=== PATIENT | male | born 1955 | race Caucasian/White ===

== ENCOUNTER 2019-03-29 11:35 | Inpatient (IN) | payer OTHER, MEDICARE ==
[2019-03-29 12:13] LABS: ABSOLUTE MONOCYTES (AUTO) 0.6 10^3/uL (0.1-1.4); ABSOLUTE NEUT (AUTO) 9.1 10^3/uL (1.7-8.2); BASOPHILS % (AUTO) 0.3 % (0-2); EOSINOPHILS % (AUTO) 0.2 % (0-6); HEMATOCRIT 43.4 % (37.9-51.0); HEMOGLOBIN 15.6 g/dL (13.5-17.0); LYMPHOCYTES % (AUTO) 9.4 % (13-45); MEAN CORPUSCULAR HEMOGLOBIN 36.7 pg (27.0-33.4); MEAN CORPUSCULAR HGB CONC 35.8 g/dL (32.0-36.0); MEAN CORPUSCULAR VOLUME 103 fl (80-97); MONOCYTES % (AUTO) 5.3 % (3-13); PLATELET COUNT 241 10^3/uL (150-450); RED BLOOD COUNT 4.24 10^6/uL (4.35-5.55); SEGMENTED NEUTROPHILS % (AUTO) 84.8 % (42-78); TOTAL CELLS COUNTED % (AUTO) 100 %; WHITE BLOOD COUNT 10.7 10^3/uL (4.0-10.5)
[2019-03-29 12:32] LABS: ALBUMIN 4.6 g/dL (3.5-5.0); ALKALINE PHOSPHATASE 102 U/L (38-126); ANION GAP 8 (5-19); ASPARTATE AMINO TRANSFERASE 56 U/L (17-59); BILIRUBIN,DIRECT 0.3 mg/dL (0.0-0.4); BILIRUBIN,TOTAL 0.9 mg/dL (0.2-1.3); BLOOD UREA NITROGEN 24 mg/dL (7-20); CARBON DIOXIDE 35 mmol/L (22-30); CHLORIDE 100 mmol/L (98-107); GLUCOSE 104 mg/dL (75-110); LITHIUM 0.5 mEq/L (0.6-1.2); POTASSIUM 3.4 mmol/L (3.6-5.0); TOTAL PROTEIN 7.8 g/dL (6.3-8.2)
[2019-03-29 12:33] LABS: ACETAMINOPHEN < 10 ug/mL (10-30); ALCOHOL < 10 mg/dL (NONE DETECTED); SALICYLATE < 1.0 mg/dL (2.0-20.0)
[2019-03-29 12:45] LABS: CALCIUM 18.6 mg/dL (8.4-10.2)
--- NOTE | 2019-03-29 12:51 | RADIOLOGY REPORT (SQ) ---
EXAM DESCRIPTION: CT CERVICAL SPINE WITHOUT COMPLETED DATE/TIME: 03/29/2019 12:42 pm REASON FOR STUDY: altered mental status COMPARISON: None. TECHNIQUE: Axial images acquired through the cervical spine without intravenous contrast. Images re viewed with lung, soft tissue and bone windows. Reconstructed coronal and sagittal MPR images review ed. Images stored on PACS. All CT scanners at this facility use dose modulation, iterative reconstruction, and/or weight based d osing when appropriate to reduce radiation dose to as low as reasonably achievable (ALARA). [facility]: Dose Right [facility]: CareDose [facility]: Dose Right [facility]: Teradose 4D [facility]: Smart Hub[employer] RADIATION DOSE: CT Rad equipment meets quality standard of care and radiation dose reduction techniq ues were employed. CTDIvol: 18.0 mGy. DLP: 374 mGy-cm. mGy. LIMITATIONS: None. FINDINGS: ALIGNMENT: Degenerative straightening of the normal cervical lordosis. MINERALIZATION: Normal. VERTEBRAL BODIES: No fractures or dislocation. DISCS: Moderate multilevel disc space height loss and osteophytosis. FACETS, LATERAL MASSES, POSTERIOR ELEMENTS: No fractures. No dislocation. No acute findings. HARDWARE: None in the spine. VISUALIZED RIBS: No fractures. LUNG APICES AND SOFT TISSUES: No significant or acute findings. OTHER: No other significant finding. IMPRESSION: No fracture or static subluxation of the cervical spine. Moderate multilevel disc space height loss and osteophytosis. TECHNICAL DOCUMENTATION: JOB ID: [id number] Quality ID # [id number]: Final reports with documentation of one or more dose reduction techniques (e.g., Au tomated exposure control, adjustment of the mA and/or kV according to patient size, use of iterative reconstruction technique) 2010 [employer]- All Rights Reserved Reading location - IP/workstation name: [email or web address]
--- NOTE | 2019-03-29 12:53 | RADIOLOGY REPORT (SQ) ---
EXAM DESCRIPTION: CT HEAD WITHOUT COMPLETED DATE/TIME: 03/29/2019 12:43 pm REASON FOR STUDY: altered mental status COMPARISON: None. TECHNIQUE: Axial images acquired through the brain without intravenous contrast. Images reviewed wi th bone, brain and subdural windows. Additional sagittal and coronal reconstructions were generated. Images stored on PACS. All CT scanners at this facility use dose modulation, iterative reconstruction, and/or weight based d osing when appropriate to reduce radiation dose to as low as reasonably achievable (ALARA). [facility]: Dose Right [facility]: CareDose [facility]: Dose Right [facility]: Teradose 4D [facility]: Smart [employer] RADIATION DOSE: CT Rad equipment meets quality standard of care and radiation dose reduction techniq ues were employed. CTDIvol: 53.2 mGy. DLP: 2247 mGy-cm. mGy. LIMITATIONS: None. FINDINGS: VENTRICLES: Normal size and contour. CEREBRUM: No masses. No hemorrhage. No midline shift. No evidence for acute infarction. Normal gra y/white matter differentiation. No areas of low density in the white matter. CEREBELLUM: No masses. No hemorrhage. No alteration of density. No evidence for acute infarction. EXTRAAXIAL SPACES: No fluid collections. No masses. ORBITS AND GLOBE: No intra- or extraconal masses. Normal contour of globe without masses. CALVARIUM: No fracture. PARANASAL SINUSES: No fluid or mucosal thickening. SOFT TISSUES: No mass or hematoma. OTHER: No other significant finding. IMPRESSION: No acute intracranial pathology. EVIDENCE OF ACUTE STROKE: NO. COMMENT: Quality ID # [id number]: Final reports with documentation of one or more dose reduction techniques (e.g., Automated exposure control, adjustment of the mA and/or kV according to patient size, use of iterative reconstruction technique) TECHNICAL DOCUMENTATION: JOB ID: [id number] [employer]- All Rights Reserved Reading location - IP/workstation name: [email or web address]
--- NOTE | 2019-03-29 14:29 | ER Document Report ---
Entered by LUISA MATTHEWS SCRIBE 03/29/19 1201 Acting as scribe for:SARAI SAXENA IV, MD ED General - General Chief Complaint: Altered Mental Status Stated Complaint: ALTERED MENTAL STATUS Time Seen by Provider: 03/29/19 11:49 Mode of Arrival: Medic Notes: This 63 year old male patient presents to the emergency department today via EMS for altered mental status. The neighbor of the patient found his windows and doors open and he went in to check on the patient and the patient was altered. Poison control states that the patient is on Seroquel and has three different dosages: 100mg, 200mg, 400mg and is on [place] 300mg and none of the medications are extended release. Poison control recommends EKG upon arrival, continuous cardiac monitoring, serial lithium levels Q3-4H, CMP, aspirin/tylenol levels. History is incredibly limited as the patient is unable to provide any meaningful history and no family is here with the patient. Past Medical History - General Information source: Emergency Med Personnel Cannot obtain history due to: Altered mental status - Social History Smoking Status: Unknown if Ever Smoked Family History: Reviewed & Not Pertinent Review of Systems - Review of Systems -: Yes ROS unobtainable due to patient's medical condition Physical Exam - Vital signs Vitals: Pulse Resp BP Pulse Ox 73 18 148/88 H 94 03/29/19 11:36 03/29/19 11:36 03/29/19 11:36 03/29/19 11:36 - General General appearance: Other - confused. does not answer any questions. does say "how are you?" when entering room and that is about the extent of his conversation In distress: None - HEENT Head: Normocephalic, Atraumatic Eyes: Normal Conjunctiva: Normal - Respiratory Respiratory status: No respiratory distress Chest status: Nontender Breath sounds: Normal - Cardiovascular Rhythm: Regular Heart sounds: Normal auscultation Murmur: No - Abdominal Inspection: Normal Distension: No distension Bowel sounds: Normal - Extremities General upper extremity: Normal inspection. No: Edema General lower extremity: Normal inspection. No: Edema - Neurological Cognition: Confused - Psychological Associated symptoms: Confused - Skin Skin Temperature: Warm Skin Moisture: Dry Skin Color: Normal Course - Vital Signs Vital signs: Temp Pulse Resp BP Pulse Ox 98.4 F 93 16 142/87 H 93 03/29/19 13:01 12/25/19 11:36 03/29/19 16:01 03/29/19 16:01 03/29/19 14:01 - Laboratory Result Diagrams: 03/29/19 12:05 03/29/19 12:05 Laboratory results interpreted by me: 03/29/19 03/29/19 03/29/19 12:05 12:05 13:50 WBC 10.7 H RBC 4.24 L MCV 103 H MCH 36.7 H Lymph % (Auto) 9.4 L Absolute Neuts (auto) 9.1 H Seg Neutrophils % 84.8 H Potassium 3.4 L Carbon Dioxide 35 H BUN 24 H Creatinine 2.19 H Est GFR ( Amer) 37 L Est GFR (MDRD) Non-Af 30 L Calcium 18.6 H* Ionized Calcium Bernard 2.14 H Urine Ketones Salicylates < 1.0 L Acetaminophen < 10 L [place] 0.5 L 03/29/19 16:18 WBC RBC MCV MCH Lymph % (Auto) Absolute Neuts (auto) Seg Neutrophils % Potassium Carbon Dioxide BUN Creatinine Est GFR ( Amer) Est GFR (MDRD) Non-Af Calcium Ionized Calcium Bernard Urine Ketones TRACE H Salicylates Acetaminophen [place] - Consults TACO DE JESUS Time consulted: 17:05 Reason for consultation: 03/29/19 17:05 ams, elevated calcium Discharge - Discharge Clinical Impression: Hypercalcemia, Acute kidney injury, Altered mental status Condition: Good Disposition: ADMITTED INPATIENT Admitting Provider: Bethany (Hospitalist) Unit Admitted: IMCU I personally performed the services described in the documentation, reviewed and edited the documentation which was dictated to the scribe in my presence, and it accurately records my words and actions.
[2019-03-29] MEDS ORDERED: NORMAL SALINE 1000 ML 1,000 ML IV ONE (15:29)
[2019-03-29 16:34] LABS: APPEARANCE,URINE CLEAR; BILIRUBIN,URINE NEGATIVE (NEGATIVE); COLOR,URINE YELLOW; GLUCOSE, URINE NEGATIVE (NEGATIVE); KETONES,URINE TRACE mg/dL (NEGATIVE); PROTEIN,URINE NEGATIVE (NEGATIVE); URINE SPECIFIC GRAVITY 1.011; UROBILINOGEN,URINE NEGATIVE mg/dL (<2.0)
[2019-03-29 16:52] LABS: URINE AMPHETAMINES SCREEN NEGATIVE; URINE BARBITURATES SCREEN NEGATIVE; URINE BENZODIAZEPINES SCREEN NEGATIVE; URINE COCAINE SCREEN NEGATIVE; URINE MARIJUANA (THC) SCREEN NEGATIVE; URINE METHADONE SCREEN NEGATIVE; URINE PHENCYCLIDINE SCREEN NEGATIVE
[2019-03-29] MEDS ORDERED: POTASSI CL 20 MEQ/50 ML RIDER 20 MEQ/50 ML RTUPB IV ONE ×2 (17:30→19:15)
--- NOTE | 2019-03-29 17:37 | PDOC H&P ---
<CHEKO GUZMAN R - Last Filed: 03/29/19 17:23> History of Present Illness Admission Date/PCP: 03/29/2019 Unknown primary care Patient complains of: Unable to assess patient altered mental status no family at bedside History of Present Illness: RUSTY STEVENS is a 63 year old male who presents emergency department via EMS for altered mental status. The patient's neighbor found patient with his windows and doors opening went into check on the patient patient was altered. Patient does take Seroquel and lithium for bipolar rhythm however levels are normal at this time. Patient was found to have a calcium level of 18 and an acute kidney injury. No other further information could be obtained at this time. No treatment prior to arrival no known aggravating factors. Past Medical History Past Medical History: Unable to assess secondary to his mental status Psychiatric Medical History: Reports: Bipolar Disorder Past Surgical History Past Surgical History: Unable to assess secondary to mental status Social History Smoking Status: Unknown if Ever Smoked Electronic Cigarette use?: No Past Social History Note: Unable to assess secondary to mental status - Advance Directive Resuscitation Status: Full Code Family History Family History: Other - Unable to assess secondary to mental status Parental Family History Reviewed: No - Unable to assess secondary mental status Children Family History Reviewed: No Sibling(s) Family History Reviewed.: No Review of Systems ROS unobtainable: Due to mental status Physical Exam Vital Signs: Temp Pulse Resp BP Pulse Ox 98.4 F 93 16 142/87 H 93 03/29/19 13:01 03/29/19 11:36 03/29/19 16:01 03/29/19 16:01 03/29/19 14:01 Intake & Output 03/28/19 03/29/19 03/30/19 06:59 06:59 06:59 Weight 71.8 kg General appearance: PRESENT: no acute distress, well-developed, well-nourished Head exam: PRESENT: atraumatic, normocephalic Eye exam: PRESENT: conjunctiva pink, EOMI, PERRLA. ABSENT: scleral icterus Ear exam: PRESENT: normal external ear exam Mouth exam: PRESENT: moist, tongue midline Neck exam: ABSENT: carotid bruit, JVD, lymphadenopathy, thyromegaly Respiratory exam: PRESENT: clear to auscultation yassine. ABSENT: rales, rhonchi, wheezes Cardiovascular exam: PRESENT: RRR. ABSENT: diastolic murmur, rubs, systolic mur mur Pulses: PRESENT: normal dorsalis pedis pul Vascular exam: PRESENT: normal capillary refill GI/Abdominal exam: PRESENT: normal bowel sounds, soft. ABSENT: distended, guarding, mass, organolmegaly, rebound, tenderness Rectal exam: PRESENT: deferred Extremities exam: PRESENT: full ROM. ABSENT: calf tenderness, clubbing, pedal edema Neurological exam: PRESENT: altered, other - Unable to assess secondary to mental status Psychiatric exam: PRESENT: other - Unable to assess secondary to mental status Skin exam: PRESENT: dry, intact, warm. ABSENT: cyanosis, rash Results Laboratory Results: 03/29/19 12:05 03/29/19 12:05 03/29/19 03/29/19 03/29/19 12:05 12:05 13:50 WBC 10.7 H RBC 4.24 L Hgb 15.6 Hct 43.4 MCV 103 H MCH 36.7 H MCHC 35.8 RDW 12.0 Plt Count 241 Seg Neutrophils % 84.8 H Sodium 142.8 Potassium 3.4 L Chloride 100 Carbon Dioxide 35 H Anion Gap 8 BUN 24 H Creatinine 2.19 H Est GFR ( Amer) 37 L Glucose 104 Calcium 18.6 H* Ionized Calcium Bernard 2.14 H Total Bilirubin 0.9 AST 56 Alkaline Phosphatase 102 Total Protein 7.8 Albumin 4.6 PTH Intact Urine Color Urine Appearance Urine pH Ur Specific [place] Urine Protein Urine Glucose (UA) Urine Ketones Urine Blood 03/29/19 03/29/19 13:50 16:18 WBC RBC Hgb Hct MCV MCH MCHC RDW Plt Count Seg Neutrophils % Sodium Potassium Chloride Carbon Dioxide Anion Gap BUN Creatinine Est GFR ( Amer) Glucose Calcium Ionized Calcium Bernard Total Bilirubin AST Alkaline Phosphatase Total Protein Albumin PTH Intact 23.2 Urine Color YELLOW Urine Appearance CLEAR Urine pH 6.0 Ur Specific [place] 1.011 Urine Protein NEGATIVE Urine Glucose (UA) NEGATIVE Urine Ketones TRACE H Urine Blood NEGATIVE Impressions: Cervical Spine CT 03/29/19 12:01 IMPRESSION: No fracture or static subluxation of the cervical spine. Moderate multilevel disc space height loss and osteophytosis. Head CT 03/29/19 12:01 IMPRESSION: No acute intracranial pathology. EVIDENCE OF ACUTE STROKE: NO. Assessment and Plan - Diagnosis (1) Hypercalcemia Is this a current diagnosis for this admission?: Yes Plan: 03/29/2019-calcium level 18.6 with an intact PTH of 23.2. I will obtain a PTH are, give patient calcitonin 300 mg IM twice daily. Patient does have an acute kidney injury with a creatinine of 2. I will hydrate him overnight recheck creatinine level in the a.m. if normalized I will obtain CT scan of the chest abdomen pelvis with contrast to rule out neoplasm. (2) Acute metabolic encephalopathy Is this a current diagnosis for this admission?: Yes Plan: 03/29/2019-unknown etiology at this time. Urine is clean. Awaiting chest x- ray. Most likely secondary to his hypercalcemia. Will hydrate overnight treat with calcitonin reassess in the a.m. I am obtaining lab work including vitamin B12, folic acid, TSH T4. Will wait further diagnostics. (3) Acute kidney injury Is this a current diagnosis for this admission?: Yes Plan: 03/29/2019-creatinine 2.19. No previous records. Hydrate overnight normal saline at 150 mL/h repeat BMP in the a.m. (4) Hypokalemia Is this a current diagnosis for this admission?: Yes Plan: 03/29/2019-potassium chloride riders 20 mEq x 1 repeat BMP in a.m. (5) Macrocytic anemia Is this a current diagnosis for this admission?: Yes Plan: 03/29/2019-unknown etiology. Will obtain vitamin B12, folic acid and methylmalonic acid. - Time Time Spent with patient: 35 or more minutes - Inpatient Certification Based on my medical assessment, after consideration of the patient's comorbidities, presenting symptoms, or acuity I expect that the services needed warrant INPATIENT care.: Yes I certify that my determination is in accordance with my understanding of Medicare's requirements for reasonable and necessary INPATIENT services [42 CFR 412.3e].: Yes Medical Necessity: Significant Comorbidiites Make Outpatient Treatment Too Risky, Need Close Monitoring Due to Risk of Patient Decompensation, Need For IV Fluids <SARAI SAXENA IV - Last Filed: 03/29/19 19:14> History of Present Illness History of Present Illness: RUSTY STEVENS is a 63 year old male Physical Exam Vital Signs: Temp Pulse Resp BP Pulse Ox 98.4 F 93 16 142/87 H 93 03/29/19 13:01 03/29/19 11:36 03/29/19 16:01 03/29/19 16:01 03/29/19 14:01 Intake & Output 03/28/19 03/29/19 03/30/19 06:59 06:59 06:59 Weight 71.8 kg Results Laboratory Results: 03/29/19 12:05 03/29/19 12:05 03/29/19 03/29/19 03/29/19 12:05 12:05 13:50 WBC 10.7 H RBC 4.24 L Hgb 15.6 Hct 43.4 MCV 103 H MCH 36.7 H MCHC 35.8 RDW 12.0 Plt Count 241 Seg Neutrophils % 84.8 H Sodium 142.8 Potassium 3.4 L Chloride 100 Carbon Dioxide 35 H Anion Gap 8 BUN 24 H Creatinine 2.19 H Est GFR ( Amer) 37 L Glucose 104 Calcium 18.6 H* Ionized Calcium Bernard 2.14 H Total Bilirubin 0.9 AST 56 Alkaline Phosphatase 102 Total Protein 7.8 Albumin 4.6 PTH Intact Urine Color Urine Appearance Urine pH Ur Specific [place] Urine Protein Urine Glucose (UA) Urine Ketones Urine Blood 03/29/19 03/29/19 13:50 16:18 WBC RBC Hgb Hct MCV MCH MCHC RDW Plt Count Seg Neutrophils % Sodium Potassium Chloride Carbon Dioxide Anion Gap BUN Creatinine Est GFR ( Amer) Glucose Calcium Ionized Calcium Bernard Total Bilirubin AST Alkaline Phosphatase Total Protein Albumin PTH Intact 23.2 Urine Color YELLOW Urine Appearance CLEAR Urine pH 6.0 Ur Specific [place] 1.011 Urine Protein NEGATIVE Urine Glucose (UA) NEGATIVE Urine Ketones TRACE H Urine Blood NEGATIVE Impressions: Chest X-Ray 03/29/19 00:00 IMPRESSION: Cardiomegaly without acute abnormality of the lungs in AP portable projection. Cervical Spine CT 03/29/19 12:01 IMPRESSION: No fracture or static subluxation of the cervical spine. Moderate multilevel disc space height loss and osteophytosis. Head CT 03/29/19 12:01
--- NOTE | 2019-03-29 17:51 | RADIOLOGY REPORT (SQ) ---
EXAM DESCRIPTION: CHEST SINGLE VIEW COMPLETED DATE/TIME: 03/29/2019 5:43 pm REASON FOR STUDY: hypercalemia COMPARISON: None. EXAM PARAMETERS: NUMBER OF VIEWS: One view. TECHNIQUE: Single frontal radiographic view of the chest acquired. RADIATION DOSE: NA LIMITATIONS: None. FINDINGS: LUNGS AND PLEURA: No opacities, masses or pneumothorax. No pleural effusion. MEDIASTINUM AND HILAR STRUCTURES: No masses. Contour normal. HEART AND VASCULAR STRUCTURES: Cardiomegaly. BONES: No acute findings. HARDWARE: None in the chest. OTHER: No other significant finding. IMPRESSION: Cardiomegaly without acute abnormality of the lungs in AP portable projection. TECHNICAL DOCUMENTATION: JOB ID: [id number] [employer]- All Rights Reserved Reading location - IP/workstation name: [email or web address]
[2019-03-29] MEDS ORDERED: CALCITONIN,SALMON,SYNTHETIC 400 UNIT/2 ML VIAL IM SCH (18:00)
--- NOTE | 2019-03-29 20:10 | EKG REPORT ---
SEVERITY:- ABNORMAL ECG - SINUS RHYTHM NONSPECIFIC INTRAVENTRICULAR CONDUCTION DELAY BORDERLINE R WAVE PROGRESSION, ANTERIOR LEADS : Confirmed by: Leah Melchor MD 29-Mar-2019 20:09:36
[2019-03-29 20:49] LABS: FREE T4 (FREE THYROXINE) 0.81 ng/dL (0.78-2.19)
[2019-03-29 21:03] LABS: THYROID STIMULATING HORMONE 2.64 uIU/mL (0.47-4.68)
[2019-03-29] MEDS: NORMAL SALINE 1000 ML 1,000 ML IV PRN (21:18)
[2019-03-29] MEDS ORDERED: CALCITONIN,SALMON,SYNTHETIC 400 UNIT/2 ML VIAL ONE (21:18)
[2019-03-29] MEDS: CALCITONIN,SALMON,SYNTHETIC 400 UNIT/2 ML VIAL IM SCH (21:25)
[2019-03-29 21:46] LABS: FOLATE > 20.00 ng/mL (>2.76)
[2019-03-29] MEDS: ONDANSETRON HCL INJ/PF 4 MG/2 ML SDV IV PRN (22:15)
[2019-03-29 22:58] LABS: BLOOD UREA NITROGEN 27 mg/dL (7-20); GLUCOSE 93 mg/dL (75-110)
[2019-03-29 22:59] LABS: ANION GAP 10 (5-19); CARBON DIOXIDE 28 mmol/L (22-30); CHLORIDE 104 mmol/L (98-107); LITHIUM 0.6 mEq/L (0.6-1.2); POTASSIUM 3.5 mmol/L (3.6-5.0)
[2019-03-29 23:15] LABS: CALCIUM 16.1 mg/dL (8.4-10.2)
[2019-03-30] MEDS: HEPARIN SOD (PORCINE) 5,000 UNIT/ML 1 ML VIAL SUBCUT SCH ×4 (00:40→22:51)
[2019-03-30] MEDS ORDERED: INFLUENZA QUAD (6MOS+) 2019-20 VAC 0.5 ML SYR IM ONE (03:05)
[2019-03-30] MEDS: HYDRALAZINE HCL INJ/PF 20 MG/1 ML SDV IV PRN (04:54)
[2019-03-30] MEDS: NORMAL SALINE 1000 ML 1,000 ML IV PRN ×2 (04:55→22:56)
[2019-03-30 06:09] LABS: HEMATOCRIT 39.8 % (37.9-51.0); MEAN CORPUSCULAR HEMOGLOBIN 36.1 pg (27.0-33.4); MEAN CORPUSCULAR HGB CONC 35.2 g/dL (32.0-36.0); MEAN CORPUSCULAR VOLUME 103 fl (80-97); PLATELET COUNT 223 10^3/uL (150-450); RED BLOOD COUNT 3.88 10^6/uL (4.35-5.55); RED CELL DISTRIBUTION WIDTH 11.9 % (11.5-14.0); WHITE BLOOD COUNT 12.4 10^3/uL (4.0-10.5)
[2019-03-30 06:28] LABS: ANION GAP 10 (5-19); BLOOD UREA NITROGEN 30 mg/dL (7-20); CARBON DIOXIDE 30 mmol/L (22-30); CHLORIDE 105 mmol/L (98-107); GLUCOSE 124 mg/dL (75-110); PHOSPHORUS 2.4 mg/dL (2.5-4.5); POTASSIUM 3.2 mmol/L (3.6-5.0)
--- NOTE | 2019-03-30 09:12 | PDOC PROGRESS REPORT ---
Subjective Progress Note for:: 03/30/19 Subjective:: 03/30/2019-patient remains confused no complaints by nursing at this time. Reason For Visit: HYPERCALCEMIA Physical Exam Vital Signs: Temp Pulse Resp BP Pulse Ox 97.5 F 91 16 140/72 H 96 03/30/19 08:17 03/30/19 08:17 03/30/19 08:17 03/30/19 08:17 03/30/19 08:17 Intake & Output 03/29/19 03/30/19 03/31/19 06:59 06:59 06:59 Intake Total 2049 Balance 2049 Weight 62.7 kg General appearance: PRESENT: no acute distress, well-developed, well-nourished Head exam: PRESENT: atraumatic, normocephalic Eye exam: PRESENT: conjunctiva pink, EOMI, PERRLA. ABSENT: scleral icterus Ear exam: PRESENT: normal external ear exam Mouth exam: PRESENT: moist, tongue midline Neck exam: ABSENT: carotid bruit, JVD, lymphadenopathy, thyromegaly Respiratory exam: PRESENT: clear to auscultation yassine. ABSENT: rales, rhonchi, wheezes Cardiovascular exam: PRESENT: RRR. ABSENT: diastolic murmur, rubs, systolic murmur Pulses: PRESENT: normal dorsalis pedis pul Vascular exam: PRESENT: normal capillary refill GI/Abdominal exam: PRESENT: normal bowel sounds, soft. ABSENT: distended, guarding, mass, organolmegaly, rebound, tenderness Rectal exam: PRESENT: deferred Extremities exam: PRESENT: full ROM. ABSENT: calf tenderness, clubbing, pedal edema Neurological exam: PRESENT: awake, other - Awake but remains confused at this time Psychiatric exam: PRESENT: other - Unable to assess as patient remains confused Skin exam: PRESENT: dry, intact, warm. ABSENT: cyanosis, rash Results Laboratory Results: 03/30/19 05:59 03/30/19 05:59 03/29/19 03/29/19 03/29/19 12:05 12:05 12:05 WBC 10.7 H RBC 4.24 L Hgb 15.6 Hct 43.4 MCV 103 H MCH 36.7 H MCHC 35.8 RDW 12.0 Plt Count 241 Seg Neutrophils % 84.8 H Sodium 142.8 Potassium 3.4 L Chloride 100 Carbon Dioxide 35 H Anion Gap 8 BUN 24 H Creatinine 2.19 H Est GFR ( Amer) 37 L Glucose 104 Calcium 18.6 H* Ionized Calcium Bernard Phosphorus Magnesium Total Bilirubin 0.9 AST 56 Alkaline Phosphatase 102 Total Protein 7.8 Albumin 4.6 Vitamin B12 908.0 Folate > 20.00 TSH Free T4 PTH Intact Urine Color Urine Appearance Urine pH Ur Specific [place] Urine Protein Urine Glucose (UA) Urine Ketones Urine Blood 03/29/19 03/29/19 03/29/19 12:05 13:50 13:50 WBC RBC Hgb Hct MCV MCH MCHC RDW Plt Count Seg Neutrophils % Sodium Potassium Chloride Carbon Dioxide Anion Gap BUN Creatinine Est GFR ( Amer) Glucose Calcium Ionized Calcium Bernard 2.14 H Phosphorus Magnesium Total Bilirubin AST Alkaline Phosphatase Total Protein Albumin Vitamin B12 Folate TSH 2.64 Free T4 0.81 PTH Intact 23.2 Urine Color Urine Appearance Urine pH Ur Specific [place] Urine Protein Urine Glucose (UA) Urine Ketones Urine Blood 03/29/19 03/29/19 03/30/19 16:18 22:05 05:59 WBC 12.4 H RBC 3.88 L Hgb 14.0 Hct 39.8 MCV 103 H MCH 36.1 H MCHC 35.2 RDW 11.9 Plt Count 223 Seg Neutrophils % Sodium 142.0 Potassium 3.5 L Chloride 104 Carbon Dioxide 28 Anion Gap 10 BUN 27 H Creatinine 1.91 H Est GFR ( Amer) 43 L Glucose 93 Calcium 16.1 H* Ionized Calcium Bernard Phosphorus Magnesium Total Bilirubin AST Alkaline Phosphatase Total Protein Albumin Vitamin B12 Folate TSH Free T4 PTH Intact Urine Color YELLOW Urine Appearance CLEAR Urine pH 6.0 Ur Specific [place] 1.011 Urine Protein NEGATIVE Urine Glucose (UA) NEGATIVE Urine Ketones TRACE H Urine Blood NEGATIVE 03/30/19 05:59 WBC RBC Hgb Hct MCV MCH MCHC RDW Plt Count Seg Neutrophils % Sodium 144.7 Potassium 3.2 L Chloride 105 Carbon Dioxide 30 Anion Gap 10 BUN 30 H Creatinine 2.15 H Est GFR ( Amer) 38 L Glucose 124 H Calcium 16.0 H* Ionized Calcium Bernard Phosphorus 2.4 L Magnesium 1.4 L Total Bilirubin AST Alkaline Phosphatase Total Protein Albumin Vitamin B12 Folate TSH Free T4 PTH Intact Urine Color Urine Appearance Urine pH Ur Specific [place] Urine Protein Urine Glucose (UA) Urine Ketones Urine Blood Impressions: Chest X-Ray 03/29/19 00:00 IMPRESSION: Cardiomegaly without acute abnormality of the lungs in AP portable projection. Cervical Spine CT 03/29/19 12:01 IMPRESSION: No fracture or static subluxation of the cervical spine. Moderate multilevel disc space height loss and osteophytosis. Head CT 03/29/19 12:01 IMPRESSION: No acute intracranial pathology. EVIDENCE OF ACUTE STROKE: NO. Assessment and Plan - Diagnosis (1) Hypercalcemia Is this a current diagnosis for this admission?: Yes Plan: 03/29/2019-calcium level 18.6 with an intact PTH of 23.2. I will obtain a PTH are, give patient calcitonin 300 mg IM twice daily. Patient does have an acute kidney injury with a creatinine of 2. I will hydrate him overnight recheck creatinine level in the a.m. if normalized I will obtain CT scan of the chest abdomen pelvis with contrast to rule out neoplasm. 02/08/2019-calcium down to 16.0 this morning. Awaiting PTH R. Patient remains on calcitonin 300 mg IM twice daily. I did discuss this case with Dr. Samreen wasserman at this time will get a serum protein electrophoresis, light chains, quantitative immunoglobulins and a skeletal bone survey. Once patient creatinine has improved I will get a CT chest abdomen and pelvis to rule out malignancy. (2) Acute metabolic encephalopathy Is this a current diagnosis for this admission?: Yes Plan: 03/29/2019-unknown etiology at this time. Urine is clean. Awaiting chest x- ray. Most likely secondary to his hypercalcemia. Will hydrate overnight treat with calcitonin reassess in the a.m. I am obtaining lab work including vitamin B12, folic acid, TSH T4. Will wait further diagnostics. 03/30/2019-remains confused. No known cause at this time other than his hypercalcemia. We will continue hydration and follow. I will obtain MRI of the brain without contrast at this time as well. (3) Acute kidney injury Is this a current diagnosis for this admission?: Yes Plan: 03/29/2019-creatinine 2.19. No previous records. Hydrate overnight normal saline at 150 mL/h repeat BMP in the a.m.. 03/30/2019-improved. Creatinine 2.15 at this time. Continue hydration hold any nephrotoxic medications follow. (4) Hypokalemia Is this a current diagnosis for this admission?: Yes Plan: 03/29/2019-potassium chloride riders 20 mEq x 1 repeat BMP in a.m. 03/30/2019-potassium riders 40 mill:'s at this time repeat BMP in a.m. (5) Macrocytic anemia Is this a current diagnosis for this admission?: Yes Plan: 03/29/2019-unknown etiology. Will obtain vitamin B12, folic acid and methylmalonic acid. 03/30/2019-awaiting laboratory diagnostics. (6) Hypomagnesemia Is this a current diagnosis for this admission?: Yes Plan: 03/30/2019-magnesium sulfate 2 g IV repeat mag in a.m. (7) Hypophosphatemia Is this a current diagnosis for this admission?: Yes Plan: 03/30/2019-potassium phosphate 30 mmol IV times 1 repeat phosphorus in the a.m. - Time Time Spent with patient: 15-24 minutes - Inpatient Certification Based on my medical assessment, after consideration of the patient's comorbiditi es, presenting symptoms, or acuity I expect that the services needed warrant INPATIENT care.: Yes I certify that my determination is in accordance with my understanding of [facility]'s requirements for reasonable and necessary INPATIENT services [42 CFR 412.3e].: Yes Medical Necessity: Significant Comorbidiites Make Outpatient Treatment Too Risky, Need Close Monitoring Due to Risk of Patient Decompensation, Need For IV Fluids, Need For Continuous Telemetry Monitoring
[2019-03-30] MEDS ORDERED: DANTROLENE SODIUM INJ 20 MG VIAL IV SCH (10:15)
[2019-03-30] MEDS ORDERED: POTASSIUM PHOS,M-BASIC-D-BASIC 30 MMOL in NORMAL SALINE 500 ML IV ONE (10:30)
[2019-03-30] MEDS: POTASSI CL 20 MEQ/50 ML RIDER 20 MEQ/50 ML RTUPB IV SCH ×2 (10:38→18:31)
[2019-03-30] MEDS ORDERED: DANTROLENE SODIUM IV PRN ×2 (11:17)
[2019-03-30] MEDS: MAGNESIUM SULFATE/D5W 1 GM/100 ML RTUPB IV SCH ×2 (13:28→17:09)
[2019-03-30] MEDS: CALCITONIN,SALMON,SYNTHETIC 400 UNIT/2 ML VIAL IM SCH ×3 (14:44→22:52)
[2019-03-30] MEDS ORDERED: POTASSI CL 20 MEQ/50 ML RIDER 20 MEQ/50 ML RTUPB IV ONE (18:18)
[2019-03-31] MEDS: ONDANSETRON HCL INJ/PF 4 MG/2 ML SDV IV PRN (03:25)
[2019-03-31] MEDS: HEPARIN SOD (PORCINE) 5,000 UNIT/ML 1 ML VIAL SUBCUT SCH ×3 (06:13→21:02)
[2019-03-31 06:38] LABS: HEMATOCRIT 40.1 % (37.9-51.0); HEMOGLOBIN 13.9 g/dL (13.5-17.0); MEAN CORPUSCULAR HEMOGLOBIN 36.2 pg (27.0-33.4); MEAN CORPUSCULAR HGB CONC 34.6 g/dL (32.0-36.0); MEAN CORPUSCULAR VOLUME 105 fl (80-97); PLATELET COUNT 203 10^3/uL (150-450); RED BLOOD COUNT 3.83 10^6/uL (4.35-5.55); RED CELL DISTRIBUTION WIDTH 12.1 % (11.5-14.0); WHITE BLOOD COUNT 15.6 10^3/uL (4.0-10.5)
[2019-03-31 07:09] LABS: ANION GAP 11 (5-19); BLOOD UREA NITROGEN 40 mg/dL (7-20); CARBON DIOXIDE 26 mmol/L (22-30); CHLORIDE 111 mmol/L (98-107); GLUCOSE 117 mg/dL (75-110); POTASSIUM 3.9 mmol/L (3.6-5.0)
[2019-03-31 07:22] LABS: CALCIUM 13.9 mg/dL (8.4-10.2)
--- NOTE | 2019-03-31 08:21 | PDOC CONSULTATION ---
Consultation Consult Date: 03/31/19 Attending physician:: DUC OLIVA Provider Consulted: ANDRES JUDGE Consult reason:: Hypercalcemia concerning for malignancy History of Present Illness Admission Date/PCP: 03/29/19 19:48 Patient complains of: Confusion History of Present Illness: RUSTY STEVENS is a 63 year old male who presented with about 24 hours of worsening confusion. He was found on by his family and was compl etely altered. 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 Apparently he had not checked on him in 24 hours and his brothers were alerted, they checked on him and found him very confused at home with all the windows and doors open. Apparently 24 hours prior to that he seemed lucid and with it. His daughter spoke to him about a week before admission and did not note any changes. He has had longstanding low back pain as well as knee pain. But his daughter notes that he is pretty stoic and does not really complain too much to her. [facility]. She does not express that he had had any extreme weight loss recently. Upon admission his calcium level was 15, and he was in acute renal failure. He has been given aggressive hydration but the calcium level has not really come down, today we are giving bisphosphonate therapy to him. Of note, he does have known bipolar disorder, is on medication for this longstanding, but his daughter notes that it is been well controlled for years and he has not had any issues with that including jen for several years. Past Medical History Psychiatric Medical History: Reports: Bipolar Disorder Denies: Depression Past Surgical History Past Surgical History: Reports: None Social History Information Source: Relative Smoking Status: Current Every Day Smoker Cigarettes Packs Per Day: 1 Electronic Cigarette use?: No Number of Years Smokin Frequency of Alcohol Use: Heavy Drugs: None - Advance Directive Resuscitation Status: Full Code Family History Family History: Reviewed & Not Pertinent Parental Family History Reviewed: Yes Children Family History Reviewed: Yes Sibling(s) Family History Reviewed.: Yes Medication/Allergy Home Medications: [place] Carbonate 300 mg PO QHS 03/30/19 Quetiapine Fumarate [Seroquel] 200 mg PO QAM 03/30/19 Quetiapine Fumarate [Seroquel] 400 mg PO QHS 03/30/19 Ranitidine HCl 150 mg PO DAILY 03/30/19 Allergies/Adverse Reactions: No Known Allergies Allergy (Unverified 03/29/19 22:50) Review of Systems ROS unobtainable: Due to mental status Physical Exam Vital Signs: Temp Pulse Resp BP Pulse Ox 97.3 F 75 18 158/95 H 100 03/31/19 07:15 03/31/19 07:15 03/31/19 07:15 03/31/19 07:15 03/31/19 07:15 Intake & Output 03/30/19 03/31/19 04/01/19 06:59 06:59 06:59 Intake Total 2049 115 Output Total 0 Balance 2049 115 Weight 62.7 kg 66.8 kg General appearance: PRESENT: mild distress Head exam: PRESENT: atraumatic Mouth exam: PRESENT: dry mucosa Respiratory exam: PRESENT: clear to auscultation yassine. ABSENT: rales, rhonchi, wheezes Cardiovascular exam: PRESENT: RRR. ABSENT: diastolic murmur, rubs, systolic murmur GI/Abdominal exam: PRESENT: normal bowel sounds, soft. ABSENT: distended, guarding, mass, organolmegaly, rebound, tenderness Rectal exam: PRESENT: deferred Neurological exam: PRESENT: altered Psychiatric exam: PRESENT: agitated Results Laboratory Results: 03/31/19 05:56 03/31/19 05:56 03/31/19 03/31/19 05:56 05:56 WBC 15.6 H RBC 3.83 L Hgb 13.9 Hct 40.1 MCV 105 H MCH 36.2 H MCHC 34.6 RDW 12.1 Plt Count 203 Sodium 148.3 H Potassium 3.9 Chloride 111 H Carbon Dioxide 26 Anion Gap 11 BUN 40 H Creatinine 2.42 H Est GFR ( Amer) 33 L Glucose 117 H Calcium 13.9 H* Impressions: Chest X-Ray 03/29/19 00:00 IMPRESSION: Cardiomegaly without acute abnormality of the lungs in AP portable projection. Cervical Spine CT 03/29/19 12:01 IMPRESSION: No fracture or static subluxation of the cervical spine. Moderate multilevel disc space height loss and osteophytosis. Head CT 03/29/19 12:01 IMPRESSION: No acute intracranial pathology. EVIDENCE OF ACUTE STROKE: NO. Assessment & Plan - Diagnosis (1) Hypercalcemia Is this a current diagnosis for this admission?: Yes Plan: Unsure of cause, we have myeloma work-up pending, I gave recommendations to the hospitalist team to consider noncontrast CT of the chest and abdomen pelvis. At least if we see a large mass with bone involvement on a noncontrasted image we have a reason for the hypercalcemia. It will take 4 to 5 days for the myeloma work-up to come back. Give Zometa today. Continue with aggressive hydration. (2) Altered mental status Qualifiers: Altered mental status type: delirium Qualified Code(s): R41.0 - Disorientation, unspecified Is this a current diagnosis for this admission?: Yes Plan: I believe this is probably acute delirium caused by hypercalcemia, until we get the calcium levels below 10, we will not be able to tell for sure. - Time Time Spent: Greater than 70 Minutes - Inpatient Certification Based on my medical assessment, after consideration of the patient's comorbidities, presenting symptoms, or acuity I expect that the services needed warrant INPATIENT care.: Yes I certify that my determination is in accordance with my understanding of Medicare's requirements for reasonable and necessary INPATIENT services [42 CFR 412.3e].: Yes Medical Necessity: Need for Neurological Checks, Risk of Complication if Not Cared For in Hospital
--- NOTE | 2019-03-31 09:43 | PDOC TRANSFER SUMMARY ---
General Admission Date/PCP: 03/29/19 19:48 Admission Date: 03/29/19 Accepting Facility: [facility] Resuscitation Status: Full Code - Transfer Diagnosis (1) Hypercalcemia Is this a current diagnosis for this admission?: Yes (2) Acute metabolic encephalopathy Is this a current diagnosis for this admission?: Yes (3) Acute kidney injury Is this a current diagnosis for this admission?: Yes (4) Hypokalemia Is this a current diagnosis for this admission?: Yes (5) Macrocytic anemia Is this a current diagnosis for this admission?: Yes (6) Hypomagnesemia Is this a current diagnosis for this admission?: Yes (7) Hypophosphatemia Is this a current diagnosis for this admission?: Yes - Transfer Medications Transfer Medications: Current Medications Calcitonin (Miacalcin Inj 200 Unit/1 Ml 2 Ml Vial) 300 unit IM Q12 [facility] Stop: 04/29/19 14:29 Last Admin: 03/30/19 22:52 Dose: 2 ml Documented by: Heparin Sodium (Porcine) (Heparin Inj 5,000 Units/Ml 1 Ml Vial) 5,000 unit SUBCUT Q8 [facility] Stop: 04/28/19 21:59 Last Admin: 03/31/19 06:13 Dose: 5,000 unit Documented by: Hydralazine HCl (Apresoline Inj/Pf 20 Mg/1 Ml Sdv) 10 mg IV Q4HP PRN PRN Reason: Give For Sbp > [160] Stop: 04/28/19 17:19 Last Admin: 03/30/19 04:54 Dose: 10 mg Documented by: Sodium Chloride (Nacl 0.9% 1000 Ml Iv Soln) 1,000 mls @ 150 mls/hr IV CONTINUOUS PRN PRN Reason: THIS MED IS NOT "PRN" Stop: 04/28/19 17:11 Last Admin: 03/30/19 22:56 Dose: 150 mls/hr Documented by: Ondansetron HCl (Zofran Inj/Pf 4 Mg/2 Ml Sdv) 4 mg IV Q8HP PRN PRN Reason: FOR NAUSEA/VOMITING Stop: 04/28/19 17:11 Last Admin: 03/31/19 03:25 Dose: 4 mg Documented by: Sodium Chloride (Saline Flush 2.5 Ml Monoject Prefil Syrin) 2.5 ml IV Q8 [facility] Stop: 04/28/19 21:59 Last Admin: 03/31/19 06:13 Dose: 2.5 ml Documented by: Zoledronic Acid (Zometa Rtu 4 Mg/100 Ml Infus..Btl) 4 mg IV ONCE [facility] Stop: 04/01/19 09:44 - Allergies Allergies/Adverse Reactions: No Known Allergies Allergy (Unverified 03/29/19 22:50) - Diet/Activity Discharge Diet: As Tolerated Physical Exam Vital Signs: Temp Pulse Resp BP Pulse Ox 97.3 F 75 18 158/95 H 100 03/31/19 07:15 03/31/19 07:15 03/31/19 07:15 03/31/19 07:15 03/31/19 07:15 Intake & Output 03/30/19 03/31/19 04/01/19 06:59 06:59 06:59 Intake Total 2049 115 Output Total 0 Balance 2049 115 Weight 62.7 kg 66.8 kg General appearance: PRESENT: no acute distress, well-developed, well-nourished Respiratory exam: PRESENT: clear to auscultation yassine. ABSENT: rales, rhonchi, wheezes Cardiovascular exam: PRESENT: RRR. ABSENT: diastolic murmur, rubs, systolic murmur Pulses: PRESENT: +1 pedal pulses bilateral Vascular exam: PRESENT: normal capillary refill GI/Abdominal exam: PRESENT: normal bowel sounds, soft. ABSENT: distended, guard ing, mass, organolmegaly, rebound, tenderness Extremities exam: PRESENT: full ROM. ABSENT: calf tenderness, clubbing, pedal edema Neurological exam: PRESENT: other - Remains confused however awake Psychiatric exam: PRESENT: agitated, other - Able to assess secondary to mental status Skin exam: PRESENT: dry, intact, warm. ABSENT: cyanosis, rash Results Laboratory Results: 03/31/19 05:56 03/31/19 05:56 03/31/19 03/31/19 05:56 05:56 WBC 15.6 H RBC 3.83 L Hgb 13.9 Hct 40.1 MCV 105 H MCH 36.2 H MCHC 34.6 RDW 12.1 Plt Count 203 Sodium 148.3 H Potassium 3.9 Chloride 111 H Carbon Dioxide 26 Anion Gap 11 BUN 40 H Creatinine 2.42 H Est GFR ( Amer) 33 L Glucose 117 H Calcium 13.9 H* Impressions: Chest X-Ray 03/29/19 00:00 IMPRESSION: Cardiomegaly without acute abnormality of the lungs in AP portable projection. Cervical Spine CT 03/29/19 12:01 IMPRESSION: No fracture or static subluxation of the cervical spine. Moderate multilevel disc space height loss and osteophytosis. Head CT 03/29/19 12:01 IMPRESSION: No acute intracranial pathology. EVIDENCE OF ACUTE STROKE: NO. Plan Time Spent: Greater than 30 Minutes
[2019-03-31] MEDS ORDERED: ZOLEDRONIC ACID 4 MG/100 ML RTU IV SCH (09:45)
[2019-03-31] MEDS: CALCITONIN,SALMON,SYNTHETIC 400 UNIT/2 ML VIAL IM SCH ×2 (10:26→21:03)
[2019-03-31] MEDS ORDERED: ZOLEDRONIC ACID 4 MG/100 ML RTU IV ONE (11:30)
[2019-03-31] MEDS: LORAZEPAM INJ 2 MG/1 ML VIAL IV PRN ×2 (12:01→21:07)
[2019-03-31 15:36] LABS: FREE KAPPA LIGHT CHAINS 19.4 mg/L (3.3-19.4); FREE LAMBDA LIGHT CHAINS 18.1 mg/L (5.7-26.3)
[2019-03-31] MEDS: NORMAL SALINE 1000 ML 1,000 ML IV PRN (22:57)
[2019-04-01] MEDS: NORMAL SALINE 1000 ML 1,000 ML IV PRN ×3 (02:00→16:11)
[2019-04-01] MEDS: LORAZEPAM INJ 2 MG/1 ML VIAL IV PRN ×4 (04:33→18:12)
[2019-04-01] MEDS: HEPARIN SOD (PORCINE) 5,000 UNIT/ML 1 ML VIAL SUBCUT SCH ×3 (06:28→21:37)
[2019-04-01 07:24] LABS: HEMATOCRIT 39.2 % (37.9-51.0); HEMOGLOBIN 13.6 g/dL (13.5-17.0); MEAN CORPUSCULAR HEMOGLOBIN 36.3 pg (27.0-33.4); MEAN CORPUSCULAR HGB CONC 34.8 g/dL (32.0-36.0); MEAN CORPUSCULAR VOLUME 104 fl (80-97); PLATELET COUNT 171 10^3/uL (150-450); RED BLOOD COUNT 3.76 10^6/uL (4.35-5.55); WHITE BLOOD COUNT 14.4 10^3/uL (4.0-10.5)
[2019-04-01 07:47] LABS: ANION GAP 10 (5-19); BLOOD UREA NITROGEN 48 mg/dL (7-20); CARBON DIOXIDE 23 mmol/L (22-30); CHLORIDE 121 mmol/L (98-107); GLUCOSE 99 mg/dL (75-110)
[2019-04-01 07:58] LABS: CALCIUM 12.8 mg/dL (8.4-10.2)
[2019-04-01 07:59] LABS: POTASSIUM 2.9 mmol/L (3.6-5.0)
--- NOTE | 2019-04-01 08:54 | Progress Note ---
Provider Note Provider Note: 04/01/2019-patient accepted to [facility] yesterday attending Dr. Mcneal. Awaiting bed at this time. Patient with hypokalemia this morning 2.9. Will give 60 mEq IV KCl riders. Patient daughter also revealed this morning the patient is a daily drinker. We will given Ativan 2 mg IV every 2 hours as ne eded anxiety and rally bags daily.
[2019-04-01] MEDS: HYDRALAZINE HCL INJ/PF 20 MG/1 ML SDV IV PRN (09:26)
[2019-04-01] MEDS: CALCITONIN,SALMON,SYNTHETIC 400 UNIT/2 ML VIAL IM SCH ×2 (09:26→21:37)
[2019-04-01] MEDS: POTASSI CL 20 MEQ/50 ML RIDER 20 MEQ/50 ML RTUPB IV SCH ×3 (09:27→13:25)
[2019-04-01] MEDS ORDERED: LORAZEPAM INJ 2 MG/1 ML VIAL IV ONE (09:30)
[2019-04-01] MEDS ORDERED: SUCCINYLCHOLINE CHLORIDE INJ 200 MG/10 ML VIAL ONE ×2 (09:35→15:24)
[2019-04-01] MEDS: METOPROLOL TARTRATE PF/INJ 5 MG/5 ML SDV IV PRN ×2 (10:42→19:11)
--- NOTE | 2019-04-01 14:11 | PDOC PROGRESS REPORT ---
Subjective Progress Note for:: 04/01/19 Subjective:: Patient still very confused, mental status is not improved, Zometa was given yesterday. Patient has been accepted by [facility] and I just heard that a bed was available probably today. He will be transferred today. Reason For Visit: HYPERCALCEMIA Physical Exam Vital Signs: Temp Pulse Resp BP Pulse Ox 99.5 F 112 H 17 153/85 H 95 04/01/19 12:27 04/01/19 12:27 04/01/19 12:27 04/01/19 12:27 04/01/19 12:27 Intake & Output 03/31/19 04/01/19 04/02/19 06:59 06:59 06:59 Intake Total 1150 1999 1033 Output Total 0 Balance 1150 1999 103 Weight 66.8 kg 67.2 kg General appearance: PRESENT: no acute distress, well-developed, well-nourished Head exam: PRESENT: atraumatic, normocephalic Eye exam: PRESENT: conjunctiva pink, EOMI, PERRLA. ABSENT: scleral icterus Ear exam: PRESENT: normal external ear exam Mouth exam: PRESENT: moist, tongue midline Neck exam: ABSENT: carotid bruit, JVD, lymphadenopathy, thyromegaly Respiratory exam: PRESENT: clear to auscultation yassine. ABSENT: rales, rhonchi, wheezes Cardiovascular exam: PRESENT: RRR. ABSENT: diastolic murmur, rubs, systolic murmur Pulses: PRESENT: normal dorsalis pedis pul Vascular exam: PRESENT: normal capillary refill GI/Abdominal exam: PRESENT: normal bowel sounds, soft. ABSENT: distended, guarding, mass, organolmegaly, rebound, tenderness Rectal exam: PRESENT: deferred Extremities exam: PRESENT: full ROM. ABSENT: calf tenderness, clubbing, pedal edema Neurological exam: PRESENT: alert, awake, oriented to person, oriented to place, oriented to time, oriented to situation, CN II-XII grossly intact. ABSENT: motor sensory deficit Psychiatric exam: PRESENT: appropriate affect, normal mood. ABSENT: homicidal ideation, suicidal ideation Skin exam: PRESENT: dry, intact, warm. ABSENT: cyanosis, rash Results Laboratory Results: 04/01/19 06:54 04/01/19 06:54 04/01/19 04/01/19 06:54 06:54 WBC 14.4 H RBC 3.76 L Hgb 13.6 Hct 39.2 MCV 104 H MCH 36.3 H MCHC 34.8 RDW 12.0 Plt Count 171 Sodium 153.8 H Potassium 2.9 L* Chloride 121 H Carbon Dioxide 23 Anion Gap 10 BUN 48 H Creatinine 2.57 H Est GFR ( Amer) 31 L Glucose 99 Calcium 12.8 H* 03/31/19 05:56 Creatine Kinase 310 H Impressions: Chest X-Ray 03/29/19 00:00 IMPRESSION: Cardiomegaly without acute abnormality of the lungs in AP portable projection. Cervical Spine CT 03/29/19 12:01 IMPRESSION: No fracture or static subluxation of the cervical spine. Moderate multilevel disc space height loss and osteophytosis. Head CT 03/29/19 12:01 IMPRESSION: No acute intracranial pathology. EVIDENCE OF ACUTE STROKE: NO. Assessment & Plan - Diagnosis (1) Hypercalcemia Is this a current diagnosis for this admission?: Yes Plan: Still unknown cause, awaiting myeloma work-up, I gave my card to the daughter in case oncology gets involved at [facility] and they need to talk to me. (2) Altered mental status Qualifiers: Altered mental status type: delirium Qualified Code(s): R41.0 - Dis orientation, unspecified Is this a current diagnosis for this admission?: Yes Plan: Still believe it is delirium related to the hypercalcemia, once the calcium levels are under 10 I believe it should improve but he would benefit from brain imaging as well as other staging studies. - Time Time Spent with patient: 35 or more minutes
[2019-04-01 14:20] LABS: KAPPA LAMBDA RATIO 1.07 (0.26-1.65)
[2019-04-01] MEDS ORDERED: MIDAZOLAM 2 MG/2 ML INJ ONE ×3 (14:39→14:43)
[2019-04-01] MEDS ORDERED: PROPOFOL 1,000 MG/100 ML INFUS..BTL IV ONE (14:57)
[2019-04-01 15:02] LABS: ABSOLUTE BASOPHILS # (AUTO) 0.1 10^3/uL (0.0-0.2); EOSINOPHILS % (AUTO) 0.1 % (0-6); RED CELL DISTRIBUTION WIDTH 12.1 % (11.5-14.0); TOTAL CELLS COUNTED % (AUTO) 100 %
[2019-04-01 15:10] LABS: ABSOLUTE LYMPHOCYTES (AUTO) 0.9 10^3/uL (0.5-4.7); ABSOLUTE MONOCYTES (AUTO) 0.8 10^3/uL (0.1-1.4); ABSOLUTE NEUT (AUTO) 13.2 10^3/uL (1.7-8.2); BASOPHILS % (AUTO) 0.3 % (0-2); HEMATOCRIT 40.1 % (37.9-51.0); HEMOGLOBIN 13.8 g/dL (13.5-17.0); LYMPHOCYTES % (AUTO) 5.7 % (13-45); MEAN CORPUSCULAR HEMOGLOBIN 36.1 pg (27.0-33.4); MEAN CORPUSCULAR HGB CONC 34.5 g/dL (32.0-36.0); MEAN CORPUSCULAR VOLUME 105 fl (80-97); MONOCYTES % (AUTO) 5.5 % (3-13); PLATELET COUNT 187 10^3/uL (150-450); RED BLOOD COUNT 3.83 10^6/uL (4.35-5.55); SEGMENTED NEUTROPHILS % (AUTO) 88.4 % (42-78); WHITE BLOOD COUNT 14.9 10^3/uL (4.0-10.5)
[2019-04-01 15:11] LABS: INTERNATIONAL RATION (INR) 1.11; PROTHROMBIN TIME 14.3 SEC (11.4-15.4)
[2019-04-01 15:12] LABS: PARTIAL THROMBOPLASTIN TIME 28.1 SEC (23.5-35.8)
[2019-04-01 15:24] LABS: ALBUMIN 3.1 g/dL (3.5-5.0); ALKALINE PHOSPHATASE 77 U/L (38-126); ANION GAP 7 (5-19); ASPARTATE AMINO TRANSFERASE 32 U/L (17-59); BILIRUBIN,DIRECT 0.4 mg/dL (0.0-0.4); BILIRUBIN,TOTAL 0.8 mg/dL (0.2-1.3); BLOOD UREA NITROGEN 50 mg/dL (7-20); CALCIUM 11.9 mg/dL (8.4-10.2); CARBON DIOXIDE 23 mmol/L (22-30); CHLORIDE 127 mmol/L (98-107); GLUCOSE 100 mg/dL (75-110); POTASSIUM 3.3 mmol/L (3.6-5.0)
--- NOTE | 2019-04-01 15:25 | Progress Note ---
Provider Note Provider Note: Critical Care Attending Note. Responded to code blue. YOKER Woo Flores was at the head of the bed intubating the pt. Intubation was unsucessful and pt aspirated during the attempt. I took over airway management and transferred the pt to the ICU and intubated the pt.
--- NOTE | 2019-04-01 15:36 | Progress Note ---
Provider Note Provider Note: Procedure: endotracheal intubation Indication: respiratory arrest Technique: Pt was pre-oxygenated via BVM. Pt was medicated with Etomidate 20 mg and succinylcholine 100 mg. Pt was intubated with a size 7.5 ET tube using a Glidescope. Tube placement was confirmed with good color change on the ETCO2 detector. Pt tolerated the procedure well. CXR pending.
--- NOTE | 2019-04-01 15:38 | Operative Report ---
Bedside Procedure - History of Present Illness Indication for Procedure: respiratory arrest, need for IV access Provider: MINNIE TAPIA - Central Line Left Internal jugular Time completed: 15:15 Consent obtained: Yes Central line pre-insertion: Sterile PPE donned, Chloraprep applied, Sterile drapes applied Central line lumen type: Triple Ultrasound guided: Yes Line secured with sutures: Yes Central line post-insertion: Blood return from lumens, Biopatch applied, Sutured, Sterile dressing applied, Position confirmed w/ CXR Number of attempts: 1 Complications: No
[2019-04-01] MEDS ORDERED: ETOMIDATE INJ/PF 20 MG/10 ML SDV IV ONE (16:06)
--- NOTE | 2019-04-01 16:40 | RADIOLOGY REPORT (SQ) ---
EXAM DESCRIPTION: CHEST SINGLE VIEW COMPLETED DATE/TIME: 04/01/2019 4:24 pm REASON FOR STUDY: code COMPARISON: Chest radiographs 03/29/2019 EXAM PARAMETERS: NUMBER OF VIEWS: One view. TECHNIQUE: Single frontal radiographic view of the chest acquired. RADIATION DOSE: NA LIMITATIONS: None. FINDINGS: LUNGS AND PLEURA: No opacities, masses or pneumothorax. Mildly increased conspicuity of t he right minor fissure. MEDIASTINUM AND HILAR STRUCTURES: No masses. Contour normal. HEART AND VASCULAR STRUCTURES: Heart normal in size. Normal vasculature. BONES: No acute findings. HARDWARE: Left internal jugular central venous catheter with the tip projecting over the lower superi or vena cava. Enteric tube demonstrating a subdiaphragmatic course terminating over the left upper a bdomen, over the expected region of the stomach. Enteric tube tip terminating 4.5 cm above the melanie a. OTHER: No other significant finding. IMPRESSION: Lines and tubes as above. Mildly increased conspicuity of the right minor fissure, which may represent a small amount of intraf issural pleural fluid. Otherwise, no acute pulmonary findings. TECHNICAL DOCUMENTATION: JOB ID: [id number]- All Rights Reserved Reading location - IP/workstation name: [email or web address]
[2019-04-01] MEDS ORDERED: VANCOMYCIN HCL 0 MG in DEXTROSE 5%-WATER 250 ML IV NR (16:45)
[2019-04-01 17:03] LABS: ARTERIAL BLOOD BASE EXCESS -1.5 mmol/L; ARTERIAL BLOOD FIO2 100%; ARTERIAL BLOOD H2CO3 1.05 mmol/L (1.05-1.35); ARTERIAL BLOOD HCO3 22.3 mmol/L (20-24); ARTERIAL BLOOD O2 SATURATION 99.8 % (94-98); ARTERIAL BLOOD PCO2 34.9 mmHg (35-45); ARTERIAL BLOOD PH 7.42 (7.35-7.45); ARTERIAL BLOOD PO2 407.6 mmHg (80-100); ARTERIAL BLOOD TOTAL CO2 23.4 mmol/L (23-27)
--- NOTE | 2019-04-01 17:06 | Progress Note ---
Provider Note Provider Note: 03/24/2019-called to patient bedside by nurse as patient would become tachycardic tachypneic and having periods of apnea. Upon entering room Sherita day and myself and patient to be having periods of apnea along with nystagmus possible Bilski and pupillary changes. After 30 seconds in room patient started experiencing long periods of apnea and was very hot to the touch. At that time a code was called to rapidly intubate patient for airway patent and safety. Throughout this time patient was bagged his blood pressure, respiratory rate and O2 sats remained good. Patient was given 5 mg of IV Versed and 10 mg of IV rocuronium for intubation. I attempted a #7 ET tube using 3 oh curved blade. Patient was still moving somewhat and unfortunately ET tube placed in the esophagus. Patient was graciously treated by Dr. Lydia Cooper who took the patient to the ICU and was able to intubate patient with the use of a glide scope. Patient with plan of care was transferred to Dr. Cooper at that time. I spent a total of 45 minutes critical care time constantly monitoring patient's blood pressure, respiratory rate, heart rate, O2 sats. As well as administer medications and trying to stabilize patient.
--- NOTE | 2019-04-01 17:13 | CRITICAL CARE ADMISSION REPORT ---
HPI Date:: 04/01/19 - Critical Care Attending Note Time:: 16:59 Reason for ICU Reason:: acute respiratory failure HPI: Pt is a 63 yo man with h/o bipolar disorder who was admitted to the Hospitalist service on 03/29 for altered mental status due to hypercalemia. Pt was also in MARYAN. Oncology was consulted and pt was being treated for his hypercalcemi with IVF, calcitonin and zometa. Also of note, pt was also hypernatremic with a sodium of 157 today which was an increase from 142 on admission. A code blue was called today for unresponsiveness. ZOYA Flores attempted to intubate the pt and the pt aspirated. The pt was transferred to the ICU and I intubated the pt. Pt r emains unresponsive. Past Medical History Psychiatric Medical History: Reports: Bipolar Disorder Denies: Depression Past Surgical History Past Surgical History: Reports: None Social/Family History - Social History Smoking Status: Current Every Day Smoker Cigarettes Packs Per Day: 1 Number of Years Smokin Frequency of Alcohol Use: Heavy Drugs: None - Medication/Allergies Home Medications: Cholecalciferol (Vitamin D3) [Vitamin D3 1000 Unit Tablet] 2,000 unit PO DAILY 03/31/19 Diclofenac Sodium 4 gm TP ASDIR PRN 03/31/19 [place] Carbonate 300 mg PO QHS 03/31/19 Quetiapine Fumarate [Seroquel] 400 mg PO QHS 03/31/19 Allergies/Adverse Reactions: No Known Allergies Allergy (Verified 04/01/19 04:13) Review of Systems ROS unobtainable: Due to endotracheal tube Physical Exam Vital Signs: Temp Pulse Resp BP Pulse Ox 99.5 F 112 H 18 137/87 H 100 04/01/19 12:27 04/01/19 12:27 04/01/19 16:11 04/01/19 16:11 04/01/19 16:11 Intake & Output 03/31/19 04/01/19 04/02/19 06:59 06:59 06:59 Intake Total 1150 1999 2093 Output Total 0 900 Balance 1150 1999 119 Weight 66.8 kg 67.2 kg Weight/Height Weight 67.2 kg Height 5 ft 6 in General appearance: PRESENT: no acute distress, well-developed, well-nourished, other - intubated, unresponsive Head exam: PRESENT: atraumatic, normocephalic Respiratory exam: PRESENT: clear to auscultation yassine, unlabored Cardiovascular exam: PRESENT: RRR GI/Abdominal exam: PRESENT: soft, other - NTND, no rebound, no guarding Gentrourinary exam: PRESENT: indwelling catheter Extremities exam: PRESENT: other - no edema Musculoskeletal exam: PRESENT: normal inspection Neurological exam: PRESENT: other - comatose, PERRL, bilateral babinski signs Laboratory/Radiographs Laboratory Results: 04/01/19 14:45 04/01/19 14:45 04/01/19 04/01/19 04/01/19 06:54 06:54 14:45 WBC 14.4 H 14.9 H RBC 3.76 L 3.83 L Hgb 13.6 13.8 Hct 39.2 40.1 MCV 104 H 105 H MCH 36.3 H 36.1 H MCHC 34.8 34.5 RDW 12.0 12.1 Plt Count 171 187 Seg Neutrophils % 88.4 H Sodium 153.8 H Potassium 2.9 L* Chloride 121 H Carbon Dioxide 23 Anion Gap 10 BUN 48 H Creatinine 2.57 H Est GFR ( Amer) 31 L Glucose 99 Calcium 12.8 H* Magnesium Total Bilirubin AST Alkaline Phosphatase Total Protein Albumin 04/01/19 14:45 WBC RBC Hgb Hct MCV MCH MCHC RDW Plt Count Seg Neutrophils % Sodium 157.4 H Potassium 3.3 L Chloride 127 H Carbon Dioxide 23 Anion Gap 7 BUN 50 H Creatinine 2.47 H Est GFR ( Amer) 32 L Glucose 100 Calcium 11.9 H Magnesium 1.6 Total Bilirubin 0.8 AST 32 Alkaline Phosphatase 77 Total Protein 6.0 L Albumin 3.1 L 03/31/19 04/01/19 05:56 14:45 Creatine Kinase 310 H Troponin I 0.028 Impressions: Cervical Spine CT 03/29/19 12:01 IMPRESSION: No fracture or static subluxation of the cervical spine. Moderate multilevel disc space height loss and osteophytosis. Head CT 03/29/19 12:01 IMPRESSION: No acute intracranial pathology. EVIDENCE OF ACUTE STROKE: NO. Chest X-Ray 04/01/19 00:00 IMPRESSION: Lines and tubes as above. Mildly increased conspicuity of the right minor fissure, which may represent a small amount of intrafissural pleural fluid. Otherwise, no acute pulmonary findings. All labs, radiographs, diagnostic studies and EKGs were personally reviewed: Yes Critical Time Critical Time (minutes): 60 -: The care of a critically ill patient is dynamic. This note represents a static moment in the admission process. Orders and treatments may be given simultan eously and urgently, and time is not bank representative of the treatment process. This patient requires Critical Care secondary to life threatening organ or limb dysfunction. Without Critical Care services, the patient is at risk for increased mortality and morbidity. Provider Note Provider Note: Assessment: Critically ill 63 yo man with acute respiratory failure, aspiration PNA, hypercalcemia, hypernatremia, coma, MARYAN. Plan: 1. Respiratory: acute respiratory failure. I intubated the pt. Will check post- intubation ABG 2. Pulmonary: aspiration PNA. Pt aspirated during initial intubation attempt during the code. Will stat vanc and cefepime Will check cultures 3. CV: heart rate and BP acceptable 4. Renal/Electrolytes: MARYAN. Cr is 2.47. hypercalcemia, resolving. Ca is sitll elevated at 11.9. Continue IVF and calcitonin. Bisphosphonates are contraind icated due to pt's severe MARYAN. Hypernatremia. Pt's sodium is 157 today and was 142 on admission. Will start 1/2 NS IVF and will start free water. Will repeat BMP to ensure the sodium level is not being corrected too rapidly. 5.Oncology. Hypercalcemia. Will order CT of head, chest, abdomen, and pelvis to look for malignancy. Dr. Perez following 6. Neuro: coma. Metabolic derangements are the most likely cause. Will obtain head CT to eval for stroke 7. ID: aspiration PNA. Will start vanc and cefepime. Will check cultures 8. Nutrition:NPO 9. Prophylaxis: scds, sq heparin Critical care time= 60 min, excluding procedures
--- NOTE | 2019-04-01 17:33 | RADIOLOGY REPORT (SQ) ---
EXAM DESCRIPTION: CT HEAD WITHOUT COMPLETED DATE/TIME: 04/01/2019 5:21 pm REASON FOR STUDY: change of mental status COMPARISON: 03/29/2019 TECHNIQUE: Axial images acquired through the brain without intravenous contrast. Images reviewed wi th bone, brain and subdural windows. Additional sagittal and coronal reconstructions were generated. Images stored on PACS. All CT scanners at this facility use dose modulation, iterative reconstruction, and/or weight based d osing when appropriate to reduce radiation dose to as low as reasonably achievable (ALARA). [facility]: Dose Right [facility]: CareDose [facility]: Dose Right [facility]: Teradose 4D [facility]: [employer] RADIATION DOSE: CT Rad equipment meets quality standard of care and radiation dose reduction techniq ues were employed. CTDIvol: 53.2 mGy. DLP: 1017 mGy-cm. mGy. LIMITATIONS: None. FINDINGS: VENTRICLES: Normal size and contour. CEREBRUM: No masses. No hemorrhage. No midline shift. No evidence for acute infarction. Normal gra y/white matter differentiation. No areas of low density in the white matter. CEREBELLUM: No masses. No hemorrhage. No alteration of density. No evidence for acute infarction. EXTRAAXIAL SPACES: No fluid collections. No masses. ORBITS AND GLOBE: No intra- or extraconal masses. Normal contour of globe without masses. CALVARIUM: No fracture. PARANASAL SINUSES: Minimal right maxillary sinus mucosal thickening. SOFT TISSUES: No mass or hematoma. OTHER: Right nasogastric tube. IMPRESSION: NO ACUTE INTRACRANIAL IMAGING FINDINGS. EVIDENCE OF ACUTE STROKE: NO. COMMENT: Quality ID # [id number]: Final reports with documentation of one or more dose reduction techniques (e.g., Automated exposure control, adjustment of the mA and/or kV according to patient size, use of iterative reconstruction technique) TECHNICAL DOCUMENTATION: JOB ID: [id number] [employer]- All Rights Reserved Reading location - IP/workstation name: [email or web address]
[2019-04-01] MEDS: CEFEPIME 1 GM/D5W RTU 1 GM/50 ML RTUPB IV SCH (18:13)
--- NOTE | 2019-04-01 18:46 | Progress Note ---
Provider Note Provider Note: Critical Care Attending Note. Spoke with patient's daughter. I updated her on pt's conditon and plan of care. She voiced understanding and all her questions were answered. She states her sister will be arriving from [place]. His daughter has stated that pt information should only be shared with her and her sister.
[2019-04-01] MEDS: NORMAL SALINE 1000 ML 1,000 ML with POTASSIUM CHLORIDE 20 MEQ, MAGNESIUM SULFATE 8 MEQ,... IV SCH ×5 (19:16)
[2019-04-01] MEDS: 1/2 NORMAL SALINE 1,000 ML IV PRN (19:30)
[2019-04-01] MEDS ORDERED: VANCOMYCIN HCL INJ 1000 MG VIAL IV PRN (20:53)
[2019-04-01] MEDS ORDERED: CALCITONIN,SALMON,SYNTHETIC 400 UNIT/2 ML VIAL ONE (21:24)
[2019-04-01] MEDS ORDERED: VANCOMYCIN HCL 1,250 MG in DEXTROSE 5%-WATER 250 ML IV ONE (22:00)
[2019-04-01 22:25] LABS: ANION GAP 6 (5-19); BLOOD UREA NITROGEN 49 mg/dL (7-20); CALCIUM 11.5 mg/dL (8.4-10.2); CARBON DIOXIDE 22 mmol/L (22-30); CHLORIDE 128 mmol/L (98-107); GLUCOSE 102 mg/dL (75-110)
[2019-04-02 05:21] LABS: ARTERIAL BLOOD BASE EXCESS -2.6 mmol/L; ARTERIAL BLOOD H2CO3 0.88 mmol/L (1.05-1.35); ARTERIAL BLOOD PCO2 29.1 mmHg (35-45); ARTERIAL BLOOD PH 7.45 (7.35-7.45); ARTERIAL BLOOD PO2 149.2 mmHg (80-100); ARTERIAL BLOOD TOTAL CO2 20.8 mmol/L (23-27)
[2019-04-02 05:22] LABS: ARTERIAL BLOOD FIO2 40%
[2019-04-02 05:24] LABS: ABSOLUTE BASOPHILS # (AUTO) 0.1 10^3/uL (0.0-0.2); ABSOLUTE EOSINOPHILS # (AUTO) 0.2 10^3/uL (0.0-0.6); ABSOLUTE LYMPHOCYTES (AUTO) 1.1 10^3/uL (0.5-4.7); ABSOLUTE MONOCYTES (AUTO) 0.7 10^3/uL (0.1-1.4); ABSOLUTE NEUT (AUTO) 11.4 10^3/uL (1.7-8.2); BASOPHILS % (AUTO) 0.6 % (0-2); EOSINOPHILS % (AUTO) 1.4 % (0-6); HEMATOCRIT 36.5 % (37.9-51.0); HEMOGLOBIN 12.5 g/dL (13.5-17.0); LYMPHOCYTES % (AUTO) 8.4 % (13-45); MEAN CORPUSCULAR HEMOGLOBIN 36.1 pg (27.0-33.4); MEAN CORPUSCULAR HGB CONC 34.4 g/dL (32.0-36.0); MEAN CORPUSCULAR VOLUME 105 fl (80-97); MONOCYTES % (AUTO) 4.9 % (3-13); PLATELET COUNT 151 10^3/uL (150-450); RED BLOOD COUNT 3.47 10^6/uL (4.35-5.55); RED CELL DISTRIBUTION WIDTH 12.2 % (11.5-14.0); SEGMENTED NEUTROPHILS % (AUTO) 84.7 % (42-78); TOTAL CELLS COUNTED % (AUTO) 100 %; WHITE BLOOD COUNT 13.4 10^3/uL (4.0-10.5)
[2019-04-02] MEDS: HEPARIN SOD (PORCINE) 5,000 UNIT/ML 1 ML VIAL SUBCUT SCH ×3 (05:27→22:11)
[2019-04-02] MEDS: 1/2 NORMAL SALINE 1,000 ML IV PRN (05:28)
[2019-04-02] MEDS: CEFEPIME 1 GM/D5W RTU 1 GM/50 ML RTUPB IV SCH ×2 (05:28→17:19)
[2019-04-02 05:47] LABS: ALBUMIN 2.7 g/dL (3.5-5.0); ALKALINE PHOSPHATASE 65 U/L (38-126); ANION GAP 5 (5-19); ASPARTATE AMINO TRANSFERASE 26 U/L (17-59); BILIRUBIN,DIRECT 0.3 mg/dL (0.0-0.4); BILIRUBIN,TOTAL 0.6 mg/dL (0.2-1.3); BLOOD UREA NITROGEN 47 mg/dL (7-20); CALCIUM 10.8 mg/dL (8.4-10.2); CARBON DIOXIDE 22 mmol/L (22-30); CHLORIDE 127 mmol/L (98-107); GLUCOSE 102 mg/dL (75-110); TOTAL PROTEIN 5.2 g/dL (6.3-8.2)
[2019-04-02] MEDS: PROPOFOL 1,000 MG/100 ML INFUS..BTL IV PRN (05:48)
[2019-04-02] MEDS: POTASSI CL 20 MEQ/50 ML RIDER 20 MEQ/50 ML RTUPB IV SCH ×2 (06:55→08:37)
--- NOTE | 2019-04-02 07:49 | RADIOLOGY REPORT (SQ) ---
EXAM DESCRIPTION: CT ABD/PELVIS NO ORAL OR IV; CT CHEST WITHOUT COMPLETED DATE/TIME: 04/01/2019 5:22 pm REASON FOR STUDY: hypercalcemia, eval for malignancy; hypercalcemia, evaluate for malignancy COMPARISON: None. TECHNIQUE: CT scan of the chest performed without intravenous contrast using helical scanning techni que. Images reviewed with lung, soft tissue and bone windows. Reconstructed coronal and sagittal MPR images reviewed. All images stored on PACS. All CT scanners at this facility use dose modulation, iterative reconstruction, and/or weight based d osing when appropriate to reduce radiation dose to as low as reasonably achievable (ALARA). [facility]: Dose Right [facility]: CareDose [facility]: Dose Right [facility]: Teradose 4D [facility]: Smart [employer] RADIATION DOSE: CT Rad equipment meets quality standard of care and radiation dose reduction techniq ues were employed. CTDIvol: 14.4 mGy. DLP: 1001 mGy-cm. mGy. LIMITATIONS: Mild streak artifact through the lower chest and upper abdomen related to arm positioni ng. FINDINGS: AXILLAE: No adenopathy. CHEST WALL: No masses. No subcutaneous air. LUNGS: Dependent bilateral subsegmental atelectasis and consolidation. Most conspicuous in the lower lobes. No suggestion of pulmonary nodules or masses or significant pleural fluid. PLEURA: No effusions. No calcifications. THYROID: No masses or significant asymmetry. HILAR AND MEDIASTINAL STRUCTURES: No identified masses or abnormal nodes. AORTA AND GREAT VESSELS: Ascending aorta looks generally mildly aneurysmal, measuring just over 4 cm. HEART: Heart size normal. Mild -moderate pericardial fluid, most notable anteriorly. HARDWARE AND LIFELINES: Endotracheal tube in appropriate position. Nasogastric tube in appropriate p osition. Left central line with tip to the superior vena cava. BONES: No significant finding. OTHER: No other significant finding. IMPRESSION: 1. Dependent lung changes as above. 2. Appropriate support lines and tubes. 3. Mild -moderate pericardial effusion. 4. No suspicious masses or nodules detected. COMPARISON: None. TECHNIQUE: CT scan of the abdomen and pelvis performed without intravenous contrast and withoutoral contrast using helical scanning technique with dynamic intravenous contrast injection. Images review ed with lung, soft tissue and bone windows. Reconstructed coronal and sagittal MPR images reviewed. All images stored on PACS. All CT scanners at this facility use dose modulation, iterative reconstruction, and/or weight based d osing when appropriate to reduce radiation dose to as low as reasonably achievable (ALARA). [facility]: Dose Right [facility]: [employer] [facility]: Dose Right [facility]: Teradose 4D [facility]: [employer] RADIATION DOSE: CT Rad equipment meets quality standard of care and radiation dose reduction techniq ues were employed. CTDIvol: 14.4 mGy. DLP: 1001 mGy-cm.mGy. LIMITATIONS: None. FINDINGS: LIVER: Allowing for mild artifact described above, normal. SPLEEN: Normal size. No focal lesions. PANCREAS: No masses. No significant calcifications. No adjacent inflammation or peripancreatic flui d collections. Pancreatic duct not dilated. GALLBLADDER: Surgically absent. ADRENAL GLANDS: No significant masses or asymmetry. RIGHT KIDNEY AND URETER: No solid masses. Assessment limited by lack of IV contrast. No significant c alcification. No hydronephrosis or hydroureter. LEFT KIDNEY AND URETER: No solid masses. Assessment limited by lack of IV contrast. No significant ca lcification. No hydronephrosis or hydroureter. AORTA AND VESSELS: No aneurysm. RETROPERITONEUM: No retroperitoneal adenopathy, hemorrhage or masses. APPENDIX: Normal. LARGE AND SMALL BOWEL: Variable stool including a large amount of stool in the rectum. Variable smal l bowel wall thickening with slightly fluid distended loops in the left lower quadrant, uncertain sig nificance. No fixed mechanical obstruction or mass detected. No ascites or abnormal gas. ABDOMINAL WALL: No hernia or masses. PERITONEAL CAVITY: No free air. No free fluid. No peritoneal implants or masses. PELVIS: Bladder decompressed by Chatterjee catheter. No pelvic mass or fluid. BONES: No significant or acute findings. OTHER: No other significant finding. IMPRESSION: 1. No acute or suspicious abdominopelvic abnormality on non contrasted exam. Findings as above. TECHNICAL DOCUMENTATION: JOB ID: [id number] Quality ID # [id number]: Final reports with documentation of one or more dose reduction techniques (e.g., Au tomated exposure control, adjustment of the mA and/or kV according to patient size, use of iterative reconstruction technique) 2010 [employer]- All Rights Reserved Reading location - IP/workstation name: [email or web address]
[2019-04-02] MEDS: CALCITONIN,SALMON,SYNTHETIC 400 UNIT/2 ML VIAL IM SCH ×2 (10:23→22:11)
--- NOTE | 2019-04-02 12:24 | PDOC CRITICAL CARE PROG REPORT ---
General Date:: 04/02/19 - Critical Care Progress Note Resuscitation Status: Full Code Events in the past 12 to 24 Hours:: Remains intubated and unresponsive. Started on propofol this am for incresing agitation Reason for ICU Addmission:: acute respiratory failure Physical Exam Vital Signs: Temp Pulse Resp BP Pulse Ox 99.7 F 95 15 133/79 H 98 04/02/19 08:00 04/02/19 08:00 04/02/19 12:00 04/02/19 11:33 04/02/19 12:00 Intake & Output 04/01/19 04/02/19 04/03/19 06:59 06:59 06:59 Intake Total 1999 3642 55 Output Total 2335 295 Balance 1999 1307 -240 Weight 67.2 kg 68.6 kg Weight/Height Weight 68.6 kg Height 5 ft 6 in General appearance: PRESENT: no acute distress, well-developed, well-nourished, other - intubated and sedated Head exam: PRESENT: atraumatic, normocephalic Respiratory exam: PRESENT: rhonchi, unlabored Cardiovascular exam: PRESENT: RRR GI/Abdominal exam: PRESENT: soft Gentrourinary exam: PRESENT: indwelling catheter Extremities exam: PRESENT: other - no pretibial edema Laboratory/Radiographs Laboratory Results: 04/02/19 04:55 04/02/19 04:55 04/01/19 04/01/19 04/01/19 14:45 14:45 16:44 WBC 14.9 H RBC 3.83 L Hgb 13.8 Hct 40.1 MCV 105 H MCH 36.1 H MCHC 34.5 RDW 12.1 Plt Count 187 Seg Neutrophils % 88.4 H Carbonic Acid 1.05 HCO3/H2CO3 Ratio 21:1 ABG pH 7.42 ABG pCO2 34.9 L ABG pO2 407.6 H ABG HCO3 22.3 ABG O2 Saturation 99.8 H ABG Base Excess -1.5 FiO2 100% Sodium 157.4 H Potassium 3.3 L Chloride 127 H Carbon Dioxide 23 Anion Gap 7 BUN 50 H Creatinine 2.47 H Est GFR ( Amer) 32 L Glucose 100 Calcium 11.9 H Magnesium 1.6 Total Bilirubin 0.8 AST 32 Alkaline Phosphatase 77 Ammonia Total Protein 6.0 L Albumin 3.1 L 04/01/19 04/02/1904/02/19 21:55 04:55 04:55 WBC 13.4 H RBC 3.47 L Hgb 12.5 L Hct 36.5 L MCV 105 H MCH 36.1 H MCHC 34.4 RDW 12.2 Plt Count 151 Seg Neutrophils % 84.7 H Carbonic Acid HCO3/H2CO3 Ratio ABG pH ABG pCO2 ABG pO2 ABG HCO3 ABG O2 Saturation ABG Base Excess FiO2 Sodium 155.8 H Potassium 3.0 L* Chloride 128 H Carbon Dioxide 22 Anion Gap 6 BUN 49 H Creatinine 2.53 H Est GFR ( Amer) 31 L Glucose 102 Calcium 11.5 H Magnesium Total Bilirubin AST Alkaline Phosphatase Ammonia < 8.7 L Total Protein Albumin 04/02/19 04/02/19 04:55 04:55 WBC RBC Hgb Hct MCV MCH MCHC RDW Plt Count Seg Neutrophils % Carbonic Acid 0.88 L HCO3/H2CO3 Ratio 22:1 ABG pH 7.45 ABG pCO2 29.1 L ABG pO2 149.2 H ABG HCO3 20.0 ABG O2 Saturation 99.0 H ABG Base Excess -2.6 FiO2 40% Sodium 153.9 H Potassium 3.0 L* Chloride 127 H Carbon Dioxide 22 Anion Gap 5 BUN 47 H Creatinine 2.32 H Est GFR ( Amer) 34 L Glucose 102 Calcium 10.8 H Magnesium 1.8 Total Bilirubin 0.6 AST 26 Alkaline Phosphatase 65 Ammonia Total Protein 5.2 L Albumin 2.7 L 03/31/19 04/01/19 05:56 14:45 Creatine Kinase 310 H Troponin I 0.028 Impressions: Cervical Spine CT 03/29/19 12:01 IMPRESSION: No fracture or static subluxation of the cervical spine. Moderate multilevel disc space height loss and osteophytosis. Abdomen/Pelvis CT 04/01/19 00:00 IMPRESSION: 1. Dependent lung changes as above. 2. Appropriate support lines and tubes. 3. Mild -moderate pericardial effusion. 4. No suspicious masses or nodules detected. IMPRESSION: 1. No acute or suspicious abdominopelvic abnormality on non contrasted exam. Findings as above. Chest CT 04/01/19 00:00 IMPRESSION: 1. Dependent lung changes as above. 2. Appropriate support lines and tubes. 3. Mild -moderate pericardial effusion. 4. No suspicious masses or nodules detected. IMPRESSION: 1. No acute or suspicious abdominopelvic abnormality on non contrasted exam. Findings as above. Chest X-Ray 04/01/19 00:00 IMPRESSION: Lines and tubes as above. Mildly increased conspicuity of the right minor fissure, which may represent a small amount of intrafissural pleural fluid. Otherwise, no acute pulmonary findings. Head CT 04/01/19 00:00 IMPRESSION: NO ACUTE INTRACRANIAL IMAGING FINDINGS. EVIDENCE OF ACUTE STROKE: NO. All labs, radiographs, diagnostic studies and EKGs were personally reviewed: Yes Assessment and Plan Plan Summary: Assessment: Critically ill 63 yo man with acute respiratory failure, aspiration PNA, hypercalcemia, hypernatremia, coma, MARYAN. Plan: 1. Respiratory: acute respiratory failure. Vent day 2. Vent settings adjusted 2. Pulmonary: aspiration PNA. Pt aspirated during initial intubation attempt during the code. Day 2 vanc and cefepime. 3. CV: small to moderate pericardial effusion seen on CT of the chest. BP acceptable. Will order echo 4. Renal/Electrolytes: MARYAN. Cr is 2.32. hypercalcemia, resolving. Ca is sitll elevated at 10.8 Continue IVF and calcitonin. Bisphosphonates are contraindicated due to pt's severe MARYAN. Hypernatremia, resolving. Pt's sodium has decreased to 153. Continue 1/2 NS IVF and free water flushes 5.Oncology. Hypercalcemia. CT of head, chest, abdomen, pelvis on 04/[address] Perez following 6. Neuro: coma. Metabolic derangements are the most likely cause. Head CT negative for stroke. Unable to get MRI while pt on the vent. 7. ID: aspiration PNA. Day 2 vanc and cefepime. 8. Nutrition:dietary consult for tube feeds. 9. Prophylaxis: scds, sq heparin 10. Spoke extensively with daughters at the bedside. Also spoke with a family member who is an anesthesiologist at [place]. Family requests transfer to [place], [facility], or [place]. They prefer a tertiary care center in the [facility] area of [place]/ that is where most of the family lives. Critical care time= 60 min, excluding procedures Critical Time Critical Time (minutes): 60 Level of Care: ICU -: 1. The care of a critical patient is a dynamic process. This note is a retail sales representative synopsis but static in nature. The timeframe for treatments given in order is not necessarily the actual time these treatments may have been done. 2. This patient requires critical care secondary to ongoing requirements for therapy not offered or safe outside the critical care environment. Transfer to a lower level of care will result in altered life or limb morbidity and mortality. 3. Multidisciplinary rounds completed. 4. ABCDE bundle addressed.
[2019-04-02] MEDS: LORAZEPAM INJ 2 MG/1 ML VIAL IV PRN ×3 (13:33→22:21)
[2019-04-02] MEDS: NORMAL SALINE 1000 ML 1,000 ML with POTASSIUM CHLORIDE 20 MEQ, MAGNESIUM SULFATE 8 MEQ,... IV SCH ×5 (17:25)
[2019-04-02] MEDS: VANCOMYCIN HCL 500 MG in DEXTROSE 5%-WATER 100 ML IV SCH (22:12)
[2019-04-03] MEDS: LORAZEPAM INJ 2 MG/1 ML VIAL IV PRN ×2 (01:59→05:16)
[2019-04-03] MEDS: HEPARIN SOD (PORCINE) 5,000 UNIT/ML 1 ML VIAL SUBCUT SCH (05:30)
[2019-04-03] MEDS: CEFEPIME 1 GM/D5W RTU 1 GM/50 ML RTUPB IV SCH ×2 (05:30→18:56)
[2019-04-03 05:32] LABS: ABSOLUTE EOSINOPHILS # (AUTO) 0.6 10^3/uL (0.0-0.6); ABSOLUTE LYMPHOCYTES (AUTO) 1.3 10^3/uL (0.5-4.7); ABSOLUTE MONOCYTES (AUTO) 0.7 10^3/uL (0.1-1.4); ABSOLUTE NEUT (AUTO) 9.9 10^3/uL (1.7-8.2); ARTERIAL BLOOD BASE EXCESS -3.5 mmol/L; ARTERIAL BLOOD H2CO3 0.88 mmol/L (1.05-1.35); ARTERIAL BLOOD HCO3 19.6 mmol/L (20-24); ARTERIAL BLOOD O2 SATURATION 98.2 % (94-98); ARTERIAL BLOOD PCO2 29.2 mmHg (35-45); ARTERIAL BLOOD PH 7.44 (7.35-7.45); ARTERIAL BLOOD PO2 108.1 mmHg (80-100); ARTERIAL BLOOD TOTAL CO2 20.5 mmol/L (23-27); BASOPHILS % (AUTO) 0.4 % (0-2); EOSINOPHILS % (AUTO) 4.9 % (0-6); HEMATOCRIT 31.9 % (37.9-51.0); HEMOGLOBIN 11.2 g/dL (13.5-17.0); MEAN CORPUSCULAR HEMOGLOBIN 36.6 pg (27.0-33.4); MEAN CORPUSCULAR VOLUME 105 fl (80-97); MONOCYTES % (AUTO) 5.3 % (3-13); PLATELET COUNT 138 10^3/uL (150-450); RED BLOOD COUNT 3.05 10^6/uL (4.35-5.55); RED CELL DISTRIBUTION WIDTH 12.1 % (11.5-14.0); SEGMENTED NEUTROPHILS % (AUTO) 79.4 % (42-78); TOTAL CELLS COUNTED % (AUTO) 100 %; WHITE BLOOD COUNT 12.5 10^3/uL (4.0-10.5)
[2019-04-03 05:33] LABS: ARTERIAL BLOOD FIO2 28%
[2019-04-03 05:59] LABS: ALBUMIN 2.4 g/dL (3.5-5.0); ALKALINE PHOSPHATASE 61 U/L (38-126); ANION GAP 8 (5-19); ASPARTATE AMINO TRANSFERASE 21 U/L (17-59); BILIRUBIN,DIRECT 0.2 mg/dL (0.0-0.4); BILIRUBIN,TOTAL 0.4 mg/dL (0.2-1.3); BLOOD UREA NITROGEN 41 mg/dL (7-20); CALCIUM 9.3 mg/dL (8.4-10.2); CARBON DIOXIDE 20 mmol/L (22-30); CHLORIDE 124 mmol/L (98-107); GLUCOSE 94 mg/dL (75-110); TOTAL PROTEIN 4.9 g/dL (6.3-8.2)
[2019-04-03] MEDS: 1/2 NORMAL SALINE 1,000 ML IV PRN (06:31)
[2019-04-03] MEDS: METOPROLOL TARTRATE 25 MG TABLET PO SCH ×2 (09:08→21:14)
[2019-04-03] MEDS: POTASSI CL 20 MEQ/50 ML RIDER 20 MEQ/50 ML RTUPB IV SCH ×2 (09:12→11:00)
--- NOTE | 2019-04-03 09:13 | PDOC PROGRESS REPORT ---
Subjective Progress Note for:: 04/03/19 Subjective:: On Wednesday mental status acutely worsened and patient ultimately required emergent intubation. Intubated and sedated currently, had a long discussion with director trust, all myeloma work-up was negative thus far, CT of the chest abdomen pelvis is negative for bone metastasis or large mass lesion. Reason For Visit: HYPERCALCEMIA Physical Exam Vital Signs: Temp Pulse Resp BP Pulse Ox 99.3 F 107 H 22 H 112/74 100 04/03/19 08:00 04/03/19 08:00 04/03/19 08:00 04/03/19 08:00 04/03/19 08:00 Intake & Output 04/02/19 04/03/19 04/04/19 06:59 06:59 06:59 Intake Total 4715 1898 Output Total 2335 2595 200 Balance 2380 -697 -200 Weight 68.6 kg 71.2 kg General appearance: PRESENT: no acute distress, well-developed, well-nourished Head exam: PRESENT: atraumatic, normocephalic Eye exam: PRESENT: conjunctiva pink, EOMI, PERRLA. ABSENT: scleral icterus Ear exam: PRESENT: normal external ear exam Mouth exam: PRESENT: moist, tongue midline Neck exam: ABSENT: carotid bruit, JVD, lymphadenopathy, thyromegaly Respiratory exam: PRESENT: clear to auscultation yassine. ABSENT: rales, rhonchi, wheezes Cardiovascular exam: PRESENT: RRR. ABSENT: diastolic murmur, rubs, systolic murmur Pulses: PRESENT: normal dorsalis pedis pul Vascular exam: PRESENT: normal capillary refill GI/Abdominal exam: PRESENT: normal bowel sounds, soft. ABSENT: distended, guarding, mass, organolmegaly, rebound, tenderness Rectal exam: PRESENT: deferred Extremities exam: PRESENT: full ROM. ABSENT: calf tenderness, clubbing, pedal edema Neurological exam: PRESENT: alert, awake, oriented to person, oriented to place, oriented to time, oriented to situation, CN II-XII grossly intact. ABSENT: motor sensory deficit Psychiatric exam: PRESENT: appropriate affect, normal mood. ABSENT: homicidal ideation, suicidal ideation Skin exam: PRESENT: dry, intact, warm. ABSENT: cyanosis, rash Results Laboratory Results: 04/03/19 05:05 04/03/19 05:05 04/03/19 04/03/19 04/03/19 05:05 05:05 05:05 WBC 12.5 H RBC 3.05 L Hgb 11.2 L Hct 31.9 L MCV 105 H MCH 36.6 H MCHC 35.0 RDW 12.1 Plt Count 138 L Seg Neutrophils % 79.4 H Carbonic Acid 0.88 L HCO3/H2CO3 Ratio 22:1 ABG pH 7.44 ABG pCO2 29.2 L ABG pO2 108.1 H ABG HCO3 19.6 L ABG O2 Saturation 98.2 H ABG Base Excess -3.5 FiO2 28% Sodium 152.0 H Potassium 3.0 L* Chloride 124 H Carbon Dioxide 20 L Anion Gap 8 BUN 41 H Creatinine 2.31 H Est GFR ( Amer) 35 L Glucose 94 Calcium 9.3 Magnesium 1.9 Total Bilirubin 0.4 AST 21 Alkaline Phosphatase 61 Total Protein 4.9 L Albumin 2.4 L 03/31/19 04/01/19 05:56 14:45 Creatine Kinase 310 H Troponin I 0.028 Impressions: Cervical Spine CT 03/29/19 12:01 IMPRESSION: No fracture or static subluxation of the cervical spine. Moderate multilevel disc space height loss and osteophytosis. Abdomen/Pelvis CT 04/01/19 00:00 IMPRESSION: 1. Dependent lung changes as above. 2. Appropriate support lines and tubes. 3. Mild -moderate pericardial effusion. 4. No suspicious masses or nodules detected. IMPRESSION: 1. No acute or suspicious abdominopelvic abnormality on non contrasted exam. Findings as above. Chest CT 04/01/19 00:00 IMPRESSION: 1. Dependent lung changes as above. 2. Appropriate support lines and tubes. 3. Mild -moderate pericardial effusion. 4. No suspicious masses or nodules detected. IMPRESSION: 1. No acute or suspicious abdominopelvic abnormality on non contrasted exam. Findings as above. Head CT 04/01/19 00:00 IMPRESSION: NO ACUTE INTRACRANIAL IMAGING FINDINGS. EVIDENCE OF ACUTE STROKE: NO. Assessment & Plan - Diagnosis (1) Hypercalcemia Is this a current diagnosis for this admission?: Yes Plan: Improved, unsure of cause as of thus far. Myeloma work-up so far negative, still awaiting final SPEP results, parathyroid and thyroid levels are normal. (2) Altered mental status Qualifiers: Altered mental status type: delirium Qualified Code(s): R41.0 - Disorientation, unspecified Is this a current diagnosis for this admission?: Yes Plan: Delirium from a metabolic process but thus far does not seem to be related to c ancer. - Time Time Spent with patient: 35 or more minutes
[2019-04-03] MEDS: PROPOFOL 1,000 MG/100 ML INFUS..BTL IV PRN (09:17)
--- NOTE | 2019-04-03 09:41 | RADIOLOGY REPORT (SQ) ---
EXAM DESCRIPTION: CHEST SINGLE VIEW COMPLETED DATE/TIME: 04/03/2019 9:14 am REASON FOR STUDY: respiratory failure COMPARISON: 04/01/2019. EXAM PARAMETERS: NUMBER OF VIEWS: One view. TECHNIQUE: Single frontal radiographic view of the chest acquired. RADIATION DOSE: NA LIMITATIONS: None. FINDINGS: LUNGS AND PLEURA: No opacities, masses or pneumothorax. No pleural effusion. MEDIASTINUM AND HILAR STRUCTURES: No masses. Contour normal. HEART AND VASCULAR STRUCTURES: Heart normal in size. Normal vasculature. BONES: No acute findings. HARDWARE: Stable endotracheal tube, nasogastric tube, and central line. OTHER: No other significant finding. IMPRESSION: NO ACUTE RADIOGRAPHIC FINDING IN THE CHEST. TECHNICAL DOCUMENTATION: JOB ID: [id number] [employer]- All Rights Reserved Reading location - IP/workstation name: [email or web address]
[2019-04-03] MEDS ORDERED: PANTOPRAZOLE SODIUM 80 MG in NORMAL SALINE 100 ML IV ONE (10:00)
[2019-04-03] MEDS ORDERED: VANCOMYCIN HCL 500 MG in DEXTROSE 5%-WATER 100 ML IV SCH (10:00)
[2019-04-03] MEDS: NORMAL SALINE 100 ML with PANTOPRAZOLE SODIUM 80 MG IV PRN ×4 (11:00→18:56)
--- NOTE | 2019-04-03 12:10 | PDOC CRITICAL CARE PROG REPORT ---
General Date:: 04/03/19 - Critical Care Attending Note Resuscitation Status: Full Code Events in the past 12 to 24 Hours:: Pt remains intubated and unresponsive. Had bloody BM. Reason for ICU Addmission:: acute respiratory failure Physical Exam Vital Signs: Temp Pulse Resp BP Pulse Ox 99.3 F 86 14 129/77 H 100 04/03/19 08:00 04/03/19 10:00 04/03/19 12:00 04/03/19 11:34 04/03/19 12:00 Intake & Output 04/02/19 04/03/19 04/04/19 06:59 06:59 06:59 Intake Total 4715 1898 50 Output Total 5340 1874 425 Balance 3188 -087 -998 Weight 68.6 kg 71.2 kg Weight/Height Weight 71.2 kg Height 5 ft 6 in General appearance: PRESENT: no acute distress, well-developed, well-nourished, other - intubated, unresponsive, agitated at times. Head exam: PRESENT: atraumatic, normocephalic Respiratory exam: PRESENT: rhonchi, unlabored Cardiovascular exam: PRESENT: RRR GI/Abdominal exam: PRESENT: soft, other - nontender, non-distended Gentrourinary exam: PRESENT: indwelling catheter Extremities exam: PRESENT: other - no edema Laboratory/Radiographs Laboratory Results: 04/03/19 05:05 04/03/19 05:05 04/03/19 04/03/19 04/03/19 05:05 05:05 05:05 WBC 12.5 H RBC 3.05 L Hgb 11.2 L Hct 31.9 L MCV 105 H MCH 36.6 H MCHC 35.0 RDW 12.1 Plt Count 138 L Seg Neutrophils % 79.4 H Carbonic Acid 0.88 L HCO3/H2CO3 Ratio 22:1 ABG pH 7.44 ABG pCO2 29.2 L ABG pO2 108.1 H ABG HCO3 19.6 L ABG O2 Saturation 98.2 H ABG Base Excess -3.5 FiO2 28% Sodium 152.0 H Potassium 3.0 L* Chloride 124 H Carbon Dioxide 20 L Anion Gap 8 BUN 41 H Creatinine 2.31 H Est GFR ( Amer) 35 L Glucose 94 Calcium 9.3 Magnesium 1.9 Total Bilirubin 0.4 AST 21 Alkaline Phosphatase 61 Total Protein 4.9 L Albumin 2.4 L 04/01/19 15:20 Sputum Gram Stain - Final 03/31/19 04/01/19 05:56 14:45 Creatine Kinase 310 H Troponin I 0.028 Impressions: Cervical Spine CT 03/29/19 12:01 IMPRESSION: No fracture or static subluxation of the cervical spine. Moderate multilevel disc space height loss and osteophytosis. Abdomen/Pelvis CT 04/01/19 00:00 IMPRESSION: 1. Dependent lung changes as above. 2. Appropriate support lines and tubes. 3. Mild -moderate pericardial effusion. 4. No suspicious masses or nodules detected. IMPRESSION: 1. No acute or suspicious abdominopelvic abnormality on non contrasted exam. Findings as above. Chest CT 04/01/19 00:00 IMPRESSION: 1. Dependent lung changes as above. 2. Appropriate support lines and tubes. 3. Mild -moderate pericardial effusion. 4. No suspicious masses or nodules detected. IMPRESSION: 1. No acute or suspicious abdominopelvic abnormality on non contrasted exam. Findings as above. Head CT 04/01/19 00:00 IMPRESSION: NO ACUTE INTRACRANIAL IMAGING FINDINGS. EVIDENCE OF ACUTE STROKE: NO. Chest X-Ray 04/03/19 08:23 IMPRESSION: NO ACUTE RADIOGRAPHIC FINDING IN THE CHEST. Assessment and Plan Plan Summary: Assessment: Critically ill 63 yo man with acute respiratory failure, aspiration PNA, hypercalcemia, hypernatremia, coma, MARYAN. Plan: 1. Respiratory: acute respiratory failure. Vent day 3. Continue full vent support. 2. Pulmonary: aspiration PNA. Pt aspirated during initial intubation attempt during the code. Day 3 vanc and cefepime. 3. CV: small to moderate pericardial effusion seen on CT of the chest. Echo pending. HTN, will start lopressor. 4. Renal/Electrolytes: MARYAN. Cr is 2.31. hypercalcemia, resolving. Ca is 9.3. Will d/c calcitonin. Hypernatremia, resolving. Pt's sodium has decreased to 152. Continue 1/2 NS IVF and free water flushes. Will consult nephrology 5.Oncology. Hypercalcemia. CT of head, chest, abdomen, pelvis on 04/[address] Perez following. Will get bone scan 6. Neuro: coma. Metabolic derangements are the most likely cause. Head CT negative for stroke. Unable to get MRI while pt on the vent. WIll order EEG and LP. 7. ID: aspiration PNA. Day 3 vanc and cefepime. 8. Surgery/GI: GI Bleed. Several bloody BMs. Will start protonix drip. Will consult surgery for possible endoscopy. 8. Nutrition: tube feeds on hold 9. Prophylaxis: scds. SQ heparin d/c'd due to GI bleed. Critical care time= 45 min, excluding procedures Critical Time Critical Time (minutes): 45 Level of Care: ICU -: 1. The care of a critical patient is a dynamic process. This note is a inbound customer service representative synopsis but static in nature. The timeframe for treatments given in order is not necessarily the actual time these treatments may have been done. 2. This patient requires critical care secondary to ongoing requirements for therapy not offered or safe outside the critical care environment. Transfer to a lower level of care will result in altered life or limb morbidity and mortality. 3. Multidisciplinary rounds completed. 4. ABCDE bundle addressed.
[2019-04-03 13:36] LABS: A/G RATIO. 1.4 (0.7-1.7); ALBUMIN 3 3.7 g/dL (2.9-4.4); ALPHA-1-GLOBULIN 0.3 g/dL (0.0-0.4); GAMMA GLOBULINS 0.6 g/dL (0.4-1.8); IMMUNOGLOBULIN A 216 mg/dL (61-437); IMMUNOGLOBULIN G 846 mg/dL (700-1600); IMMUNOGLOBULIN M 166 mg/dL (20-172); MONOCLONAL-SPIKE Not Observed g/dL (Not Observ); PROTEIN TOTAL SERUM 6.4 g/dL (6.0-8.5)
[2019-04-03 15:06] LABS: ABSOLUTE BASOPHILS # (AUTO) 0.1 10^3/uL (0.0-0.2); ABSOLUTE EOSINOPHILS # (AUTO) 0.5 10^3/uL (0.0-0.6); ABSOLUTE LYMPHOCYTES (AUTO) 1.1 10^3/uL (0.5-4.7); ABSOLUTE MONOCYTES (AUTO) 0.6 10^3/uL (0.1-1.4); ABSOLUTE NEUT (AUTO) 9.3 10^3/uL (1.7-8.2); BASOPHILS % (AUTO) 0.7 % (0-2); EOSINOPHILS % (AUTO) 4.1 % (0-6); HEMOGLOBIN 10.4 g/dL (13.5-17.0); INTERNATIONAL RATION (INR) 1.07; LYMPHOCYTES % (AUTO) 9.7 % (13-45); MEAN CORPUSCULAR HEMOGLOBIN 36.2 pg (27.0-33.4); MEAN CORPUSCULAR HGB CONC 34.7 g/dL (32.0-36.0); MEAN CORPUSCULAR VOLUME 105 fl (80-97); MONOCYTES % (AUTO) 4.8 % (3-13); PLATELET COUNT 138 10^3/uL (150-450); PROTHROMBIN TIME 13.9 SEC (11.4-15.4); RED BLOOD COUNT 2.87 10^6/uL (4.35-5.55); RED CELL DISTRIBUTION WIDTH 12.2 % (11.5-14.0); SEGMENTED NEUTROPHILS % (AUTO) 80.7 % (42-78); TOTAL CELLS COUNTED % (AUTO) 100 %; WHITE BLOOD COUNT 11.5 10^3/uL (4.0-10.5)
--- NOTE | 2019-04-03 15:44 | XCELERA REPORT ---
[address] [address] Transthoracic Echocardiogram Report Name: RUSTY STEVENS Age: 63 yrs Gender: Male : 1955 Patient Status: Inpatient Patient Location: ICU^611^A Study Date: 04/03/2019 11:15 AM Height: 66 in Weight: 151 lb BSA: 1.8 m2 Procedure: A two-dimensional transthoracic echocardiogram with color flow and Doppler was performed. The study was technically difficult with many images being suboptimal in quality. Reason For Study: pericardial effusion History: pericardial effusion. Ordering Physician: MINNIE TAPIA Performed By: Marija Savage Interpretation Summary The left ventricle is normal in size. There is normal left ventricular wall thickness. LV EF is 60% Left ventricular systolic function is normal. Doppler measurements suggest normal left ventricular diastolic function The left ventricular wall motion is normal. There is no thrombus. Cannot assess ASD ,VSD, or PFO. The right ventricle is normal in size and function. The right atrium is normal. The left atrial size is normal. There is no evidence of mitral valve prolapse. There is no vegetation seen on the mitral valve. There is no mitral valve stenosis. There is no mitral regurgitation noted. There is no aortic valvular vegetation. There is no aortic valve stenosis There is no LVOT obstruction. No aortic regurgitation is present. There is no tricuspid stenosis. There is a trace amount of tricuspid regurgitation There is mild pulmonary hypertension by echo RVSP is 34 to 39 mm of Hg,with RA mean of 10 to 15. There is no pulmonic valvular stenosis. There is a trace amount of pulmonic regurgitation The aortic root is normal size. The inferior vena cava appeared normal and decreased < 50% with respiration (RAP 10-15 mmHg) Small pericardial effusion. There are no echocardiographic or Doppler indications for cardiac tamponade MMode/2D Measurements & Calculations RVDd: 3.6 cm LVIDd: 3.8 cm FS: 29.5 % Ao root diam: 3.5 cm IVSd: 1.1 cm LVIDs: 2.7 cm EDV(Teich): 61.9 ml Ao root area: 9.5 cm2 LVPWd: 1.1 cm ESV(Teich): 26.5 ml LA dimension: 3.0 cm EF(Teich): 57.2 % Doppler Measurements & Calculations MV E max peace: MV P1/2t max peace: Ao V2 max: LV V1 max P.1 cm/sec 74.0 cm/sec 148.2 cm/sec 6.9 mmHg MV A max peace: MV P1/2t: 67.9 msec Ao max PG: LV V1 max: 57.8 cm/sec MVA(P1/2t): 3.2 cm2 8.8 mmHg 131.1 cm/sec MV E/A: 1.2 MV dec slope: 319.2 cm/sec2 MV dec time: 0.23 sec PA V2 max: PI end-d peace: TR max peace: MV P1/2t-pr_phl: 111.1 cm/sec 113.2 cm/sec 244.3 cm/sec 67.9 msec PA max PG: TR max P.9 mmHg 23.9 mmHg Left Ventricle The left ventricle is normal in size. There is normal left ventricular wall thickness. LV EF is 60%. Left ventricular systolic function is normal. Doppler measurements suggest normal left ventricular diastolic function. The left ventricular wall motion is normal. There is no thrombus. Cannot assess ASD ,VSD, or PFO. Right Ventricle The right ventricle is normal in size and function. Atria The right atrium is normal. The left atrial size is normal. Mitral Valve There is no evidence of mitral valve prolapse. There is no vegetation seen on the mitral valve. There is no mitral valve stenosis. There is no mitral regurgitation noted. Aortic Valve There is no aortic valvular vegetation. There is no aortic valve stenosis. There is no LVOT obstruction. No aortic regurgitation is present. Tricuspid Valve There is no tricuspid stenosis. There is a trace amount of tricuspid regurgitation. There is mild pulmonary hypertension by echo. RVSP is 34 to 39 mm of Hg,with RA mean of 10 to 15. Pulmonic Valve There is no pulmonic valvular stenosis. There is a trace amount of pulmonic regurgitation. Great Vessels The aortic root is normal size. The inferior vena cava appeared normal and decreased < 50% with respiration (RAP 10-15 mmHg). Effusions Small pericardial effusion. There are no echocardiographic or Doppler indications for cardiac tamponade. : MINNIE TAPIA, Leah
[2019-04-03 15:55] LABS: GLUCOSE,CSF 57 mg/dL (40-70); PROTEIN,CSF 102 mg/dL (12-60)
[2019-04-03 16:00] LABS: COLOR ALL TUBES COLORLESS; COLOR TUBE 1 COLORLESS; COLOR TUBE 2 COLORLESS; COLOR TUBE 3 COLORLESS; COLOR TUBE 4 COLORLESS; CSF TUBE NUMBER 3
[2019-04-03 16:01] LABS: APPEARANCE ALL TUBES CLEAR; APPEARANCE TUBE 1 CLEAR; APPEARANCE TUBE 2 CLEAR; APPEARANCE TUBE 3 CLEAR; APPEARANCE TUBE 4 CLEAR; CSF TOTAL VOLUME 8.8 CC; RED BLOOD CELL,CSF 0 /uL (0-10); VOLUME TUBE 2 2.2 CC; VOLUME TUBE 4 2.6 CC
[2019-04-03 16:02] LABS: WHITE BLOOD CELL,CSF 4 /uL (0-5)
--- NOTE | 2019-04-03 16:12 | PDOC CONSULTATION ---
Consultation Consult Date: 04/03/19 Provider Consulted: Adolfo MORGAN Consult reason:: MARYAN, hypernatremia,Hypercalcemia History of Present Illness Admission Date/PCP: 03/29/19 19:48 History of Present Illness: RUSTY STEVENS is a 63 year old male currently in the ICU intubated and sedated with a past medical history significant for bipolar disorder on atypical antipsychotic/lithium was admitted with altered mental status and MARYAN with a creatinine of 2.1 and severe hypercalcemia of 18.3. An empirical diagnosis of metabolic encephalopathy/delirium secondary to severe hypercalcemia and MARYAN was entertained and patient was begun on IV fluids and calcitonin. His renal numbers have remained relatively stable between 2.1 and 2.5 and today is 2.3 and his calcium as of today is come down to 9.3 on current medical management. Myeloma work-up so far is negative even though other labs are pending and his alkaline phosphatase was normal. PTH was normal/low at 23 while PTH related hormone is pending. Patient went into respiratory failure this last Wednesday and is intubated and sedated. From review of notes it looks like he possibly aspirated given his mental status and is possibly the cause of his respiratory failure. His daughter from [facility] is at his bedside who was able to give me some of the history but she is not aware of any more details especially since she is far away. However she mentions that her father is a steady drinker and usually drinks multiple beers though she is not able to quantify that. She denies any history of hard liquor. No mention of liver cirrhosis. She said that her father doctors with [facility] and they are trying to obtain records. Unsure if he has any pre-existing kidney disease. Besides that looking at his previous medications at home he was also on diclofenac and vitamin D3. I note that part of his hypercalcemia work-up vitamin D2 levels were done but no vitamin D3 levels were obtained.Patient currently has been having several bloody stools and has been begun on PPI. Blood pressures remained stable. Past Medical History Psychiatric Medical History: Reports: Bipolar Disorder Denies: Depression Past Surgical History Past Surgical History: Reports: None Social History Smoking Status: Current Every Day Smoker Cigarettes Packs Per Day: 1 Electronic Cigarette use?: No Number of Years Smokin Frequency of Alcohol Use: Heavy Drugs: None - Advance Directive Resuscitation Status: Full Code Family History Parental Family History Reviewed: No Children Family History Reviewed: No Sibling(s) Family History Reviewed.: No Medication/Allergy Home Medications: Cholecalciferol (Vitamin D3) [Vitamin D3 1000 Unit Tablet] 2,000 unit PO DAILY 03/31/19 Diclofenac Sodium 4 gm TP ASDIR PRN 03/31/19 [place] Carbonate 300 mg PO QHS 03/31/19 Quetiapine Fumarate [Seroquel] 400 mg PO QHS 03/31/19 Allergies/Adverse Reactions: No Known Allergies Allergy (Verified 04/01/19 04:13) Review of Systems ROS unobtainable: Due to mental status - Patient currently intubated and sedated. Discussions done with his daughter from [place] by the bedside. Chart review was done. Physical Exam Vital Signs: Temp Pulse Resp BP Pulse Ox 99.9 F 104 H 12 125/67 100 04/03/19 14:00 04/03/19 14:00 04/03/19 14:00 04/03/19 14:00 04/03/19 15:19 Intake & Output 04/02/19 04/03/19 04/04/19 06:59 06:59 06:59 Intake Total 4715 1898 250 Output Total 2335 2595 1025 Balance 4561 -423 -141 Weight 68.6 kg 71.2 kg Exam: Patient is currently intubated and seated. Eye exam: PRESENT: EOMI, PERRLA. ABSENT: scleral icterus Ear exam: PRESENT: normal external ear exam Neck exam: ABSENT: lymphadenopathy, meningismus, tenderness, thyromegaly, tracheal deviation Respiratory exam: PRESENT: clear to auscultation yassine. ABSENT: crackles Cardiovascular exam: PRESENT: +S1, +S2 GI/Abdominal exam: PRESENT: normal bowel sounds, soft. ABSENT: organomegaly, tenderness Extremities exam: ABSENT: pedal edema Neurological exam: PRESENT: altered Skin exam: ABSENT: cyanosis, erythema, normal color Results Laboratory Results: 04/03/19 13:40 04/03/19 05:05 03/30/19 04/03/19 04/03/19 10:23 05:05 05:05 WBC 12.5 H RBC 3.05 L Hgb 11.2 L Hct 31.9 L MCV 105 H MCH 36.6 H MCHC 35.0 RDW 12.1 Plt Count 138 L Seg Neutrophils % 79.4 H Carbonic Acid 0.88 L HCO3/H2CO3 Ratio 22:1 ABG pH 7.44 ABG pCO2 29.2 L ABG pO2 108.1 H ABG HCO3 19.6 L ABG O2 Saturation 98.2 H ABG Base Excess -3.5 FiO2 28% Sodium Potassium Chloride Carbon Dioxide Anion Gap BUN Creatinine Est GFR ( Amer) Glucose Calcium Magnesium Total Bilirubin AST Alkaline Phosphatase Total Protein 6.4 Albumin CSF Glucose CSF Total Protein 04/03/19 04/03/19 04/03/19 05:05 13:40 15:05 WBC 11.5 H RBC 2.87 L Hgb 10.4 L Hct 30.0 L MCV 105 H MCH 36.2 H MCHC 34.7 RDW 12.2 Plt Count 138 L Seg Neutrophils % 80.7 H Carbonic Acid HCO3/H2CO3 Ratio ABG pH ABG pCO2 ABG pO2 ABG HCO3 ABG O2 Saturation ABG Base Excess FiO2 Sodium 152.0 H Potassium 3.0 L* Chloride 124 H Carbon Dioxide 20 L Anion Gap 8 BUN 41 H Creatinine 2.31 H Est GFR ( Amer) 35 L Glucose 94 Calcium 9.3 Magnesium 1.9 Total Bilirubin 0.4 AST 21 Alkaline Phosphatase 61 Total Protein 4.9 L Albumin 2.4 L CSF Glucose 57 CSF Total Protein 102 H 04/01/19 15:20 Sputum Gram Stain - Final 03/31/19 04/01/19 05:56 14:45 Creatine Kinase 310 H Troponin I 0.028 Impressions: Cervical Spine CT 03/29/19 12:01 IMPRESSION: No fracture or static subluxation of the cervical spine. Moderate multilevel disc space height loss and osteophytosis. Abdomen/Pelvis CT 04/01/19 00:00 IMPRESSION: 1. Dependent lung changes as above. 2. Appropriate support lines and tubes. 3. Mild -moderate pericardial effusion. 4. No suspicious masses or nodules detected. IMPRESSION: 1. No acute or suspicious abdominopelvic abnormality on non contrasted exam. Findings as above. Chest CT 04/01/19 00:00 IMPRESSION: 1. Dependent lung changes as above. 2. Appropriate support lines and tubes. 3. Mild -moderate pericardial effusion. 4. No suspicious masses or nodules detected. IMPRESSION: 1. No acute or suspicious abdominopelvic abnormality on non contrasted exam. Findings as above. Head CT 04/01/19 00:00 IMPRESSION: NO ACUTE INTRACRANIAL IMAGING FINDINGS. EVIDENCE OF ACUTE STROKE: NO. Chest X-Ray 04/03/19 08:23 IMPRESSION: NO ACUTE RADIOGRAPHIC FINDING IN THE CHEST. Assessment & Plan - Diagnosis (1) Acute kidney injury Is this a current diagnosis for this admission?: Yes Plan: Unsure if he has got CKD in the past. Try to get previous labs. Current causes could be from dehydration/hypercalcemia. Hypercalcemia seems to have resolved. No features to indicate obstructive uropathy. Continue present management but change fluids to D5. (2) Acute metabolic encephalopathy Is this a current diagnosis for this admission?: Yes Plan: Unsure of the exact etiology of his altered mental state/coma. Hypercalcemia could be a factor. History of apparent alcoholism according to daughter. Poss ibility of alcohol withdrawal may be and possible seizures related to that.Other etiologies are being worked up. (3) Hypercalcemia Is this a current diagnosis for this admission?: Yes Plan: Calcium was very high on presentation at 18+. PTH was low at 23. Work-up ongoing. Vitamin D2 was normal but vitamin D3 was not done as patient was on vitamin D3 at home. Currently calcium has normalized with combination of fluids as well as calcitonin. (4) Hypokalemia Is this a current diagnosis for this admission?: Yes Plan: Being replaced. Monitor. (5) Hypernatremia Plan: Sodium at 152. Will change fluids to D5. Monitor. No evidence failure to indicate DI at the moment.
--- NOTE | 2019-04-03 16:18 | RADIOLOGY REPORT (SQ) ---
EXAM DESCRIPTION: LUMBAR PUNCTURE; FLUORO/NEEDLE PLACEMENT/SPINE COMPLETED DATE/TIME: 04/03/2019 3:21 pm REASON FOR STUDY: sepsis, altered mental status; LUMBAR PUNCTURE COMPARISON: None. FLUOROSCOPY TIME: 0.3 minute. 1 images saved to PACS. TECHNIQUE: Fluoroscopic guided lumbar puncture with opening and closing pressures. LIMITATIONS: None. PROCEDURE: After written consent and assessment were obtained, the patient was brought into the fluo roscopy room and placed prone on the table. The patient's lower back was prepped in a sterile fashion and an entry site was selected under live fluoroscopic guidance. The entry site was anesthetized wit h 1% lidocaine. A 20 gauge needle was advanced through the skin and into the thecal sac at the level of L 4 -L 5 . An opening pressure of 14 cm H2O was obtained. Approximately 8.5 ml of CSF was obtained . The needle was removed and a sterile bandage was placed of the site. Specimens were sent to the lab for testing. A fluoroscopic spot image was saved to PACS confirming level access. FINDINGS: Clear CSF. IMPRESSION: LUMBAR PUNCTURE UNDER FLUOROSCOPY. NO IMMEDIATE COMPLICATION. COMMENT: Patient medication list reviewed: Yes- Quality ID# [id number]:Eligible professional attests to doc umenting in the medical record they obtained, updated, or reviewed the patient's current medications. Quality ID 145: Final reports for procedures using fluoroscopy that document radiation exposure indic es, or exposure time and number of fluorographic images (if radiation exposure indices are not availa ble) TECHNICAL DOCUMENTATION: Job ID: [id number] [employer]- All Rights Reserved Reading location - IP/workstation name: [email or web address]
--- NOTE | 2019-04-03 16:21 | RADIOLOGY REPORT (SQ) ---
EXAM DESCRIPTION: NM WHOLE BODY BONE SCAN COMPLETED DATE/TIME: 04/03/2019 3:07 pm REASON FOR STUDY: hypercalcemia COMPARISON: No available imaging studies for comparison. RADIONUCLIDE AND DOSE: 20.3 millicuries Tc99m MDP. The route of agent administration: Intravenous. ADDITIONAL DRUGS AND DOSES: None. TECHNIQUE: Routine delayed images at 3 hour post radionuclide injection acquired of the bony skeleto n including anterior and posterior whole-body projections and additional focused images as needed. LIMITATIONS: None. FINDINGS: BONES: Focal areas of activity in the knees. KIDNEYS: Symmetric excretion without obstruction. OTHER: Linear increased activity in the medial left forearm. IMPRESSION: 1. ACTIVITY IN THE KNEES MOST CONSISTENT WITH DEGENERATIVE JOINT DISEASE. NO SUSPICIOUS UPTAKE IN TH E SKELETON. 2. LINEAR INCREASED ACTIVITY IN THE MEDIAL LEFT FOREARM. THIS IS NOT RELATED TO THE INJECTION SITE ( CENTRAL LINE) AND NO REPORTED SKIN CONTAMINATION. THIS MAY BE DUE TO SOFT TISSUE UPTAKE. RECOMMEND X-RAY OF THE LEFT FOREARM FOR FURTHER EVALUATION. COMMENT: Quality measure 147: No available prior imaging studies for comparison TECHNICAL DOCUMENTATION: JOB ID: [id number] [employer]- All Rights Reserved Reading location - IP/workstation name: [email or web address]
[2019-04-03] MEDS ORDERED: FENTANYL CITRATE INJ/PF 100 MCG/2 ML AMPUL ONE (17:28)
[2019-04-03] MEDS ORDERED: DIPHENHYDRAMINE HCL 50 MG/ML VIAL ONE (17:28)
[2019-04-03] MEDS ORDERED: MIDAZOLAM 2 MG/2 ML INJ ONE (17:28)
[2019-04-03] MEDS ORDERED: ONDANSETRON HCL INJ/PF 4 MG/2 ML SDV ONE (17:28)
[2019-04-03] MEDS ORDERED: GLUCAGON,HUMAN RECOMB 1 MG INJ ONE (17:29)
[2019-04-03] MEDS ORDERED: FLUMAZENIL INJ 0.5 MG/5 ML VIAL ONE (17:29)
[2019-04-03] MEDS ORDERED: EPINEPHRINE INJ 1 MG/10 ML DISP.SYRIN ONE (17:29)
[2019-04-03] MEDS ORDERED: NALOXONE HCL INJ/PF 0.4 MG/1 ML SDV ONE (17:29)
--- NOTE | 2019-04-03 18:26 | Operative Report ---
Operative Report DATE OF SURGERY: 04/03/19 PREOPERATIVE DIAGNOSIS: Acute gastrointestinal hemorrhage POSTOPERATIVE DIAGNOSIS: Same with. 1. Erosive distal esophagitis. 2. Diffuse gastritis. 3. No acute gastrointestinal bleeding from upper source OPERATION: 1. Esophagogastroduodenoscopy. 2. Gastric antral biopsy SURGEON: KOBI LU ANESTHESIA: Moderate Sedation TISSUE REMOVED OR ALTERED: Mucosal biopsy COMPLICATIONS: [place] ESTIMATED BLOOD LOSS: None INTRAOPERATIVE FINDINGS: See below PROCEDURE: The patient was evaluated in the intensive care unit room 11. He was on propofol sedation, and intubated. He is placed in semirecumbent position, nasogastric tube removed. Surgical plan surgical timeout were conducted. The flexible upper endoscope is advanced to the oropharynx down the esophagus through the stomach into the duodenum. The first and second portion duodenum were normal. The stomach was significant for diffuse gastritis mild to moderate with streaking. No corbin ulceration bleeding or clots seen. Random biopsy of the gastric antrum performed for MICHAEL testing and histology. The scope was retroflexed in the stomach, and there is no evidence of pathology in the gastric cardia. There was no significant hiatal hernia. The scope was brought back through the GE junction. The distal Colby was significant for mild superficial erosion just at the GE junction. Photos taken but unfortunately did not develop. No evidence of stricture, bleeding, clot or esophageal varix. The scope was removed from the patient's oropharynx. He tolerated the procedure well. Discussion and recommendations 1. Source of gastrointestinal bleeding likely lower, probably colonic and probably diverticular based on clinical stool pattern of accelerating melena. Discussed the above with Dr. Cooper, dialysis rn 2. Would give patient a nasogastric tube holiday to allow esophageal erosion to heal. He does not have as of gastric outlet obstruction. 3. We will keep patient on surgicalist list for now.
[2019-04-03] MEDS: NORMAL SALINE 1000 ML 1,000 ML with POTASSIUM CHLORIDE 20 MEQ, MAGNESIUM SULFATE 8 MEQ,... IV SCH ×5 (18:56)
[2019-04-03 21:20] LABS: ABSOLUTE BASOPHILS # (AUTO) 0.1 10^3/uL (0.0-0.2); ABSOLUTE EOSINOPHILS # (AUTO) 0.6 10^3/uL (0.0-0.6); ABSOLUTE LYMPHOCYTES (AUTO) 1.2 10^3/uL (0.5-4.7); ABSOLUTE MONOCYTES (AUTO) 0.7 10^3/uL (0.1-1.4); BASOPHILS % (AUTO) 0.5 % (0-2); EOSINOPHILS % (AUTO) 4.9 % (0-6); HEMATOCRIT 29.7 % (37.9-51.0); HEMOGLOBIN 10.4 g/dL (13.5-17.0); LYMPHOCYTES % (AUTO) 10.6 % (13-45); MEAN CORPUSCULAR HEMOGLOBIN 36.7 pg (27.0-33.4); MEAN CORPUSCULAR HGB CONC 34.8 g/dL (32.0-36.0); MEAN CORPUSCULAR VOLUME 105 fl (80-97); MONOCYTES % (AUTO) 5.9 % (3-13); PLATELET COUNT 140 10^3/uL (150-450); RED BLOOD COUNT 2.82 10^6/uL (4.35-5.55); RED CELL DISTRIBUTION WIDTH 12.1 % (11.5-14.0); SEGMENTED NEUTROPHILS % (AUTO) 78.1 % (42-78); TOTAL CELLS COUNTED % (AUTO) 100 %; WHITE BLOOD COUNT 11.6 10^3/uL (4.0-10.5)
[2019-04-03] MEDS: VANCOMYCIN HCL 500 MG in DEXTROSE 5%-WATER 100 ML IV SCH (21:31)
[2019-04-03 21:42] LABS: ANION GAP 8 (5-19); BLOOD UREA NITROGEN 42 mg/dL (7-20); CALCIUM 8.8 mg/dL (8.4-10.2); CARBON DIOXIDE 20 mmol/L (22-30); CHLORIDE 123 mmol/L (98-107); GLUCOSE 105 mg/dL (75-110)
[2019-04-03] MEDS ORDERED: METOPROLOL TARTRATE PF/INJ 5 MG/5 ML SDV IV SCH (22:00)
[2019-04-04] MEDS: LORAZEPAM INJ 2 MG/1 ML VIAL IV PRN ×3 (00:11→10:27)
[2019-04-04] MEDS: PROPOFOL 1,000 MG/100 ML INFUS..BTL IV PRN (01:03)
[2019-04-04] MEDS: DEXTROSE 5%-WATER 1000 ML 1,000 ML IV PRN (04:00)
[2019-04-04 04:41] LABS: ABSOLUTE BASOPHILS # (AUTO) 0.1 10^3/uL (0.0-0.2); ABSOLUTE EOSINOPHILS # (AUTO) 0.5 10^3/uL (0.0-0.6); ABSOLUTE LYMPHOCYTES (AUTO) 1.1 10^3/uL (0.5-4.7); ABSOLUTE MONOCYTES (AUTO) 0.6 10^3/uL (0.1-1.4); ABSOLUTE NEUT (AUTO) 7.6 10^3/uL (1.7-8.2); BASOPHILS % (AUTO) 0.5 % (0-2); EOSINOPHILS % (AUTO) 4.9 % (0-6); HEMATOCRIT 27.1 % (37.9-51.0); HEMOGLOBIN 9.5 g/dL (13.5-17.0); LYMPHOCYTES % (AUTO) 10.8 % (13-45); MEAN CORPUSCULAR HEMOGLOBIN 36.7 pg (27.0-33.4); MEAN CORPUSCULAR HGB CONC 35.2 g/dL (32.0-36.0); MEAN CORPUSCULAR VOLUME 104 fl (80-97); MONOCYTES % (AUTO) 5.7 % (3-13); PLATELET COUNT 130 10^3/uL (150-450); RED CELL DISTRIBUTION WIDTH 12.4 % (11.5-14.0); SEGMENTED NEUTROPHILS % (AUTO) 78.1 % (42-78); TOTAL CELLS COUNTED % (AUTO) 100 %; WHITE BLOOD COUNT 9.7 10^3/uL (4.0-10.5)
[2019-04-04 05:05] LABS: ALBUMIN 2.2 g/dL (3.5-5.0); ALKALINE PHOSPHATASE 58 U/L (38-126); ANION GAP 6 (5-19); ASPARTATE AMINO TRANSFERASE 19 U/L (17-59); BILIRUBIN,DIRECT 0.2 mg/dL (0.0-0.4); BILIRUBIN,TOTAL 0.3 mg/dL (0.2-1.3); BLOOD UREA NITROGEN 37 mg/dL (7-20); CALCIUM 8.3 mg/dL (8.4-10.2); CARBON DIOXIDE 19 mmol/L (22-30); CHLORIDE 124 mmol/L (98-107); GLUCOSE 191 mg/dL (75-110); TOTAL PROTEIN 4.5 g/dL (6.3-8.2)
[2019-04-04 05:10] LABS: POTASSIUM 2.9 mmol/L (3.6-5.0)
[2019-04-04] MEDS: NORMAL SALINE 100 ML with PANTOPRAZOLE SODIUM 80 MG IV PRN ×4 (05:17→14:34)
[2019-04-04] MEDS: CEFEPIME 1 GM/D5W RTU 1 GM/50 ML RTUPB IV SCH ×2 (05:17→17:36)
[2019-04-04] MEDS: POTASSI CL 20 MEQ/50 ML RIDER 20 MEQ/50 ML RTUPB IV SCH ×3 (06:26→10:27)
--- NOTE | 2019-04-04 08:16 | PDOC PROGRESS REPORT ---
Subjective Progress Note for:: 04/04/19 Subjective:: remains intubated. Reason For Visit: HYPERCALCEMIA Physical Exam Vital Signs: Temp Pulse Resp BP Pulse Ox 98.2 F 82 17 141/78 H 100 04/04/19 04:00 04/03/19 20:00 04/04/19 06:18 04/04/19 06:18 04/04/19 06:18 Intake & Output 04/03/19 04/04/19 04/05/19 06:59 06:59 06:59 Intake Total 2971 2985 33 Output Total 2595 2405 Balance 376 580 33 Weight 71.2 kg 69.3 kg General appearance: PRESENT: mild distress Head exam: PRESENT: normocephalic Eye exam: PRESENT: EOMI Ear exam: PRESENT: normal external ear exam Mouth exam: PRESENT: moist Teeth exam: PRESENT: poor dentation Respiratory exam: PRESENT: symmetrical, other - Intubated Cardiovascular exam: PRESENT: RRR Pulses: PRESENT: normal radial pulses, normal femoral pulses Vascular exam: PRESENT: normal capillary refill GI/Abdominal exam: PRESENT: soft Rectal exam: PRESENT: deferred Gentrourinary exam: PRESENT: indwelling catheter Extremities exam: PRESENT: full ROM, +1 edema Neurological exam: PRESENT: other - Intubated difficult to assess Skin exam: PRESENT: dry Results Laboratory Results: 04/04/19 04:25 04/04/19 04:25 03/30/19 04/03/19 04/03/19 10:23 13:40 15:05 WBC 11.5 H RBC 2.87 L Hgb 10.4 L Hct 30.0 L MCV 105 H MCH 36.2 H MCHC 34.7 RDW 12.2 Plt Count 138 L Seg Neutrophils % 80.7 H Sodium Potassium Chloride Carbon Dioxide Anion Gap BUN Creatinine Est GFR ( Amer) Glucose Calcium Magnesium Total Bilirubin AST Alkaline Phosphatase Total Protein 6.4 Albumin Fluid Tube Number 3 CSF Volume 8.8 CSF Appearance CLEAR CSF Color COLORLESS CSF WBC 4 CSF RBC 0 CSF Color (1) COLORLESS CSF Appearance (1) CLEAR CSF Color (2) COLORLESS CSF Appearance (2) CLEAR CSF Color (3) COLORLESS CSF Appearance (3) CLEAR CSF Color (4) COLORLESS CSF Appearance (4) CLEAR CSF Glucose CSF Total Protein Blood Type Antibody Screen 04/03/19 04/03/19 04/03/19 15:05 19:39 21:00 WBC RBC Hgb Hct MCV MCH MCHC RDW Plt Count Seg Neutrophils % Sodium 150.8 H Potassium 3.0 L* Chloride 123 H Carbon Dioxide 20 L Anion Gap 8 BUN 42 H Creatinine 2.08 H Est GFR ( Amer) 39 L Glucose 105 Calcium 8.8 Magnesium Total Bilirubin AST Alkaline Phosphatase Total Protein Albumin Fluid Tube Number CSF Volume CSF Appearance CSF Color CSF WBC CSF RBC CSF Color (1) CSF Appearance (1) CSF Color (2) CSF Appearance (2) CSF Color (3) CSF Appearance (3) CSF Color (4) CSF Appearance (4) CSF Glucose 57 CSF Total Protein 102 H Blood Type A POSITIVE Antibody Screen NEGATIVE 04/03/19 04/04/19 04/04/19 21:00 04:25 04:25 WBC 11.6 H 9.7 RBC 2.82 L 2.60 L Hgb 10.4 L 9.5 L Hct 29.7 L 27.1 L MCV 105 H 104 H MCH 36.7 H 36.7 H MCHC 34.8 35.2 RDW 12.1 12.4 Plt Count 140 L 130 L Seg Neutrophils % 78.1 H 78.1 H Sodium 148.9 H Potassium 2.9 L* Chloride 124 H Carbon Dioxide 19 L Anion Gap 6 BUN 37 H Creatinine 1.97 H Est GFR ( Amer) 41 L Glucose 191 H Calcium 8.3 L Magnesium 1.9 Total Bilirubin 0.3 AST 19 Alkaline Phosphatase 58 Total Protein 4.5 L Albumin 2.2 L Fluid Tube Number CSF Volume CSF Appearance CSF Color CSF WBC CSF RBC CSF Color (1) CSF Appearance (1) CSF Color (2) CSF Appearance (2) CSF Color (3) CSF Appearance (3) CSF Color (4) CSF Appearance (4) CSF Glucose CSF Total Protein Blood Type Antibody Screen 04/01/19 15:20 Sputum Gram Stain - Final 03/31/19 04/01/19 04/04/19 05:56 14:45 06:27 Creatine Kinase 310 H 42 L Troponin I 0.028 Impressions: Cervical Spine CT 03/29/19 12:01 IMPRESSION: No fracture or static subluxation of the cervical spine. Moderate multilevel disc space height loss and osteophytosis. Abdomen/Pelvis CT 04/01/19 00:00 IMPRESSION: 1. Dependent lung changes as above. 2. Appropriate support lines and tubes. 3. Mild -moderate pericardial effusion. 4. No suspicious masses or nodules detected. IMPRESSION: 1. No acute or suspicious abdominopelvic abnormality on non contrasted exam. Findings as above. Chest CT 04/01/19 00:00 IMPRESSION: 1. Dependent lung changes as above. 2. Appropriate support lines and tubes. 3. Mild -moderate pericardial effusion. 4. No suspicious masses or nodules detected. IMPRESSION: 1. No acute or suspicious abdominopelvic abnormality on non contrasted exam. Findings as above. Head CT 04/01/19 00:00 IMPRESSION: NO ACUTE INTRACRANIAL IMAGING FINDINGS. EVIDENCE OF ACUTE STROKE: NO. Body Scan Nuclear Medicine 04/03/19 00:00 IMPRESSION: 1. ACTIVITY IN THE KNEES MOST CONSISTENT WITH DEGENERATIVE JOINT DISEASE. NO SUSPICIOUS UPTAKE IN THE SKELETON. 2. LINEAR INCREASED ACTIVITY IN THE MEDIAL LEFT FOREARM. THIS IS NOT RELATED TO THE INJECTION SITE (CENTRAL LINE) AND NO REPORTED SKIN CONTAMINATION. THIS MAY BE DUE TO SOFT TISSUE UPTAKE. RECOMMEND X-RAY OF THE LEFT FOREARM FOR FURTHER EVALUATION. Guidance Fluoroscopy 04/03/19 00:00 IMPRESSION: LUMBAR PUNCTURE UNDER FLUOROSCOPY. NO IMMEDIATE COMPLICATION. Lumbar Puncture 04/03/19 00:00 IMPRESSION: LUMBAR PUNCTURE UNDER FLUOROSCOPY. NO IMMEDIATE COMPLICATION. Chest X-Ray 04/03/19 08:23 IMPRESSION: NO ACUTE RADIOGRAPHIC FINDING IN THE CHEST. Status: Imported from PACS Assessment & Plan - Time Time Spent with patient: 25-34 minutes - Plan Summary Plan Summary: Impression is altered mental status hypercalcemia anemia lower GI bleed metabolic derangements. Upper endoscopy yesterday did not identify a active source of bleeding however there were linear ulcerations in the distal esophagus consistent with NG trauma. Patient continues to have a drifting hematocrit slowly trending down over the course the last 3 days from 12.5-9.5 this morning. After discussion with the sign maker patient will likely need an colonoscopy however it is difficult this time to prep him for colonoscopy because of the inability to pass an NG tube from above due to the ulcerations of the distal esophagus. Patient is not currently actively bleeding and his hematocrit is only slowly trending down. Work-up continues for the metabolic derangements. Surgery will continue to follow as patient's clinical status improves will make arrangements for colonoscopy.
--- NOTE | 2019-04-04 08:20 | PDOC PROGRESS REPORT ---
Subjective Progress Note for:: 04/04/19 Subjective:: No acute events overnight, still patient is quite confused, thrashing around in bed Reason For Visit: HYPERCALCEMIA Physical Exam Vital Signs: Temp Pulse Resp BP Pulse Ox 98.2 F 82 17 141/78 H 100 04/04/19 04:00 04/03/19 20:00 04/04/19 06:18 04/04/19 06:18 04/04/19 06:18 Intake & Output 04/03/19 04/04/19 04/05/19 06:59 06:59 06:59 Intake Total 2971 2985 33 Output Total 2595 2405 Balance 376 580 33 Weight 71.2 kg 69.3 kg General appearance: PRESENT: no acute distress Mouth exam: PRESENT: dry mucosa Rectal exam: PRESENT: deferred Neurological exam: PRESENT: altered Results Laboratory Results: 04/04/19 04:25 04/04/19 04:25 03/30/19 04/03/19 04/03/19 10:23 13:40 15:05 WBC 11.5 H RBC 2.87 L Hgb 10.4 L Hct 30.0 L MCV 105 H MCH 36.2 H MCHC 34.7 RDW 12.2 Plt Count 138 L Seg Neutrophils % 80.7 H Sodium Potassium Chloride Carbon Dioxide Anion Gap BUN Creatinine Est GFR ( Amer) Glucose Calcium Magnesium Total Bilirubin AST Alkaline Phosphatase Total Protein 6.4 Albumin Fluid Tube Number 3 CSF Volume 8.8 CSF Appearance CLEAR CSF Color COLORLESS CSF WBC 4 CSF RBC 0 CSF Color (1) COLORLESS CSF Appearance (1) CLEAR CSF Color (2) COLORLESS CSF Appearance (2) CLEAR CSF Color (3) COLORLESS CSF Appearance (3) CLEAR CSF Color (4) COLORLESS CSF Appearance (4) CLEAR CSF Glucose CSF Total Protein Blood Type Antibody Screen 04/03/19 04/03/19 04/03/19 15:05 19:39 21:00 WBC RBC Hgb Hct MCV MCH MCHC RDW Plt Count Seg Neutrophils % Sodium 150.8 H Potassium 3.0 L* Chloride 123 H Carbon Dioxide 20 L Anion Gap 8 BUN 42 H Creatinine 2.08 H Est GFR ( Amer) 39 L Glucose 105 Calcium 8.8 Magnesium Total Bilirubin AST Alkaline Phosphatase Total Protein Albumin Fluid Tube Number CSF Volume CSF Appearance CSF Color CSF WBC CSF RBC CSF Color (1) CSF Appearance (1) CSF Color (2) CSF Appearance (2) CSF Color (3) CSF Appearance (3) CSF Color (4) CSF Appearance (4) CSF Glucose 57 CSF Total Protein 102 H Blood Type A POSITIVE Antibody Screen NEGATIVE 04/03/19 04/04/19 04/04/19 21:00 04:25 04:25 WBC 11.6 H 9.7 RBC 2.82 L 2.60 L Hgb 10.4 L 9.5 L Hct 29.7 L 27.1 L MCV 105 H 104 H MCH 36.7 H 36.7 H MCHC 34.8 35.2 RDW 12.1 12.4 Plt Count 140 L 130 L Seg Neutrophils % 78.1 H 78.1 H Sodium 148.9 H Potassium 2.9 L* Chloride 124 H Carbon Dioxide 19 L Anion Gap 6 BUN 37 H Creatinine 1.97 H Est GFR ( Amer) 41 L Glucose 191 H Calcium 8.3 L Magnesium 1.9 Total Bilirubin 0.3 AST 19 Alkaline Phosphatase 58 Total Protein 4.5 L Albumin 2.2 L Fluid Tube Number CSF Volume CSF Appearance CSF Color CSF WBC CSF RBC CSF Color (1) CSF Appearance (1) CSF Color (2) CSF Appearance (2) CSF Color (3) CSF Appearance (3) CSF Color (4) CSF Appearance (4) CSF Glucose CSF Total Protein Blood Type Antibody Screen 04/01/19 15:20 Sputum Gram Stain - Final 03/31/19 04/01/19 04/04/19 05:56 14:45 06:27 Creatine Kinase 310 H 42 L Troponin I 0.028 Impressions: Cervical Spine CT 03/29/19 12:01 IMPRESSION: No fracture or static subluxation of the cervical spine. Moderate multilevel disc space height loss and osteophytosis. Abdomen/Pelvis CT 04/01/19 00:00 IMPRESSION: 1. Dependent lung changes as above. 2. Appropriate support lines and tubes. 3. Mild -moderate pericardial effusion. 4. No suspicious masses or nodules detected. IMPRESSION: 1. No acute or suspicious abdominopelvic abnormality on non contrasted exam. Findings as above. Chest CT 04/01/19 00:00 IMPRESSION: 1. Dependent lung changes as above. 2. Appropriate support lines and tubes. 3. Mild -moderate pericardial effusion. 4. No suspicious masses or nodules detected. IMPRESSION: 1. No acute or suspicious abdominopelvic abnormality on non contrasted exam. Findings as above. Head CT 04/01/19 00:00 IMPRESSION: NO ACUTE INTRACRANIAL IMAGING FINDINGS. EVIDENCE OF ACUTE STROKE: NO. Body Scan Nuclear Medicine 04/03/19 00:00 IMPRESSION: 1. ACTIVITY IN THE KNEES MOST CONSISTENT WITH DEGENERATIVE JOINT DISEASE. NO SUSPICIOUS UPTAKE IN THE SKELETON. 2. LINEAR INCREASED ACTIVITY IN THE MEDIAL LEFT FOREARM. THIS IS NOT RELATED TO THE INJECTION SITE (CENTRAL LINE) AND NO REPORTED SKIN CONTAMINATION. THIS MAY BE DUE TO SOFT TISSUE UPTAKE. RECOMMEND X-RAY OF THE LEFT FOREARM FOR FURTHER EVALUATION. Guidance Fluoroscopy 04/03/19 00:00 IMPRESSION: LUMBAR PUNCTURE UNDER FLUOROSCOPY. NO IMMEDIATE COMPLICATION. Lumbar Puncture 04/03/19 00:00 IMPRESSION: LUMBAR PUNCTURE UNDER FLUOROSCOPY. NO IMMEDIATE COMPLICATION. Chest X-Ray 04/03/19 08:23 IMPRESSION: NO ACUTE RADIOGRAPHIC FINDING IN THE CHEST. Assessment & Plan - Diagnosis (1) Hypercalcemia Is this a current diagnosis for this admission?: Yes Plan: All malignancy work-up is now complete, all myeloma labs are completely normal, bone scan is normal, CT of the chest abdomen pelvis does not show any evidence of bone lesions or mass anywhere. (2) Altered mental status Qualifiers: Altered mental status type: delirium Qualified Code(s): R41.0 - Disorientation, unspecified Is this a current diagnosis for this admission?: Yes Plan: Still unknown cause, initially felt to be related to the hypercalcemia but now calcium levels have been normal for 48 hours. There is a toxic metabolic disorder ongoing but I do not know what the source of that is. LP has been done, EEG is pending. - Time Time Spent with patient: 35 or more minutes Disposition: We will sign off, please call with any questions - Inpatient Certification Based on my medical assessment, after consideration of the patient's comorbidities, presenting symptoms, or acuity I expect that the services needed warrant INPATIENT care.: Yes I certify that my determination is in accordance with my understanding of Medicare's requirements for reasonable and necessary INPATIENT services [42 CFR 412.3e].: Yes Medical Necessity: Risk of Complication if Not Cared For in Hospital
--- NOTE | 2019-04-04 08:25 | RADIOLOGY REPORT (SQ) ---
EXAM DESCRIPTION: FOREARM LEFT COMPLETED DATE/TIME: 04/04/2019 7:02 am REASON FOR STUDY: abnormality seen on bone scan COMPARISON: 04/03/2019 NUMBER OF VIEWS: Two views. TECHNIQUE: Two radiographic images acquired of the left forearm, including elbow and wrist in at [address] one projection. LIMITATIONS: None. FINDINGS: MINERALIZATION: Normal. BONES: No definite acute bony abnormality. Ill-defined fluffy and corticated ossific densities at th e distal ulna favored to be related to remote trauma or degenerative in nature. Mild additional dege nerative changes at the carpometacarpal joints. SOFT TISSUES: Soft tissue swelling about the proximal forearm. No radiopaque foreign body. OTHER: No other significant finding. IMPRESSION: 1. No definite acute bony abnormality. Corticated ossific densities at the distal ulna favored review related to remote trauma or degenerative. 2. Soft tissue swelling about the proximal forearm, likely corresponding to bone scan findings. TECHNICAL DOCUMENTATION: JOB ID: [id number] [employer]- All Rights Reserved Reading location - IP/workstation name: [email or web address]
--- NOTE | 2019-04-04 12:53 | PDOC CRITICAL CARE PROG REPORT ---
General Date:: 04/04/19 - Critical Care Attending Note Resuscitation Status: Full Code Events in the past 12 to 24 Hours:: Pt remains intubated and remains unresponsive. Reason for ICU Addmission:: acute respiratory failure Physical Exam Vital Signs: Temp Pulse Resp BP Pulse Ox 99.5 F 114 H 18 130/64 H 97 04/04/19 08:00 04/04/19 10:00 04/04/19 11:18 04/04/19 11:18 04/04/19 11:18 Intake & Output 04/03/19 04/04/19 04/05/19 06:59 06:59 06:59 Intake Total 2971 2985 83 Output Total 2595 2405 900 Balance 376 580 -817 Weight 71.2 kg 69.3 kg Weight/Height Weight 69.3 kg Height 5 ft 6 in General appearance: PRESENT: no acute distress, well-developed, well-nourished, other - intubated, unresponsive Head exam: PRESENT: atraumatic, normocephalic Respiratory exam: PRESENT: clear to auscultation yassine, unlabored Cardiovascular exam: PRESENT: RRR GI/Abdominal exam: PRESENT: soft Gentrourinary exam: PRESENT: indwelling catheter Musculoskeletal exam: PRESENT: normal inspection Neurological exam: PRESENT: other - unresponsive, moves all extremities Laboratory/Radiographs Laboratory Results: 04/04/19 04:25 04/04/19 04:25 03/30/19 04/03/19 04/03/19 10:23 13:40 15:05 WBC 11.5 H RBC 2.87 L Hgb 10.4 L Hct 30.0 L MCV 105 H MCH 36.2 H MCHC 34.7 RDW 12.2 Plt Count 138 L Seg Neutrophils % 80.7 H Sodium Potassium Chloride Carbon Dioxide Anion Gap BUN Creatinine Est GFR ( Amer) Glucose Calcium Magnesium Total Bilirubin AST Alkaline Phosphatase Total Protein 6.4 Albumin Fluid Tube Number 3 CSF Volume 8.8 CSF Appearance CLEAR CSF Color COLORLESS CSF WBC 4 CSF RBC 0 CSF Color (1) COLORLESS CSF Appearance (1) CLEAR CSF Color (2) COLORLESS CSF Appearance (2) CLEAR CSF Color (3) COLORLESS CSF Appearance (3) CLEAR CSF Color (4) COLORLESS CSF Appearance (4) CLEAR CSF Glucose CSF Total Protein Blood Type Antibody Screen 12/30/19 12/30/19 12/30/19 15:05 19:39 21:00 WBC RBC Hgb Hct MCV MCH MCHC RDW Plt Count Seg Neutrophils % Sodium 150.8 H Potassium 3.0 L* Chloride 123 H Carbon Dioxide 20 L Anion Gap 8 BUN 42 H Creatinine 2.08 H Est GFR ( Amer) 39 L Glucose 105 Calcium 8.8 Magnesium Total Bilirubin AST Alkaline Phosphatase Total Protein Albumin Fluid Tube Number CSF Volume CSF Appearance CSF Color CSF WBC CSF RBC CSF Color (1) CSF Appearance (1) CSF Color (2) CSF Appearance (2) CSF Color (3) CSF Appearance (3) CSF Color (4) CSF Appearance (4) CSF Glucose 57 CSF Total Protein 102 H Blood Type A POSITIVE Antibody Screen NEGATIVE 04/03/19 04/04/19 04/04/19 21:00 04:25 04:25 WBC 11.6 H 9.7 RBC 2.82 L 2.60 L Hgb 10.4 L 9.5 L Hct 29.7 L 27.1 L MCV 105 H 104 H MCH 36.7 H 36.7 H MCHC 34.8 35.2 RDW 12.1 12.4 Plt Count 140 L 130 L Seg Neutrophils % 78.1 H 78.1 H Sodium 148.9 H Potassium 2.9 L* Chloride 124 H Carbon Dioxide 19 L Anion Gap 6 BUN 37 H Creatinine 1.97 H Est GFR ( Amer) 41 L Glucose 191 H Calcium 8.3 L Magnesium 1.9 Total Bilirubin 0.3 AST 19 Alkaline Phosphatase 58 Total Protein 4.5 L Albumin 2.2 L Fluid Tube Number CSF Volume CSF Appearance CSF Color CSF WBC CSF RBC CSF Color (1) CSF Appearance (1) CSF Color (2) CSF Appearance (2) CSF Color (3) CSF Appearance (3) CSF Color (4) CSF Appearance (4) CSF Glucose CSF Total Protein Blood Type Antibody Screen 04/01/19 15:20 Sputum Gram Stain - Final 03/31/19 04/01/19 04/04/19 05:56 14:45 06:27 Creatine Kinase 310 H 42 L Troponin I 0.028 Impressions: Cervical Spine CT 03/29/19 12:01 IMPRESSION: No fracture or static subluxation of the cervical spine. Moderate multilevel disc space height loss and osteophytosis. Abdomen/Pelvis CT 04/01/19 00:00 IMPRESSION: 1. Dependent lung changes as above. 2. Appropriate support lines and tubes. 3. Mild -moderate pericardial effusion. 4. No suspicious masses or nodules detected. IMPRESSION: 1. No acute or suspicious abdominopelvic abnormality on non contrasted exam. Findings as above. Chest CT 04/01/19 00:00 IMPRESSION: 1. Dependent lung changes as above. 2. Appropriate support lines and tubes. 3. Mild -moderate pericardial effusion. 4. No suspicious masses or nodules detected. IMPRESSION: 1. No acute or suspicious abdominopelvic abnormality on non contrasted exam. Findings as above. Head CT 04/01/19 00:00 IMPRESSION: NO ACUTE INTRACRANIAL IMAGING FINDINGS. EVIDENCE OF ACUTE STROKE: NO. Body Scan Nuclear Medicine 04/03/19 00:00 IMPRESSION: 1. ACTIVITY IN THE KNEES MOST CONSISTENT WITH DEGENERATIVE JOINT DISEASE. NO SUSPICIOUS UPTAKE IN THE SKELETON. 2. LINEAR INCREASED ACTIVITY IN THE MEDIAL LEFT FOREARM. THIS IS NOT RELATED TO THE INJECTION SITE (CENTRAL LINE) AND NO REPORTED SKIN CONTAMINATION. THIS MAY BE DUE TO SOFT TISSUE UPTAKE. RECOMMEND X-RAY OF THE LEFT FOREARM FOR FURTHER EVALUATION. Guidance Fluoroscopy 04/03/19 00:00 IMPRESSION: LUMBAR PUNCTURE UNDER FLUOROSCOPY. NO IMMEDIATE COMPLICATION. Lumbar Puncture 04/03/19 00:00 IMPRESSION: LUMBAR PUNCTURE UNDER FLUOROSCOPY. NO IMMEDIATE COMPLICATION. Chest X-Ray 04/03/19 08:23 IMPRESSION: NO ACUTE RADIOGRAPHIC FINDING IN THE CHEST. Forearm X-Ray 04/04/19 00:00 IMPRESSION: 1. No definite acute bony abnormality. Corticated ossific densities at the distal ulna favored review related to remote trauma or degenerative. 2. Soft tissue swelling about the proximal forearm, likely corresponding to bone scan findings. Assessment and Plan - Diagnosis (1) Acute metabolic encephalopathy Is this a current diagnosis for this admission?: Yes (2) Acute kidney injury Is this a current diagnosis for this admission?: Yes (3) Acute respiratory failure Qualifiers: Respiratory failure complication: unspecified whether with hypoxia or hypercapnia Qualified Code(s): J96.00 - Acute respiratory failure, unspecified whether with hypoxia or hypercapnia Is this a current diagnosis for this admission?: Yes (4) Hypercalcemia Is this a current diagnosis for this admission?: Yes (5) Hypernatremia Is this a current diagnosis for this admission?: Yes (6) GI bleed Qualifiers: Gastritis type: acute gastritis Is this a current diagnosis for this admission?: Yes Plan Summary: Assessment: Critically ill 63 yo man with acute respiratory failure, aspiration PNA, hypercalcemia, hypernatremia, coma, MARYAN, GI bleed. Plan: 1. Respiratory: acute respiratory failure. Vent day 4. Continue full vent support. 2. Pulmonary: aspiration PNA. Pt aspirated during initial intubation attempt during the code. Day 4 vanc and cefepime. 3. CV: Echo done, report reviewed. Small pericardial effusion. BP and heart rate acceptable 4. Renal/Electrolytes: MARYAN. Cr is 1.97. hypercalcemia, resolved. Calcium is 8.3.. Hypernatremia, resolving. Sodium is now 148. Neprhology following. 5.Oncology. Hypercalcemia, resolved. Negative w/u for malignancy. Dr. Perez has signed off. 6. Neuro: coma. Metabolic enephalopathy. Head CT negative for stroke. Unable to get MRI while pt on the vent. LP negative for meningitis. EEG pending 7. GI/Surgery: GI Bleed. EGD on 04/03 showed gastritis and erosive lesion due to irritation of the NG tube. NGT remains out. Pt remains on protonix drip. Dr. Escobar to do colonoscopy in the next several day. 8. ID: aspiration PNA. Day4 vanc and cefepime. 8. Nutrition: tube feeds on hold NGT to remain out due to esophageal erosion caused by the NGT. 9. Prophylaxis: scds. SQ heparin d/c'd due to GI bleed. Critical care time= 45 min, excluding procedures Critical Time Critical Time (minutes): 45 Level of Care: ICU -: 1. The care of a critical patient is a dynamic process. This note is a apprenticeship training representative synopsis but static in nature. The timeframe for treatments gi carolina in order is not necessarily the actual time these treatments may have been done. 2. This patient requires critical care secondary to ongoing requirements for therapy not offered or safe outside the critical care environment. Transfer to a lower level of care will result in altered life or limb morbidity and mortality. 3. Multidisciplinary rounds completed. 4. ABCDE bundle addressed.
[2019-04-04 14:56] LABS: ALBUMIN 2.4 g/dL (3.5-5.0); ALKALINE PHOSPHATASE 61 U/L (38-126); ANION GAP 5 (5-19); ASPARTATE AMINO TRANSFERASE 21 U/L (17-59); BILIRUBIN,DIRECT 0.3 mg/dL (0.0-0.4); BILIRUBIN,TOTAL 0.4 mg/dL (0.2-1.3); BLOOD UREA NITROGEN 34 mg/dL (7-20); CALCIUM 8.5 mg/dL (8.4-10.2); CARBON DIOXIDE 20 mmol/L (22-30); CHLORIDE 127 mmol/L (98-107); GLUCOSE 107 mg/dL (75-110); PHOSPHORUS 1.8 mg/dL (2.5-4.5); POTASSIUM 3.1 mmol/L (3.6-5.0); TOTAL PROTEIN 4.9 g/dL (6.3-8.2)
--- NOTE | 2019-04-04 15:58 | PDOC PROGRESS REPORT ---
Subjective Progress Note for:: 04/04/19 Reason For Visit: Patient seen today in the ICU. He remains intubated and sedated. Trying to wean him but patient still remains in a comatose state. His LP done yesterday was negative for meningitis. Labs and medications were reviewed. Discussions were done with the treating nurse Mitchell. Physical Exam Vital Signs: Temp Pulse Resp BP Pulse Ox 100.5 F H 90 20 102/64 99 04/04/19 14:00 04/04/19 14:00 04/04/19 14:03 04/04/19 14:03 04/04/19 14:03 Intake & Output 04/03/19 04/04/19 04/05/19 06:59 06:59 06:59 Intake Total 2971 2985 176 Output Total 2595 2405 1400 Balance 376 580 -1224 Weight 71.2 kg 69.3 kg Exam: Remains intubated and sedated. Respiratory exam: PRESENT: clear to auscultation yassine, decreased breath sounds. ABSENT: crackles Cardiovascular exam: PRESENT: +S1, +S2 GI/Abdominal exam: PRESENT: normal bowel sounds, soft. ABSENT: organomegaly, tenderness Extremities exam: ABSENT: pedal edema Skin exam: ABSENT: cyanosis, dry, erythema, mottled Results Laboratory Results: 04/04/19 04:25 04/04/19 14:25 04/03/19 04/03/19 04/03/19 15:05 15:05 19:39 WBC RBC Hgb Hct MCV MCH MCHC RDW Plt Count Seg Neutrophils % Sodium Potassium Chloride Carbon Dioxide Anion Gap BUN Creatinine Est GFR ( Amer) Glucose Calcium Phosphorus Magnesium Total Bilirubin AST Alkaline Phosphatase Total Protein Albumin Fluid Tube Number 3 CSF Volume 8.8 CSF Appearance CLEAR CSF Color COLORLESS CSF WBC 4 CSF RBC 0 CSF Color (1) COLORLESS CSF Appearance (1) CLEAR CSF Color (2) COLORLESS CSF Appearance (2) CLEAR CSF Color (3) COLORLESS CSF Appearance (3) CLEAR CSF Color (4) COLORLESS CSF Appearance (4) CLEAR CSF Glucose 57 CSF Total Protein 102 H Blood Type A POSITIVE Antibody Screen NEGATIVE 04/03/19 04/03/19 04/04/19 21:00 21:00 04:25 WBC 11.6 H 9.7 RBC 2.82 L 2.60 L Hgb 10.4 L 9.5 L Hct 29.7 L 27.1 L MCV 105 H 104 H MCH 36.7 H 36.7 H MCHC 34.8 35.2 RDW 12.1 12.4 Plt Count 140 L 130 L Seg Neutrophils % 78.1 H 78.1 H Sodium 150.8 H Potassium 3.0 L* Chloride 123 H Carbon Dioxide 20 L Anion Gap 8 BUN 42 H Creatinine 2.08 H Est GFR ( Amer) 39 L Glucose 105 Calcium 8.8 Phosphorus Magnesium Total Bilirubin AST Alkaline Phosphatase Total Protein Albumin Fluid Tube Number CSF Volume CSF Appearance CSF Color CSF WBC CSF RBC CSF Color (1) CSF Appearance (1) CSF Color (2) CSF Appearance (2) CSF Color (3) CSF Appearance (3) CSF Color (4) CSF Appearance (4) CSF Glucose CSF Total Protein Blood Type Antibody Screen 04/04/19 04/04/19 04:25 14:25 WBC RBC Hgb Hct MCV MCH MCHC RDW Plt Count Seg Neutrophils % Sodium 148.9 H 151.9 H Potassium 2.9 L* 3.1 L Chloride 124 H 127 H Carbon Dioxide 19 L 20 L Anion Gap 6 5 BUN 37 H 34 H Creatinine 1.97 H 2.02 H Est GFR ( Amer) 41 L 40 L Glucose 191 H 107 Calcium 8.3 L 8.5 Phosphorus 1.8 L Magnesium 1.9 1.9 Total Bilirubin 0.3 0.4 AST 19 21 Alkaline Phosphatase 58 61 Total Protein 4.5 L 4.9 L Albumin 2.2 L 2.4 L Fluid Tube Number CSF Volume CSF Appearance CSF Color CSF WBC CSF RBC CSF Color (1) CSF Appearance (1) CSF Color (2) CSF Appearance (2) CSF Color (3) CSF Appearance (3) CSF Color (4) CSF Appearance (4) CSF Glucose CSF Total Protein Blood Type Antibody Screen 04/01/19 15:20 Sputum Gram Stain - Final 04/01/19 15:20 Sputum Sputum Culture - Final Staphylococcus Aureus Normal Andreea 03/31/19 04/01/19 04/04/19 05:56 14:45 06:27 Creatine Kinase 310 H 42 L Troponin I 0.028 Impressions: Cervical Spine CT 03/29/19 12:01 IMPRESSION: No fracture or static subluxation of the cervical spine. Moderate multilevel disc space height loss and osteophytosis. Abdomen/Pelvis CT 04/01/19 00:00 IMPRESSION: 1. Dependent lung changes as above. 2. Appropriate support lines and tubes. 3. Mild -moderate pericardial effusion. 4. No suspicious masses or nodules detected. IMPRESSION: 1. No acute or suspicious abdominopelvic abnormality on non contrasted exam. Findings as above. Chest CT 04/01/19 00:00 IMPRESSION: 1. Dependent lung changes as above. 2. Appropriate support lines and tubes. 3. Mild -moderate pericardial effusion. 4. No suspicious masses or nodules detected. IMPRESSION: 1. No acute or suspicious abdominopelvic abnormality on non contrasted exam. Findings as above. Head CT 04/01/19 00:00 IMPRESSION: NO ACUTE INTRACRANIAL IMAGING FINDINGS. EVIDENCE OF ACUTE STROKE: NO. Body Scan Nuclear Medicine 04/03/19 00:00 IMPRESSION: 1. ACTIVITY IN THE KNEES MOST CONSISTENT WITH DEGENERATIVE JOINT DISEASE. NO SUSPICIOUS UPTAKE IN THE SKELETON. 2. LINEAR INCREASED ACTIVITY IN THE MEDIAL LEFT FOREARM. THIS IS NOT RELATED TO THE INJECTION SITE (CENTRAL LINE) AND NO REPORTED SKIN CONTAMINATION. THIS MAY BE DUE TO SOFT TISSUE UPTAKE. RECOMMEND X-RAY OF THE LEFT FOREARM FOR FURTHER EVALUATION. Guidance Fluoroscopy 04/03/19 00:00 IMPRESSION: LUMBAR PUNCTURE UNDER FLUOROSCOPY. NO IMMEDIATE COMPLICATION. Lumbar Puncture 04/03/19 00:00 IMPRESSION: LUMBAR PUNCTURE UNDER FLUOROSCOPY. NO IMMEDIATE COMPLICATION. Chest X-Ray 04/03/19 08:23 IMPRESSION: NO ACUTE RADIOGRAPHIC FINDING IN THE CHEST. Forearm X-Ray 04/04/19 00:00 IMPRESSION: 1. No definite acute bony abnormality. Corticated ossific densities at the distal ulna favored review related to remote trauma or degenerative. 2. Soft tissue swelling about the proximal forearm, likely corresponding to bone scan findings. Assessment & Plan - Diagnosis (1) Acute kidney injury Is this a current diagnosis for this admission?: Yes Plan: Nonoliguric. His renal numbers remained stable. [facility] to see if he has pre-existing kidney disease. (2) Acute metabolic encephalopathy Is this a current diagnosis for this admission?: Yes Plan: As per guest experience manager. (3) Hypercalcemia Is this a current diagnosis for this admission?: Yes Plan: Currently resolved. (4) Hypokalemia Is this a current diagnosis for this admission?: Yes Plan: Being replaced. Monitor. (5) Hypernatremia Is this a current diagnosis for this admission?: Yes Plan: Slowly improving on current guidelines. Continue on with D5. Monitor.
[2019-04-04] MEDS: NORMAL SALINE 1000 ML 1,000 ML with POTASSIUM CHLORIDE 20 MEQ, MAGNESIUM SULFATE 8 MEQ,... IV SCH ×5 (17:35)
[2019-04-04] MEDS: VANCOMYCIN HCL 750 MG in DEXTROSE 5%-WATER 250 ML IV SCH (17:35)
[2019-04-04] MEDS: HYDRALAZINE HCL INJ/PF 20 MG/1 ML SDV IV PRN (17:36)
--- NOTE | 2019-04-04 18:56 | NEURO WORKBENCH EEG REPORT ---
EEG Report Patient: Freddy Tolliver ID: [id number] Referring Doctor: Lydia Gallagher Date: 04/04/2019 Reason for study: Evaluate Encephalopathy Medications: Cefepime, Lopressor, KCl/Mg, Thiamine, MVI, Vancomycin, Ativan History: This is a 63 year old male with a history of bipolar disorder admitted with altered mental status, hypercalcemia, and MARYAN. Patient likely aspirated and went into respiratory failure and is now intubated in the ICU. Body temperature was 37.9 C at the time of this study. This EEG was requested for evaluation of encephalopathy. EEG Interpretation There were no apparent spontaneous eye openings or closings, but the interventional tech manually opened and closed the patients eyes multiple times. The EEG is reactive after stimuli. The EEG was globally low amplitude. The backgound EEG shows diffuse polymorphic low amplitude 4-6 Hz theta activity with intermixed polymorphic 1-3 Hz delta activity. There was low amplitude diffuse beta activity as well. With eye closure there is no occipital dominant rhythm present. There were occasional brief periods of global amplitude suppression. There were no obvious asymmetries in amplitude or frequencies. Photic stimulation was done and photic driving was not noted. There were very frequent Generalized Periodic Discharges (GPDs), at times with an anterior to posterior lag and triphasic morphology. The GPDs were typically 1Hz or less, and did not reach an ictal pattern of 3Hz or greater. There were seizures noted, and there were no focal/localized sharp waves or spikes. The EKG showed a regular rhythm with rates typically in the 80-95 range, with frequent artifact obscuring the one channel EKG trace. EEG Impression This is a markedly abnormal EEG due to diffuse background slowing and the presence of very frequent Generalized Periodic Discharges (GPDs), and periods of global amplitude suppression. This EEG is consistent with diffuse cerebral dysfunction which is non-specific for etiology. GPDs are of uncertain clinical significance, but in general are associated with an increased risk of seizures, although no seizures occurred during this recording. GPDs can be seen in a variety of clinical settings, including but not limited to postanoxic coma, after convulsive status epilepticus, with metabolic derangements, in Creutzfeldt-Alexandro disease, during Marcos encephalopathy, from medication toxicity, and in end-stage Alzheimers disease. Clinical correlation is needed. It should be noted as well that the patient received 2 mg of Ativan just prior to this EEG. Treatment with anti-epileptic medications may be considered with repeat EEG to evaluate for improvement or resolution of GPDs. INTERPRETING NEUROLOGIST: Reji Reyes MD Board certified by the [employer] in Neurology, Clinical Neurophysiology, and Sleep Medicine [facility] SYSTEMAbigail
[2019-04-05] MEDS: NORMAL SALINE 100 ML with PANTOPRAZOLE SODIUM 80 MG IV PRN ×4 (00:40→11:00)
[2019-04-05] MEDS: DEXTROSE 5%-WATER 1000 ML 1,000 ML IV PRN (00:40)
[2019-04-05] MEDS: PROPOFOL 1,000 MG/100 ML INFUS..BTL IV PRN (01:43)
[2019-04-05 04:41] LABS: ARTERIAL BLOOD BASE EXCESS -5.5 mmol/L; ARTERIAL BLOOD H2CO3 0.71 mmol/L (1.05-1.35); ARTERIAL BLOOD HCO3 16.8 mmol/L (20-24); ARTERIAL BLOOD O2 SATURATION 97.4 % (94-98); ARTERIAL BLOOD PCO2 23.7 mmHg (35-45); ARTERIAL BLOOD PH 7.47 (7.35-7.45); ARTERIAL BLOOD PO2 88.8 mmHg (80-100); ARTERIAL BLOOD TOTAL CO2 17.5 mmol/L (23-27)
[2019-04-05 04:42] LABS: ARTERIAL BLOOD FIO2 21%
[2019-04-05 05:10] LABS: ABSOLUTE BASOPHILS # (AUTO) 0.1 10^3/uL (0.0-0.2); ABSOLUTE EOSINOPHILS # (AUTO) 0.4 10^3/uL (0.0-0.6); ABSOLUTE LYMPHOCYTES (AUTO) 1.1 10^3/uL (0.5-4.7); ABSOLUTE MONOCYTES (AUTO) 0.6 10^3/uL (0.1-1.4); ABSOLUTE NEUT (AUTO) 7.5 10^3/uL (1.7-8.2); BASOPHILS % (AUTO) 0.6 % (0-2); EOSINOPHILS % (AUTO) 3.9 % (0-6); HEMOGLOBIN 9.8 g/dL (13.5-17.0); LYMPHOCYTES % (AUTO) 11.7 % (13-45); MEAN CORPUSCULAR HEMOGLOBIN 36.2 pg (27.0-33.4); MEAN CORPUSCULAR VOLUME 104 fl (80-97); MONOCYTES % (AUTO) 6.2 % (3-13); PLATELET COUNT 151 10^3/uL (150-450); RED BLOOD COUNT 2.71 10^6/uL (4.35-5.55); RED CELL DISTRIBUTION WIDTH 11.9 % (11.5-14.0); SEGMENTED NEUTROPHILS % (AUTO) 77.6 % (42-78); TOTAL CELLS COUNTED % (AUTO) 100 %; WHITE BLOOD COUNT 9.7 10^3/uL (4.0-10.5)
[2019-04-05] MEDS: CEFEPIME 1 GM/D5W RTU 1 GM/50 ML RTUPB IV SCH ×2 (05:22→18:13)
[2019-04-05 08:36] LABS: ABSOLUTE BASOPHILS # (AUTO) 0.1 10^3/uL (0.0-0.2); ABSOLUTE EOSINOPHILS # (AUTO) 0.4 10^3/uL (0.0-0.6); ABSOLUTE LYMPHOCYTES (AUTO) 1.2 10^3/uL (0.5-4.7); ABSOLUTE MONOCYTES (AUTO) 0.7 10^3/uL (0.1-1.4); ABSOLUTE NEUT (AUTO) 8.9 10^3/uL (1.7-8.2); BASOPHILS % (AUTO) 0.6 % (0-2); EOSINOPHILS % (AUTO) 3.2 % (0-6); HEMATOCRIT 29.1 % (37.9-51.0); HEMOGLOBIN 10.4 g/dL (13.5-17.0); LYMPHOCYTES % (AUTO) 10.9 % (13-45); MEAN CORPUSCULAR HEMOGLOBIN 36.7 pg (27.0-33.4); MEAN CORPUSCULAR HGB CONC 35.8 g/dL (32.0-36.0); MEAN CORPUSCULAR VOLUME 103 fl (80-97); PLATELET COUNT 156 10^3/uL (150-450); RED BLOOD COUNT 2.84 10^6/uL (4.35-5.55); RED CELL DISTRIBUTION WIDTH 12.1 % (11.5-14.0); SEGMENTED NEUTROPHILS % (AUTO) 79.3 % (42-78); TOTAL CELLS COUNTED % (AUTO) 100 %; WHITE BLOOD COUNT 11.2 10^3/uL (4.0-10.5)
[2019-04-05 09:02] LABS: ALBUMIN 2.6 g/dL (3.5-5.0); ALKALINE PHOSPHATASE 70 U/L (38-126); ANION GAP 7 (5-19); ASPARTATE AMINO TRANSFERASE 23 U/L (17-59); BILIRUBIN,DIRECT 0.2 mg/dL (0.0-0.4); BILIRUBIN,TOTAL 0.3 mg/dL (0.2-1.3); BLOOD UREA NITROGEN 28 mg/dL (7-20); CALCIUM 8.2 mg/dL (8.4-10.2); CARBON DIOXIDE 19 mmol/L (22-30); CHLORIDE 126 mmol/L (98-107); GLUCOSE 107 mg/dL (75-110); PHOSPHORUS 2.4 mg/dL (2.5-4.5); TOTAL PROTEIN 5.2 g/dL (6.3-8.2)
[2019-04-05 09:04] LABS: POTASSIUM 2.9 mmol/L (3.6-5.0)
[2019-04-05] MEDS ORDERED: DEXMEDETOMIDINE IN 0.9 % NACL 400 MCG/100 ML RTUPB IV ONE (09:14)
[2019-04-05] MEDS ORDERED: (PENDING PHARMACY ID) (Diclofenac Sodium [Diclofenac Sodium] 4 GM) TP PRN (09:18)
--- NOTE | 2019-04-05 09:20 | RADIOLOGY REPORT (SQ) ---
EXAM DESCRIPTION: CHEST SINGLE VIEW COMPLETED DATE/TIME: 04/05/2019 6:28 am REASON FOR STUDY: acute respiratory failure COMPARISON: 04/03/2019. EXAM PARAMETERS: NUMBER OF VIEWS: One view. TECHNIQUE: Single frontal radiographic view of the chest acquired. RADIATION DOSE: NA LIMITATIONS: None. FINDINGS: LUNGS AND PLEURA: No opacities, masses or pneumothorax. No pleural effusion. MEDIASTINUM AND HILAR STRUCTURES: No masses. Contour normal. HEART AND VASCULAR STRUCTURES: Heart normal in size. Normal vasculature. BONES: No acute findings. HARDWARE: Interval removal of the nasogastric tube. Endotracheal tube and central venous catheter. OTHER: No other significant finding. IMPRESSION: INTERVAL REMOVAL OF THE NASOGASTRIC TUBE. OTHERWISE STABLE. TECHNICAL DOCUMENTATION: JOB ID: [id number] [employer]- All Rights Reserved Reading location - IP/workstation name: [email or web address]
[2019-04-05] MEDS ORDERED: DEXMEDETOMIDINE IN NS 400 MCG/100 ML RTUPB IV PRN (09:44)
[2019-04-05] MEDS: POTASSI CL 20 MEQ/50 ML RIDER 20 MEQ/50 ML RTUPB IV SCH ×7 (10:59→23:43)
[2019-04-05] MEDS: LEVETIRACETAM 1000 MG/NACL-ISO 1,000 MG/100 ML RTUPB IV SCH ×2 (11:00→21:42)
--- NOTE | 2019-04-05 11:43 | Progress Note ---
Provider Note Provider Note: In with RN to assess pt. Noted that pt has continued agitated movements that are not purposeful and pt does not follow commands. Neurological exam reveals bilateral ocular clonus with bilateral pupillary dilation and constriction swings similar to APD and bilateral pupils would settle on pinpoint after 3-4 seconds of light. Bilateral upper extremities are extended with noted muscle fasciculation but moveable with passive ROM in the elbow and wrist. Continued spontaneous BLE movements with intermittent rigidity of lower extremities. Bilateral foot clonus that is persistent for greater than 10 beats bilaterally. Positive Babinski's reflex bilaterally. Noted hyperreflexia when assessing DTRs. Pt given Ativan as ordered with marginal improvement. Concerns for serotonin syndrome discussed with attending on morning sign out.
--- NOTE | 2019-04-05 12:01 | PDOC CRITICAL CARE PROG REPORT ---
General Date:: 04/05/19 ICU Day:: 5 Ventilator Day:: 5 Hospital Day:: 8 Resuscitation Status: Full Code Events in the past 12 to 24 Hours:: More awake. Hypernatremia similar. Review of systems relevant to events:: Neura, respiratory, renal. Reason for ICU Addmission:: acute respiratory failure, intubated - Medications: Medications reviewed and adjusted accordingly: Yes Vasopressors:: None Sedation:: Precedex, propofol stopped. Physical Exam Vital Signs: Temp Pulse Resp BP Pulse Ox 98.1 F 102 H 21 H 152/99 H 95 04/05/19 08:00 04/05/19 10:00 04/05/19 10:00 04/05/19 10:00 04/05/19 10:00 Intake & Output 04/04/19 04/05/19 04/06/19 06:59 06:59 06:59 Intake Total 2985 1452 100 Output Total 2405 3285 500 Balance 580 -1833 -400 Weight 69.3 kg 69.9 kg Weight/Height Weight 69.9 kg Height 5 ft 6 in General appearance: PRESENT: no acute distress, disheveled Head exam: PRESENT: atraumatic, normocephalic Eye exam: PRESENT: nystagmus, PERRLA Ear exam: PRESENT: normal external ear exam Mouth exam: PRESENT: moist, tongue midline, other - ETT present Respiratory exam: PRESENT: clear to auscultation yassine. ABSENT: rales, rhonchi, wheezes Cardiovascular exam: PRESENT: RRR. ABSENT: diastolic murmur, rubs, systolic murmur GI/Abdominal exam: PRESENT: normal bowel sounds, soft. ABSENT: distended, guarding, mass, organolmegaly, rebound, tenderness Rectal exam: PRESENT: deferred Gentrourinary exam: PRESENT: indwelling catheter Extremities exam: PRESENT: full ROM Musculoskeletal exam: PRESENT: normal inspection Neurological exam: PRESENT: altered Psychiatric exam: PRESENT: agitated Skin exam: PRESENT: dry, intact, warm. ABSENT: cyanosis, rash Tubes/Lines: PRESENT: Endotracheal Tube, Central Line Laboratory/Radiographs Laboratory Results: 04/05/19 08:15 04/05/19 08:15 04/04/19 04/05/19 04/05/19 14:25 03:42 03:42 WBC 9.7 RBC 2.71 L Hgb 9.8 L Hct 28.0 L MCV 104 H MCH 36.2 H MCHC 35.0 RDW 11.9 Plt Count 151 Seg Neutrophils % 77.6 Carbonic Acid 0.71 L HCO3/H2CO3 Ratio 23:1 ABG pH 7.47 H ABG pCO2 23.7 L ABG pO2 88.8 ABG HCO3 16.8 L ABG O2 Saturation 97.4 ABG Base Excess -5.5 FiO2 21% Sodium 151.9 H Potassium 3.1 L Chloride 127 H Carbon Dioxide 20 L Anion Gap 5 BUN 34 H Creatinine 2.02 H Est GFR ( Amer) 40 L Glucose 107 Calcium 8.5 Phosphorus 1.8 L Magnesium 1.9 Total Bilirubin 0.4 AST 21 Alkaline Phosphatase 61 Total Protein 4.9 L Albumin 2.4 L 04/05/19 04/05/19 04/05/19 03:42 08:15 08:15 WBC 11.2 H RBC 2.84 L Hgb 10.4 L Hct 29.1 L MCV 103 H MCH 36.7 H MCHC 35.8 RDW 12.1 Plt Count 156 Seg Neutrophils % 79.3 H Carbonic Acid HCO3/H2CO3 Ratio ABG pH ABG pCO2 ABG pO2 ABG HCO3 ABG O2 Saturation ABG Base Excess FiO2 Sodium 152.2 H Potassium 2.9 L* Chloride 126 H Carbon Dioxide 19 L Anion Gap 7 BUN 28 H Creatinine 1.91 H Est GFR ( Amer) 43 L Glucose 107 Calcium 8.2 L Phosphorus 2.4 L Magnesium 2.1 2.0 Total Bilirubin 0.3 AST 23 Alkaline Phosphatase 70 Total Protein 5.2 L Albumin 2.6 L 04/01/19 15:20 Sputum Gram Stain - Final 04/01/19 15:20 Sputum Sputum Culture - Final Staphylococcus Aureus Normal [place] 03/31/19 04/01/19 04/04/19 05:56 14:45 06:27 Creatine Kinase 310 H 42 L Troponin I 0.028 Impressions: Cervical Spine CT 03/29/19 12:01 IMPRESSION: No fracture or static subluxation of the cervical spine. Moderate multilevel disc space height loss and osteophytosis. Abdomen/Pelvis CT 04/01/19 00:00 IMPRESSION: 1. Dependent lung changes as above. 2. Appropriate support lines and tubes. 3. Mild -moderate pericardial effusion. 4. No suspicious masses or nodules detected. IMPRESSION: 1. No acute or suspicious abdominopelvic abnormality on non contrasted exam. Findings as above. Chest CT 04/01/19 00:00 IMPRESSION: 1. Dependent lung changes as above. 2. Appropriate support lines and tubes. 3. Mild -moderate pericardial effusion. 4. No suspicious masses or nodules detected. IMPRESSION: 1. No acute or suspicious abdominopelvic abnormality on non contrasted exam. Findings as above. Head CT 04/01/19 00:00 IMPRESSION: NO ACUTE INTRACRANIAL IMAGING FINDINGS. EVIDENCE OF ACUTE STROKE: NO. Body Scan Nuclear Medicine 04/03/19 00:00 IMPRESSION: 1. ACTIVITY IN THE KNEES MOST CONSISTENT WITH DEGENERATIVE JOINT DISEASE. NO SUSPICIOUS UPTAKE IN THE SKELETON. 2. LINEAR INCREASED ACTIVITY IN THE MEDIAL LEFT FOREARM. THIS IS NOT RELATED TO THE INJECTION SITE (CENTRAL LINE) AND NO REPORTED SKIN CONTAMINATION. THIS MAY BE DUE TO SOFT TISSUE UPTAKE. RECOMMEND X-RAY OF THE LEFT FOREARM FOR FURTHER EVALUATION. Guidance Fluoroscopy 04/03/19 00:00 IMPRESSION: LUMBAR PUNCTURE UNDER FLUOROSCOPY. NO IMMEDIATE COMPLICATION. Lumbar Puncture 04/03/19 00:00 IMPRESSION: LUMBAR PUNCTURE UNDER FLUOROSCOPY. NO IMMEDIATE COMPLICATION. Forearm X-Ray 04/04/19 00:00 IMPRESSION: 1. No definite acute bony abnormality. Corticated ossific densities at the distal ulna favored review related to remote trauma or degenerative. 2. Soft tissue swelling about the proximal forearm, likely corresponding to bone scan findings. Chest X-Ray 04/05/19 06:00 IMPRESSION: INTERVAL REMOVAL OF THE NASOGASTRIC TUBE. OTHERWISE STABLE. All labs, radiographs, diagnostic studies and EKGs were personally reviewed: Yes In addition, reports of radiographic and diagnostic studies were read: Yes Assessment and Plan - Diagnosis (1) Acute kidney injury Is this a current diagnosis for this admission?: Yes Plan: Somewhat improved. Baseline not known. (2) Acute metabolic encephalopathy Is this a current diagnosis for this admission?: Yes Plan: Seems to be better. Pt is opening eyes. Hypercalcemia and hypernatremia playing a role. (3) Acute respiratory failure Qualifiers: Respiratory failure complication: unspecified whether with hypoxia or hypercapnia Qualified Code(s): J96.00 - Acute respiratory failure, unspecified whether with hypoxia or hypercapnia Is this a current diagnosis for this admission?: Yes Plan: Iwould like to extubate as he is doing well on PSV. Ld do if able to protect airway. (4) GI bleed Qualifiers: Gastritis type: acute gastritis Is this a current diagnosis for this admission?: Yes Plan: Hgb stable. No NG. Protonix now BID. (5) Hypercalcemia Is this a current diagnosis for this admission?: Yes Plan: Resolved. Level at 8.2. Plan Summary: Hope to extubate today. Critical Time Critical Time (minutes): 40 Level of Care: ICU Anticipated discharge: SNF Within: Other - Too soon to tell. -: 1. The care of a critical patient is a dynamic process. This note is a service center representative synopsis but static in nature. The timeframe for treatments given in order is not necessarily the actual time these treatments may have been done. 2. This patient requires critical care secondary to ongoing requirements for therapy not offered or safe outside the critical care environment. Transfer to a lower level of care will result in altered life or limb morbidity and mortality. 3. Multidisciplinary rounds completed. 4. ABCDE bundle addressed.
--- NOTE | 2019-04-05 13:36 | PDOC PROGRESS REPORT ---
Subjective Progress Note for:: 04/05/19 Subjective:: Still intubated no apparent gross rectal bleed today Reason For Visit: HYPERCALCEMIA Physical Exam Vital Signs: Temp Pulse Resp BP Pulse Ox 99.9 F 88 22 H 121/78 96 04/05/19 12:00 04/05/19 12:00 04/05/19 12:36 04/05/19 12:36 04/05/19 12:36 Intake & Output 04/04/19 04/05/19 04/06/19 06:59 06:59 06:59 Intake Total 2985 1452 100 Output Total 2405 3285 900 Balance 457 -4062 -626 Weight 69.3 kg 69.9 kg Exam: Abdomen is soft nontender though patient still appears to be sedated for the intubation Results Laboratory Results: 04/05/19 08:15 04/05/19 08:15 04/04/19 04/05/19 04/05/19 14:25 03:42 03:42 WBC 9.7 RBC 2.71 L Hgb 9.8 L Hct 28.0 L MCV 104 H MCH 36.2 H MCHC 35.0 RDW 11.9 Plt Count 151 Seg Neutrophils % 77.6 Carbonic Acid 0.71 L HCO3/H2CO3 Ratio 23:1 ABG pH 7.47 H ABG pCO2 23.7 L ABG pO2 88.8 ABG HCO3 16.8 L ABG O2 Saturation 97.4 ABG Base Excess -5.5 FiO2 21% Sodium 151.9 H Potassium 3.1 L Chloride 127 H Carbon Dioxide 20 L Anion Gap 5 BUN 34 H Creatinine 2.02 H Est GFR ( Amer) 40 L Glucose 107 Calcium 8.5 Phosphorus 1.8 L Magnesium 1.9 Total Bilirubin 0.4 AST 21 Alkaline Phosphatase 61 Total Protein 4.9 L Albumin 2.4 L 04/05/19 04/05/19 04/05/19 03:42 08:15 08:15 WBC 11.2 H RBC 2.84 L Hgb 10.4 L Hct 29.1 L MCV 103 H MCH 36.7 H MCHC 35.8 RDW 12.1 Plt Count 156 Seg Neutrophils % 79.3 H Carbonic Acid HCO3/H2CO3 Ratio ABG pH ABG pCO2 ABG pO2 ABG HCO3 ABG O2 Saturation ABG Base Excess FiO2 Sodium 152.2 H Potassium 2.9 L* Chloride 126 H Carbon Dioxide 19 L Anion Gap 7 BUN 28 H Creatinine 1.91 H Est GFR ( Amer) 43 L Glucose 107 Calcium 8.2 L Phosphorus 2.4 L Magnesium 2.1 2.0 Total Bilirubin 0.3 AST 23 Alkaline Phosphatase 70 Total Protein 5.2 L Albumin 2.6 L 04/01/19 15:20 Sputum Gram Stain - Final 04/01/19 15:20 Sputum Sputum Culture - Final Staphylococcus Aureus Normal [place] 03/31/19 04/01/19 04/04/19 05:56 14:45 06:27 Creatine Kinase 310 H 42 L Troponin I 0.028 Impressions: Cervical Spine CT 03/29/19 12:01 IMPRESSION: No fracture or static subluxation of the cervical spine. Moderate multilevel disc space height loss and osteophytosis. Abdomen/Pelvis CT 04/01/19 00:00 IMPRESSION: 1. Dependent lung changes as above. 2. Appropriate support lines and tubes. 3. Mild -moderate pericardial effusion. 4. No suspicious masses or nodules detected. IMPRESSION: 1. No acute or suspicious abdominopelvic abnormality on non contrasted exam. Findings as above. Chest CT 04/01/19 00:00 IMPRESSION: 1. Dependent lung changes as above. 2. Appropriate support lines and tubes. 3. Mild -moderate pericardial effusion. 4. No suspicious masses or nodules detected. IMPRESSION: 1. No acute or suspicious abdominopelvic abnormality on non contrasted exam. Findings as above. Head CT 04/01/19 00:00 IMPRESSION: NO ACUTE INTRACRANIAL IMAGING FINDINGS. EVIDENCE OF ACUTE STROKE: NO. Body Scan Nuclear Medicine 04/03/19 00:00 IMPRESSION: 1. ACTIVITY IN THE KNEES MOST CONSISTENT WITH DEGENERATIVE JOINT DISEASE. NO SUSPICIOUS UPTAKE IN THE SKELETON. 2. LINEAR INCREASED ACTIVITY IN THE MEDIAL LEFT FOREARM. THIS IS NOT RELATED TO THE INJECTION SITE (CENTRAL LINE) AND NO REPORTED SKIN CONTAMINATION. THIS MAY BE DUE TO SOFT TISSUE UPTAKE. RECOMMEND X-RAY OF THE LEFT FOREARM FOR FURTHER EVALUATION. Guidance Fluoroscopy 04/03/19 00:00 IMPRESSION: LUMBAR PUNCTURE UNDER FLUOROSCOPY. NO IMMEDIATE COMPLICATION. Lumbar Puncture 04/03/19 00:00 IMPRESSION: LUMBAR PUNCTURE UNDER FLUOROSCOPY. NO IMMEDIATE COMPLICATION. Forearm X-Ray 04/04/19 00:00 IMPRESSION: 1. No definite acute bony abnormality. Corticated ossific densities at the distal ulna favored review related to remote trauma or degenerative. 2. Soft tissue swelling about the proximal forearm, likely corresponding to bone scan findings. Chest X-Ray 04/05/19 06:00 IMPRESSION: INTERVAL REMOVAL OF THE NASOGASTRIC TUBE. OTHERWISE STABLE. Assessment & Plan - Diagnosis (1) GI bleed Qualifiers: Gastritis type: acute gastritis Is this a current diagnosis for this admission?: Yes (2) Acute respiratory failure Qualifiers: Respiratory failure complication: unspecified whether with hypoxia or hypercapnia Qualified Code(s): J96.00 - Acute respiratory failure, unspecified whether with hypoxia or hypercapnia Is this a current diagnosis for this admission?: Yes (3) Altered mental status Qualifiers: Altered mental status type: delirium Qualified Code(s): R41.0 - Disorientation, unspecified Is this a current diagnosis for this admission?: Yes - Time Time Spent with patient: 15-24 minutes - Inpatient Certification Medical Necessity: Need Close Monitoring Due to Risk of Patient Decompensation, Need For IV Fluids, Need for Neurological Checks, Need for Surgery - Plan Summary Plan Summary: His 2 daughters are at bedside just informed me that their father drinks at leas t 12 beers a day and smokes 2 packs a day. Patient had a EGD on [address] Pino which showed no evidence of upper GI bleed. Patient will need colonoscopy but requires bowel prep prior. His hemoglobin has been stable around 10 for the past 3 days Will need colonoscopy but requires bowel prep. Discussed with fish bait picker and also mentioned the possibility of placement of Dobbhoff feeding tube which can also be used later on to give him bowel prep
--- NOTE | 2019-04-05 16:19 | PDOC PROGRESS REPORT ---
Subjective Progress Note for:: 04/05/19 Reason For Visit: Patient remains intubated and sedated in the ICU. However she is showing slow signs of awakening. He has opened his eyes and responded to certain commands from the nursing staff as well as his daughters who were at his bedside. Otherwise patient remained stable. No further evidences of any GI bleeds and with a stable hemoglobin. He is making good urine output. His labs and medications were reviewed. His creatinine functions are stable with slight improvement over the last few days. His sodium still remains high between high 140s to the low 150s. Physical Exam Vital Signs: Temp Pulse Resp BP Pulse Ox 99.9 F 77 22 H 127/76 H 98 04/05/19 16:00 04/05/19 16:00 04/05/19 16:00 04/05/19 16:00 04/05/19 16:00 Intake & Output 04/04/19 04/05/19 04/06/19 06:59 06:59 06:59 Intake Total 2985 1452 150 Output Total 2405 3285 1230 Balance 580 -1833 -1080 Weight 69.3 kg 69.9 kg General appearance: PRESENT: no acute distress Exam: Remains intubated and sedated. However he is responding slowly to oral commands with opening of eyes. Respiratory exam: PRESENT: clear to auscultation yassine. ABSENT: crackles Cardiovascular exam: PRESENT: +S1, +S2 GI/Abdominal exam: PRESENT: normal bowel sounds, soft. ABSENT: organomegaly, t enderness Extremities exam: ABSENT: pedal edema Skin exam: ABSENT: cyanosis, erythema, mottled, rash Results Laboratory Results: 04/05/19 08:15 04/05/19 08:15 04/05/19 04/05/19 04/05/19 03:42 03:42 03:42 WBC 9.7 RBC 2.71 L Hgb 9.8 L Hct 28.0 L MCV 104 H MCH 36.2 H MCHC 35.0 RDW 11.9 Plt Count 151 Seg Neutrophils % 77.6 Carbonic Acid 0.71 L HCO3/H2CO3 Ratio 23:1 ABG pH 7.47 H ABG pCO2 23.7 L ABG pO2 88.8 ABG HCO3 16.8 L ABG O2 Saturation 97.4 ABG Base Excess -5.5 FiO2 21% Sodium Potassium Chloride Carbon Dioxide Anion Gap BUN Creatinine Est GFR ( Amer) Glucose Calcium Phosphorus Magnesium 2.1 Total Bilirubin AST Alkaline Phosphatase Total Protein Albumin 04/05/19 04/05/19 08:15 08:15 WBC 11.2 H RBC 2.84 L Hgb 10.4 L Hct 29.1 L MCV 103 H MCH 36.7 H MCHC 35.8 RDW 12.1 Plt Count 156 Seg Neutrophils % 79.3 H Carbonic Acid HCO3/H2CO3 Ratio ABG pH ABG pCO2 ABG pO2 ABG HCO3 ABG O2 Saturation ABG Base Excess FiO2 Sodium 152.2 H Potassium 2.9 L* Chloride 126 H Carbon Dioxide 19 L Anion Gap 7 BUN 28 H Creatinine 1.91 H Est GFR ( Amer) 43 L Glucose 107 Calcium 8.2 L Phosphorus 2.4 L Magnesium 2.0 Total Bilirubin 0.3 AST 23 Alkaline Phosphatase 70 Total Protein 5.2 L Albumin 2.6 L 04/01/19 15:20 Sputum Gram Stain - Final 04/01/19 15:20 Sputum Sputum Culture - Final Staphylococcus Aureus Normal [place] 03/31/19 04/01/19 04/04/19 05:56 14:45 06:27 Creatine Kinase 310 H 42 L Troponin I 0.028 Impressions: Cervical Spine CT 03/29/19 12:01 IMPRESSION: No fracture or static subluxation of the cervical spine. Moderate multilevel disc space height loss and osteophytosis. Abdomen/Pelvis CT 04/01/19 00:00 IMPRESSION: 1. Dependent lung changes as above. 2. Appropriate support lines and tubes. 3. Mild -moderate pericardial effusion. 4. No suspicious masses or nodules detected. IMPRESSION: 1. No acute or suspicious abdominopelvic abnormality on non contrasted exam. Findings as above. Chest CT 04/01/19 00:00 IMPRESSION: 1. Dependent lung changes as above. 2. Appropriate support lines and tubes. 3. Mild -moderate pericardial effusion. 4. No suspicious masses or nodules detected. IMPRESSION: 1. No acute or suspicious abdominopelvic abnormality on non contrasted exam. Findings as above. Head CT 04/01/19 00:00 IMPRESSION: NO ACUTE INTRACRANIAL IMAGING FINDINGS. EVIDENCE OF ACUTE STROKE: NO. Body Scan Nuclear Medicine 04/03/19 00:00 IMPRESSION: 1. ACTIVITY IN THE KNEES MOST CONSISTENT WITH DEGENERATIVE JOINT DISEASE. NO SUSPICIOUS UPTAKE IN THE SKELETON. 2. LINEAR INCREASED ACTIVITY IN THE MEDIAL LEFT FOREARM. THIS IS NOT RELATED TO THE INJECTION SITE (CENTRAL LINE) AND NO REPORTED SKIN CONTAMINATION. THIS MAY BE DUE TO SOFT TISSUE UPTAKE. RECOMMEND X-RAY OF THE LEFT FOREARM FOR FURTHER EVALUATION. Guidance Fluoroscopy 04/03/19 00:00 IMPRESSION: LUMBAR PUNCTURE UNDER FLUOROSCOPY. NO IMMEDIATE COMPLICATION. Lumbar Puncture 04/03/19 00:00 IMPRESSION: LUMBAR PUNCTURE UNDER FLUOROSCOPY. NO IMMEDIATE COMPLICATION. Forearm X-Ray 04/04/19 00:00 IMPRESSION: 1. No definite acute bony abnormality. Corticated ossific densities at the distal ulna favored review related to remote trauma or degenerative. 2. Soft tissue swelling about the proximal forearm, likely corresponding to bone scan findings. Chest X-Ray 04/05/19 06:00 IMPRESSION: INTERVAL REMOVAL OF THE NASOGASTRIC TUBE. OTHERWISE STABLE. Assessment & Plan - Diagnosis (1) Acute kidney injury Is this a current diagnosis for this admission?: Yes Plan: Nonoliguric. His renal numbers remained stable. [facility] to see if he has pre-existing kidney disease. (2) Hypernatremia Is this a current diagnosis for this admission?: Yes Plan: Still remaining high in the high 140s to low 150s. Continue on with D5 and adjust fluids. Monitor. (3) Hypokalemia Is this a current diagnosis for this admission?: Yes Plan: Still insufficient. I will reinstitute replacement orders. Discussed with the treating nurse Mitchell and the risk management analyst. (4) Acute metabolic encephalopathy Is this a current diagnosis for this admission?: Yes Plan: He seems to be opening his eyes with some response to oral commands from the nursing staff as well as his daughters.According to 1 of the daughters who I have not seen before the patient has been drinking at least a 12 pack of beer on a daily basis for a long time.Need to monitor for alcohol withdrawal. (5) Hypercalcemia Is this a current diagnosis for this admission?: Yes Plan: Currently resolved.
[2019-04-05] MEDS ORDERED: POTASSI CL 20 MEQ/50 ML RIDER 20 MEQ/50 ML RTUPB IV SCH (18:00)
[2019-04-05] MEDS: NORMAL SALINE 1000 ML 1,000 ML with POTASSIUM CHLORIDE 20 MEQ, MAGNESIUM SULFATE 8 MEQ,... IV SCH ×5 (18:13)
[2019-04-05] MEDS: PANTOPRAZOLE SODIUM 40 MG VIAL IV SCH (18:13)
[2019-04-05] MEDS: VANCOMYCIN HCL 750 MG in DEXTROSE 5%-WATER 250 ML IV SCH (18:13)
[2019-04-06] MEDS: DEXTROSE 5%-WATER 1000 ML 1,000 ML IV PRN ×3 (01:50→19:41)
[2019-04-06 04:21] LABS: ABSOLUTE BASOPHILS # (AUTO) 0.1 10^3/uL (0.0-0.2); ABSOLUTE EOSINOPHILS # (AUTO) 0.4 10^3/uL (0.0-0.6); ABSOLUTE MONOCYTES (AUTO) 0.7 10^3/uL (0.1-1.4); ABSOLUTE NEUT (AUTO) 8.9 10^3/uL (1.7-8.2); BASOPHILS % (AUTO) 0.8 % (0-2); EOSINOPHILS % (AUTO) 3.3 % (0-6); HEMATOCRIT 25.6 % (37.9-51.0); LYMPHOCYTES % (AUTO) 9.3 % (13-45); MEAN CORPUSCULAR HEMOGLOBIN 35.8 pg (27.0-33.4); MEAN CORPUSCULAR VOLUME 102 fl (80-97); MONOCYTES % (AUTO) 6.2 % (3-13); PLATELET COUNT 152 10^3/uL (150-450); SEGMENTED NEUTROPHILS % (AUTO) 80.4 % (42-78); TOTAL CELLS COUNTED % (AUTO) 100 %; WHITE BLOOD COUNT 11.1 10^3/uL (4.0-10.5)
[2019-04-06 04:49] LABS: ANION GAP 8 (5-19); BLOOD UREA NITROGEN 21 mg/dL (7-20); CALCIUM 7.6 mg/dL (8.4-10.2); CARBON DIOXIDE 18 mmol/L (22-30); CHLORIDE 124 mmol/L (98-107); GLUCOSE 103 mg/dL (75-110); POTASSIUM 3.4 mmol/L (3.6-5.0)
[2019-04-06] MEDS: CEFEPIME 1 GM/D5W RTU 1 GM/50 ML RTUPB IV SCH ×2 (06:41→17:08)
[2019-04-06] MEDS: LORAZEPAM INJ 2 MG/1 ML VIAL IV PRN (09:08)
[2019-04-06] MEDS: LEVETIRACETAM 1000 MG/NACL-ISO 1,000 MG/100 ML RTUPB IV SCH ×2 (10:08→22:49)
[2019-04-06] MEDS: PANTOPRAZOLE SODIUM 40 MG VIAL IV SCH (10:08)
[2019-04-06] MEDS ORDERED: PHARMACY COMMUNICATION ORDER MC NR (14:30)
--- NOTE | 2019-04-06 15:07 | PDOC CRITICAL CARE PROG REPORT ---
General Date:: 04/06/19 ICU Day:: 7 Hospital Day:: 8 Resuscitation Status: Full Code Medical Power of Guest Services Officer: Daughters to explore Events in the past 12 to 24 Hours:: Extubated, unable to perform MRI Review of systems relevant to events:: Neurological Reason for ICU Addmission:: acute respiratory failure, intubated, now extubated. - Medications: Medications reviewed and adjusted accordingly: Yes Vasopressors:: None Sedation:: None Physical Exam Vital Signs: Temp Pulse Resp BP Pulse Ox 97.2 F 89 23 H 135/73 H 98 04/06/19 12:00 04/06/19 14:00 04/06/19 14:00 04/06/19 14:00 04/06/19 14:00 Intake & Output 04/05/19 04/06/19 04/07/19 06:59 06:59 06:59 Intake Total 2775 583 1000 Output Total 3285 2895 1080 Balance -510 -2312 -80 Weight 69.9 kg 72.1 kg Weight/Height Weight 72.1 kg Height 5 ft 6 in General appearance: PRESENT: no acute distress Head exam: PRESENT: atraumatic, normocephalic Eye exam: PRESENT: conjunctiva pink, EOMI, PERRLA. ABSENT: scleral icterus Ear exam: PRESENT: normal external ear exam Mouth exam: PRESENT: moist, tongue midline Respiratory exam: PRESENT: accessory muscle use Cardiovascular exam: PRESENT: RRR. ABSENT: diastolic murmur, rubs, systolic murmur Vascular exam: PRESENT: normal capillary refill GI/Abdominal exam: PRESENT: normal bowel sounds, soft. ABSENT: distended, guarding, mass, organolmegaly, rebound, tenderness Rectal exam: PRESENT: deferred Gentrourinary exam: PRESENT: indwelling catheter Extremities exam: PRESENT: other - Evidence of some muscle wasting Musculoskeletal exam: PRESENT: normal inspection Neurological exam: PRESENT: awake Psychiatric exam: PRESENT: agitated - At times Skin exam: PRESENT: dry, intact, warm. ABSENT: cyanosis, rash Tubes/Lines: PRESENT: Nasogastic Tube Laboratory/Radiographs Laboratory Results: 04/06/19 04:00 04/06/19 04:00 04/06/19 04/06/19 04:00 04:00 WBC 11.1 H RBC 2.50 L Hgb 9.0 L Hct 25.6 L MCV 102 H MCH 35.8 H MCHC 35.0 RDW 12.0 Plt Count 152 Seg Neutrophils % 80.4 H Sodium 150.1 H Potassium 3.4 L Chloride 124 H Carbon Dioxide 18 L Anion Gap 8 BUN 21 H Creatinine 1.65 H Est GFR ( Amer) 51 L Glucose 103 Calcium 7.6 L Magnesium 2.0 04/03/19 15:05 Cerebral Spinal Fluid - Csf Gram Stain - Final 04/03/19 15:05 Cerebral Spinal Fluid - Csf CSF Culture - Final NO GROWTH 3 DAYS 04/04/19 17:23 Sputum Gram Stain - Final 04/04/19 17:23 Sputum Sputum Culture - Final Staphylococcus Aureus Yeast, Not Macie Albicans Normal Andreea Absent 03/31/19 04/01/19 04/04/19 05:56 14:45 06:27 Creatine Kinase 310 H 42 L Troponin I 0.028 Impressions: Cervical Spine CT 03/29/19 12:01 IMPRESSION: No fracture or static subluxation of the cervical spine. Moderate multilevel disc space height loss and osteophytosis. Abdomen/Pelvis CT 04/01/19 00:00 IMPRESSION: 1. Dependent lung changes as above. 2. Appropriate support lines and tubes. 3. Mild -moderate pericardial effusion. 4. No suspicious masses or nodules detected. IMPRESSION: 1. No acute or suspicious abdominopelvic abnormality on non contrasted exam. Findings as above. Chest CT 04/01/19 00:00 IMPRESSION: 1. Dependent lung changes as above. 2. Appropriate support lines and tubes. 3. Mild -moderate pericardial effusion. 4. No suspicious masses or nodules detected. IMPRESSION: 1. No acute or suspicious abdominopelvic abnormality on non contrasted exam. Findings as above. Head CT 04/01/19 00:00 IMPRESSION: NO ACUTE INTRACRANIAL IMAGING FINDINGS. EVIDENCE OF ACUTE STROKE: NO. Body Scan Nuclear Medicine 04/03/19 00:00 IMPRESSION: 1. ACTIVITY IN THE KNEES MOST CONSISTENT WITH DEGENERATIVE JOINT DISEASE. NO SUSPICIOUS UPTAKE IN THE SKELETON. 2. LINEAR INCREASED ACTIVITY IN THE MEDIAL LEFT FOREARM. THIS IS NOT RELATED TO THE INJECTION SITE (CENTRAL LINE) AND NO REPORTED SKIN CONTAMINATION. THIS MAY BE DUE TO SOFT TISSUE UPTAKE. RECOMMEND X-RAY OF THE LEFT FOREARM FOR FURTHER EVALUATION. Guidance Fluoroscopy 04/03/19 00:00 IMPRESSION: LUMBAR PUNCTURE UNDER FLUOROSCOPY. NO IMMEDIATE COMPLICATION. Lumbar Puncture 04/03/19 00:00 IMPRESSION: LUMBAR PUNCTURE UNDER FLUOROSCOPY. NO IMMEDIATE COMPLICATION. Forearm X-Ray 04/04/19 00:00 IMPRESSION: 1. No definite acute bony abnormality. Corticated ossific de nsities at the distal ulna favored review related to remote trauma or degenerative. 2. Soft tissue swelling about the proximal forearm, likely corresponding to bone scan findings. Chest X-Ray 04/05/19 06:00 IMPRESSION: INTERVAL REMOVAL OF THE NASOGASTRIC TUBE. OTHERWISE STABLE. All labs, radiographs, diagnostic studies and EKGs were personally reviewed: Yes In addition, reports of radiographic and diagnostic studies were read: Yes Assessment and Plan - Diagnosis (1) Acute kidney injury Is this a current diagnosis for this admission?: Yes Plan: Improved. GFR 42. (2) Acute metabolic encephalopathy Is this a current diagnosis for this admission?: Yes Plan: Getting better. Still may have watermaster effects. (3) Acute respiratory failure Qualifiers: Respiratory failure complication: unspecified whether with hypoxia or hypercapnia Qualified Code(s): J96.00 - Acute respiratory failure, unspecified whether with hypoxia or hypercapnia Is this a current diagnosis for this admission?: Yes Plan: Resolved (4) GI bleed Qualifiers: Gastritis type: acute gastritis Is this a current diagnosis for this admission?: Yes Plan: Resolved. Will place a small NG for nutrition. Colonoscopy on hold for now. (5) Hypercalcemia Is this a current diagnosis for this admission?: Yes Plan: Level 7.6. Resolved Plan Summary: Start nutrition. Allow him to re awaken. When he can better protect airway OK to dowgrade. Critical Time Critical Time (minutes): 40 Level of Care: ICU Anticipated discharge: SNF Within: Other - Too soon to tell. -: 1. The care of a critical patient is a dynamic process. This note is a front office representative synopsis but static in nature. The timeframe for treatments given in order is not necessarily the actual time these treatments may have been done. 2. This patient requires critical care secondary to ongoing requirements for therapy not offered or safe outside the critical care environment. Transfer to a lower level of care will result in altered life or limb morbidity and mortality. 3. Multidisciplinary rounds completed. 4. ABCDE bundle addressed.
[2019-04-06] MEDS ORDERED: ONDANSETRON HCL INJ/PF 4 MG/2 ML SDV IV PRN (15:30)
--- NOTE | 2019-04-06 15:49 | RADIOLOGY REPORT (SQ) ---
EXAM DESCRIPTION: KUB/ABDOMEN (SINGLE VIEW) COMPLETED DATE/TIME: 04/06/2019 3:38 pm REASON FOR STUDY: Check Placement of NG Tube COMPARISON: None. NUMBER OF VIEWS: One view. TECHNIQUE: Supine radiographic image of the abdomen acquired. LIMITATIONS: None. FINDINGS: BOWEL GAS PATTERN: Normal bowel gas pattern. No dilated loops. CALCIFICATIONS: No suspicious calcifications. SOFT TISSUES: No gross mass or suggestion of organomegaly. HARDWARE: The NG tube appears to extend to the greater curvature of the stomach near the gastric fund us. BONES: No acute fracture. No worrisome bone lesions. OTHER: No other significant finding. IMPRESSION: NG tube placement as described. TECHNICAL DOCUMENTATION: JOB ID: [id number] [employer]- All Rights Reserved Reading location - IP/workstation name: [email or web address]
--- NOTE | 2019-04-06 16:58 | PDOC PROGRESS REPORT ---
Subjective Progress Note for:: 04/06/19 Reason For Visit: Patient seen today in the ICU. He has been extubated. However he is quite delirious. They are lucid moments when he is able to communicate especially with his daughter who is at the bedside. Patient was sent for an MRI scan today but he was too restless and had to be canceled. Unfortunately patient has to be restricted in the bed because he is rolling all over the place . He has been made to sit up on an incline to prevent aspiration, but he has rolled down. Does not seem to be in any distress at the moment when he is lying quietly. Labs and medications were reviewed with the patient's daughter and the treating nurse. Discussions were done with them as well as with the speech language pathologist travel.His renal number shows improvement to his current creatinine of 1.6 today as compared to a peak of 2.5 few days ago. He is making good amounts of urine. Physical Exam Vital Signs: Temp Pulse Resp BP Pulse Ox 98.2 F 92 21 H 134/93 H 96 04/06/19 16:00 04/06/19 16:00 04/06/19 16:00 04/06/19 16:00 04/06/19 16:00 Intake & Output 04/05/19 04/06/19 04/07/19 06:59 06:59 06:59 Intake Total 2775 583 1000 Output Total 3145 2895 1355 Balance -510 -2312 -355 Weight 69.9 kg 72.1 kg 72.1 kg General appearance: PRESENT: disheveled Exam: He is delirious and has periods when he thrashes all over in his bed and the refore has to be unfortunately restricted. Eye exam: PRESENT: EOMI, PERRLA. ABSENT: scleral icterus Mouth exam: PRESENT: neck supple Neck exam: ABSENT: lymphadenopathy, meningismus, tenderness, thyromegaly, tracheal deviation Respiratory exam: PRESENT: clear to auscultation yassine, decreased breath sounds, rhonchi - Few scattered indicative of likely aspiration.. ABSENT: crackles Cardiovascular exam: PRESENT: +S1, +S2 GI/Abdominal exam: PRESENT: normal bowel sounds, soft. ABSENT: organomegaly, tenderness Extremities exam: ABSENT: pedal edema Neurological exam: PRESENT: altered Skin exam: ABSENT: cyanosis, erythema, mottled, rash Results Laboratory Results: 04/06/19 04:00 04/06/19 04:00 04/06/19 04/06/19 04:00 04:00 WBC 11.1 H RBC 2.50 L Hgb 9.0 L Hct 25.6 L MCV 102 H MCH 35.8 H MCHC 35.0 RDW 12.0 Plt Count 152 Seg Neutrophils % 80.4 H Sodium 150.1 H Potassium 3.4 L Chloride 124 H Carbon Dioxide 18 L Anion Gap 8 BUN 21 H Creatinine 1.65 H Est GFR ( Amer) 51 L Glucose 103 Calcium 7.6 L Magnesium 2.0 04/03/19 15:05 Cerebral Spinal Fluid - Csf Gram Stain - Final 04/03/19 15:05 Cerebral Spinal Fluid - Csf CSF Culture - Final NO GROWTH 3 DAYS 04/04/19 17:23 Sputum Gram Stain - Final 04/04/19 17:23 Sputum Sputum Culture - Final Staphylococcus Aureus Yeast, Not Macie Albicans Normal Andreea Absent 03/31/19 04/01/19 04/04/19 05:56 14:45 06:27 Creatine Kinase 310 H 42 L Troponin I 0.028 Impressions: Cervical Spine CT 03/29/19 12:01 IMPRESSION: No fracture or static subluxation of the cervical spine. Moderate multilevel disc space height loss and osteophytosis. Abdomen/Pelvis CT 04/01/19 00:00 IMPRESSION: 1. Dependent lung changes as above. 2. Appropriate support lines and tubes. 3. Mild -moderate pericardial effusion. 4. No suspicious masses or nodules detected. IMPRESSION: 1. No acute or suspicious abdominopelvic abnormality on non contrasted exam. Findings as above. Chest CT 04/01/19 00:00 IMPRESSION: 1. Dependent lung changes as above. 2. Appropriate support lines and tubes. 3. Mild -moderate pericardial effusion. 4. No suspicious masses or nodules detected. IMPRESSION: 1. No acute or suspicious abdominopelvic abnormality on non contrasted exam. Findings as above. Head CT 04/01/19 00:00 IMPRESSION: NO ACUTE INTRACRANIAL IMAGING FINDINGS. EVIDENCE OF ACUTE STROKE: NO. Body Scan Nuclear Medicine 04/03/19 00:00 IMPRESSION: 1. ACTIVITY IN THE KNEES MOST CONSISTENT WITH DEGENERATIVE JOINT DISEASE. NO SUSPICIOUS UPTAKE IN THE SKELETON. 2. LINEAR INCREASED ACTIVITY IN THE MEDIAL LEFT FOREARM. THIS IS NOT RELATED TO THE INJECTION SITE (CENTRAL LINE) AND NO REPORTED SKIN CONTAMINATION. THIS MAY BE DUE TO SOFT TISSUE UPTAKE. RECOMMEND X-RAY OF THE LEFT FOREARM FOR FURTHER EVALUATION. Guidance Fluoroscopy 04/03/19 00:00 IMPRESSION: LUMBAR PUNCTURE UNDER FLUOROSCOPY. NO IMMEDIATE COMPLICATION. Lumbar Puncture 04/03/19 00:00 IMPRESSION: LUMBAR PUNCTURE UNDER FLUOROSCOPY. NO IMMEDIATE COMPLICATION. Forearm X-Ray 04/04/19 00:00 IMPRESSION: 1. No definite acute bony abnormality. Corticated ossific densities at the distal ulna favored review related to remote trauma or d egenerative. 2. Soft tissue swelling about the proximal forearm, likely corresponding to bone scan findings. Chest X-Ray 04/05/19 06:00 IMPRESSION: INTERVAL REMOVAL OF THE NASOGASTRIC TUBE. OTHERWISE STABLE. KUB X-Ray 04/06/19 14:23 IMPRESSION: NG tube placement as described. Assessment & Plan - Diagnosis (1) Acute kidney injury Is this a current diagnosis for this admission?: Yes Plan: Nonoliguric. His renal numbers are slowly but steadily improving with his current creatinine today at 1.6/compared to 2.5 peaking on the . [facility] to see if he has pre-existing kidney disease. (2) Hypernatremia Is this a current diagnosis for this admission?: Yes Plan: Still remaining high in the high 140s to low 150s. Continue on with D5 and adjust fluids. Monitor. (3) Hypokalemia Is this a current diagnosis for this admission?: Yes Plan: Improving. Need to be monitored closely. (4) Acute metabolic encephalopathy Is this a current diagnosis for this admission?: Yes Plan: /Toxic. Presently extubated. However he is quite delirious. Intermittent lucid intervals. Monitor and treat for alcohol withdrawal.Other differential diagnosis exist. Unfortunately MRI could not be done as patient was too delirious and restless. Over sedating him could make him slip back into respiratory failure and we lose grounds on what had been regained. Therefore one has to be a bit cautious in ordering an MRI scan. He had a CT scan without contrast a week earlier which was negative for any acute ischemic events. (5) Hypercalcemia Is this a current diagnosis for this admission?: Yes Plan: Currently resolved. Corrected calcium is okay even though serum calcium is 7.6. Monitor closely and he might need calcium replacement soon.
[2019-04-06] MEDS ORDERED: POLYETHYLENE GLYCOL 3350 POWDER 17 GM/1 PACKET NG ONE (17:00)
[2019-04-06] MEDS: NORMAL SALINE 1000 ML 1,000 ML with POTASSIUM CHLORIDE 20 MEQ, MAGNESIUM SULFATE 8 MEQ,... IV SCH ×5 (17:08)
[2019-04-06] MEDS: ENOXAPARIN SODIUM INJ 40 MG/0.4 ML DISP.SYRIN SUBCUT SCH (17:09)
--- NOTE | 2019-04-06 20:50 | PDOC PROGRESS REPORT ---
Subjective Progress Note for:: 04/06/19 Subjective:: patient is extubated but nonresponsive. Reason For Visit: HYPERCALCEMIA Physical Exam Vital Signs: Temp Pulse Resp BP Pulse Ox 98.6 F 94 24 H 136/78 H 98 04/06/19 20:00 04/06/19 18:00 04/06/19 18:09 04/06/19 18:09 04/06/19 18:09 Intake & Output 04/05/19 04/06/19 04/07/19 06:59 06:59 06:59 Intake Total 2775 1606 1050 Output Total 3285 2895 1830 Balance -510 -0017 -892 Weight 69.9 kg 72.1 kg 72.1 kg Exam: His abdomen remains soft and nontender. However patient is noncommunicative and nonresponsive. Results Laboratory Results: 04/06/19 04:00 04/06/19 04:00 04/06/19 04/06/19 04:00 04:00 WBC 11.1 H RBC 2.50 L Hgb 9.0 L Hct 25.6 L MCV 102 H MCH 35.8 H MCHC 35.0 RDW 12.0 Plt Count 152 Seg Neutrophils % 80.4 H Sodium 150.1 H Potassium 3.4 L Chloride 124 H Carbon Dioxide 18 L Anion Gap 8 BUN 21 H Creatinine 1.65 H Est GFR ( Amer) 51 L Glucose 103 Calcium 7.6 L Magnesium 2.0 04/01/19 18:25 Blood Blood Culture - Final NO GROWTH IN 5 DAYS 04/01/19 18:20 Blood Blood Culture - Final NO GROWTH IN 5 DAYS 04/03/19 15:05 Cerebral Spinal Fluid - Csf Gram Stain - Final 04/03/19 15:05 Cerebral Spinal Fluid - Csf CSF Culture - Final NO GROWTH 3 DAYS 04/04/19 17:23 Sputum Gram Stain - Final 04/04/19 17:23 Sputum Sputum Culture - Final Staphylococcus Aureus Yeast, Not Macie Albicans Normal Andreea Absent 03/31/19 04/01/19 04/04/19 05:56 14:45 06:27 Creatine Kinase 310 H 42 L Troponin I 0.028 Impressions: Cervical Spine CT 03/29/19 12:01 IMPRESSION: No fracture or static subluxation of the cervical spine. Moderate multilevel disc space height loss and osteophytosis. Abdomen/Pelvis CT 04/01/19 00:00 IMPRESSION: 1. Dependent lung changes as above. 2. Appropriate support lines and tubes. 3. Mild -moderate pericardial effusion. 4. No suspicious masses or nodules detected. IMPRESSION: 1. No acute or suspicious abdominopelvic abnormality on non contrasted exam. Findings as above. Chest CT 04/01/19 00:00 IMPRESSION: 1. Dependent lung changes as above. 2. Appropriate support lines and tubes. 3. Mild -moderate pericardial effusion. 4. No suspicious masses or nodules detected. IMPRESSION: 1. No acute or suspicious abdominopelvic abnormality on non contrasted exam. Findings as above. Head CT 04/01/19 00:00 IMPRESSION: NO ACUTE INTRACRANIAL IMAGING FINDINGS. EVIDENCE OF ACUTE STROKE: NO. Body Scan Nuclear Medicine 04/03/19 00:00 IMPRESSION: 1. ACTIVITY IN THE KNEES MOST CONSISTENT WITH DEGENERATIVE JOINT DISEASE. NO SUSPICIOUS UPTAKE IN THE SKELETON. 2. LINEAR INCREASED ACTIVITY IN THE MEDIAL LEFT FOREARM. THIS IS NOT RELATED TO THE INJECTION SITE (CENTRAL LINE) AND NO REPORTED SKIN CONTAMINATION. THIS MAY BE DUE TO SOFT TISSUE UPTAKE. RECOMMEND X-RAY OF THE LEFT FOREARM FOR FURTHER EVALUATION. Guidance Fluoroscopy 04/03/19 00:00 IMPRESSION: LUMBAR PUNCTURE UNDER FLUOROSCOPY. NO IMMEDIATE COMPLICATION. Lumbar Puncture 04/03/19 00:00 IMPRESSION: LUMBAR PUNCTURE UNDER FLUOROSCOPY. NO IMMEDIATE COMPLICATION. Forearm X-Ray 04/04/19 00:00 IMPRESSION: 1. No definite acute bony abnormality. Corticated ossific densities at the distal ulna favored review related to remote trauma or degenerative. 2. Soft tissue swelling about the proximal forearm, likely corresponding to bone scan findings. Chest X-Ray 04/05/19 06:00 IMPRESSION: INTERVAL REMOVAL OF THE NASOGASTRIC TUBE. OTHERWISE STABLE. KUB X-Ray 04/06/19 14:23 IMPRESSION: NG tube placement as described. Assessment & Plan - Diagnosis (1) GI bleed Qualifiers: Gastritis type: acute gastritis Is this a current diagnosis for this admission?: Yes (2) Acute respiratory failure Qualifiers: Respiratory failure complication: unspecified whether with hypoxia or hypercapnia Qualified Code(s): J96.00 - Acute respiratory failure, unspecified whether with hypoxia or hypercapnia Is this a current diagnosis for this admission?: Yes (3) Altered mental status Qualifiers: Altered mental status type: delirium Qualified Code(s): R41.0 - Disorientation, unspecified Is this a current diagnosis for this admission?: Yes - Time Time Spent with patient: 15-24 minutes - Plan Summary Plan Summary: Patient hemoglobin and hematocrit remained stable. I discussed patient's situation with Dr. Martell the cosmetic maker who claims if the patient's mental status does not improve and the hemoglobin remained stable we can hold off with doing any endoscopy at this time. We will then sign off and call us for other questions
[2019-04-06] MEDS: FAMOTIDINE INJ/PF 20 MG/2 ML SDV IV SCH (22:49)
[2019-04-07 01:51] LABS: ALBUMIN 2.6 g/dL (3.5-5.0); ALKALINE PHOSPHATASE 76 U/L (38-126); ANION GAP 5 (5-19); ASPARTATE AMINO TRANSFERASE 45 U/L (17-59); BILIRUBIN,DIRECT 0.3 mg/dL (0.0-0.4); BILIRUBIN,TOTAL 0.4 mg/dL (0.2-1.3); BLOOD UREA NITROGEN 17 mg/dL (7-20); CALCIUM 7.2 mg/dL (8.4-10.2); CARBON DIOXIDE 18 mmol/L (22-30); CHLORIDE 121 mmol/L (98-107); GLUCOSE 112 mg/dL (75-110); POTASSIUM 3.4 mmol/L (3.6-5.0); TOTAL PROTEIN 5.1 g/dL (6.3-8.2)
[2019-04-07 04:22] LABS: ABSOLUTE BASOPHILS # (AUTO) 0.2 10^3/uL (0.0-0.2); ABSOLUTE EOSINOPHILS # (AUTO) 0.4 10^3/uL (0.0-0.6); ABSOLUTE LYMPHOCYTES (AUTO) 1.1 10^3/uL (0.5-4.7); ABSOLUTE MONOCYTES (AUTO) 0.7 10^3/uL (0.1-1.4); ABSOLUTE NEUT (AUTO) 9.4 10^3/uL (1.7-8.2); BASOPHILS % (AUTO) 1.3 % (0-2); EOSINOPHILS % (AUTO) 3.6 % (0-6); HEMATOCRIT 27.1 % (37.9-51.0); HEMOGLOBIN 9.5 g/dL (13.5-17.0); MEAN CORPUSCULAR HEMOGLOBIN 35.7 pg (27.0-33.4); MEAN CORPUSCULAR HGB CONC 34.9 g/dL (32.0-36.0); MEAN CORPUSCULAR VOLUME 102 fl (80-97); MONOCYTES % (AUTO) 6.1 % (3-13); PLATELET COUNT 185 10^3/uL (150-450); RED BLOOD COUNT 2.65 10^6/uL (4.35-5.55); TOTAL CELLS COUNTED % (AUTO) 100 %; WHITE BLOOD COUNT 11.7 10^3/uL (4.0-10.5)
[2019-04-07 04:41] LABS: ANION GAP 6 (5-19); BLOOD UREA NITROGEN 16 mg/dL (7-20); CALCIUM 7.2 mg/dL (8.4-10.2); CARBON DIOXIDE 18 mmol/L (22-30); CHLORIDE 121 mmol/L (98-107); GLUCOSE 111 mg/dL (75-110); POTASSIUM 3.3 mmol/L (3.6-5.0)
[2019-04-07] MEDS: CEFEPIME 1 GM/D5W RTU 1 GM/50 ML RTUPB IV SCH ×2 (05:20→17:32)
[2019-04-07] MEDS: DEXTROSE 5%-WATER 1000 ML 1,000 ML IV PRN ×3 (05:22→21:37)
[2019-04-07] MEDS: LEVETIRACETAM 1000 MG/NACL-ISO 1,000 MG/100 ML RTUPB IV SCH ×2 (09:53→21:37)
[2019-04-07] MEDS: FAMOTIDINE INJ/PF 20 MG/2 ML SDV IV SCH (09:53)
--- NOTE | 2019-04-07 11:45 | PDOC CRITICAL CARE PROG REPORT ---
General Date:: 04/07/19 ICU Day:: 7 Hospital Day:: 10 Resuscitation Status: Full Code Medical Power of Joint Machine Operator: Daughters to explore Events in the past 12 to 24 Hours:: Mental status improving. May start feeding. Review of systems relevant to events:: Neuro Reason for ICU Addmission:: acute respiratory failure, intubated, now extubated. - Medications: Medications reviewed and adjusted accordingly: Yes Vasopressors:: None Sedation:: None Physical Exam Vital Signs: Temp Pulse Resp BP Pulse Ox 98.1 F 69 13 125/90 H 96 04/07/19 10:00 04/07/19 10:00 04/07/19 10:10 04/07/19 10:10 04/07/19 10:10 Intake & Output 04/06/19 04/07/19 04/08/19 06:59 06:59 06:59 Intake Total 1606 3300 100 Output Total 2895 2755 310 Balance -1289 545 -210 Weight 72.1 kg 73.4 kg Weight/Height Weight 73.4 kg Height 5 ft 6 in General appearance: PRESENT: cooperative, thin Head exam: PRESENT: atraumatic Eye exam: PRESENT: conjunctiva pink, EOMI, PERRLA. ABSENT: scleral icterus Ear exam: PRESENT: normal external ear exam Mouth exam: PRESENT: moist, tongue midline Respiratory exam: PRESENT: clear to auscultation yassine. ABSENT: rales, rhonchi, wheezes Cardiovascular exam: PRESENT: RRR. ABSENT: diastolic murmur, rubs, systolic murmur GI/Abdominal exam: PRESENT: normal bowel sounds, soft. ABSENT: distended, guarding, mass, organolmegaly, rebound, tenderness Rectal exam: PRESENT: deferred Gentrourinary exam: PRESENT: indwelling catheter Extremities exam: PRESENT: full ROM, tenderness Musculoskeletal exam: PRESENT: normal inspection Neurological exam: PRESENT: altered, oriented to person Skin exam: PRESENT: dry, intact, warm. ABSENT: cyanosis, rash Tubes/Lines: PRESENT: Nasogastic Tube Laboratory/Radiographs Laboratory Results: 04/07/19 03:42 04/07/19 03:42 04/07/19 04/07/19 04/07/19 01:21 03:42 03:42 WBC 11.7 H RBC 2.65 L Hgb 9.5 L Hct 27.1 L MCV 102 H MCH 35.7 H MCHC 34.9 RDW 12.0 Plt Count 185 Seg Neutrophils % 80.0 H Sodium 144.3 145.2 H Potassium 3.4 L 3.3 L Chloride 121 H 121 H Carbon Dioxide 18 L 18 L Anion Gap 5 6 BUN 17 16 Creatinine 1.35 H 1.31 H Est GFR ( Amer) > 60 > 60 Glucose 112 H 111 H Calcium 7.2 L 7.2 L Magnesium 2.0 Total Bilirubin 0.4 AST 45 Alkaline Phosphatase 76 Total Protein 5.1 L Albumin 2.6 L 04/01/19 18:25 Blood Blood Culture - Final NO GROWTH IN 5 DAYS 04/01/19 18:20 Blood Blood Culture - Final NO GROWTH IN 5 DAYS 04/03/19 15:05 Cerebral Spinal Fluid - Csf Gram Stain - Final 04/03/19 15:05 Cerebral Spinal Fluid - Csf CSF Culture - Final NO GROWTH 3 DAYS 04/04/19 17:23 Sputum Gram Stain - Final 04/04/19 17:23 Sputum Sputum Culture - Final Staphylococcus Aureus Yeast, Not Macie Albicans Normal Andreea Absent 03/31/19 04/01/19 04/04/19 05:56 14:45 06:27 Creatine Kinase 310 H 42 L Troponin I 0.028 Impressions: Cervical Spine CT 03/29/19 12:01 IMPRESSION: No fracture or static subluxation of the cervical spine. Moderate multilevel disc space height loss and osteophytosis. Abdomen/Pelvis CT 04/01/19 00:00 IMPRESSION: 1. Dependent lung changes as above. 2. Appropriate support lines and tubes. 3. Mild -moderate pericardial effusion. 4. No suspicious masses or nodules detected. IMPRESSION: 1. No acute or suspicious abdominopelvic abnormality on non contrasted exam. Findings as above. Chest CT 04/01/19 00:00 IMPRESSION: 1. Dependent lung changes as above. 2. Appropriate support lines and tubes. 3. Mild -moderate pericardial effusion. 4. No suspicious masses or nodules detected. IMPRESSION: 1. No acute or suspicious abdominopelvic abnormality on non contrasted exam. Findings as above. Head CT 04/01/19 00:00 IMPRESSION: NO ACUTE INTRACRANIAL IMAGING FINDINGS. EVIDENCE OF ACUTE STROKE: NO. Body Scan Nuclear Medicine 04/03/19 00:00 IMPRESSION: 1. ACTIVITY IN THE KNEES MOST CONSISTENT WITH DEGENERATIVE JOINT DISEASE. NO SUSPICIOUS UPTAKE IN THE SKELETON. 2. LINEAR INCREASED ACTIVITY IN THE MEDIAL LEFT FOREARM. THIS IS NOT RELATED TO THE INJECTION SITE (CENTRAL LINE) AND NO REPORTED SKIN CONTAMINATION. THIS MAY BE DUE TO SOFT TISSUE UPTAKE. RECOMMEND X-RAY OF THE LEFT FOREARM FOR FURTHER EVALUATION. Guidance Fluoroscopy 04/03/19 00:00 IMPRESSION: LUMBAR PUNCTURE UNDER FLUOROSCOPY. NO IMMEDIATE COMPLICATION. Lumbar Puncture 04/03/19 00:00 IMPRESSION: LUMBAR PUNCTURE UNDER FLUOROSCOPY. NO IMMEDIATE COMPLICATION. Forearm X-Ray 04/04/19 00:00 IMPRESSION: 1. No definite acute bony abnormality. Corticated ossific densities at the distal ulna favored review related to remote trauma or degenerative. 2. Soft tissue swelling about the proximal forearm, likely corresponding to bone scan findings. Chest X-Ray 04/05/19 06:00 IMPRESSION: INTERVAL REMOVAL OF THE NASOGASTRIC TUBE. OTHERWISE STABLE. KUB X-Ray 04/06/19 14:23 IMPRESSION: NG tube placement as described. All labs, radiographs, diagnostic studies and EKGs were personally reviewed: Yes In addition, reports of radiographic and diagnostic studies were read: Yes Assessment and Plan - Diagnosis (1) Acute kidney injury Is this a current diagnosis for this admission?: Yes Plan: Improving (2) Acute metabolic encephalopathy Is this a current diagnosis for this admission?: Yes Plan: Reorient with familiar faces (daughters) voices, OOB, d/c puente, start feeding. (3) Acute respiratory failure Qualifiers: Respiratory failure complication: unspecified whether with hypoxia or hypercapnia Qualified Code(s): J96.00 - Acute respiratory failure, unspecified whether with hypoxia or hypercapnia Is this a current diagnosis for this admission?: Yes Plan: Resolved (4) GI bleed Qualifiers: Gastritis type: acute gastritis Is this a current diagnosis for this admission?: Yes Plan: Resolved (5) Hypercalcemia Is this a current diagnosis for this admission?: Yes Plan: Resolved Plan Summary: If patient continues to improve, down grade in AM. Critical Time Critical Time (minutes): 35 Level of Care: ICU Anticipated discharge: Home Within: Other - One week. -: 1. The care of a critical patient is a dynamic process. This note is a automobile rental representative synopsis but static in nature. The timeframe for treatments given in order is not necessarily the actual time these treatments may have been done. 2. This patient requires critical care secondary to ongoing requirements for therapy not offered or safe outside the critical care environment. Transfer to a lower level of care will result in altered life or limb morbidity and mortal ity. 3. Multidisciplinary rounds completed. 4. ABCDE bundle addressed.
--- NOTE | 2019-04-07 13:01 | PDOC PROGRESS REPORT ---
Subjective Progress Note for:: 04/07/19 Reason For Visit: Patient seen in the ICU today. He is awake and responding to questions even though there is a delay and he may not respond all the times. Discussed with his treating nurse who is very happy with the progress he is made. He is being evaluated for swallow and hopefully can start oral feeds. He denies any complaints chest pain or shortness of breath. Labs and medications were reviewed that show stable and improving renal numbers. His sodium was corrected down to 145. Physical Exam Vital Signs: Temp Pulse Resp BP Pulse Ox 98.6 F 84 17 132/90 H 97 04/07/19 12:00 04/07/19 12:00 04/07/19 12:00 04/07/19 12:00 04/07/19 12:00 Intake & Output 04/06/19 04/07/19 04/08/19 06:59 06:59 06:59 Intake Total 1606 3300 100 Output Total 2895 2755 610 Balance -1289 545 -510 Weight 72.1 kg 73.4 kg General appearance: PRESENT: no acute distress Respiratory exam: PRESENT: clear to auscultation yassine, decreased breath sounds. ABSENT: crackles Cardiovascular exam: PRESENT: +S1, +S2 GI/Abdominal exam: PRESENT: normal bowel sounds, soft. ABSENT: organomegaly, tenderness Extremities exam: ABSENT: pedal edema Neurological exam: PRESENT: alert, awake Psychiatric exam: PRESENT: appropriate affect Skin exam: ABSENT: cyanosis, erythema, mottled, rash Results Laboratory Results: 04/07/19 03:42 04/07/19 03:42 04/07/19 04/07/19 04/07/19 01:21 03:42 03:42 WBC 11.7 H RBC 2.65 L Hgb 9.5 L Hct 27.1 L MCV 102 H MCH 35.7 H MCHC 34.9 RDW 12.0 Plt Count 185 Seg Neutrophils % 80.0 H Sodium 144.3 145.2 H Potassium 3.4 L 3.3 L Chloride 121 H 121 H Carbon Dioxide 18 L 18 L Anion Gap 5 6 BUN 17 16 Creatinine 1.35 H 1.31 H Est GFR ( Amer) > 60 > 60 Glucose 112 H 111 H Calcium 7.2 L 7.2 L Magnesium 2.0 Total Bilirubin 0.4 AST 45 Alkaline Phosphatase 76 Total Protein 5.1 L Albumin 2.6 L 04/01/19 18:25 Blood Blood Culture - Final NO GROWTH IN 5 DAYS 04/01/19 18:20 Blood Blood Culture - Final NO GROWTH IN 5 DAYS 04/03/19 15:05 Cerebral Spinal Fluid - Csf Gram Stain - Final 04/03/19 15:05 Cerebral Spinal Fluid - Csf CSF Culture - Final NO GROWTH 3 DAYS 04/04/19 17:23 Sputum Gram Stain - Final 04/04/19 17:23 Sputum Sputum Culture - Final Staphylococcus Aureus Yeast, Not Macie Albicans Normal Andreea Absent 03/31/19 04/01/19 04/04/19 05:56 14:45 06:27 Creatine Kinase 310 H 42 L Troponin I 0.028 Impressions: Cervical Spine CT 03/29/19 12:01 IMPRESSION: No fracture or static subluxation of the cervical spine. Moderate multilevel disc space height loss and osteophytosis. Abdomen/Pelvis CT 04/01/19 00:00 IMPRESSION: 1. Dependent lung changes as above. 2. Appropriate support lines and tubes. 3. Mild -moderate pericardial effusion. 4. No suspicious masses or nodules detected. IMPRESSION: 1. No acute or suspicious abdominopelvic abnormality on non contrasted exam. Findings as above. Chest CT 04/01/19 00:00 IMPRESSION: 1. Dependent lung changes as above. 2. Appropriate support lines and tubes. 3. Mild -moderate pericardial effusion. 4. No suspicious masses or nodules detected. IMPRESSION: 1. No acute or suspicious abdominopelvic abnormality on non contrasted exam. Findings as above. Head CT 04/01/19 00:00 IMPRESSION: NO ACUTE INTRACRANIAL IMAGING FINDINGS. EVIDENCE OF ACUTE STROKE: NO. Body Scan Nuclear Medicine 04/03/19 00:00 IMPRESSION: 1. ACTIVITY IN THE KNEES MOST CONSISTENT WITH DEGENERATIVE JOINT DISEASE. NO SUSPICIOUS UPTAKE IN THE SKELETON. 2. LINEAR INCREASED ACTIVITY IN THE MEDIAL LEFT FOREARM. THIS IS NOT RELATED TO THE INJECTION SITE (CENTRAL LINE) AND NO REPORTED SKIN CONTAMINATION. THIS MAY BE DUE TO SOFT TISSUE UPTAKE. RECOMMEND X-RAY OF THE LEFT FOREARM FOR FURTHER EVALUATION. Guidance Fluoroscopy 04/03/19 00:00 IMPRESSION: LUMBAR PUNCTURE UNDER FLUOROSCOPY. NO IMMEDIATE COMPLICATION. Lumbar Puncture 04/03/19 00:00 IMPRESSION: LUMBAR PUNCTURE UNDER FLUOROSCOPY. NO IMMEDIATE COMPLICATION. Forearm X-Ray 04/04/19 00:00 IMPRESSION: 1. No definite acute bony abnormality. Corticated ossific densities at the distal ulna favored review related to remote trauma or degenerative. 2. Soft tissue swelling about the proximal forearm, likely corresponding to bone scan findings. Chest X-Ray 04/05/19 06:00 IMPRESSION: INTERVAL REMOVAL OF THE NASOGASTRIC TUBE. OTHERWISE STABLE. KUB X-Ray 04/06/19 14:23 IMPRESSION: NG tube placement as described. Assessment & Plan - Diagnosis (1) Acute kidney injury Is this a current diagnosis for this admission?: Yes Plan: Nonoliguric. His renal numbers are slowly but steadily improving with his current creatinine today at 1.3/1.6/compared to 2.5 peaking on the . [facility] to see if he has pre-existing kidney disease.Going to sign off this gentleman for now. Please call on a as needed basis. (2) Hypernatremia Is this a current diagnosis for this admission?: Yes Plan: Today sodium is 145. Continue on with D5 and adjust fluids. Monitor. (3) Hypokalemia Is this a current diagnosis for this admission?: Yes Plan: Improving. Need to be monitored closely. (4) Acute metabolic encephalopathy Is this a current diagnosis for this admission?: Yes Plan: Resolving nicely. He is awake and responding to questions. (5) Hypercalcemia Is this a current diagnosis for this admission?: Yes Plan: Currently resolved. Corrected calcium is okay at 8.4 even though serum calcium is 7.2. Monitor closely and he might need calcium replacement soon.Check phosphorus/magnesium levels in the morning.
[2019-04-07 13:36] LABS: ALPHA-1-GLOBULIN 1 5.4 % (1.1-6.6); ALPHA-2-GLOBULIN 6.8 % (3.0-12.6); CSF ALBUMIN 63.4 % (56.8-76.4); PRE ALBUMIN 2.1 % (2.2-7.1); TOTAL PROTEIN CSF PE 66.4 mg/dL (0.0-44.0)
[2019-04-07 16:38] LABS: CSF PE GAMMA GLOBULIN 6.2 % (3.0-13.0); PROT ELEC MSPIKE Not Observed % (Not Observ)
[2019-04-07] MEDS: NORMAL SALINE 1000 ML 1,000 ML with POTASSIUM CHLORIDE 20 MEQ, MAGNESIUM SULFATE 8 MEQ,... IV SCH ×5 (17:31)
[2019-04-07] MEDS: ENOXAPARIN SODIUM INJ 40 MG/0.4 ML DISP.SYRIN SUBCUT SCH (17:32)
[2019-04-07] MEDS: FAMOTIDINE 20 MG TABLET PO SCH (21:38)
[2019-04-07] MEDS ORDERED: QUETIAPINE FUMARATE 100 MG TABLET PO SCH (22:00)
[2019-04-07 23:45] LABS: ALBUMIN 2.6 g/dL (3.5-5.0); ALKALINE PHOSPHATASE 73 U/L (38-126); ANION GAP 7 (5-19); ASPARTATE AMINO TRANSFERASE 40 U/L (17-59); BILIRUBIN,DIRECT 0.4 mg/dL (0.0-0.4); BILIRUBIN,TOTAL 0.5 mg/dL (0.2-1.3); BLOOD UREA NITROGEN 13 mg/dL (7-20); CARBON DIOXIDE 19 mmol/L (22-30); CHLORIDE 116 mmol/L (98-107); GLUCOSE 111 mg/dL (75-110); PHOSPHORUS 1.9 mg/dL (2.5-4.5); POTASSIUM 3.1 mmol/L (3.6-5.0); TOTAL PROTEIN 5.3 g/dL (6.3-8.2)
[2019-04-08 00:11] LABS: CALCIUM 6.8 mg/dL (8.4-10.2)
[2019-04-08] MEDS ORDERED: POTASSI CL 20 MEQ/50 ML RIDER 20 MEQ/50 ML RTUPB IV ONE (00:34)
[2019-04-08] MEDS: POTASSI CL 20 MEQ/50 ML RIDER 20 MEQ/50 ML RTUPB IV SCH ×2 (01:15→02:55)
[2019-04-08] MEDS: CEFEPIME 1 GM/D5W RTU 1 GM/50 ML RTUPB IV SCH (05:06)
[2019-04-08] MEDS: DEXTROSE 5%-WATER 1000 ML 1,000 ML IV PRN (05:12)
[2019-04-08 05:55] LABS: HEMATOCRIT 24.7 % (37.9-51.0); HEMOGLOBIN 8.8 g/dL (13.5-17.0); MEAN CORPUSCULAR HEMOGLOBIN 36.4 pg (27.0-33.4); MEAN CORPUSCULAR HGB CONC 35.9 g/dL (32.0-36.0); MEAN CORPUSCULAR VOLUME 102 fl (80-97); PLATELET COUNT 208 10^3/uL (150-450); RED BLOOD COUNT 2.43 10^6/uL (4.35-5.55); RED CELL DISTRIBUTION WIDTH 11.8 % (11.5-14.0); WHITE BLOOD COUNT 9.9 10^3/uL (4.0-10.5)
[2019-04-08 06:11] LABS: BLOOD UREA NITROGEN 12 mg/dL (7-20); GLUCOSE 104 mg/dL (75-110); PHOSPHORUS 1.9 mg/dL (2.5-4.5); POTASSIUM 3.5 mmol/L (3.6-5.0)
[2019-04-08 06:16] LABS: ANION GAP 6 (5-19); CARBON DIOXIDE 20 mmol/L (22-30); CHLORIDE 117 mmol/L (98-107)
[2019-04-08 06:19] LABS: CALCIUM 6.6 mg/dL (8.4-10.2)
[2019-04-08] MEDS ORDERED: POTASSIUM CHLORIDE 10 MEQ TABLET.ER PO SCH (10:00)
[2019-04-08] MEDS: FAMOTIDINE 20 MG TABLET PO SCH ×2 (10:12→21:10)
[2019-04-08] MEDS: LEVETIRACETAM 500 MG TABLET PO SCH ×2 (10:12→21:10)
[2019-04-08] MEDS: CALCIUM CARBONATE 250 MG/VITAMIN D3 125 UNIT TABLET PO SCH (10:13)
--- NOTE | 2019-04-08 11:04 | PDOC CRITICAL CARE PROG REPORT ---
General Date:: 04/08/19 ICU Day:: 8 Hospital Day:: 11 Resuscitation Status: Full Code Medical Power of Professor Of Religion: Daughters to explore Events in the past 12 to 24 Hours:: More lucid after overnight fluctuation. Pulled NG. Start PO diet. Review of systems relevant to events:: Neurological Reason for ICU Addmission:: acute respiratory failure, intubated, now extubated. - Medications: Medications reviewed and adjusted accordingly: Yes Vasopressors:: None Sedation:: None Physical Exam Vital Signs: Temp Pulse Resp BP Pulse Ox 97.8 F 89 21 H 128/82 H 97 04/08/19 08:00 04/08/19 08:00 04/08/19 08:00 04/08/19 08:00 04/08/19 08:00 Intake & Output 04/07/19 04/08/19 04/09/19 06:59 06:59 06:59 Intake Total 4373 3468 Output Total 2755 1610 Balance 1618 1858 Weight 73.4 kg 75.5 kg Weight/Height Weight 75.5 kg Height 5 ft 6 in General appearance: PRESENT: no acute distress, cooperative Head exam: PRESENT: atraumatic, normocephalic Eye exam: PRESENT: conjunctiva pink, EOMI, PERRLA. ABSENT: scleral icterus Ear exam: PRESENT: normal external ear exam Mouth exam: PRESENT: moist, tongue midline Respiratory exam: PRESENT: clear to auscultation yassine. ABSENT: rales, rhonchi, wheezes Cardiovascular exam: PRESENT: RRR. ABSENT: diastolic murmur, rubs, systolic murmur GI/Abdominal exam: PRESENT: normal bowel sounds, soft. ABSENT: distended, guarding, mass, organolmegaly, rebound, tenderness Rectal exam: PRESENT: deferred Gentrourinary exam: PRESENT: indwelling catheter Extremities exam: PRESENT: other - ROM R knee limited by cruciate ligament repair.. ABSENT: calf tenderness, clubbing, pedal edema Neurological exam: PRESENT: alert, altered, awake, oriented to person, oriented to place Skin exam: PRESENT: dry, intact, warm. ABSENT: cyanosis, rash Laboratory/Radiographs Laboratory Results: 04/08/19 05:35 04/08/19 05:35 04/03/19 04/07/19 04/08/19 15:05 23:15 05:35 WBC RBC Hgb Hct MCV MCH MCHC RDW Plt Count Sodium 141.5 142.7 Potassium 3.1 L 3.5 L Chloride 116 H 117 H Carbon Dioxide 19 L 20 L Anion Gap 7 6 BUN 13 12 Creatinine 1.21 1.24 Est GFR ( Amer) > 60 > 60 Glucose 111 H 104 Calcium 6.8 L* 6.6 L* Phosphorus 1.9 L 1.9 L Magnesium 1.8 Total Bilirubin 0.5 AST 40 Alkaline Phosphatase 73 Total Protein 5.3 L Albumin 2.6 L CSF Total Protein PEP 66.4 H CSF Prealbumin 2.1 L CSF Albumin 63.4 CSF Jboxm-1-Ncbpioir 5.4 CSF Argac-6-Ndukdzee 6.8 CSF Beta Globulin 16.1 CSF Gamma Globulin 6.2 CSF PEP M-Jason Not Observed 04/08/19 05:35 WBC 9.9 RBC 2.43 L Hgb 8.8 L Hct 24.7 L MCV 102 H MCH 36.4 H MCHC 35.9 RDW 11.8 Plt Count 208 Sodium Potassium Chloride Carbon Dioxide Anion Gap BUN Creatinine Est GFR ( Amer) Glucose Calcium Phosphorus Magnesium Total Bilirubin AST Alkaline Phosphatase Total Protein Albumin CSF Total Protein PEP CSF Prealbumin CSF Albumin CSF Nkelg-6-Mwkkatfh CSF Bwder-7-Czagfvkb CSF Beta Globulin CSF Gamma Globulin CSF PEP M-Jason 03/31/19 04/01/19 04/04/19 05:56 14:45 06:27 Creatine Kinase 310 H 42 L Troponin I 0.028 Impressions: Cervical Spine CT 03/29/19 12:01 IMPRESSION: No fracture or static subluxation of the cervical spine. Moderate multilevel disc space height loss and osteophytosis. Abdomen/Pelvis CT 04/01/19 00:00 IMPRESSION: 1. Dependent lung changes as above. 2. Appropriate support lines and tubes. 3. Mild -moderate pericardial effusion. 4. No suspicious masses or nodules detected. IMPRESSION: 1. No acute or suspicious abdominopelvic abnormality on non contrasted exam. Findings as above. Chest CT 04/01/19 00:00 IMPRESSION: 1. Dependent lung changes as above. 2. Appropriate support lines and tubes. 3. Mild -moderate pericardial effusion. 4. No suspicious masses or nodules detected. IMPRESSION: 1. No acute or suspicious abdominopelvic abnormality on non contrasted exam. Findings as above. Head CT 04/01/19 00:00 IMPRESSION: NO ACUTE INTRACRANIAL IMAGING FINDINGS. EVIDENCE OF ACUTE STROKE: NO. Body Scan Nuclear Medicine 04/03/19 00:00 IMPRESSION: 1. ACTIVITY IN THE KNEES MOST CONSISTENT WITH DEGENERATIVE JOINT DISEASE. NO SUSPICIOUS UPTAKE IN THE SKELETON. 2. LINEAR INCREASED ACTIVITY IN THE MEDIAL LEFT FOREARM. THIS IS NOT RELATED TO THE INJECTION SITE (CENTRAL LINE) AND NO REPORTED SKIN CONTAMINATION. THIS MAY BE DUE TO SOFT TISSUE UPTAKE. RECOMMEND X-RAY OF THE LEFT FOREARM FOR FURTHER EVALUATION. Guidance Fluoroscopy 04/03/19 00:00 IMPRESSION: LUMBAR PUNCTURE UNDER FLUOROSCOPY. NO IMMEDIATE COMPLICATION. Lumbar Puncture 04/03/19 00:00 IMPRESSION: LUMBAR PUNCTURE UNDER FLUOROSCOPY. NO IMMEDIATE COMPLICATION. Forearm X-Ray 04/04/19 00:00 IMPRESSION: 1. No definite acute bony abnormality. Corticated ossific densities at the distal ulna favored review related to remote trauma or degenerative. 2. Soft tissue swelling about the proximal forearm, likely corresponding to bone scan findings. Chest X-Ray 04/05/19 06:00 IMPRESSION: INTERVAL REMOVAL OF THE NASOGASTRIC TUBE. OTHERWISE STABLE. KUB X-Ray 04/06/19 14:23 IMPRESSION: NG tube placement as described. All labs, radiographs, diagnostic studies and EKGs were personally reviewed: Yes In addition, reports of radiographic and diagnostic studies were read: Yes Assessment and Plan - Diagnosis (1) Acute kidney injury Is this a current diagnosis for this admission?: Yes Plan: Resolved (2) Acute metabolic encephalopathy Is this a current diagnosis for this admission?: Yes Plan: Due to variety of factors, hypercalcemia, sedation, hypernatrmia. He is improv ing. This is acting as a delirium with a fluctuating aspect. (3) Acute respiratory failure Qualifiers: Respiratory failure complication: unspecified whether with hypoxia or hypercapnia Qualified Code(s): J96.00 - Acute respiratory failure, unspecified whether with hypoxia or hypercapnia Is this a current diagnosis for this admission?: Yes Plan: Resolved (4) GI bleed Qualifiers: Gastritis type: acute gastritis Is this a current diagnosis for this admission?: Yes Plan: No signs of bleeding but H/H is down today. Repeat in AM and watch for signs of bleeding. (5) Hypercalcemia Is this a current diagnosis for this admission?: Yes Plan: No calcium is low. Calcium with Vit D started at low dose. Recheck level in a couple of days. Plan Summary: Transfer to medical floor when a bed is available. Critical Time Critical Time (minutes): 30 Level of Care: MEDICAL Within: Other - Approximately one week. -: 1. The care of a critical patient is a dynamic process. This note is a care support representative synopsis but static in nature. The timeframe for treatments given in order is not necessarily the actual time these treatments may have been done. 2. This patient requires critical care secondary to ongoing requirements for therapy not offered or safe outside the critical care environment. Transfer to a lower level of care will result in altered life or limb morbidity and mortality. 3. Multidisciplinary rounds completed. 4. ABCDE bundle addressed.
[2019-04-08] MEDS ORDERED: BISACODYL 5 MG TABEC PO PRN (15:18)
[2019-04-08] MEDS ORDERED: MAGNESIUM CITRATE 296 ML BOTTLE PO PRN (15:19)
[2019-04-08] MEDS: ENOXAPARIN SODIUM INJ 40 MG/0.4 ML DISP.SYRIN SUBCUT SCH (17:45)
--- NOTE | 2019-04-08 19:10 | Progress Note ---
Provider Note Provider Note: Patient being downgraded to the floor from ICU. Case discussed with aba therapist. Chart and prolonged complicated course reviewed. Patient seen and examined. Daughter in the bedside. He has significantly improved. He appears comfortable and is saturating well on room air. He is alert and oriented x3. He denies acute complaints. Increase potassium supplements today. Phosphorus also depleted. Will add Phosphorus supplementation.
[2019-04-08] MEDS: POTASSIUM CHLORIDE 10 MEQ TABLET.ER PO SCH (21:10)
[2019-04-08] MEDS: QUETIAPINE FUMARATE 100 MG TABLET PO SCH (21:10)
[2019-04-09 06:08] LABS: ABSOLUTE BASOPHILS # (AUTO) 0.1 10^3/uL (0.0-0.2); ABSOLUTE EOSINOPHILS # (AUTO) 0.2 10^3/uL (0.0-0.6); ABSOLUTE MONOCYTES (AUTO) 0.6 10^3/uL (0.1-1.4); ABSOLUTE NEUT (AUTO) 7.1 10^3/uL (1.7-8.2); BASOPHILS % (AUTO) 0.7 % (0-2); EOSINOPHILS % (AUTO) 2.6 % (0-6); HEMOGLOBIN 8.5 g/dL (13.5-17.0); LYMPHOCYTES % (AUTO) 11.1 % (13-45); MEAN CORPUSCULAR HEMOGLOBIN 36.8 pg (27.0-33.4); MEAN CORPUSCULAR HGB CONC 35.6 g/dL (32.0-36.0); MEAN CORPUSCULAR VOLUME 103 fl (80-97); MONOCYTES % (AUTO) 6.7 % (3-13); PLATELET COUNT 219 10^3/uL (150-450); RED BLOOD COUNT 2.32 10^6/uL (4.35-5.55); SEGMENTED NEUTROPHILS % (AUTO) 78.9 % (42-78); TOTAL CELLS COUNTED % (AUTO) 100 %
[2019-04-09 06:18] LABS: ANION GAP 8 (5-19); BLOOD UREA NITROGEN 11 mg/dL (7-20); CARBON DIOXIDE 20 mmol/L (22-30); CHLORIDE 116 mmol/L (98-107); GLUCOSE 90 mg/dL (75-110); POTASSIUM 3.5 mmol/L (3.6-5.0)
[2019-04-09 06:44] LABS: CALCIUM 6.9 mg/dL (8.4-10.2)
[2019-04-09] MEDS: POTASSIUM CHLORIDE 10 MEQ TABLET.ER PO SCH ×2 (09:38→21:26)
[2019-04-09] MEDS: LEVETIRACETAM 500 MG TABLET PO SCH ×2 (09:38→21:26)
[2019-04-09] MEDS: FAMOTIDINE 20 MG TABLET PO SCH ×2 (09:38→21:26)
[2019-04-09] MEDS: CALCIUM CARBONATE 250 MG/VITAMIN D3 125 UNIT TABLET PO SCH (09:41)
[2019-04-09] MEDS: PHOSPHORUS #1 250 MG TABLET PO SCH ×3 (11:56→21:26)
[2019-04-09] MEDS ORDERED: DEXTROSE 50%-WATER 25 GM/50 ML DISP.SYRIN IV PRN ×2 (13:53)
[2019-04-09] MEDS ORDERED: DEXTROSE 40% GEL 15 GM TUBE PO PRN ×2 (13:53)
[2019-04-09] MEDS ORDERED: GLUCAGON,HUMAN RECOMB 1 MG INJ SUBCUT PRN (13:53)
[2019-04-09] MEDS ORDERED: NORMAL SALINE 1000 ML 1,000 ML IV PRN (13:56)
--- NOTE | 2019-04-09 15:37 | PDOC PROGRESS REPORT ---
Subjective Progress Note for:: 04/09/19 Subjective:: Patient now on floor, recovering, taking a regular diet. Confused but not agitated. Daughter at bedside. Patient had large bowel movement earlier today. Remains hemodynamically stable. Hemoglobin drifting down to 8.5 this admission level of 15 11 days ago. Patient and daughter state patient had a colonoscopy with the [facility] in June 2018 with no pathologic findings, however no records available for verification. Reason For Visit: HYPERCALCEMIA Physical Exam Vital Signs: Temp Pulse Resp BP Pulse Ox 98.2 F 81 16 111/76 99 04/09/19 12:52 04/09/19 12:52 04/09/19 12:52 04/09/19 12:52 04/09/19 12:52 Intake & Output 04/08/19 04/09/19 04/10/19 06:59 06:59 06:59 Intake Total 3468 3305 360 Output Total 1610 1680 475 Balance 1858 1625 -115 Weight 75.5 kg 75.3 kg General appearance: PRESENT: no acute distress, other - Communicates oriented x2 GI/Abdominal exam: PRESENT: other - Soft, small scars consistent with previous surgery. No hernias no abdominal tenderness no masses Results Laboratory Results: 04/09/19 05:05 04/09/19 05:05 04/09/19 04/09/19 05:05 05:05 WBC 9.0 RBC 2.32 L Hgb 8.5 L Hct 24.0 L MCV 103 H MCH 36.8 H MCHC 35.6 RDW 12.0 Plt Count 219 Seg Neutrophils % 78.9 H Sodium 143.6 Potassium 3.5 L Chloride 116 H Carbon Dioxide 20 L Anion Gap 8 BUN 11 Creatinine 1.24 Est GFR ( Amer) > 60 Glucose 90 Calcium 6.9 L* 03/31/19 04/01/19 04/04/19 05:56 14:45 06:27 Creatine Kinase 310 H 42 L Troponin I 0.028 Impressions: Cervical Spine CT 03/29/19 12:01 IMPRESSION: No fracture or static subluxation of the cervical spine. Moderate multilevel disc space height loss and osteophytosis. Abdomen/Pelvis CT 04/01/19 00:00 IMPRESSION: 1. Dependent lung changes as above. 2. Appropriate support lines and tubes. 3. Mild -moderate pericardial effusion. 4. No suspicious masses or nodules detected. IMPRESSION: 1. No acute or suspicious abdominopelvic abnormality on non contrasted exam. Findings as above. Chest CT 04/01/19 00:00 IMPRESSION: 1. Dependent lung changes as above. 2. Appropriate support lines and tubes. 3. Mild -moderate pericardial effusion. 4. No suspicious masses or nodules detected. IMPRESSION: 1. No acute or suspicious abdominopelvic abnormality on non contrasted exam. Findings as above. Head CT 04/01/19 00:00 IMPRESSION: NO ACUTE INTRACRANIAL IMAGING FINDINGS. EVIDENCE OF ACUTE STROKE: NO. Body Scan Nuclear Medicine 04/03/19 00:00 IMPRESSION: 1. ACTIVITY IN THE KNEES MOST CONSISTENT WITH DEGENERATIVE JOINT DISEASE. NO SUSPICIOUS UPTAKE IN THE SKELETON. 2. LINEAR INCREASED ACTIVITY IN THE MEDIAL LEFT FOREARM. THIS IS NOT RELATED TO THE INJECTION SITE (CENTRAL LINE) AND NO REPORTED SKIN CONTAMINATION. THIS MAY BE DUE TO SOFT TISSUE UPTAKE. RECOMMEND X-RAY OF THE LEFT FOREARM FOR FURTHER EVALUATION. Guidance Fluoroscopy 04/03/19 00:00 IMPRESSION: LUMBAR PUNCTURE UNDER FLUOROSCOPY. NO IMMEDIATE COMPLICATION. Lumbar Puncture 04/03/19 00:00 IMPRESSION: LUMBAR PUNCTURE UNDER FLUOROSCOPY. NO IMMEDIATE COMPLICATION. Forearm X-Ray 04/04/19 00:00 IMPRESSION: 1. No definite acute bony abnormality. Corticated ossific densities at the distal ulna favored review related to remote trauma or degenerative. 2. Soft tissue swelling about the proximal forearm, likely corresponding to bone scan findings. Chest X-Ray 04/05/19 06:00 IMPRESSION: INTERVAL REMOVAL OF THE NASOGASTRIC TUBE. OTHERWISE STABLE. KUB X-Ray 04/06/19 14:23 IMPRESSION: NG tube placement as described. Assessment & Plan - Diagnosis (1) GI bleed Qualifiers: Gastritis type: acute gastritis Is this a current diagnosis for this admission?: Yes Plan: Impression: Acute blood loss anemia due to gastrointestinal bleed. Patient underwent upper endoscopy by Dr. Pino 6 days ago with no definitive source of bleeding identified. Patient underwent colonoscopy by his report 10 months ago [facility] no pathologic findings. Now with persisting rectal bleeding felt secondary to diverticulosis Recommendations: 1. Discussed clinical situation with staff, patient, patient's daughter at bedside who becoming his healthcare power of ip technology transactions attorney. All are in agreement to proceed with diagnostic possible therapeutic intervention, specifically colonoscopy. 2. Therefore we will set patient up for colonoscopy, possible polypectomy possible control of bleeding tomorrow, April 10, fifth floor anoscopy suite [facility], sedation. We will hold Lovenox, keep patient n.p.o. after midnight, have patient take bowel prep. The risk benefits and alternatives of the planned procedure were explained to the patient including bleeding, infection, intestinal perforation, and cardiovascular collapse. - Time Time Spent with patient: 15-24 minutes Smoking Cessation Education: over 10 minutes Medications reviewed and adjusted accordingly: Yes Anticipated discharge: Home
--- NOTE | 2019-04-09 16:33 | PDOC PROGRESS REPORT ---
Subjective Progress Note for:: 04/09/19 Subjective:: This is a 63-year-old male with a past medical history of bipolar disorder on Seroquel and lithium and chronic alcoholism who was initially brought in due to increasing confusion. Patient was noted grossly with a possible level of 18. He was initially admitted to the floor where he developed worsening confusion and lethargy. He was subsequently intubated. Initially unsuccessful intubation and sustained aspiration. He was transferred to the ICU and was on the ventilator and was treated for aspiration pneumonia for several days. He was also treated for possible alcohol withdrawal. He was also seen by nephrology and oncology. He had a malignancy work-up which was unrevealing. He also developed a GI bleed in the ICU. He was seen by surgery and had an EGD. He was also planning for possible colonoscopy depending on his hemoglobin levels. He was eventually successfully extubated. He is renal failure and hypercalcemia did resolve. His mentation also significantly improved. He was started on diet yesterday. This morning, patient is oriented to person and place. He denies acute complaints. Denies chest pain or shortness of breath. Later this afternoon, PCP reported he was passing grossly bloody stools. Surgical is updated. Hold off on Lovenox. Will order a bleeding scan but patient will likely need colonoscopy. Reason For Visit: HYPERCALCEMIA Physical Exam Vital Signs: Temp Pulse Resp BP Pulse Ox 98.2 F 81 16 111/76 99 04/09/19 12:52 04/09/19 12:52 04/09/19 12:52 04/09/19 12:52 04/09/19 12:52 Intake & Output 04/08/19 04/09/19 04/10/19 06:59 06:59 06:59 Intake Total 3468 3305 360 Output Total 1610 1680 475 Balance 1858 1625 -115 Weight 166 lb 7.184 oz 166 lb 0.129 oz General appearance: PRESENT: no acute distress, well-developed, well-nourished Head exam: PRESENT: atraumatic, normocephalic Eye exam: PRESENT: conjunctiva pink, EOMI, PERRLA. ABSENT: scleral icterus Ear exam: PRESENT: normal external ear exam Mouth exam: PRESENT: moist, tongue midline Neck exam: ABSENT: carotid bruit, JVD, lymphadenopathy, thyromegaly Respiratory exam: PRESENT: clear to auscultation yassine. ABSENT: rales, rhonchi, wheezes Cardiovascular exam: PRESENT: RRR. ABSENT: diastolic murmur, rubs, systolic mu rmur Pulses: PRESENT: normal dorsalis pedis pul GI/Abdominal exam: PRESENT: normal bowel sounds, soft. ABSENT: distended, guarding, mass, organolmegaly, rebound, tenderness Rectal exam: PRESENT: deferred Extremities exam: PRESENT: full ROM. ABSENT: calf tenderness, clubbing, pedal edema Neurological exam: PRESENT: alert, awake, oriented to person, oriented to place, CN II-XII grossly intact. ABSENT: motor sensory deficit Results Laboratory Results: 04/09/19 05:05 04/09/19 05:05 04/09/19 04/09/19 05:05 05:05 WBC 9.0 RBC 2.32 L Hgb 8.5 L Hct 24.0 L MCV 103 H MCH 36.8 H MCHC 35.6 RDW 12.0 Plt Count 219 Seg Neutrophils % 78.9 H Sodium 143.6 Potassium 3.5 L Chloride 116 H Carbon Dioxide 20 L Anion Gap 8 BUN 11 Creatinine 1.24 Est GFR ( Amer) > 60 Glucose 90 Calcium 6.9 L* 03/31/19 04/01/19 04/04/19 05:56 14:45 06:27 Creatine Kinase 310 H 42 L Troponin I 0.028 Impressions: Cervical Spine CT 03/29/19 12:01 IMPRESSION: No fracture or static subluxation of the cervical spine. Moderate multilevel disc space height loss and osteophytosis. Abdomen/Pelvis CT 04/01/19 00:00 IMPRESSION: 1. Dependent lung changes as above. 2. Appropriate support lines and tubes. 3. Mild -moderate pericardial effusion. 4. No suspicious masses or nodules detected. IMPRESSION: 1. No acute or suspicious abdominopelvic abnormality on non contrasted exam. Findings as above. Chest CT 04/01/19 00:00 IMPRESSION: 1. Dependent lung changes as above. 2. Appropriate support lines and tubes. 3. Mild -moderate pericardial effusion. 4. No suspicious masses or nodules detected. IMPRESSION: 1. No acute or suspicious abdominopelvic abnormality on non contrasted exam. Findings as above. Head CT 04/01/19 00:00 IMPRESSION: NO ACUTE INTRACRANIAL IMAGING FINDINGS. EVIDENCE OF ACUTE STROKE: NO. Body Scan Nuclear Medicine 04/03/19 00:00 IMPRESSION: 1. ACTIVITY IN THE KNEES MOST CONSISTENT WITH DEGENERATIVE JOINT DISEASE. NO SUSPICIOUS UPTAKE IN THE SKELETON. 2. LINEAR INCREASED ACTIVITY IN THE MEDIAL LEFT FOREARM. THIS IS NOT RELATED TO THE INJECTION SITE (CENTRAL LINE) AND NO REPORTED SKIN CONTAMINATION. THIS MAY BE DUE TO SOFT TISSUE UPTAKE. RECOMMEND X-RAY OF THE LEFT FOREARM FOR FURTHER EVALUATION. Guidance Fluoroscopy 04/03/19 00:00 IMPRESSION: LUMBAR PUNCTURE UNDER FLUOROSCOPY. NO IMMEDIATE COMPLICATION. Lumbar Puncture 04/03/19 00:00 IMPRESSION: LUMBAR PUNCTURE UNDER FLUOROSCOPY. NO IMMEDIATE COMPLICATION. Forearm X-Ray 04/04/19 00:00 IMPRESSION: 1. No definite acute bony abnormality. Corticated ossific densities at the distal ulna favored review related to remote trauma or degenerative. 2. Soft tissue swelling about the proximal forearm, likely corresponding to bone scan findings. Chest X-Ray 04/05/19 06:00 IMPRESSION: INTERVAL REMOVAL OF THE NASOGASTRIC TUBE. OTHERWISE STABLE. KUB X-Ray 04/06/19 14:23 IMPRESSION: NG tube placement as described. Assessment and Plan - Diagnosis (1) Acute metabolic encephalopathy Is this a current diagnosis for this admission?: Yes Plan: Significantly improved. Deemed to be multifactorial from acute renal failure and severe hypercalcemia. Patient was also treated for possible alcohol withdrawal. (2) Acute respiratory failure with hypoxia Is this a current diagnosis for this admission?: Yes Plan: Resolved. Successfully extubated on 04/05/19. Now on room air. (3) GI bleed Qualifiers: Gastritis type: acute gastritis Is this a current diagnosis for this admission?: Yes Plan: Patient had hematochezia today. We will cycle H&H. Surgicalist updated for possible colonoscopy. Hold off on Lovenox. Will order a bleeding scan. (4) Acute kidney injury Is this a current diagnosis for this admission?: Yes Plan: Resolved. (5) Hypercalcemia Is this a current diagnosis for this admission?: Yes Plan: Resolved. Now calcium levels running low. Continue calcium supplements. (6) Hypokalemia Is this a current diagnosis for this admission?: Yes Plan: Continue oral potassium supplements. (7) Hypophosphatemia Is this a current diagnosis for this admission?: Yes Plan: Phosphorus supplements added. - Time Time Spent with patient: 25-34 minutes
[2019-04-09] MEDS ORDERED: PEG 3350/NA SULF,BICARB,CL/KCL 4000 ML PO PRN (17:00)
[2019-04-09] MEDS: QUETIAPINE FUMARATE 100 MG TABLET PO SCH (21:26)
--- NOTE | 2019-04-09 21:32 | RADIOLOGY REPORT (SQ) ---
EXAM DESCRIPTION: NUCLEAR MEDICINE LOWER GI BLEEDING SCAN CLINICAL HISTORY: History of hematochezia COMPARISON: None available TECHNIQUE: 26.5 millicuries of technetium labeled Ultratag RBC. FINDINGS: There is physiologic tracer uptake in the liver, spleen,visualized cardiac chambers, IVC and the abdominal aorta and the bilateral common iliac vessels. What is presumed to represent venous contamination is noted. No definite accumulation of radiotracer is identified to suggest a foci of enteric hemorrhage. IMPRESSION: No definite localization of hemorrhage within the visualized abdomen and pelvis. Consider CT angiography if more anatomic detail is required.
[2019-04-10 00:15] LABS: ABSOLUTE BASOPHILS # (AUTO) 0.1 10^3/uL (0.0-0.2); ABSOLUTE EOSINOPHILS # (AUTO) 0.1 10^3/uL (0.0-0.6); ABSOLUTE LYMPHOCYTES (AUTO) 0.8 10^3/uL (0.5-4.7); ABSOLUTE MONOCYTES (AUTO) 0.4 10^3/uL (0.1-1.4); EOSINOPHILS % (AUTO) 1.7 % (0-6); HEMATOCRIT 19.9 % (37.9-51.0); LYMPHOCYTES % (AUTO) 10.7 % (13-45); MEAN CORPUSCULAR HEMOGLOBIN 36.3 pg (27.0-33.4); MEAN CORPUSCULAR HGB CONC 35.2 g/dL (32.0-36.0); MEAN CORPUSCULAR VOLUME 103 fl (80-97); MONOCYTES % (AUTO) 5.8 % (3-13); PLATELET COUNT 223 10^3/uL (150-450); RED BLOOD COUNT 1.93 10^6/uL (4.35-5.55); RED CELL DISTRIBUTION WIDTH 11.9 % (11.5-14.0); SEGMENTED NEUTROPHILS % (AUTO) 80.8 % (42-78); TOTAL CELLS COUNTED % (AUTO) 100 %; WHITE BLOOD COUNT 7.4 10^3/uL (4.0-10.5)
[2019-04-10] MEDS ORDERED: LORAZEPAM INJ 2 MG/1 ML VIAL IV ONE (02:15)
[2019-04-10] MEDS: PHOSPHORUS #1 250 MG TABLET PO SCH ×2 (07:57→10:55)
[2019-04-10] MEDS: RINGERS SOLUTION,LACTATED 1,000 ML IV PRN (10:02)
[2019-04-10] MEDS: POTASSIUM CHLORIDE 10 MEQ TABLET.ER PO SCH ×2 (10:09→21:36)
[2019-04-10] MEDS: CALCIUM CARBONATE 250 MG/VITAMIN D3 125 UNIT TABLET PO SCH (10:09)
[2019-04-10] MEDS: LEVETIRACETAM 500 MG TABLET PO SCH ×2 (10:10→21:36)
[2019-04-10] MEDS: FAMOTIDINE 20 MG TABLET PO SCH ×2 (10:10→21:36)
[2019-04-10 11:39] LABS: ABSOLUTE BASOPHILS # (AUTO) 0.1 10^3/uL (0.0-0.2); ABSOLUTE EOSINOPHILS # (AUTO) 0.1 10^3/uL (0.0-0.6); ABSOLUTE LYMPHOCYTES (AUTO) 0.8 10^3/uL (0.5-4.7); ABSOLUTE MONOCYTES (AUTO) 0.7 10^3/uL (0.1-1.4); ABSOLUTE NEUT (AUTO) 7.6 10^3/uL (1.7-8.2); BASOPHILS % (AUTO) 0.8 % (0-2); EOSINOPHILS % (AUTO) 1.6 % (0-6); HEMATOCRIT 28.1 % (37.9-51.0); LYMPHOCYTES % (AUTO) 8.7 % (13-45); MEAN CORPUSCULAR HEMOGLOBIN 33.8 pg (27.0-33.4); MEAN CORPUSCULAR HGB CONC 35.3 g/dL (32.0-36.0); MONOCYTES % (AUTO) 7.1 % (3-13); PLATELET COUNT 232 10^3/uL (150-450); RED BLOOD COUNT 2.94 10^6/uL (4.35-5.55); RED CELL DISTRIBUTION WIDTH 17.8 % (11.5-14.0); SEGMENTED NEUTROPHILS % (AUTO) 81.8 % (42-78); TOTAL CELLS COUNTED % (AUTO) 100 %; WHITE BLOOD COUNT 9.3 10^3/uL (4.0-10.5)
[2019-04-10 11:40] LABS: HEMOGLOBIN 9.9 g/dL (13.5-17.0); MEAN CORPUSCULAR VOLUME 96 fl (80-97)
[2019-04-10 11:56] LABS: ANION GAP 7 (5-19); BLOOD UREA NITROGEN 12 mg/dL (7-20); CARBON DIOXIDE 21 mmol/L (22-30); CHLORIDE 116 mmol/L (98-107); GLUCOSE 87 mg/dL (75-110); PHOSPHORUS 2.7 mg/dL (2.5-4.5); POTASSIUM 3.7 mmol/L (3.6-5.0)
[2019-04-10 12:00] LABS: CALCIUM 6.5 mg/dL (8.4-10.2)
[2019-04-10] MEDS ORDERED: DIPHENHYDRAMINE HCL 50 MG/ML VIAL ONE (15:00)
[2019-04-10] MEDS ORDERED: ONDANSETRON HCL INJ/PF 4 MG/2 ML SDV ONE (15:00)
[2019-04-10] MEDS ORDERED: FENTANYL CITRATE INJ/PF 100 MCG/2 ML AMPUL ONE (15:00)
[2019-04-10] MEDS ORDERED: EPINEPHRINE INJ 1 MG/10 ML DISP.SYRIN ONE (15:01)
[2019-04-10] MEDS ORDERED: NALOXONE HCL INJ/PF 0.4 MG/1 ML SDV ONE (15:01)
[2019-04-10] MEDS ORDERED: FLUMAZENIL INJ 0.5 MG/5 ML VIAL ONE (15:01)
[2019-04-10] MEDS ORDERED: GLUCAGON,HUMAN RECOMB 1 MG INJ ONE (15:01)
[2019-04-10] MEDS: MIDAZOLAM 2 MG/2 ML INJ ONE ×3 (16:46→16:59)
--- NOTE | 2019-04-10 17:38 | Operative Report ---
Operative Report DATE OF SURGERY: 04/10/19 PREOPERATIVE DIAGNOSIS: 1. Acute blood loss anemia. 2. Encephalopathy. 3. Acute GI bleed POSTOPERATIVE DIAGNOSIS: Same with. 1. No active lower GI bleeding or clot identified. 2. Incomplete bowel prep OPERATION: Total colonoscopy to cecum SURGEON: KOBI LU ANESTHESIA: Moderate Sedation TISSUE REMOVED OR ALTERED: None COMPLICATIONS: None ESTIMATED BLOOD LOSS: None INTRAOPERATIVE FINDINGS: See below PROCEDURE: Obtaining informed consent the patient was taken from the preoperative holding area to the main endoscopy suite where monitoring devices were attached to the patient. Surgical plan and surgical timeout were conducted The patient was placed in the left lateral decubitus position with knees to chest. A perianal examination was performed. Patient was actively stooling liquid and solid feces. We cleaned up the feces and performed a rectal exam which revealed no palpable masses. We now performed colonoscopy all the way to the cecum. This was essentially a non-prepped colon. There was no evidence of tumor stricture bleeding or clot. The entire colon was full of liquid and semisolid stool. A fair amount of time was spent evacuating the liquid stool. The ileocecal valve was visualized. Transillumination of the anterior abdominal wall confirm cecal intubation. The scope was withdrawn the length of colon examining the mucosa when able. Unfortunately because of the poor bowel prep, this was a incomplete study. No diverticulosis were seen. The scope withdrawn the patient's anus. He tolerated the procedure well. He was taken back to the floor in stable condition. Impression: Complete colonoscopy on a incomplete bowel prep patient. Because of its limitations, the colonoscopic evaluation is considered incomplete. Nonetheless no evidence of bleeding or clot seen. Recommendations: 1. No indication for surgical intervention at this time. 2. Surgical team will sign off at this time; reconsult if clinically indicated.
[2019-04-10] MEDS: MAGNESIUM SULFATE/D5W 1 GM/100 ML RTUPB IV SCH ×2 (18:10→21:36)
[2019-04-10] MEDS ORDERED: MAGNESIUM SULFATE/D5W 1 GM/100 ML RTUPB IV ONE (21:30)
[2019-04-10] MEDS: QUETIAPINE FUMARATE 100 MG TABLET PO SCH (21:36)
--- NOTE | 2019-04-11 02:45 | RADIOLOGY REPORT (SQ) ---
CLINICAL HISTORY: AMS, [facility] neuro recommendation COMPARISON: None. TECHNIQUE: MR BRAIN WITHOUT IV CONTRAST on 04/10/2019 3:43 PM ASSISTANT MERCHANDISER This exam was performed according to our departmental dose-optimization program, which includes automated exposure control, adjustment of the mA and/or kV according to patient size and/or use of iterative reconstruction technique. FINDINGS: There is no acute hemorrhage, mass effect or midline shift. There are no areas of restricted diffusion. Expected intracranial flow voids are present. There is no hydrocephalus. There is no significant volume loss for age. Orbits and globes are unremarkable. The paranasal sinuses are clear. There is minimal fluid in the mastoid air cells. IMPRESSION: No acute intracranial findings.
--- NOTE | 2019-04-11 02:47 | RADIOLOGY REPORT (SQ) ---
CLINICAL HISTORY: severe hypercalcemia, intra-abd malignancy work-up COMPARISON: None. TECHNIQUE: CT ABDOMEN PELVIS WITH IV CONTRAST on 04/10/2019 7:33 PM CLINICAL BIOSTATISTICS DIRECTOR This exam was performed according to our departmental dose-optimization program, which includes automated exposure control, adjustment of the mA and/or kV according to patient size and/or use of iterative reconstruction technique. FINDINGS: There are moderate bilateral pleural effusions. There is mild bibasilar atelectasis. Abdomen: The liver is normal in appearance. There is no biliary dilatation. Cholecystectomy was performed. The pancreas and spleen are normal in appearance. The adrenal glands and kidneys are unremarkable. Abdominal aorta is normal in course and caliber without aneurysm. There is no free air. There is no retroperitoneal adenopathy. Pelvis: There is no bowel obstruction. There is a Chatterjee catheter within the urinary bladder. There is no free fluid. Appendix is normal. Skeleton: There are no acute osseous findings. No suspicious bony lesions. IMPRESSION: Bilateral pleural effusions. No acute inflammatory process otherwise.
[2019-04-11] MEDS: RINGERS SOLUTION,LACTATED 1,000 ML IV PRN (05:11)
[2019-04-11 05:47] LABS: ABSOLUTE BASOPHILS # (AUTO) 0.1 10^3/uL (0.0-0.2); ABSOLUTE EOSINOPHILS # (AUTO) 0.2 10^3/uL (0.0-0.6); ABSOLUTE LYMPHOCYTES (AUTO) 0.9 10^3/uL (0.5-4.7); ABSOLUTE MONOCYTES (AUTO) 0.7 10^3/uL (0.1-1.4); BASOPHILS % (AUTO) 0.8 % (0-2); EOSINOPHILS % (AUTO) 2.2 % (0-6); HEMATOCRIT 27.1 % (37.9-51.0); HEMOGLOBIN 9.6 g/dL (13.5-17.0); LYMPHOCYTES % (AUTO) 10.2 % (13-45); MEAN CORPUSCULAR HEMOGLOBIN 33.7 pg (27.0-33.4); MEAN CORPUSCULAR HGB CONC 35.3 g/dL (32.0-36.0); MEAN CORPUSCULAR VOLUME 95 fl (80-97); MONOCYTES % (AUTO) 8.2 % (3-13); PLATELET COUNT 243 10^3/uL (150-450); RED BLOOD COUNT 2.84 10^6/uL (4.35-5.55); RED CELL DISTRIBUTION WIDTH 18.2 % (11.5-14.0); SEGMENTED NEUTROPHILS % (AUTO) 78.6 % (42-78); TOTAL CELLS COUNTED % (AUTO) 100 %; WHITE BLOOD COUNT 8.9 10^3/uL (4.0-10.5)
[2019-04-11 06:13] LABS: ALBUMIN 2.6 g/dL (3.5-5.0); ANION GAP 8 (5-19); BLOOD UREA NITROGEN 10 mg/dL (7-20); CARBON DIOXIDE 22 mmol/L (22-30); CHLORIDE 111 mmol/L (98-107); GLUCOSE 90 mg/dL (75-110); PHOSPHORUS 2.4 mg/dL (2.5-4.5); POTASSIUM 3.6 mmol/L (3.6-5.0)
[2019-04-11 06:27] LABS: CALCIUM 6.7 mg/dL (8.4-10.2)
[2019-04-11] MEDS: PHOSPHORUS #1 250 MG TABLET PO SCH (11:08)
[2019-04-11] MEDS: LEVETIRACETAM 500 MG TABLET PO SCH ×2 (11:09→21:44)
[2019-04-11] MEDS: FAMOTIDINE 20 MG TABLET PO SCH ×2 (11:09→21:44)
[2019-04-11] MEDS: POTASSIUM CHLORIDE 10 MEQ TABLET.ER PO SCH ×2 (11:09→21:44)
[2019-04-11] MEDS: CALCIUM CARBONATE 250 MG/VITAMIN D3 125 UNIT TABLET PO SCH (11:09)
--- NOTE | 2019-04-11 15:11 | PDOC PROGRESS REPORT ---
Subjective Progress Note for:: 04/11/19 Reason For Visit: HYPERCALCEMIA 04/11/2019 Patient was admitted for hypercalcemia and altered mental status Physical Exam Vital Signs: Temp Pulse Resp BP Pulse Ox 98.4 F 100 16 135/87 H 98 04/11/19 04:49 04/11/19 04:49 04/11/19 04:49 04/11/19 04:49 04/11/19 04:49 Intake & Output 04/10/19 04/11/19 04/12/19 06:59 06:59 06:59 Intake Total 1550 3010 Output Total 800 2800 Balance 750 210 Weight 74.9 kg General appearance: PRESENT: no acute distress, other - Sitting up in bed talking, confused, but pleasant. Asking to take a shower Daughter and sister are in the room Respiratory exam: PRESENT: clear to auscultation yassine. ABSENT: rales, rhonchi, wheezes Cardiovascular exam: PRESENT: RRR. ABSENT: diastolic murmur, rubs, systolic murmur Neurological exam: PRESENT: alert, awake, oriented to person, oriented to place, other - Patient was asked what month it was he responded 2019. Patient was asked what city he is and he stated [place], then easily corrected to [place]. Patient recognized his sister and called her by name as well as daughter. Psychiatric exam: PRESENT: anxious Results Laboratory Results: 04/11/19 05:15 04/11/19 05:15 04/11/19 04/11/19 04/11/19 05:15 05:15 05:50 WBC 8.9 RBC 2.84 L Hgb 9.6 L Hct 27.1 L MCV 95 MCH 33.7 H MCHC 35.3 RDW 18.2 H Plt Count 243 Seg Neutrophils % 78.6 H Sodium 141.3 Potassium 3.6 Chloride 111 H Carbon Dioxide 22 Anion Gap 8 BUN 10 Creatinine 1.09 Est GFR ( Amer) > 60 Glucose 90 Calcium 6.7 L* Ionized Calcium Bernard 0.94 L Phosphorus 2.4 L Magnesium 1.8 Albumin 2.6 L 03/31/19 04/01/19 04/04/19 05:56 14:45 06:27 Creatine Kinase 310 H 42 L Troponin I 0.028 Impressions: Cervical Spine CT 03/29/19 12:01 IMPRESSION: No fracture or static subluxation of the cervical spine. Moderate multilevel disc space height loss and osteophytosis. Chest CT 04/01/19 00:00 IMPRESSION: 1. Dependent lung changes as above. 2. Appropriate support lines and tubes. 3. Mild -moderate pericardial effusion. 4. No suspicious masses or nodules detected. IMPRESSION: 1. No acute or suspicious abdominopelvic abnormality on non contrasted exam. Findings as above. Head CT 04/01/19 00:00 IMPRESSION: NO ACUTE INTRACRANIAL IMAGING FINDINGS. EVIDENCE OF ACUTE STROKE: NO. Body Scan Nuclear Medicine 04/03/19 00:00 IMPRESSION: 1. ACTIVITY IN THE KNEES MOST CONSISTENT WITH DEGENERATIVE JOINT DISEASE. NO SUSPICIOUS UPTAKE IN THE SKELETON. 2. LINEAR INCREASED ACTIVITY IN THE MEDIAL LEFT FOREARM. THIS IS NOT RELATED TO THE INJECTION SITE (CENTRAL LINE) AND NO REPORTED SKIN CONTAMINATION. THIS MAY BE DUE TO SOFT TISSUE UPTAKE. RECOMMEND X-RAY OF THE LEFT FOREARM FOR FURTHER EVALUATION. Guidance Fluoroscopy 04/03/19 00:00 IMPRESSION: LUMBAR PUNCTURE UNDER FLUOROSCOPY. NO IMMEDIATE COMPLICATION. Lumbar Puncture 04/03/19 00:00 IMPRESSION: LUMBAR PUNCTURE UNDER FLUOROSCOPY. NO IMMEDIATE COMPLICATION. Forearm X-Ray 04/04/19 00:00 IMPRESSION: 1. No definite acute bony abnormality. Corticated ossific densities at the distal ulna favored review related to remote trauma or degenerative. 2. Soft tissue swelling about the proximal forearm, likely corresponding to bone scan findings. Chest X-Ray 04/05/19 06:00 IMPRESSION: INTERVAL REMOVAL OF THE NASOGASTRIC TUBE. OTHERWISE STABLE. KUB X-Ray 04/06/19 14:23 IMPRESSION: NG tube placement as described. GI Bleed Scan Nuclear Medicine 04/09/19 13:55 IMPRESSION: No definite localization of hemorrhage within the visualized abdomen and pelvis. Consider CT angiography if more anatomic detail is required. Head MRI 04/10/19 15:43 IMPRESSION: No acute intracranial findings. Abdomen/Pelvis CT 04/10/19 19:33 IMPRESSION: Bilateral pleural effusions. No acute inflammatory process otherwise. Assessment and Plan - Diagnosis (1) Acute metabolic encephalopathy Is this a current diagnosis for this admission?: Yes (2) Acute respiratory failure Qualifiers: Respiratory failure complication: unspecified whether with hypoxia or hy percapnia Qualified Code(s): J96.00 - Acute respiratory failure, unspecified whether with hypoxia or hypercapnia Is this a current diagnosis for this admission?: Yes (3) GI bleed Qualifiers: Gastritis type: acute gastritis Is this a current diagnosis for this admission?: Yes (4) Hypercalcemia Is this a current diagnosis for this admission?: Yes (5) Hypernatremia Is this a current diagnosis for this admission?: Yes (6) Hypomagnesemia Is this a current diagnosis for this admission?: Yes - Plan Summary Summary: 04/11/2019 Temperature 98.4 pulse about 90 blood pressure 135/87, O2 sat 100% on room air o ccasionally he uses 2 L nasal cannula Medications include Pepcid Keppra Os-Shorty potassium Seroquel lactated Ringer's K- Phos CSF fluid negative x3 days. CSF protein slightly elevated at 102, normal being from 12-60 Sputum is positive for staph aureus and yeast blood cultures negative x5 days Nominal pelvic CT scan showed moderate sized bilateral pleural effusion liver no consolidations no masses no malignancy. Skeleton of that area was also negative for malignancy Colonoscopy yesterday showed no active bleeding although it was incomplete study due to poor bowel prep MRI of the brain yesterday showed no acute pathology Bleeding scan was also negative White count is normal hemoglobin is come up to 9.6 weight is 243,000 calcium today is 6.7 albumin 2.6 Rectal calcium is 7.82 ionized calcium 0.94 I have called the [facility] transfer center and talk to them about the patient's bed status. Approximately 9 patients ahead of him that need to be placed. Call them every morning to get an update to report to the family. Told the family that in my opinion it would be best just to wait on [facility] for neurology since he is already been accepted, since he has been turned down twice at [place]. Did not think it would be in her best interest to go to violent at this time. The present time everything that we are doing seems to be appropriate. Certainly I would like to have an neurology consult. If patient regresses has any setbacks then I will start calling transfer center is once again for someplace sooner than [facility]. I also told the family at this point that I am going to just very slowly correct his calcium. His hypercalcemia etiology is still unknown. However 1 must remember that he was on Seroquel lithium and drinking alcohol prior to his admission. - Time Time Spent with patient: 35 or more minutes
[2019-04-11 16:09] LABS: ABSOLUTE BASOPHILS # (AUTO) 0.1 10^3/uL (0.0-0.2); ABSOLUTE EOSINOPHILS # (AUTO) 0.2 10^3/uL (0.0-0.6); ABSOLUTE MONOCYTES (AUTO) 0.7 10^3/uL (0.1-1.4); ABSOLUTE NEUT (AUTO) 6.3 10^3/uL (1.7-8.2); BASOPHILS % (AUTO) 0.7 % (0-2); EOSINOPHILS % (AUTO) 2.5 % (0-6); HEMATOCRIT 29.8 % (37.9-51.0); HEMOGLOBIN 10.5 g/dL (13.5-17.0); LYMPHOCYTES % (AUTO) 12.4 % (13-45); MEAN CORPUSCULAR HEMOGLOBIN 33.4 pg (27.0-33.4); MEAN CORPUSCULAR HGB CONC 35.2 g/dL (32.0-36.0); MEAN CORPUSCULAR VOLUME 95 fl (80-97); MONOCYTES % (AUTO) 8.2 % (3-13); PLATELET COUNT 262 10^3/uL (150-450); RED BLOOD COUNT 3.14 10^6/uL (4.35-5.55); SEGMENTED NEUTROPHILS % (AUTO) 76.2 % (42-78); TOTAL CELLS COUNTED % (AUTO) 100 %; WHITE BLOOD COUNT 8.3 10^3/uL (4.0-10.5)
[2019-04-11 16:14] LABS: INTERNATIONAL RATION (INR) 1.16; PROTHROMBIN TIME 14.9 SEC (11.4-15.4)
[2019-04-11 16:15] LABS: PARTIAL THROMBOPLASTIN TIME 35.6 SEC (23.5-35.8)
[2019-04-11] MEDS ORDERED: CALCIUM GLUCONATE 2,000 MG in DEXTROSE 5%-WATER 100 ML IV ONE (16:15)
[2019-04-11 16:24] LABS: ALBUMIN 2.8 g/dL (3.5-5.0); ALKALINE PHOSPHATASE 93 U/L (38-126); ANION GAP 9 (5-19); ASPARTATE AMINO TRANSFERASE 32 U/L (17-59); BILIRUBIN,DIRECT 0.3 mg/dL (0.0-0.4); BILIRUBIN,TOTAL 0.4 mg/dL (0.2-1.3); BLOOD UREA NITROGEN 10 mg/dL (7-20); CARBON DIOXIDE 24 mmol/L (22-30); CHLORIDE 107 mmol/L (98-107); GLUCOSE 104 mg/dL (75-110); POTASSIUM 3.9 mmol/L (3.6-5.0); TOTAL PROTEIN 5.6 g/dL (6.3-8.2)
[2019-04-11 16:35] LABS: CALCIUM 6.9 mg/dL (8.4-10.2)
[2019-04-11] MEDS: QUETIAPINE FUMARATE 100 MG TABLET PO SCH (21:44)
[2019-04-12 08:15] LABS: ABSOLUTE BASOPHILS # (AUTO) 0.1 10^3/uL (0.0-0.2); ABSOLUTE EOSINOPHILS # (AUTO) 0.2 10^3/uL (0.0-0.6); ABSOLUTE LYMPHOCYTES (AUTO) 0.9 10^3/uL (0.5-4.7); ABSOLUTE MONOCYTES (AUTO) 0.5 10^3/uL (0.1-1.4); ABSOLUTE NEUT (AUTO) 4.9 10^3/uL (1.7-8.2); BASOPHILS % (AUTO) 1.1 % (0-2); HEMATOCRIT 27.8 % (37.9-51.0); HEMOGLOBIN 9.7 g/dL (13.5-17.0); MEAN CORPUSCULAR HEMOGLOBIN 33.4 pg (27.0-33.4); MEAN CORPUSCULAR HGB CONC 34.8 g/dL (32.0-36.0); MEAN CORPUSCULAR VOLUME 96 fl (80-97); MONOCYTES % (AUTO) 7.7 % (3-13); PLATELET COUNT 251 10^3/uL (150-450); RED CELL DISTRIBUTION WIDTH 17.3 % (11.5-14.0); SEGMENTED NEUTROPHILS % (AUTO) 74.2 % (42-78); TOTAL CELLS COUNTED % (AUTO) 100 %; WHITE BLOOD COUNT 6.6 10^3/uL (4.0-10.5)
[2019-04-12 08:21] LABS: INTERNATIONAL RATION (INR) 1.16; PARTIAL THROMBOPLASTIN TIME 31.7 SEC (23.5-35.8); PROTHROMBIN TIME 14.9 SEC (11.4-15.4)
[2019-04-12 08:51] LABS: ALBUMIN 2.5 g/dL (3.5-5.0); ALKALINE PHOSPHATASE 81 U/L (38-126); ASPARTATE AMINO TRANSFERASE 26 U/L (17-59); BILIRUBIN,DIRECT 0.3 mg/dL (0.0-0.4); BILIRUBIN,TOTAL 0.5 mg/dL (0.2-1.3); BLOOD UREA NITROGEN 8 mg/dL (7-20); CALCIUM 7.4 mg/dL (8.4-10.2); CHLORIDE 112 mmol/L (98-107); GLUCOSE 98 mg/dL (75-110); POTASSIUM 4.1 mmol/L (3.6-5.0); TOTAL PROTEIN 5.2 g/dL (6.3-8.2)
[2019-04-12 08:56] LABS: CARBON DIOXIDE 26 mmol/L (22-30)
[2019-04-12 09:00] LABS: ANION GAP 4 (5-19)
--- NOTE | 2019-04-12 09:26 | RADIOLOGY REPORT (SQ) ---
EXAM DESCRIPTION: CHEST 2 VIEWS COMPLETED DATE/TIME: 04/12/2019 8:39 am REASON FOR STUDY: pneumonia, aspiration COMPARISON: AP view of the chest from 04/05/2019. EXAM PARAMETERS: NUMBER OF VIEWS: two views TECHNIQUE: PA and lateral views of the chest were obtained. RADIATION DOSE: NA LIMITATIONS: none FINDINGS: LUNGS AND PLEURA: The interstitium is prominent. The costophrenic sulci are blunted. The re is no focal consolidation or pneumothorax. MEDIASTINUM AND HILAR STRUCTURES: Stable mediastinal and hilar contours. HEART AND VASCULAR STRUCTURES: Stable cardiac silhouette. BONES: No acute findings. HARDWARE: The endotracheal tube is no longer in place. The tip of the left IJ central venous cathete r projects within the SVC. OTHER: No other finding. IMPRESSION: Prominence of the interstitium and bilateral pleural effusions. Clinical correlation fo r signs and symptoms of volume overload is recommended. TECHNICAL DOCUMENTATION: JOB ID: [id number] [employer]- All Rights Reserved Reading location - IP/workstation name: [email or web address]
[2019-04-12] MEDS: FAMOTIDINE 20 MG TABLET PO SCH ×2 (10:10→22:16)
[2019-04-12] MEDS: PHOSPHORUS #1 250 MG TABLET PO SCH (10:10)
[2019-04-12] MEDS: LEVETIRACETAM 500 MG TABLET PO SCH ×2 (10:10→22:15)
[2019-04-12] MEDS: CALCIUM CARBONATE 250 MG/VITAMIN D3 125 UNIT TABLET PO SCH (10:10)
[2019-04-12] MEDS: POTASSIUM CHLORIDE 10 MEQ TABLET.ER PO SCH ×2 (10:10→22:15)
--- NOTE | 2019-04-12 11:57 | PDOC PROGRESS REPORT ---
Subjective Progress Note for:: 04/12/19 Reason For Visit: HYPERCALCEMIA 04/12/2019 Patient originally admitted for hypercalcemia, EtOH abuse, altered mental status, Physical Exam Vital Signs: Temp Pulse Resp BP Pulse Ox 98.2 F 86 16 132/76 H 97 04/12/19 07:41 04/12/19 07:41 04/12/19 07:41 04/12/19 07:41 04/12/19 07:41 Intake & Output 04/11/19 04/12/19 04/13/19 06:59 06:59 06:59 Intake Total 3010 1000 Output Total 2800 2825 Balance 210 -1825 Weight 71.6 kg General appearance: PRESENT: no acute distress Respiratory exam: PRESENT: clear to auscultation yassine. ABSENT: rales, rhonchi, wheezes Cardiovascular exam: PRESENT: RRR. ABSENT: diastolic murmur, rubs, systolic murmur Neurological exam: PRESENT: alert, awake, oriented to person, oriented to place, other Psychiatric exam: PRESENT: flat affect Results Laboratory Results: 04/12/19 08:00 04/12/19 08:00 04/11/19 04/11/19 04/12/19 15:58 15:58 08:00 WBC 8.3 6.6 RBC 3.14 L 2.90 L Hgb 10.5 L 9.7 L Hct 29.8 L 27.8 L MCV 95 96 MCH 33.4 33.4 MCHC 35.2 34.8 RDW 18.0 H 17.3 H Plt Count 262 251 Seg Neutrophils % 76.2 74.2 Sodium 139.6 Potassium 3.9 Chloride 107 Carbon Dioxide 24 Anion Gap 9 BUN 10 Creatinine 1.07 Est GFR ( Amer) > 60 Glucose 104 Calcium 6.9 L* Total Bilirubin 0.4 AST 32 Alkaline Phosphatase 93 Total Protein 5.6 L Albumin 2.8 L 04/12/19 08:00 WBC RBC Hgb Hct MCV MCH MCHC RDW Plt Count Seg Neutrophils % Sodium 141.8 Potassium 4.1 Chloride 112 H Carbon Dioxide 26 Anion Gap 4 L BUN 8 Creatinine 1.09 Est GFR ( Amer) > 60 Glucose 98 Calcium 7.4 L Total Bilirubin 0.5 AST 26 Alkaline Phosphatase 81 Total Protein 5.2 L Albumin 2.5 L 03/31/19 04/01/19 04/04/19 05:56 14:45 06:27 Creatine Kinase 310 H 42 L Troponin I 0.028 Impressions: Cervical Spine CT 03/29/19 12:01 IMPRESSION: No fracture or static subluxation of the cervical spine. Moderate multilevel disc space height loss and osteophytosis. Chest CT 04/01/19 00:00 IMPRESSION: 1. Dependent lung changes as above. 2. Appropriate support lines and tubes. 3. Mild -moderate pericardial effusion. 4. No suspicious masses or nodules detected. IMPRESSION: 1. No acute or suspicious abdominopelvic abnormality on non contrasted exam. Findings as above. Head CT 04/01/19 00:00 IMPRESSION: NO ACUTE INTRACRANIAL IMAGING FINDINGS. EVIDENCE OF ACUTE STROKE: NO. Body Scan Nuclear Medicine 04/03/19 00:00 IMPRESSION: 1. ACTIVITY IN THE KNEES MOST CONSISTENT WITH DEGENERATIVE JOINT DISEASE. NO SUSPICIOUS UPTAKE IN THE SKELETON. 2. LINEAR INCREASED ACTIVITY IN THE MEDIAL LEFT FOREARM. THIS IS NOT RELATED TO THE INJECTION SITE (CENTRAL LINE) AND NO REPORTED SKIN CONTAMINATION. THIS MAY BE DUE TO SOFT TISSUE UPTAKE. RECOMMEND X-RAY OF THE LEFT FOREARM FOR FURTHER EVALUATION. Guidance Fluoroscopy 04/03/19 00:00 IMPRESSION: LUMBAR PUNCTURE UNDER FLUOROSCOPY. NO IMMEDIATE COMPLICATION. Lumbar Puncture 04/03/19 00:00 IMPRESSION: LUMBAR PUNCTURE UNDER FLUOROSCOPY. NO IMMEDIATE COMPLICATION. Forearm X-Ray 04/04/19 00:00 IMPRESSION: 1. No definite acute bony abnormality. Corticated ossific densities at the distal ulna favored review related to remote trauma or degenerative. 2. Soft tissue swelling about the proximal forearm, likely corresponding to bone scan findings. KUB X-Ray 04/06/19 14:23 IMPRESSION: NG tube placement as described. GI Bleed Scan Nuclear Medicine 04/09/19 13:55 IMPRESSION: No definite localization of hemorrhage within the visualized abdomen and pelvis. Consider CT angiography if more anatomic detail is required. Head MRI 04/10/19 15:43 IMPRESSION: No acute intracranial findings. Abdomen/Pelvis CT 04/10/19 19:33 IMPRESSION: Bilateral pleural effusions. No acute inflammatory process otherwise. Chest X-Ray 04/12/19 00:00 IMPRESSION: Prominence of the interstitium and bilateral pleural effusions. Clinical correlation for signs and symptoms of volume overload is recommended. Assessment and Plan - Diagnosis (1) Acute metabolic encephalopathy Is this a current diagnosis for this admission?: Yes (2) Acute respiratory failure Qualifiers: Respiratory failure complication: unspecified whether with hypoxia or hypercapnia Qualified Code(s): J96.00 - Acute respiratory failure, unspecified whether with hypoxia or hypercapnia Is this a current diagnosis for this admission?: Yes (3) GI bleed Qualifiers: Gastritis type: acute gastritis Is this a current diagnosis for this admission?: Yes (4) Hypercalcemia Is this a current diagnosis for this admission?: Yes (5) Hypernatremia Is this a current diagnosis for this admission?: Yes (6) Hypomagnesemia Is this a current diagnosis for this admission?: Yes (7) Alcohol abuse Is this a current diagnosis for this admission?: Yes - Plan Summary Summary: 04/11/2019 Temperature 98.4 pulse about 90 blood pressure 135/87, O2 sat 100% on room air occasionally he uses 2 L nasal cannula Medications include Pepcid Keppra Os-Shorty potassium Seroquel lactated Ringer's K- Phos CSF fluid negative x3 days. CSF protein slightly elevated at 102, normal being from 12-60 Sputum is positive for staph aureus and yeast blood cultures negative x5 days Nominal pelvic CT scan showed moderate sized bilateral pleural effusion liver no consolidations no masses no malignancy. Skeleton of that area was also negative for malignancy Colonoscopy yesterday showed no active bleeding although it was incomplete study due to poor bowel prep MRI of the brain yesterday showed no acute pathology Bleeding scan was also negative White count is normal hemoglobin is come up to 9.6 weight is 243,000 calcium today is 6.7 albumin 2.6 corrected calcium is 7.82, ionized calcium 0.94 I have called the [facility] transfer center and talk to them about the patient's bed status. Approximately 9 patients ahead of him that need to be placed. Call them every morning to get an update to report to the family. Told the family that in my opinion it would be best just to wait on [facility] for neurology since he is already been accepted, since he has been turned down twice at [facility]. Did not think it would be in her best interest to go to [facility] at this time. The present time everything that we are doing seems to be appropriate. Certainly I would like to have an neurology consult. If patient regresses has any setbacks then I will start calling transfer center is once again for someplace sooner than [facility]. I also told the family at this point that I am going to just very slowly correct his calcium. His hypercalcemia etiology is still unknown. However 1 must remember that he was on Seroquel lithium and drinking alcohol prior to his admission. 04/12/2019 Vital signs are very stable, 97% oxygen saturation on room air ,no fever ,pulse is 86 and regular, pressure 132/76 White count is normal hemoglobin has stabilized around 9.7 Chest x-ray shows no acute findings Coags are normal chemistry panel Calcium level today is 7.4 with a corrected level of 8.6. Other electrolytes are normal Will check ionized calcium phosphorus and magnesium tomorrow Called [facility] transfer center this morning they are very reluctant to speak with me concerning bed availability, ever they did tell me that there were 4 or 5 neuro patients ahead of this patient today He is oriented to the year the place the person. He is very alert. Continue to correct labs, hopefully get patient in the shower today as he is asking for this. [facility] With daily improvements however patient may improve enough to be [facility] prior to being accepted at [facility]. - Time Time Spent with patient: 25-34 minutes
[2019-04-12] MEDS ORDERED: CALCIUM GLUCONATE 2,222 MG in DEXTROSE 5%-WATER 100 ML IV ONE (14:00)
--- NOTE | 2019-04-12 16:38 | ADVANCED CARE ---
- Diagnosis (1) Acute metabolic encephalopathy Diagnosis Current: Yes (2) Acute respiratory failure Diagnosis Current: Yes (3) GI bleed Diagnosis Current: Yes (4) Hypercalcemia Diagnosis Current: Yes (5) Hypernatremia Diagnosis Current: Yes (6) Hypomagnesemia Diagnosis Current: Yes (7) Alcohol abuse Diagnosis Current: Yes Attendance: Daughter and sister as well as patient Resuscitation Status: Full Code Discussion: We discussed patient's transfer status at [facility]. Discussed patient's labs as well as his radiology test results. Discussed the possibility of trying another tertiary center for transfer although is been turned down twice at [place]. In the hallway the patient's daughter and I talked about the patient's alcohol usage and it sounds like he drinks about a 12 pack of beer daily. Talked about the possibility that the patient may improve enough to where by the time he has a bed at [facility] he would be able to be discharged home, or rehab. So talked about the fact that the patient was to worsen that we would obviously change courses and call other tertiary centers immediately for a potentially faster transfer Care Planning Goals: Transfer to higher level of care. Get the patient backing in machine tender to [place] where the daughter lives Time Spent: 30 minutes
[2019-04-12] MEDS: QUETIAPINE FUMARATE 100 MG TABLET PO SCH (22:15)
[2019-04-12] MEDS: RINGERS SOLUTION,LACTATED 1,000 ML IV PRN ×2 (22:16)
[2019-04-13 04:17] LABS: APPEARANCE,URINE CLEAR; BILIRUBIN,URINE NEGATIVE (NEGATIVE); COLOR,URINE STRAW; GLUCOSE, URINE NEGATIVE (NEGATIVE); KETONES,URINE NEGATIVE (NEGATIVE); PROTEIN,URINE NEGATIVE (NEGATIVE); URINE SPECIFIC GRAVITY 1.004; UROBILINOGEN,URINE NEGATIVE mg/dL (<2.0)
[2019-04-13 04:32] LABS: BLOOD UREA NITROGEN 10 mg/dL (7-20); CALCIUM 7.8 mg/dL (8.4-10.2); CARBON DIOXIDE 27 mmol/L (22-30); CHLORIDE 111 mmol/L (98-107); GLUCOSE 91 mg/dL (75-110); PHOSPHORUS 3.8 mg/dL (2.5-4.5); POTASSIUM 4.3 mmol/L (3.6-5.0)
[2019-04-13 04:43] LABS: ANION GAP 3 (5-19)
--- NOTE | 2019-04-13 09:37 | PDOC PROGRESS REPORT ---
Subjective Progress Note for:: 04/13/19 Reason For Visit: HYPERCALCEMIA 04/13/2019 Hypercalcemia, alcohol abuse, altered mental status Physical Exam Vital Signs: Temp Pulse Resp BP Pulse Ox 98.3 F 79 20 132/76 H 96 04/13/19 07:46 04/13/19 07:46 04/13/19 07:46 04/13/19 07:46 04/13/19 07:46 Intake & Output 04/12/19 04/13/19 04/14/19 06:59 06:59 06:59 Intake Total 1000 2644 Output Total 2825 3875 Balance -1820 -1233 Weight 71.6 kg 75.8 kg General appearance: PRESENT: no acute distress Respiratory exam: PRESENT: clear to auscultation yassine. ABSENT: rales, rhonchi, wheezes Cardiovascular exam: PRESENT: RRR. ABSENT: diastolic murmur, rubs, systolic murmur Neurological exam: PRESENT: alert, awake, oriented to person, oriented to place, oriented to time, oriented to situation, CN II-XII grossly intact, other - Patient was able to answer all 4 questions today correctly concerning his orientation Sitting up in bed wide awake. ABSENT: motor sensory deficit Psychiatric exam: PRESENT: appropriate affect, normal mood. ABSENT: homicidal ideation, suicidal ideation Results Laboratory Results: 04/12/19 08:00 04/13/19 03:37 04/13/19 04/13/19 04/13/19 03:37 03:37 03:45 Sodium 140.7 Potassium 4.3 Chloride 111 H Carbon Dioxide 27 Anion Gap 3 L BUN 10 Creatinine 1.05 Est GFR ( Amer) > 60 Glucose 91 Calcium 7.8 L Ionized Calcium Bernard 1.08 L Phosphorus 3.8 Magnesium 1.4 L Urine Color STRAW Urine Appearance CLEAR Urine pH 7.0 Ur Specific [place] 1.004 Urine Protein NEGATIVE Urine Glucose (UA) NEGATIVE Urine Ketones NEGATIVE Urine Blood SMALL H Urine RBC (Auto) 2 03/31/19 04/01/19 04/04/19 05:56 14:45 06:27 Creatine Kinase 310 H 42 L Troponin I 0.028 Impressions: Cervical Spine CT 03/29/19 12:01 IMPRESSION: No fracture or static subluxation of the cervical spine. Moderate multilevel disc space height loss and osteophytosis. Chest CT 04/01/19 00:00 IMPRESSION: 1. Dependent lung changes as above. 2. Appropriate support lines and tubes. 3. Mild -moderate pericardial effusion. 4. No suspicious masses or nodules detected. IMPRESSION: 1. No acute or suspicious abdominopelvic abnormality on non contrasted exam. Findings as above. Head CT 04/01/19 00:00 IMPRESSION: NO ACUTE INTRACRANIAL IMAGING FINDINGS. EVIDENCE OF ACUTE STROKE: NO. Body Scan Nuclear Medicine 04/03/19 00:00 IMPRESSION: 1. ACTIVITY IN THE KNEES MOST CONSISTENT WITH DEGENERATIVE JOINT DISEASE. NO SUSPICIOUS UPTAKE IN THE SKELETON. 2. LINEAR INCREASED ACTIVITY IN THE MEDIAL LEFT FOREARM. THIS IS NOT RELATED TO THE INJECTION SITE (CENTRAL LINE) AND NO REPORTED SKIN CONTAMINATION. THIS MAY BE DUE TO SOFT TISSUE UPTAKE. RECOMMEND X-RAY OF THE LEFT FOREARM FOR FURTHER E VALUATION. Guidance Fluoroscopy 04/03/19 00:00 IMPRESSION: LUMBAR PUNCTURE UNDER FLUOROSCOPY. NO IMMEDIATE COMPLICATION. Lumbar Puncture 04/03/19 00:00 IMPRESSION: LUMBAR PUNCTURE UNDER FLUOROSCOPY. NO IMMEDIATE COMPLICATION. Forearm X-Ray 04/04/19 00:00 IMPRESSION: 1. No definite acute bony abnormality. Corticated ossific densities at the distal ulna favored review related to remote trauma or degenera tive. 2. Soft tissue swelling about the proximal forearm, likely corresponding to bone scan findings. KUB X-Ray 04/06/19 14:23 IMPRESSION: NG tube placement as described. GI Bleed Scan Nuclear Medicine 04/09/19 13:55 IMPRESSION: No definite localization of hemorrhage within the visualized abdomen and pelvis. Consider CT angiography if more anatomic detail is required. Head MRI 04/10/19 15:43 IMPRESSION: No acute intracranial findings. Abdomen/Pelvis CT 04/10/19 19:33 IMPRESSION: Bilateral pleural effusions. No acute inflammatory process otherwise. Chest X-Ray 04/12/19 00:00 IMPRESSION: Prominence of the interstitium and bilateral pleural effusions. Clinical correlation for signs and symptoms of volume overload is recommended. Assessment and Plan - Diagnosis (1) Acute metabolic encephalopathy Is this a current diagnosis for this admission?: Yes (2) Acute respiratory failure Qualifiers: Respiratory failure complication: unspecified whether with hypoxia or hypercapnia Qualified Code(s): J96.00 - Acute respiratory failure, unspecified whether with hypoxia or hypercapnia Is this a current diagnosis for this admission?: Yes (3) GI bleed Qualifiers: Gastritis type: acute gastritis Is this a current diagnosis for this admission?: Yes (4) Hypercalcemia Is this a current diagnosis for this admission?: Yes (5) Hypernatremia Is this a current diagnosis for this admission?: Yes (6) Hypomagnesemia Is this a current diagnosis for this admission?: Yes (7) Alcohol abuse Is this a current diagnosis for this admission?: Yes - Plan Summary Summary: 04/11/2019 Temperature 98.4 pulse about 90 blood pressure 135/87, O2 sat 100% on room air occasionally he uses 2 L nasal cannula Medications include Pepcid Keppra Os-Shorty potassium Seroquel lactated Ringer's K- Phos CSF fluid negative x3 days. CSF protein slightly elevated at 102, normal being from 12-60 Sputum is positive for staph aureus and yeast blood cultures negative x5 days Nominal pelvic CT scan showed moderate sized bilateral pleural effusion liver no consolidations no masses no malignancy. Skeleton of that area was also negative for malignancy Colonoscopy yesterday showed no active bleeding although it was incomplete study due to poor bowel prep MRI of the brain yesterday showed no acute pathology Bleeding scan was also negative White count is normal hemoglobin is come up to 9.6 weight is 243,000 calcium today is 6.7 albumin 2.6 corrected calcium is 7.82, ionized calcium 0.94 I have called the [facility] transfer center and talk to them about the patient's bed status. Approximately 9 patients ahead of him that need to be placed. Call them every morning to get an update to report to the family. Told the family that in my opinion it would be best just to wait on [facility] for neurolog y since he is already been accepted, since he has been turned down twice at [place]. Did not think it would be in her best interest to go to [facility] at this time. The present time everything that we are doing seems to be appropriate. Certainly I would like to have an neurology consult. If patient regresses has any setbacks then I will start calling transfer center is once again for someplace sooner than [facility]. I also told the family at this point that I am going to just very slowly correct his calcium. His hypercalcemia etiology is still unknown. However 1 must remember that he was on Seroquel lithium and drinking alcohol prior to his admission. 04/12/2019 Vital signs are very stable, 97% oxygen saturation on room air ,no fever ,pulse is 86 and regular, pressure 132/76 White count is normal hemoglobin has stabilized around 9.7 Chest x-ray shows no acute findings Coags are normal chemistry panel Calcium level today is 7.4 with a corrected level of 8.6. Other electrolytes are normal Will check ionized calcium phosphorus and magnesium tomorrow Called [facility] transfer center this morning they are very reluctant to speak with me concerning bed availability, ever they did tell me that there were 4 or 5 neuro patients ahead of this patient today He is oriented to the year the place the person. He is very alert. Continue to correct labs, hopefully get patient in the shower today as he is asking for this. Continue to treat patient until bed available at [facility]. With daily improvements however patient may improve enough to be discharge prior to being accepted at [facility]. 04/13/2019 Temperature 98.5, pulse between 70 and 100 and regular with an average pulse of 85, pressure 141/78, O2 sat 99% on room air Ionized calcium level today 1.08, calcium level today is up to 7.8 Corrected calcium level is 9 The serum is down slightly to 1.4 we will replace this today Versus up to 3.8 and albumin is steady at 2.5 X-ray yesterday showed no acute findings Called [facility] transfer center today and there is still over capacity. Also called the transfer center invited and they 2 are over capacity. Continue to wait on bed placement at [facility] for now I discussed case in great detail with supervising physician Dr. Sims. He agrees with current recommendations and treatment plan - Time Time Spent with patient: 35 or more minutes
[2019-04-13] MEDS: FAMOTIDINE 20 MG TABLET PO SCH ×2 (09:41→21:18)
[2019-04-13] MEDS: POTASSIUM CHLORIDE 10 MEQ TABLET.ER PO SCH ×2 (09:41→21:18)
[2019-04-13] MEDS: LEVETIRACETAM 500 MG TABLET PO SCH ×2 (09:41→21:18)
[2019-04-13] MEDS: PHOSPHORUS #1 250 MG TABLET PO SCH (09:41)
[2019-04-13] MEDS: CALCIUM CARBONATE 250 MG/VITAMIN D3 125 UNIT TABLET PO SCH (09:42)
[2019-04-13] MEDS: MAGNESIUM SULFATE/D5W 1 GM/100 ML RTUPB IV SCH ×2 (10:55→12:13)
[2019-04-13] MEDS: RINGERS SOLUTION,LACTATED 1,000 ML IV PRN (12:13)
[2019-04-13] MEDS: ENOXAPARIN SODIUM INJ 40 MG/0.4 ML DISP.SYRIN SUBCUT SCH (19:53)
[2019-04-13] MEDS: QUETIAPINE FUMARATE 100 MG TABLET PO SCH (21:19)
[2019-04-14] MEDS: RINGERS SOLUTION,LACTATED 1,000 ML IV PRN ×2 (03:24→21:07)
[2019-04-14 03:33] LABS: ABSOLUTE BASOPHILS # (AUTO) 0.1 10^3/uL (0.0-0.2); ABSOLUTE EOSINOPHILS # (AUTO) 0.3 10^3/uL (0.0-0.6); ABSOLUTE LYMPHOCYTES (AUTO) 1.5 10^3/uL (0.5-4.7); ABSOLUTE MONOCYTES (AUTO) 0.5 10^3/uL (0.1-1.4); ABSOLUTE NEUT (AUTO) 2.5 10^3/uL (1.7-8.2); EOSINOPHILS % (AUTO) 6.5 % (0-6); HEMATOCRIT 26.8 % (37.9-51.0); HEMOGLOBIN 9.3 g/dL (13.5-17.0); LYMPHOCYTES % (AUTO) 30.3 % (13-45); MEAN CORPUSCULAR HEMOGLOBIN 33.6 pg (27.0-33.4); MEAN CORPUSCULAR HGB CONC 34.9 g/dL (32.0-36.0); MEAN CORPUSCULAR VOLUME 97 fl (80-97); MONOCYTES % (AUTO) 9.4 % (3-13); PLATELET COUNT 258 10^3/uL (150-450); RED BLOOD COUNT 2.77 10^6/uL (4.35-5.55); RED CELL DISTRIBUTION WIDTH 16.8 % (11.5-14.0); SEGMENTED NEUTROPHILS % (AUTO) 51.8 % (42-78); TOTAL CELLS COUNTED % (AUTO) 100 %; WHITE BLOOD COUNT 4.9 10^3/uL (4.0-10.5)
[2019-04-14 04:05] LABS: ANION GAP 6 (5-19); BLOOD UREA NITROGEN 13 mg/dL (7-20); CALCIUM 8.5 mg/dL (8.4-10.2); CARBON DIOXIDE 29 mmol/L (22-30); CHLORIDE 107 mmol/L (98-107); GLUCOSE 89 mg/dL (75-110); POTASSIUM 4.7 mmol/L (3.6-5.0)
[2019-04-14] MEDS: CALCIUM CARBONATE 250 MG/VITAMIN D3 125 UNIT TABLET PO SCH (10:48)
[2019-04-14] MEDS: FAMOTIDINE 20 MG TABLET PO SCH ×2 (10:49→21:05)
[2019-04-14] MEDS: LEVETIRACETAM 500 MG TABLET PO SCH ×2 (10:49→21:05)
[2019-04-14] MEDS: PHOSPHORUS #1 250 MG TABLET PO SCH (10:49)
[2019-04-14] MEDS: POTASSIUM CHLORIDE 10 MEQ TABLET.ER PO SCH ×2 (10:51→21:05)
--- NOTE | 2019-04-14 12:16 | PDOC PROGRESS REPORT ---
Subjective Progress Note for:: 04/14/19 Reason For Visit: HYPERCALCEMIA 04/14/2019 Patient originally admitted for hypercalcemia, altered mental status Physical Exam Vital Signs: Temp Pulse Resp BP Pulse Ox 98.3 F 66 16 141/77 H 95 04/14/19 07:56 04/14/19 07:56 04/14/19 07:56 04/14/19 07:56 04/14/19 07:56 Intake & Output 04/13/19 04/14/19 04/15/19 06:59 06:59 06:59 Intake Total 2644 2318 Output Total 4794 2006 Balance -3719 -7261 Weight 75.8 kg 77.6 kg General appearance: PRESENT: no acute distress Respiratory exam: PRESENT: clear to auscultation yassine. ABSENT: rales, rhonchi, wheezes Cardiovascular exam: PRESENT: RRR. ABSENT: diastolic murmur, rubs, systolic murmur Neurological exam: PRESENT: alert, awake, oriented to person, oriented to place, oriented to time, oriented to situation, CN II-XII grossly intact, other - This morning patient was able to tell me the correct year the correct date the correct location. Daughter was in the room at the time. Patient has been served with power of contract attorney legal documents but at the present time patient is still the decision maker. ABSENT: motor sensory deficit Psychiatric exam: PRESENT: appropriate affect, normal mood. ABSENT: homicidal ideation, suicidal ideation Results Laboratory Results: 04/14/19 03:25 04/14/19 03:25 04/14/19 04/14/19 03:25 03:25 WBC 4.9 RBC 2.77 L Hgb 9.3 L Hct 26.8 L MCV 97 MCH 33.6 H MCHC 34.9 RDW 16.8 H Plt Count 258 Seg Neutrophils % 51.8 Sodium 141.5 Potassium 4.7 Chloride 107 Carbon Dioxide 29 Anion Gap 6 BUN 13 Creatinine 1.37 H Est GFR ( Amer) > 60 Glucose 89 Calcium 8.5 Magnesium 1.8 03/31/19 04/01/19 04/04/19 05:56 14:45 06:27 Creatine Kinase 310 H 42 L Troponin I 0.028 Impressions: Cervical Spine CT 03/29/19 12:01 IMPRESSION: No fracture or static subluxation of the cervical spine. Moderate multilevel disc space height loss and osteophytosis. Chest CT 04/01/19 00:00 IMPRESSION: 1. Dependent lung changes as above. 2. Appropriate support lines and tubes. 3. Mild -moderate pericardial effusion. 4. No suspicious masses or nodules detected. IMPRESSION: 1. No acute or suspicious abdominopelvic abnormality on non contrasted exam. Findings as above. Head CT 04/01/19 00:00 IMPRESSION: NO ACUTE INTRACRANIAL IMAGING FINDINGS. EVIDENCE OF ACUTE STROKE: NO. Body Scan Nuclear Medicine 04/03/19 00:00 IMPRESSION: 1. ACTIVITY IN THE KNEES MOST CONSISTENT WITH DEGENERATIVE JOINT DISEASE. NO SUSPICIOUS UPTAKE IN THE SKELETON. 2. LINEAR INCREASED ACTIVITY IN THE MEDIAL LEFT FOREARM. THIS IS NOT RELATED TO THE INJECTION SITE (CENTRAL LINE) AND NO REPORTED SKIN CONTAMINATION. THIS MAY BE DUE TO SOFT TISSUE UPTAKE. RECOMMEND X-RAY OF THE LEFT FOREARM FOR FURTHER EVALUATION. Guidance Fluoroscopy 04/03/19 00:00 IMPRESSION: LUMBAR PUNCTURE UNDER FLUOROSCOPY. NO IMMEDIATE COMPLICATION. Lumbar Puncture 04/03/19 00:00 IMPRESSION: LUMBAR PUNCTURE UNDER FLUOROSCOPY. NO IMMEDIATE COMPLICATION. Forearm X-Ray 04/04/19 00:00 IMPRESSION: 1. No definite acute bony abnormality. Corticated ossific densities at the distal ulna favored review related to remote trauma or degenerative. 2. Soft tissue swelling about the proximal forearm, likely corresponding to bone scan findings. KUB X-Ray 04/06/19 14:23 IMPRESSION: NG tube placement as described. GI Bleed Scan Nuclear Medicine 04/09/19 13:55 IMPRESSION: No definite localization of hemorrhage within the visualized abdomen and pelvis. Consider CT angiography if more anatomic detail is required. Head MRI 04/10/19 15:43 IMPRESSION: No acute intracranial findings. Abdomen/Pelvis CT 04/10/19 19:33 IMPRESSION: Bilateral pleural effusions. No acute inflammatory process otherwise. Chest X-Ray 04/12/19 00:00 IMPRESSION: Prominence of the interstitium and bilateral pleural effusions. Clinical correlation for signs and symptoms of volume overload is recommended. Assessment and Plan - Diagnosis (1) Acute metabolic encephalopathy Is this a current diagnosis for this admission?: Yes (2) Acute respiratory failure Qualifiers: Respiratory failure complication: unspecified whether with hypoxia or hypercapnia Qualified Code(s): J96.00 - Acute respiratory failure, unspecified whether with hypoxia or hypercapnia Is this a current diagnosis for this admission?: Yes (3) GI bleed Qualifiers: Gastritis type: acute gastritis Is this a current diagnosis for this admission?: Yes (4) Hypercalcemia Is this a current diagnosis for this admission?: Yes (5) Hypernatremia Is this a current diagnosis for this admission?: Yes (6) Hypomagnesemia Is this a current diagnosis for this admission?: Yes (7) Alcohol abuse Is this a current diagnosis for this admission?: Yes - Plan Summary Summary: 04/11/2019 Temperature 98.4 pulse about 90 blood pressure 135/87, O2 sat 100% on room air occasionally he uses 2 L nasal cannula Medications include Pepcid Keppra Os-Shorty potassium Seroquel lactated Ringer's K- Phos CSF fluid negative x3 days. CSF protein slightly elevated at 102, normal being from 12-60 Sputum is positive for staph aureus and yeast blood cultures negative x5 days Nominal pelvic CT scan showed moderate sized bilateral pleural effusion liver no consolidations no masses no malignancy. Skeleton of that area was also negative for malignancy Colonoscopy yesterday showed no active bleeding although it was incomplete study due to poor bowel prep MRI of the brain yesterday showed no acute pathology Bleeding scan was also negative White count is normal hemoglobin is come up to 9.6 weight is 243,000 calcium today is 6.7 albumin 2.6 corrected calcium is 7.82, ionized calcium 0.94 I have called the [facility] transfer center and talk to them about the patient's bed status. Approximately 9 patients ahead of him that need to be placed. Call them every morning to get an update to report to the family. Told the family that in my opinion it would be best just to wait on [facility] for neurology since he is already been accepted, since he has been turned down twice at [place]. Did not think it would be in her best interest to go to [facility] at this time. The present time everything that we are doing seems to be appropriate. Certainly I would like to have an neurology consult. If patient regresses has any setbacks then I will start calling transfer center is once again for someplace sooner than [facility]. I also told the family at this point that I am going to just very slowly correct his calcium. His hypercalcemia etiology is still unknown. However 1 must remember that he was on Seroquel lithium and drinking alcohol prior to his admission. 04/12/2019 Vital signs are very stable, 97% oxygen saturation on room air ,no fever ,pulse is 86 and regular, pressure 132/76 White count is normal hemoglobin has stabilized around 9.7 Chest x-ray shows no acute findings Coags are normal chemistry panel Calcium level today is 7.4 with a corrected level of 8.6. Other electrolytes are normal Will check ionized calcium phosphorus and magnesium tomorrow Called [facility] transfer center this morning they are very reluctant to speak with me concerning bed availability, ever they did tell me that there were 4 or 5 neuro patients ahead of this patient today He is oriented to the year the place the person. He is very alert. Continue to correct labs, hopefully get patient in the shower today as he is a sking for this. Continue to treat patient until bed available at [facility]. With daily improvements however patient may improve enough to be discharge prior to being accepted at [facility]. 04/13/2019 Temperature 98.5, pulse between 70 and 100 and regular with an average pulse of 85, pressure 141/78, O2 sat 99% on room air Ionized calcium level today 1.08, calcium level today is up to 7.8 Corrected calcium level is 9 The serum is down slightly to 1.4 we will replace this today Versus up to 3.8 and albumin is steady at 2.5 X-ray yesterday showed no acute findings Called [facility] transfer center today and there is still over capacity. Also called the transfer center invited and they 2 are over capacity. Continue to wait on bed placement at [facility] for now I discussed case in great detail with supervising physician Dr. Sims. He agrees with current recommendations and treatment plan 04/14/2019 Temperature 98.3, pulse 66, blood pressure 141/77 O2 sat 95% on room air Labs are stable hemoglobin 9.3, white count 4.9 Electrolytes are normal calcium is up to 8.5 ionized calcium is up to 1.08 magn esium is 1.8 Still waiting on [facility] bed placement all the hospitals including the [facility] in [place] R2 capacity and even on divergence It may be that patient could go to rehab placement and consult neurology while in rehab. We have discussed patient in CAPS rounds. Patient appears medically stable for transfer. - Time Time Spent with patient: 25-34 minutes
--- NOTE | 2019-04-14 15:37 | PDOC PROGRESS REPORT ---
Subjective Progress Note for:: 04/10/19 Subjective:: This is a 63-year-old male with a past medical history of bipolar disorder on Seroquel and lithium and chronic alcoholism who was initially brought in due to increasing confusion. Patient was noted grossly with a possible level of 18. He was initially admitted to the floor where he developed worsening confusion and lethargy. He was subsequently intubated. Initially unsuccessful intubation and sustained aspiration. He was transferred to the ICU and was on the ventilator and was treated for aspiration pneumonia for several days. He was also treated for possible alcohol withdrawal. He was also seen by nephrology and oncology. He had a malignancy work-up which was unrevealing. He also developed a GI bleed in the ICU. He was seen by surgery and had an EGD. He was also planning for possible colonoscopy depending on his hemoglobin levels. He was eventually successfully extubated. He is renal failure and hypercalcemia did resolve. His mentation also significantly improved. He was started on diet yesterday. 04/09: This morning, patient is oriented to person and place. He denies acute complaints. Denies chest pain or shortness of breath. Later this afternoon, nursing staff reported he was passing grossly bloody stools. Surgical is updated. Hold off on Lovenox. Will order a bleeding scan but patient will likely need colonoscopy. 04/10: Patient had an episode of bright red bloody stool earlier this morning. His hemoglobin did trend down to 7.0. He received 2 units of packed RBC. He is scheduled for colonoscopy today. He is oriented to person is able to recognize his daughter at the bedside. Patient's family expressed that they have been expecting that he was going to either [place] or [facility] for neurology evaluation. They have expressed that he is not at his baseline mentation although this has improved compared to his earlier hospital course. They expressed that he was supposed to be transferred to [facility] while in the ICU. We rediscussed highly comprehensive with our work-up done by previous providers and specialists including the ICU team for his second renal failure and hypercalcemia. Discussed that hypercalcemia work-up has been unremarkable so far and we are waiting for completion of work-up pending his scheduled colonoscopy. They have expressed that they have been asking for a formal neurology consult from the [facility] which we are unable to provide at this time hence their request to be transferred to a large University or tertiary center. His acute renal failure and his hypercalcemia have resolved for almost 5 days now. His LP did show elevated protein. Will try to pursue head MRI. Will initiate transfer request to either [facility] or [place]. Reason For Visit: HYPERCALCEMIA Physical Exam Vital Signs: Temp Pulse Resp BP Pulse Ox 97.9 F 89 20 146/77 H 98 04/10/19 12:24 04/10/19 12:24 04/10/19 12:24 04/10/19 12:24 04/10/19 12:24 Intake & Output 04/09/19 04/10/19 04/11/19 06:59 06:59 06:59 Intake Total 3305 1550 1300 Output Total 1680 800 Balance 5192 366 8074 Weight 166 lb 0.129 oz 165 lb 2.02 oz General appearance: PRESENT: no acute distress, well-developed, well-nourished Head exam: PRESENT: atraumatic, normocephalic Eye exam: PRESENT: conjunctiva pink, EOMI, PERRLA. ABSENT: scleral icterus Ear exam: PRESENT: normal external ear exam Mouth exam: PRESENT: moist, tongue midline Neck exam: ABSENT: carotid bruit, JVD, lymphadenopathy, thyromegaly Respiratory exam: PRESENT: clear to auscultation yassine. ABSENT: rales, rhonchi, wheezes Cardiovascular exam: PRESENT: RRR. ABSENT: diastolic murmur, rubs, systolic murmur Pulses: PRESENT: normal dorsalis pedis pul GI/Abdominal exam: PRESENT: normal bowel sounds, soft. ABSENT: distended, guarding, mass, organolmegaly, rebound, tenderness Rectal exam: PRESENT: deferred Extremities exam: PRESENT: full ROM. ABSENT: calf tenderness, clubbing, pedal edema Neurological exam: PRESENT: alert, awake, oriented to person, CN II-XII grossly intact. ABSENT: motor sensory deficit Results Laboratory Results: 04/10/19 11:15 04/10/19 11:15 04/09/19 04/10/19 04/10/19 23:55 01:08 11:15 WBC 7.4 9.3 RBC 1.93 L 2.94 L Hgb 7.0 L 9.9 L D Hct 19.9 L 28.1 L MCV 103 H 96 D MCH 36.3 H 33.8 H MCHC 35.2 35.3 RDW 11.9 17.8 H Plt Count 223 232 Seg Neutrophils % 80.8 H 81.8 H Sodium Potassium Chloride Carbon Dioxide Anion Gap BUN Creatinine Est GFR ( Amer) Glucose Calcium Phosphorus Magnesium Blood Type A POSITIVE Antibody Screen NEGATIVE 04/10/19 11:15 WBC RBC Hgb Hct MCV MCH MCHC RDW Plt Count Seg Neutrophils % Sodium 143.9 Potassium 3.7 Chloride 116 H Carbon Dioxide 21 L Anion Gap 7 BUN 12 Creatinine 1.02 Est GFR ( Amer) > 60 Glucose 87 Calcium 6.5 L* Phosphorus 2.7 Magnesium 1.5 L Blood Type Antibody Screen 04/04/19 21:17 Blood Blood Culture - Final NO GROWTH IN 5 DAYS 04/04/19 17:23 Blood Blood Culture - Final NO GROWTH IN 5 DAYS 03/31/19 04/01/19 04/04/19 05:56 14:45 06:27 Creatine Kinase 310 H 42 L Troponin I 0.028 Impressions: Cervical Spine CT 03/29/19 12:01 IMPRESSION: No fracture or static subluxation of the cervical spine. Moderate multilevel disc space height loss and osteophytosis. Abdomen/Pelvis CT 04/01/19 00:00 IMPRESSION: 1. Dependent lung changes as above. 2. Appropriate support lines and tubes. 3. Mild -moderate pericardial effusion. 4. No suspicious masses or nodules detected. IMPRESSION: 1. No acute or suspicious abdominopelvic abnormality on non contrasted exam. Findings as above. Chest CT 04/01/19 00:00 IMPRESSION: 1. Dependent lung changes as above. 2. Appropriate support lines and tubes. 3. Mild -moderate pericardial effusion. 4. No suspicious masses or nodules detected. IMPRESSION: 1. No acute or suspicious abdominopelvic abnormality on non contrasted exam. Findings as above. Head CT 04/01/19 00:00 IMPRESSION: NO ACUTE INTRACRANIAL IMAGING FINDINGS. EVIDENCE OF ACUTE STROKE: NO. Body Scan Nuclear Medicine 04/03/19 00:00 IMPRESSION: 1. ACTIVITY IN THE KNEES MOST CONSISTENT WITH DEGENERATIVE JOINT DISEASE. NO BANEGAS SPICIOUS UPTAKE IN THE SKELETON. 2. LINEAR INCREASED ACTIVITY IN THE MEDIAL LEFT FOREARM. THIS IS NOT RELATED TO THE INJECTION SITE (CENTRAL LINE) AND NO REPORTED SKIN CONTAMINATION. THIS MAY BE DUE TO SOFT TISSUE UPTAKE. RECOMMEND X-RAY OF THE LEFT FOREARM FOR FURTHER EVALUATION. Guidance Fluoroscopy 04/03/19 00:00 IMPRESSION: LUMBAR PUNCTURE UNDER FLUOROSCOPY. NO IMMEDIATE COMPLICATION. Lumbar Puncture 04/03/19 00:00 IMPRESSION: LUMBAR PUNCTURE UNDER FLUOROSCOPY. NO IMMEDIATE COMPLICATION. Forearm X-Ray 04/04/19 00:00 IMPRESSION: 1. No definite acute bony abnormality. Corticated ossific densit ies at the distal ulna favored review related to remote trauma or degenerative. 2. Soft tissue swelling about the proximal forearm, likely corresponding to bone scan findings. Chest X-Ray 04/05/19 06:00 IMPRESSION: INTERVAL REMOVAL OF THE NASOGASTRIC TUBE. OTHERWISE STABLE. KUB X-Ray 04/06/19 14:23 IMPRESSION: NG tube placement as described. GI Bleed Scan Nuclear Medicine 04/09/19 13:55 IMPRESSION: No definite localization of hemorrhage within the visualized abdomen and pelvis. Consider CT angiography if more anatomic detail is required. Assessment and Plan - Diagnosis (1) Acute metabolic encephalopathy Is this a current diagnosis for this admission?: Yes Plan: Significantly improved. Deemed to be multifactorial from acute renal failure and severe hypercalcemia. Patient was also treated for possible alcohol withdrawal. 04/10: Improved. Family reports he is not at his baseline and that he is AO x 3 prior to this admission. (2) Acute respiratory failure with hypoxia Is this a current diagnosis for this admission?: Yes Plan: Resolved. Successfully extubated on 04/05/19. Now on room air. (3) GI bleed Qualifiers: Gastritis type: acute gastritis Is this a current diagnosis for this admission?: Yes Plan: 04/09: Patient had hematochezia today. We will cycle H&H. Surgicalist updated for possible colonoscopy. Hold off on Lovenox. Will order a bleeding scan. 04/10: Bleeding scan was negative but he had another episode of hematochezia this morning. He received 2 units of packed RBCs. He is scheduled for colonoscopy today. (4) Acute kidney injury Is this a current diagnosis for this admission?: Yes Plan: Resolved. (5) Hypercalcemia Is this a current diagnosis for this admission?: Yes Plan: Resolved. Now calcium levels running low. Continue calcium supplements. 04/10: Ionized calcium and corrected calcium are actually normal. Serum hyperglycemia is likely from hypoalbuminemia. (6) Hypokalemia Is this a current diagnosis for this admission?: Yes Plan: Continue oral potassium supplements. (7) Hypophosphatemia Is this a current diagnosis for this admission?: Yes Plan: Significantly improved with phosphorus replacement. Reduce phosphorus supplement to daily. - Time Time Spent with patient: 25-34 minutes
--- NOTE | 2019-04-14 15:37 | PDOC TRANSFER SUMMARY ---
General Admission Date/PCP: 03/29/19 19:48 Admission Date: 03/29/19 Accepting Facility: [facility] Resuscitation Status: Full Code - Transfer Diagnosis (1) Acute metabolic encephalopathy Is this a current diagnosis for this admission?: Yes (2) Acute respiratory failure with hypoxia Is this a current diagnosis for this admission?: Yes (3) GI bleed Is this a current diagnosis for this admission?: Yes (4) Acute kidney injury Is this a current diagnosis for this admission?: Yes (5) Hypercalcemia Is this a current diagnosis for this admission?: Yes (6) Hypokalemia Is this a current diagnosis for this admission?: Yes (7) Hypophosphatemia Is this a current diagnosis for this admission?: Yes - Transfer Medications Home Medications: Cholecalciferol (Vitamin D3) [Vitamin D3 1000 Unit Tablet] 2,000 unit PO DAILY 03/31/19 Diclofenac Sodium 4 gm TP ASDIR PRN 03/31/19 Emily Carbonate 300 mg PO QHS 03/31/19 Quetiapine Fumarate [Seroquel] 400 mg PO QHS 03/31/19 Transfer Medications: Current Medications Bisacodyl (Dulcolax 5 Mg Tablet) 10 mg PO DAILYP PRN PRN Reason: UNRESOLVED CONSTIPATION Stop: 05/08/19 15:17 Calcium Carbonate (Os-Shorty 250 Mg With Vitamin D 125 Units) 1 tab PO DAILY KATINA Stop: 05/08/19 09:59 Last Admin: 04/10/19 10:09 Dose: 1 tab Documented by: Dextrose (Dextrose Inj 50% Syringe (25 Gm/50 Ml)) 12.5 gm IV PRN PRN; Protocol PRN Reason: FOR BG 50-69 IN ALERT PATIENT Stop: 05/09/19 13:52 Dextrose (Dextrose Inj 50% Syringe (25 Gm/50 Ml)) 25 gm IV PRN PRN; Protocol PRN Reason: See Label Comments Stop: 05/09/19 13:52 Enoxaparin Sodium (Lovenox Inj 40 Mg/0.4 Ml Disp.Syrin) 40 mg SUBCUT QPM KATINA Stop: 05/06/19 17:59 Last Admin: 04/08/19 17:45 Dose: 40 mg Documented by: Famotidine (Pepcid 20 Mg Tablet) 20 mg PO Q12 KATINA Stop: 05/07/19 21:59 Last Admin: 04/10/19 10:10 Dose: 20 mg Documented by: Glucagon (Glucagen Inj 1 Mg Vial) 1 mg SUBCUT PRN PRN; Protocol PRN Reason: Evaluate for BG < 70 Stop: 05/09/19 13:52 Glucose (Glutose 40% Gel 15 Gm Tube) 15 gm PO PRN PRN; Protocol PRN Reason: For BG 50-69 in Alert Patient Stop: 05/09/19 13:52 Glucose (Glutose 40% Gel 15 Gm Tube) 30 gm PO PRN PRN; Protocol PRN Reason: FOR BG < 50 IN ALERT PATIENT Stop: 05/09/19 13:52 Lactated Ringer's (Lactated Ringers 1000 Ml Iv Soln) 1,000 mls @ 75 mls/hr IV CONTINUOUS PRN PRN Reason: THIS MED IS NOT "PRN" Stop: 05/10/19 09:48 Last Admin: 04/10/19 10:02 Dose: 75 mls/hr Documented by: Levetiracetam (Keppra 500 Mg Tablet) 500 mg PO Q12 COUNTS INCLUDE 234 BEDS AT THE [facility] Stop: 05/08/19 09:59 Last Admin: 04/10/19 10:10 Dose: 500 mg Documented by: Magnesium Citrate (Citrate Of Magnesia 296 Ml Bottle) 296 ml PO DAILYP PRN PRN Reason: constipation Stop: 05/08/19 15:18 Ondansetron HCl (Zofran Inj/Pf 4 Mg/2 Ml Sdv) 4 mg IV Q8HP PRN PRN Reason: FOR NAUSEA/VOMITING Stop: 04/28/19 17:11 Patient Own Medication (Diclofenac Sodium [Diclofenac Sodium]) 4 gm TP ASDIR PRN PRN Reason: FOR PAIN Pharmacy Profile Note (Medication Communication Order) 1 each MC .NOTICE NR Stop: 05/06/19 14:29 Potassium Chloride (Klor-Con 10 Meq Tablet Er) 20 meq PO Q12 COUNTS INCLUDE 234 BEDS AT THE [facility] Stop: 05/08/19 21:59 Last Admin: 04/10/19 10:09 Dose: 20 meq Documented by: Potassium Phosphate (K-Phos Neutral 250 Mg Tablet) 250 mg PO ACHS COUNTS INCLUDE 234 BEDS AT THE [facility] Stop: 05/09/19 10:59 Last Admin: 04/10/19 10:55 Dose: Not Given Documented by: Quetiapine Fumarate (Seroquel 100 Mg Tablet) 200 mg PO QHS COUNTS INCLUDE 234 BEDS AT THE [facility] Stop: 05/08/19 21:59 Last Admin: 04/09/19 21:26 Dose: 200 mg Documented by: - Allergies Allergies/Adverse Reactions: No Known Allergies Allergy (Verified 04/01/19 04:13) - Diet/Activity Discharge Diet: As Tolerated Hospital Course Hospital Course: Admitting hospitalist's H&P: RUSYT STEVENS is a 63 year old male who presents emergency department via EMS for altered mental status. The patient's neighbor found patient with his windows and doors opening went into check on the patient patient was altered. Patient does take Seroquel and lithium for bipolar disorder however levels are normal at this time. Patient was found to have a calcium level of 18 and an acute kidney injury. Course: This is a 63-year-old male with a past medical history of bipolar disorder on Seroquel and lithium and chronic alcoholism who was initially brought in due to increasing confusion. Patient was noted have profound hypercalcemia with a Calcium of 18. He was initially admitted to the floor where he developed worsening confusion and lethargy. He was subsequently intubated. Initially unsuccessful intubation and sustained aspiration. He was transferred to the ICU and was on the ventilator and was treated for aspiration pneumonia for several days. He was also treated for possible alcohol withdrawal. He was also seen by nephrology and oncology. He had a malignancy work-up which was unrevealing. He also developed a GI bleed in the ICU. He was seen by surgery and had an EGD. He was also planning for possible colonoscopy depending on his hemoglobin levels. He was eventually successfully extubated. He is renal failure and hypercalcemia did resolve. His mentation also significantly improved. He was started on diet yesterday. 04/09: This morning, patient is oriented to person and place. He denies acute complaints. Denies chest pain or shortness of breath. Later this afternoon, nursing staff reported he was passing grossly bloody stools. Surgical is updated. Hold off on Lovenox. Will order a bleeding scan but patient will likely need colonoscopy. 04/10: Patient had an episode of bright red bloody stool earlier this morning. His hemoglobin did trend down to 7.0. He received 2 units of packed RBC. He is scheduled for colonoscopy today. He is oriented to person is able to recognize his daughter at the bedside. Patient's family expressed that they have been expecting that he was going to either [facility] or [facility] for neurology evaluation. They have expressed that he is not at his baseline mentation although this has improved compared to his earlier hospital course. They expressed that he was supposed to be transferred to [facility] while in the ICU. We rediscussed results of his comprehensive with our work-up done by previous providers and specialists including the ICU team for his acute renal failure and hypercalcemia. Discussed that hypercalcemia work-up has been unremarkable so far and we are waiting for completion of work-up pending his scheduled colonoscopy. They have expressed that they have been asking for a formal neurology consult from the beginning which we are unable to provide at this time hence their request to be transferred to a large University or tertiary center. His acute renal failure and his hypercalcemia have resolved for almost 5 days now. His LP did show elevated protein. Will try to pursue head MRI. Discussed case in length with [facility] neurology, Dr. Galvez who has accepted the patient transfer. [facility] is at capacity at the moment so patient will be placed on a wait list. Physical Exam Vital Signs: Temp Pulse Resp BP Pulse Ox 97.9 F 89 20 146/77 H 100 04/10/19 14:59 04/10/19 14:59 04/10/19 14:59 04/10/19 14:59 04/10/19 14:59 Intake & Output 04/09/19 04/10/19 04/11/19 06:59 06:59 06:59 Intake Total 3305 1550 1300 Output Total 1680 800 Balance 7182 529 8460 Weight 166 lb 0.129 oz 165 lb 2.02 oz General appearance: PRESENT: no acute distress, well-developed, well-nourished Head exam: PRESENT: atraumatic, normocephalic Eye exam: PRESENT: conjunctiva pink, EOMI, PERRLA. ABSENT: scleral icterus Ear exam: PRESENT: normal external ear exam Mouth exam: PRESENT: moist, tongue midline Neck exam: ABSENT: carotid bruit, JVD, lymphadenopathy, thyromegaly Respiratory exam: PRESENT: clear to auscultation yassine. ABSENT: rales, rhonchi, wheezes Cardiovascular exam: PRESENT: RRR. ABSENT: diastolic murmur, rubs, systolic murmur Pulses: PRESENT: normal dorsalis pedis pul Vascular exam: PRESENT: normal capillary refill GI/Abdominal exam: PRESENT: normal bowel sounds, soft. ABSENT: distended, guarding, mass, organolmegaly, rebound, tenderness Rectal exam: PRESENT: deferred Extremities exam: PRESENT: full ROM. ABSENT: calf tenderness, clubbing, pedal edema Neurological exam: PRESENT: alert, awake, oriented to person, CN II-XII grossly intact. ABSENT: motor sensory deficit Results Laboratory Results: 04/10/19 11:15 04/10/19 11:15 04/09/19 04/10/19 04/10/19 23:55 01:08 11:15 WBC 7.4 9.3 RBC 1.93 L 2.94 L Hgb 7.0 L 9.9 L D Hct 19.9 L 28.1 L MCV 103 H 96 D MCH 36.3 H 33.8 H MCHC 35.2 35.3 RDW 11.9 17.8 H Plt Count 223 232 Seg Neutrophils % 80.8 H 81.8 H Sodium Potassium Chloride Carbon Dioxide Anion Gap BUN Creatinine Est GFR ( Amer) Glucose Calcium Phosphorus Magnesium Blood Type A POSITIVE Antibody Screen NEGATIVE 04/10/19 11:15 WBC RBC Hgb Hct MCV MCH MCHC RDW Plt Count Seg Neutrophils % Sodium 143.9 Potassium 3.7 Chloride 116 H Carbon Dioxide 21 L Anion Gap 7 BUN 12 Creatinine 1.02 Est GFR ( Amer) > 60 Glucose 87 Calcium 6.5 L* Phosphorus 2.7 Magnesium 1.5 L Blood Type Antibody Screen 04/04/19 21:17 Blood Blood Culture - Final NO GROWTH IN 5 DAYS 04/04/19 17:23 Blood Blood Culture - Final NO GROWTH IN 5 DAYS 03/31/19 04/01/19 04/04/19 05:56 14:45 06:27 Creatine Kinase 310 H 42 L Troponin I 0.028 Impressions: Cervical Spine CT 03/29/19 12:01 IMPRESSION: No fracture or static subluxation of the cervical spine. Moderate multilevel disc space height loss and osteophytosis. Abdomen/Pelvis CT 04/01/19 00:00 IMPRESSION: 1. Dependent lung changes as above. 2. Appropriate support lines and tubes. 3. Mild -moderate pericardial effusion. 4. No suspicious masses or nodules detected. IMPRESSION: 1. No acute or suspicious abdominopelvic abnormality on non contrasted exam. Findings as above. Chest CT 04/01/19 00:00 IMPRESSION: 1. Dependent lung changes as above. 2. Appropriate support lines and tubes. 3. Mild -moderate pericardial effusion. 4. No suspicious masses or nodules detected. IMPRESSION: 1. No acute or suspicious abdominopelvic abnormality on non contrasted exam. Findings as above. Head CT 04/01/19 00:00 IMPRESSION: NO ACUTE INTRACRANIAL IMAGING FINDINGS. EVIDENCE OF ACUTE STROKE: NO. Body Scan Nuclear Medicine 04/03/19 00:00 IMPRESSION: 1. ACTIVITY IN THE KNEES MOST CONSISTENT WITH DEGENERATIVE JOINT DISEASE. NO SUSPICIOUS UPTAKE IN THE SKELETON. 2. LINEAR INCREASED ACTIVITY IN THE MEDIAL LEFT FOREARM. THIS IS NOT RELATED TO THE INJECTION SITE (CENTRAL LINE) AND NO REPORTED SKIN CONTAMINATION. THIS MAY BE DUE TO SOFT TISSUE UPTAKE. RECOMMEND X-RAY OF THE LEFT FOREARM FOR FURTHER EVALUATION. Guidance Fluoroscopy 04/03/19 00:00 IMPRESSION: LUMBAR PUNCTURE UNDER FLUOROSCOPY. NO IMMEDIATE COMPLICATION. Lumbar Puncture 04/03/19 00:00 IMPRESSION: LUMBAR PUNCTURE UNDER FLUOROSCOPY. NO IMMEDIATE COMPLICATION. Forearm X-Ray 04/04/19 00:00 IMPRESSION: 1. No definite acute bony abnormality. Corticated ossific densities at the distal ulna favored review related to remote trauma or degenerative. 2. Soft tissue swelling about the proximal forearm, likely corresponding to bone scan findings. Chest X-Ray 04/05/19 06:00 IMPRESSION: INTERVAL REMOVAL OF THE NASOGASTRIC TUBE. OTHERWISE STABLE. KUB X-Ray 04/06/19 14:23 IMPRESSION: NG tube placement as described. GI Bleed Scan Nuclear Medicine 04/09/19 13:55 IMPRESSION: No definite localization of hemorrhage within the visualized abdomen and pelvis. Consider CT angiography if more anatomic detail is required.
[2019-04-14] MEDS: ENOXAPARIN SODIUM INJ 40 MG/0.4 ML DISP.SYRIN SUBCUT SCH (18:51)
[2019-04-14] MEDS: QUETIAPINE FUMARATE 100 MG TABLET PO SCH (21:05)
[2019-04-15] MEDS: POTASSIUM CHLORIDE 10 MEQ TABLET.ER PO SCH ×2 (11:51→21:50)
[2019-04-15] MEDS: PHOSPHORUS #1 250 MG TABLET PO SCH (11:51)
[2019-04-15] MEDS: LEVETIRACETAM 500 MG TABLET PO SCH ×2 (11:51→21:50)
[2019-04-15] MEDS: CALCIUM CARBONATE 250 MG/VITAMIN D3 125 UNIT TABLET PO SCH (11:51)
[2019-04-15] MEDS: FAMOTIDINE 20 MG TABLET PO SCH ×2 (11:51→21:50)
[2019-04-15] MEDS: RINGERS SOLUTION,LACTATED 1,000 ML IV PRN (11:55)
--- NOTE | 2019-04-15 14:08 | PDOC PROGRESS REPORT ---
Subjective Progress Note for:: 04/15/19 Reason For Visit: HYPERCALCEMIA 04/15/2019 Originally admitted for altered mental status and hypercalcemia Physical Exam Vital Signs: Temp Pulse Resp BP Pulse Ox 98.2 F 91 18 161/71 H 95 04/15/19 08:00 04/15/19 08:00 04/15/19 08:00 04/15/19 08:00 04/15/19 08:00 Intake & Output 04/14/19 04/15/19 04/16/19 06:59 06:59 06:59 Intake Total 2318 2637 1000 Output Total 4775 1825 Balance -2457 812 1000 Weight 77.6 kg 75.4 kg General appearance: PRESENT: no acute distress, other - Patient sitting up on the edge of the bed talking to his daughter Respiratory exam: PRESENT: clear to auscultation yassine. ABSENT: rales, rhonchi, wheezes Cardiovascular exam: PRESENT: RRR. ABSENT: diastolic murmur, rubs, systolic murmur Neurological exam: PRESENT: alert, awake, oriented to person, oriented to place, oriented to time, oriented to situation, CN II-XII grossly intact, other - Co mpletely oriented to person place and time. Not sure if patient is oriented to his "situation". Patient is amnestic for his admission to the hospital through the emergency room and up until sometime last week. ABSENT: motor sensory deficit Psychiatric exam: PRESENT: other - Patient seems depressed at his situation although he has not expressed any suicidal or homicidal ideations Results Laboratory Results: 04/14/19 03:25 04/14/19 03:25 03/31/19 04/01/19 04/04/19 05:56 14:45 06:27 Creatine Kinase 310 H 42 L Troponin I 0.028 Impressions: Cervical Spine CT 03/29/19 12:01 IMPRESSION: No fracture or static subluxation of the cervical spine. Moderate multilevel disc space height loss and osteophytosis. Chest CT 04/01/19 00:00 IMPRESSION: 1. Dependent lung changes as above. 2. Appropriate support lines and tubes. 3. Mild -moderate pericardial effusion. 4. No suspicious masses or nodules detected. IMPRESSION: 1. No acute or suspicious abdominopelvic abnormality on non contrasted exam. Findings as above. Head CT 04/01/19 00:00 IMPRESSION: NO ACUTE INTRACRANIAL IMAGING FINDINGS. EVIDENCE OF ACUTE STROKE: NO. Body Scan Nuclear Medicine 04/03/19 00:00 IMPRESSION: 1. ACTIVITY IN THE KNEES MOST CONSISTENT WITH DEGENERATIVE JOINT DISEASE. NO SUSPICIOUS UPTAKE IN THE SKELETON. 2. LINEAR INCREASED ACTIVITY IN THE MEDIAL LEFT FOREARM. THIS IS NOT RELATED TO THE INJECTION SITE (CENTRAL LINE) AND NO REPORTED SKIN CONTAMINATION. THIS MAY BE DUE TO SOFT TISSUE UPTAKE. RECOMMEND X-RAY OF THE LEFT FOREARM FOR FURTHER EVALUATION. Guidance Fluoroscopy 04/03/19 00:00 IMPRESSION: LUMBAR PUNCTURE UNDER FLUOROSCOPY. NO IMMEDIATE COMPLICATION. Lumbar Puncture 04/03/19 00:00 IMPRESSION: LUMBAR PUNCTURE UNDER FLUOROSCOPY. NO IMMEDIATE COMPLICATION. Forearm X-Ray 04/04/19 00:00 IMPRESSION: 1. No definite acute bony abnormality. Corticated ossific densities at the distal ulna favored review related to remote trauma or degenerative. 2. Soft tissue swelling about the proximal forearm, likely corresponding to bone scan findings. KUB X-Ray 04/06/19 14:23 IMPRESSION: NG tube placement as described. GI Bleed Scan Nuclear Medicine 04/09/19 13:55 IMPRESSION: No definite localization of hemorrhage within the visualized abdomen and pelvis. Consider CT angiography if more anatomic detail is required. Head MRI 04/10/19 15:43 IMPRESSION: No acute intracranial findings. Abdomen/Pelvis CT 04/10/19 19:33 IMPRESSION: Bilateral pleural effusions. No acute inflammatory process otherwise. Chest X-Ray 04/12/19 00:00 IMPRESSION: Prominence of the interstitium and bilateral pleural effusions. Clinical correlation for signs and symptoms of volume overload is recommended. Assessment and Plan - Diagnosis (1) Acute metabolic encephalopathy Is this a current diagnosis for this admission?: Yes (2) Acute respiratory failure Qualifiers: Respiratory failure complication: unspecified whether with hypoxia or hyperc apnia Qualified Code(s): J96.00 - Acute respiratory failure, unspecified whether with hypoxia or hypercapnia Is this a current diagnosis for this admission?: Yes (3) GI bleed Qualifiers: Gastritis type: acute gastritis Is this a current diagnosis for this admission?: Yes (4) Hypercalcemia Is this a current diagnosis for this admission?: Yes (5) Hypernatremia Is this a current diagnosis for this admission?: Yes (6) Hypomagnesemia Is this a current diagnosis for this admission?: Yes (7) Alcohol abuse Is this a current diagnosis for this admission?: Yes - Plan Summary Summary: 04/11/2019 Temperature 98.4 pulse about 90 blood pressure 135/87, O2 sat 100% on room air occasionally he uses 2 L nasal cannula Medications include Pepcid Keppra Os-Shorty potassium Seroquel lactated Ringer's K- Phos CSF fluid negative x3 days. CSF protein slightly elevated at 102, normal being from 12-60 Sputum is positive for staph aureus and yeast blood cultures negative x5 days Nominal pelvic CT scan showed moderate sized bilateral pleural effusion liver no consolidations no masses no malignancy. Skeleton of that area was also negative for malignancy Colonoscopy yesterday showed no active bleeding although it was incomplete study due to poor bowel prep MRI of the brain yesterday showed no acute pathology Bleeding scan was also negative White count is normal hemoglobin is come up to 9.6 weight is 243,000 calcium today is 6.7 albumin 2.6 corrected calcium is 7.82, ionized calcium 0.94 I have called the [facility] transfer center and talk to them about the patient's bed status. Approximately 9 patients ahead of him that need to be placed. Call them every morning to get an update to report to the family. Told the family that in my opinion it would be best just to [facility] since he is already been accepted, since he has been turned down twice at [facility]. Did not think it would be in her best interest to go to [facility] at this time. The present time everything that we are doing seems to be appropriate. Certainly I would like to have an neurology consult. If patient regresses has any setbacks then I will start calling transfer center is once again for someplace sooner than [facility]. I also told the family at this point that I am going to just very slowly correct his calcium. His hypercalcemia etiology is still unknown. However 1 must remember that he was on Seroquel lithium and drinking alcohol prior to his admission. 04/12/2019 Vital signs are very stable, 97% oxygen saturation on room air ,no fever ,pulse is 86 and regular, pressure 132/76 White count is normal hemoglobin has stabilized around 9.7 Chest x-ray shows no acute findings Coags are normal chemistry panel Calcium level today is 7.4 with a corrected level of 8.6. Other electrolytes are normal Will check ionized calcium phosphorus and magnesium tomorrow Called [facility] transfer center this morning they are very reluctant to speak with me concerning bed availability, ever they did tell me that there were 4 or 5 neuro patients ahead of this patient today He is oriented to the year the place the person. He is very alert. Continue to correct labs, hopefully get patient in the shower today as he is asking for this. Continue to treat [facility] With daily improvements however patient may improve enough to be discharge prior to being accepted at [facility]. 04/13/2019 Temperature 98.5, pulse between 70 and 100 and regular with an average pulse of 85, pressure 141/78, O2 sat 99% on room air Ionized calcium level today 1.08, calcium level today is up to 7.8 Corrected calcium level is 9 The serum is down slightly to 1.4 we will replace this today Versus up to 3.8 and albumin is steady at 2.5 X-ray yesterday showed no acute findings Called [facility] transfer center today and there is still over capacity. Also called the transfer center invited and they 2 are over capacity. Continue to wait on bed placement at [facility] for now I discussed case in great detail with supervising physician Dr. Sims. He agrees with current recommendations and treatment plan 04/14/2019 Temperature 98.3, pulse 66, blood pressure 141/77 O2 sat 95% on room air Labs are stable hemoglobin 9.3, white count 4.9 Electrolytes are normal calcium is up to 8.5 ionized calcium is up to 1.08 magnesium is 1.8 Still waiting on [facility] bed placement all the hospitals including the [place] in [place] R2 capacity and even on divergence It may be that patient could go to rehab placement and consult neurology while in rehab. We have discussed patient in CAPS rounds. Patient appears medically stable for transfer. 04/15/2019 Vital signs are stable blood pressure is up slightly this morning 161/71, temp 98 2 pulse of 91 O2 sat 95% on room air Labs are stable hemoglobin 9.3, white count 4.9, BUN of 13 creatinine 1.37. Today once again patient was able to correctly identify the year the month the date the city the facility. Although he did not remember coming to the emergency room although does not know why he was admitted to the hospital. Calcium yesterday 8.[address] Sims come into the room with me today and talk to the patient as well as the daughter. He performed a mental status examination on the patient. Discussed with the patient and the daughter recent labs from the chart as well as summarized his hospitalization stay. Talk to the patient about his PTSD as well as his current primary medical condition. When he left the daughter asked me if I could provide her with some sort of document as to the patient's current medical status. He has a document from the electronic warfare technician dated April 08, 2019. He is going before the court system on Wednesday to try and obtain temporary custody and power of workers compensation attorney. We are still waiting for transfer to [facility] but it may be in the patient's best interest to be transferred to the [facility] for fdc and/or rehab. - Time Time Spent with patient: 35 or more minutes
[2019-04-15] MEDS: ENOXAPARIN SODIUM INJ 40 MG/0.4 ML DISP.SYRIN SUBCUT SCH (18:41)
[2019-04-15] MEDS: QUETIAPINE FUMARATE 100 MG TABLET PO SCH (21:50)
[2019-04-16] MEDS: RINGERS SOLUTION,LACTATED 1,000 ML IV PRN (04:34)
[2019-04-16] MEDS: LEVETIRACETAM 500 MG TABLET PO SCH ×2 (09:09→21:11)
[2019-04-16] MEDS: CALCIUM CARBONATE 250 MG/VITAMIN D3 125 UNIT TABLET PO SCH (09:09)
[2019-04-16] MEDS: POTASSIUM CHLORIDE 10 MEQ TABLET.ER PO SCH ×2 (09:09→21:11)
[2019-04-16] MEDS: PHOSPHORUS #1 250 MG TABLET PO SCH (09:09)
[2019-04-16] MEDS: FAMOTIDINE 20 MG TABLET PO SCH ×2 (09:56→21:11)
[2019-04-16 12:13] LABS: ALBUMIN 2.7 g/dL (3.5-5.0); ALKALINE PHOSPHATASE 75 U/L (38-126); ANION GAP 6 (5-19); ASPARTATE AMINO TRANSFERASE 23 U/L (17-59); BILIRUBIN,DIRECT 0.3 mg/dL (0.0-0.4); BILIRUBIN,TOTAL 0.3 mg/dL (0.2-1.3); BLOOD UREA NITROGEN 17 mg/dL (7-20); CARBON DIOXIDE 31 mmol/L (22-30); CHLORIDE 102 mmol/L (98-107); GLUCOSE 93 mg/dL (75-110); POTASSIUM 4.6 mmol/L (3.6-5.0); TOTAL PROTEIN 5.5 g/dL (6.3-8.2)
--- NOTE | 2019-04-16 12:19 | PDOC PROGRESS REPORT ---
Subjective Progress Note for:: 04/16/19 Reason For Visit: HYPERCALCEMIA 04/16/2019 Patient has been admitted since 03/29/2019. Patient was originally admitted for altered mental status and hypercalcemia. He was transferred to the ICU on 04/01/2019 secondary to respiratory arrest and hypercalcemia. Appears to have been discharged from the ICU and transferred to the floor on April 08. Physical Exam Vital Signs: Temp Pulse Resp BP Pulse Ox 98.4 F 78 14 144/86 H 90 L 04/16/19 08:01 04/16/19 08:01 04/16/19 08:01 04/16/19 08:01 04/16/19 08:01 Intake & Output 04/15/19 04/16/19 04/17/19 06:59 06:59 06:59 Intake Total 2637 3120 Output Total 1825 400 Balance 812 2720 Weight 75.4 kg 70.2 kg General appearance: PRESENT: no acute distress Respiratory exam: PRESENT: clear to auscultation yassine. ABSENT: rales, rhonchi, wheezes Cardiovascular exam: PRESENT: RRR. ABSENT: diastolic murmur, rubs, systolic murmur Neurological exam: PRESENT: alert, awake, oriented to person, oriented to place, oriented to time, oriented to situation, other - Upon close discussion and questioning patient is off concerning his comprehension of his medical condition. Patient also has some dysarthria concerning expressive ability. Psychiatric exam: PRESENT: agitated, anxious, depressed Results Laboratory Results: 04/14/19 03:25 03/31/19 04/01/19 04/04/19 05:56 14:45 06:27 Creatine Kinase 310 H 42 L Troponin I 0.028 Impressions: Cervical Spine CT 03/29/19 12:01 IMPRESSION: No fracture or static subluxation of the cervical spine. Moderate multilevel disc space height loss and osteophytosis. Chest CT 04/01/19 00:00 IMPRESSION: 1. Dependent lung changes as above. 2. Appropriate support lines and tubes. 3. Mild -moderate pericardial effusion. 4. No suspicious masses or nodules detected. IMPRESSION: 1. No acute or suspicious abdominopelvic abnormality on non contrasted exam. Findings as above. Head CT 04/01/19 00:00 IMPRESSION: NO ACUTE INTRACRANIAL IMAGING FINDINGS. EVIDENCE OF ACUTE STROKE: NO. Body Scan Nuclear Medicine 04/03/19 00:00 IMPRESSION: 1. ACTIVITY IN THE KNEES MOST CONSISTENT WITH DEGENERATIVE JOINT DISEASE. NO SUSPICIOUS UPTAKE IN THE SKELETON. 2. LINEAR INCREASED ACTIVITY IN THE MEDIAL LEFT FOREARM. THIS IS NOT RELATED TO THE INJECTION SITE (CENTRAL LINE) AND NO REPORTED SKIN CONTAMINATION. THIS MAY BE DUE TO SOFT TISSUE UPTAKE. RECOMMEND X-RAY OF THE LEFT FOREARM FOR FURTHER EVALUATION. Guidance Fluoroscopy 04/03/19 00:00 IMPRESSION: LUMBAR PUNCTURE UNDER FLUOROSCOPY. NO IMMEDIATE COMPLICATION. Lumbar Puncture 04/03/19 00:00 IMPRESSION: LUMBAR PUNCTURE UNDER FLUOROSCOPY. NO IMMEDIATE COMPLICATION. Forearm X-Ray 04/04/19 00:00 IMPRESSION: 1. No definite acute bony abnormality. Corticated ossific densities at the distal ulna favored review related to remote trauma or degenerative. 2. Soft tissue swelling about the proximal forearm, likely corresponding to bone scan findings. KUB X-Ray 04/06/19 14:23 IMPRESSION: NG tube placement as described. GI Bleed Scan Nuclear Medicine 04/09/19 13:55 IMPRESSION: No definite localization of hemorrhage within the visualized abdomen and pelvis. Consider CT angiography if more anatomic detail is required. Head MRI 04/10/19 15:43 IMPRESSION: No acute intracranial findings. Abdomen/Pelvis CT 04/10/19 19:33 IMPRESSION: Bilateral pleural effusions. No acute inflammatory process otherwise. Chest X-Ray 04/12/19 00:00 IMPRESSION: Prominence of the interstitium and bilateral pleural effusions. Clinical correlation for signs and symptoms of volume overload is recommended. Assessment and Plan - Diagnosis (1) Acute metabolic encephalopathy Is this a current diagnosis for this admission?: Yes (2) Acute respiratory failure Qualifiers: Respiratory failure complication: unspecified whether with hypoxia or hypercapnia Qualified Code(s): J96.00 - Acute respiratory failure, unspecified whether with hypoxia or hypercapnia Is this a current diagnosis for this admission?: Yes (3) GI bleed Qualifiers: Gastritis type: acute gastritis Is this a current diagnosis for this admission?: Yes (4) Hypercalcemia Is this a current diagnosis for this admission?: Yes (5) Hypernatremia Is this a current diagnosis for this admission?: Yes (6) Hypomagnesemia Is this a current diagnosis for this admission?: Yes (7) Alcohol abuse Is this a current diagnosis for this admission?: Yes - Plan Summary Summary: 04/11/2019 Temperature 98.4 pulse about 90 blood pressure 135/87, O2 sat 100% on room air occasionally he uses 2 L nasal cannula Medications include Pepcid Keppra Os-Shorty potassium Seroquel lactated Ringer's K- Phos CSF fluid negative x3 days. CSF protein slightly elevated at 102, normal being from 12-60 Sputum is positive for staph aureus and yeast blood cultures negative x5 days Nominal pelvic CT scan showed moderate sized bilateral pleural effusion liver no consolidations no masses no malignancy. Skeleton of that area was also negative for malignancy Colonoscopy yesterday showed no active bleeding although it was incomplete study due to poor bowel prep MRI of the brain yesterday showed no acute pathology Bleeding scan was also negative White count is normal hemoglobin is come up to 9.6 weight is 243,000 calcium today is 6.7 albumin 2.6 corrected calcium is 7.82, ionized calcium 0.94 I have called the [facility] transfer center and talk to them about the patient's bed status. Approximately 9 patients ahead of him that need to be placed. Call them every morning to get an update to report to the family. Told the family that in my opinion it would be best just to wait on [facility] for neurology since he is already been accepted, since he has been turned down twice at [place]. Did not think it would be in her best interest to go to [facility] at this time. The present time everything that we are doing seems to be appropriate. Certainly I would like to have an neurology consult. If patient regresses has any setbacks then I will start calling transfer center is once again for someplace sooner than [facility]. I also told the family at this point that I am going to just very slowly correct his calcium. His hypercalcemia etiology is still unknown. However 1 must remember that he was on Seroquel lithium and drinking alcohol prior to his admission. 04/12/2019 Vital signs are very stable, 97% oxygen saturation on room air ,no fever ,pulse is 86 and regular, pressure 132/76 White count is normal hemoglobin has stabilized around 9.7 Chest x-ray shows no acute findings Coags are normal chemistry panel Calcium level today is 7.4 with a corrected level of 8.6. Other electrolytes are normal Will check ionized calcium phosphorus and magnesium tomorrow Called [facility] transfer center this morning they are very reluctant to speak with me concerning bed availability, ever they did tell me that there were 4 or 5 neuro patients ahead of this patient today He is oriented to the year the place the person. He is very alert. Continue to correct labs, hopefully get patient in the shower today as he is asking for this. Continue to treat [facility] With daily improvements however patient may improve enough to be discharge prior to being accepted at [facility]. 04/13/2019 Temperature 98.5, pulse between 70 and 100 and regular with an average pulse of 85, pressure 141/78, O2 sat 99% on room air Ionized calcium level today 1.08, calcium level today is up to 7.8 Corrected calcium level is 9 The serum is down slightly to 1.4 we will replace this today Versus up to 3.8 and albumin is steady at 2.5 X-ray yesterday showed no acute findings Called [facility] transfer center today and there is still over capacity. Also called the transfer center invited and they 2 are over capacity. Continue to wait on bed placement at [facility] for now I discussed case in great detail with supervising physician Dr. Sims. He agrees with current recommendations and treatment plan 04/14/2019 Temperature 98.3, pulse 66, blood pressure 141/77 O2 sat 95% on room air Labs are stable hemoglobin 9.3, white count 4.9 Electrolytes are normal calcium is up to 8.5 ionized calcium is up to 1.08 magnesium is 1.8 Still waiting on [facility] bed placement all the hospitals including the [facility] in [place] R2 capacity and even on divergence It may be that patient could go to rehab placement and consult neurology while in rehab. We have discussed patient in CAPS rounds. Patient appears medically stable for transfer. 04/15/2019 Vital signs are stable blood pressure is up slightly this morning 161/71, temp 98 2 pulse of 91 O2 sat 95% on room air Labs are stable hemoglobin 9.3, white count 4.9, BUN of 13 creatinine 1.37. Today once again patient was able to correctly identify the year the month the date the city the facility. Although he did not remember coming to the emergency room although does not know why he was admitted to the hospital. Calcium yesterday 8.[address] Sims come into the room with me today and talk to the patient as well as the daughter. He performed a mental status examination on the patient. Discussed with the patient and the daughter recent labs from the chart as well as summarized his hospitalization stay. Talked to the patient about his PTSD as well as his current primary medical condition. When he left the daughter asked me if I could provide her with some sort of document as to the patient's current medical status. He has a document from the salvage supervisor dated April 08, 2019. She is going before the court system on Wednesday to try and obtain temporary custody and power of criminal attorney. We are still waiting for transfer to [facility] but it may be in the patient's best interest to be transferred to the [facility] for mcc and/or rehab. 04/16/2019 Again today at approximately noon I called [facility] and spoke with bed placement. They informed me that they are still at "capacity", and would call us when a bed was available. This morning I spoke to the patient in the room by himself. Daughter was not in the room. Patient has a very apprehensive feeling concerning the upcoming court issues and relinquishing his power of criminal attorney to his daughter. Patient states that there is a possibility that this would cause him future problems. I asked him if he is ever been in trouble with the court system before been arrested and he tells me that he has, rested but was unable to tell me what for. Seem to think it may have come from his PTSD and his bipolar disorder. Patient states he is never been incarcerated. Once again patient was correctly oriented to per son place time and situation. This is approximately 3 days in a row now that he has answered all the questions correctly. Chemistry panel from today is pending however his vital signs are stable Think that patient should probably have temporary custody placed his daughter but certainly no more than 2 to 4 weeks as I feel like patient neurologically as well as psychologically is improving on a steady basis. I a.m. going to put this in my note to the daughter. I also think it would be in the patient's best interest [facility] [place] that can be done in the next 24 to 48 hours rather than waiting on [facility]. Likely patient is stable to be transferred to either location. - Time Time Spent with patient: 35 or more minutes
[2019-04-16] MEDS: ENOXAPARIN SODIUM INJ 40 MG/0.4 ML DISP.SYRIN SUBCUT SCH (17:39)
[2019-04-16] MEDS: QUETIAPINE FUMARATE 100 MG TABLET PO SCH (21:11)
[2019-04-17] MEDS: POTASSIUM CHLORIDE 10 MEQ TABLET.ER PO SCH ×2 (09:51→22:11)
[2019-04-17] MEDS: PHOSPHORUS #1 250 MG TABLET PO SCH (09:51)
[2019-04-17] MEDS: LEVETIRACETAM 500 MG TABLET PO SCH ×2 (09:51→22:12)
[2019-04-17] MEDS: FAMOTIDINE 20 MG TABLET PO SCH ×2 (09:51→22:12)
[2019-04-17 11:33] LABS: HSV SOURCE CSF
--- NOTE | 2019-04-17 12:10 | PDOC PROGRESS REPORT ---
Subjective Progress Note for:: 04/17/19 Reason For Visit: HYPERCALCEMIA 04/17/2019 Patient was originally admitted for bipolar disease, altered mental status, hypercalcemia Patient was admitted on 03/29/2019 and spent many days in the ICU Physical Exam Vital Signs: Temp Pulse Resp BP Pulse Ox 98.2 F 84 15 132/86 H 97 04/17/19 07:47 04/17/19 07:47 04/17/19 07:47 04/17/19 07:47 04/17/19 07:47 Intake & Output 04/16/19 04/17/19 04/18/19 06:59 06:59 06:59 Intake Total 3120 2310 Output Total 400 Balance 2720 2310 Weight 70.2 kg 67.4 kg General appearance: PRESENT: no acute distress, other - Sitting up in bed with no complaints Respiratory exam: PRESENT: clear to auscultation yassine. ABSENT: rales, rhonchi, wheezes Cardiovascular exam: PRESENT: RRR. ABSENT: diastolic murmur, rubs, systolic murmur Neurological exam: PRESENT: alert, awake, oriented to person, oriented to place, oriented to time, oriented to situation, CN II-XII grossly intact, other - Oriented x4. ABSENT: motor sensory deficit Psychiatric exam: PRESENT: appropriate affect, normal mood. ABSENT: homicidal ideation, suicidal ideation Results Laboratory Results: 04/14/19 03:25 04/16/19 11:28 04/16/19 11:28 Sodium 139.2 Potassium 4.6 Chloride 102 Carbon Dioxide 31 H Anion Gap 6 BUN 17 Creatinine 1.53 H Est GFR ( Amer) 56 L Glucose 93 Calcium 9.0 Total Bilirubin 0.3 AST 23 Alkaline Phosphatase 75 Total Protein 5.5 L Albumin 2.7 L 03/31/19 04/01/19 04/04/19 05:56 14:45 06:27 Creatine Kinase 310 H 42 L Troponin I 0.028 Impressions: Cervical Spine CT 03/29/19 12:01 IMPRESSION: No fracture or static subluxation of the cervical spine. Moderate multilevel disc space height loss and osteophytosis. Chest CT 04/01/19 00:00 IMPRESSION: 1. Dependent lung changes as above. 2. Appropriate support lines and tubes. 3. Mild -moderate pericardial effusion. 4. No suspicious masses or nodules detected. IMPRESSION: 1. No acute or suspicious abdominopelvic abnormality on non contrasted exam. Findings as above. Head CT 04/01/19 00:00 IMPRESSION: NO ACUTE INTRACRANIAL IMAGING FINDINGS. EVIDENCE OF ACUTE STROKE: NO. Body Scan Nuclear Medicine 04/03/19 00:00 IMPRESSION: 1. ACTIVITY IN THE KNEES MOST CONSISTENT WITH DEGENERATIVE JOINT DISEASE. NO SUSPICIOUS UPTAKE IN THE SKELETON. 2. LINEAR INCREASED ACTIVITY IN THE MEDIAL LEFT FOREARM. THIS IS NOT RELATED TO THE INJECTION SITE (CENTRAL LINE) AND NO REPORTED SKIN CONTAMINATION. THIS MAY BE DUE TO SOFT TISSUE UPTAKE. RECOMMEND X-RAY OF THE LEFT FOREARM FOR FURTHER EVALUATION. Guidance Fluoroscopy 04/03/19 00:00 IMPRESSION: LUMBAR PUNCTURE UNDER FLUOROSCOPY. NO IMMEDIATE COMPLICATION. Lumbar Puncture 04/03/19 00:00 IMPRESSION: LUMBAR PUNCTURE UNDER FLUOROSCOPY. NO IMMEDIATE COMPLICATION. Forearm X-Ray 04/04/19 00:00 IMPRESSION: 1. No definite acute bony abnormality. Corticated ossific dens ities at the distal ulna favored review related to remote trauma or degenerative. 2. Soft tissue swelling about the proximal forearm, likely corresponding to bone scan findings. KUB X-Ray 04/06/19 14:23 IMPRESSION: NG tube placement as described. GI Bleed Scan Nuclear Medicine 04/09/19 13:55 IMPRESSION: No definite localization of hemorrhage within the visualized abdomen and pelvis. Consider CT angiography if more anatomic detail is required. Head MRI 04/10/19 15:43 IMPRESSION: No acute intracranial findings. Abdomen/Pelvis CT 04/10/19 19:33 IMPRESSION: Bilateral pleural effusions. No acute inflammatory process otherwise. Chest X-Ray 04/12/19 00:00 IMPRESSION: Prominence of the interstitium and bilateral pleural effusions. Clinical correlation for signs and symptoms of volume overload is recommended. Assessment and Plan - Diagnosis (1) Acute metabolic encephalopathy Is this a current diagnosis for this admission?: Yes (2) Acute respiratory failure Qualifiers: Respiratory failure complication: unspecified whether with hypoxia or hypercapnia Qualified Code(s): J96.00 - Acute respiratory failure, unspecified whether with hypoxia or hypercapnia Is this a current diagnosis for this admission?: Yes (3) GI bleed Qualifiers: Gastritis type: acute gastritis Is this a current diagnosis for this admission?: Yes (4) Hypercalcemia Is this a current diagnosis for this admission?: Yes (5) Hypernatremia Is this a current diagnosis for this admission?: Yes (6) Hypomagnesemia Is this a current diagnosis for this admission?: Yes (7) Alcohol abuse Is this a current diagnosis for this admission?: Yes - Plan Summary Summary: 04/11/2019 Temperature 98.4 pulse about 90 blood pressure 135/87, O2 sat 100% on room air occasionally he uses 2 L nasal cannula Medications include Pepcid Keppra Os-Shorty potassium Seroquel lactated Ringer's K- Phos CSF fluid negative x3 days. CSF protein slightly elevated at 102, normal being from 12-60 Sputum is positive for staph aureus and yeast blood cultures negative x5 days Nominal pelvic CT scan showed moderate sized bilateral pleural effusion liver no consolidations no masses no malignancy. Skeleton of that area was also negative for malignancy Colonoscopy yesterday showed no active bleeding although it was incomplete study due to poor bowel prep MRI of the brain yesterday showed no acute pathology Bleeding scan was also negative White count is normal hemoglobin is come up to 9.6 weight is 243,000 calcium today is 6.7 albumin 2.6 corrected calcium is 7.82, ionized calcium 0.94 I have called the [facility] transfer center and talk to them about the patient's bed status. Approximately 9 patients ahead of him that need to be placed. Call them every morning to get an update to report to the family. Told the family that in my opinion it would be best just to wait on [facility] for neurology since he is already been accepted, since he has been turned down twice at [place]. Did not think it would be in her best interest to go to [facility] at this time. The present time everything that we are doing seems to be appr opriate. Certainly I would like to have an neurology consult. If patient regresses has any setbacks then I will start calling transfer center is once again for someplace sooner than [facility]. I also told the family at this point that I am going to just very slowly correct his calcium. His hypercalcemia etiology is still unknown. However 1 must remember that he was on Seroquel lithium and drinking alcohol prior to his admission. 04/12/2019 Vital signs are very stable, 97% oxygen saturation on room air ,no fever ,pulse is 86 and regular, pressure 132/76 White count is normal hemoglobin has stabilized around 9.7 Chest x-ray shows no acute findings Coags are normal chemistry panel Calcium level today is 7.4 with a corrected level of 8.6. Other electrolytes are normal Will check ionized calcium phosphorus and magnesium tomorrow Called [facility] transfer center this morning they are very reluctant to speak with me concerning bed availability, ever they did tell me that there were 4 or 5 neuro patients ahead of this patient today He is oriented to the year the place the person. He is very alert. Continue to correct labs, hopefully get patient in the shower today as he is asking for this. Continue to treat [facility]. With daily improvements however patient may improve enough to be discharge prior to being accepted at [facility]. 04/13/2019 Temperature 98.5, pulse between 70 and 100 and regular with an average pulse of 85, pressure 141/78, O2 sat 99% on room air Ionized calcium level today 1.08, calcium level today is up to 7.8 Corrected calcium level is 9 The serum is down slightly to 1.4 we will replace this today Versus up to 3.8 and albumin is steady at 2.5 X-ray yesterday showed no acute findings Called [facility] transfer center today and there is still over capacity. Also called the transfer center invited and they 2 are over capacity. Continue to wait on bed placement at [facility] for now I discussed case in great detail with supervising physician Dr. Sims. He agrees with current recommendations and treatment plan 04/14/2019 Temperature 98.3, pulse 66, blood pressure 141/77 O2 sat 95% on room air Labs are stable hemoglobin 9.3, white count 4.9 Electrolytes are normal calcium is up to 8.5 ionized calcium is up to 1.08 magnesium is 1.8 Still waiting on [facility] bed placement all the hospitals including the [place] in [place] R2 capacity and even on divergence It may be that patient could go to rehab placement and consult neurology while in rehab. We have discussed patient in CAPS rounds. Patient appears medically stable for transfer. 04/15/2019 Vital signs are stable blood pressure is up slightly this morning 161/71, temp 98 2 pulse of 91 O2 sat 95% on room air Labs are stable hemoglobin 9.3, white count 4.9, BUN of 13 creatinine 1.37. Today once again patient was able to correctly identify the year the month the date the city the facility. Although he did not remember coming to the emergency room although does not know why he was admitted to the hospital. Calcium yesterday 8.[address] Sims come into the room with me today and talk to the patient as well as the daughter. He performed a mental status examination on the [facility]. Discussed with the patient and the daughter recent labs from the chart as well as summarized his hospitalization stay. Talked to the patient about his PTSD as well as his current primary medical condition. When he left the daughter asked me if I could provide her with some sort of document as to the patient's current medical status. He has a document from the lift truck operator dated April 08, 2019. She is going before the court system on Wednesday to try and obtain temporary custody and power of energy attorney. We are still waiting for transfer to [facility] but it may be in the patient's best interest to be transferred to the [facility] for long term and/or rehab. 04/16/2019 Again today at approximately noon I called [facility] and spoke with bed placement. They informed me that they are still at "capacity", and would call us when a bed was available. This morning I spoke to the patient in the room by himself. Daughter was not in the room. Patient has a very apprehensive feeling concerning the upcoming court issues and relinquishing his power of energy attorney to his daughter. Patient states that there is a possibility that this would cause him future problems. I asked him if he is ever been in trouble with the court system before been arrested and he tells me that he has, rested but was unable to tell me what for. Seem to think it may have come from his PTSD and his bipolar disorder. Patient states he is never been incarcerated. Once again patient was correctly oriented to person place time and situation. This is approximately 3 days in a row now that he has answered all the questions correctly. Chemistry panel from today is pending however his vital signs are stable Think that patient should probably have temporary custody placed his daughter but certainly no more than 2 to 4 weeks as I feel like patient neurologically as well as psychologically is improving on a steady basis. I a.m. going to put this in my note to the daughter. I also think it would be in the patient's best interest to be [facility] the [facility] [place] that can be done in the next 24 to 48 hours rather than waiting on [facility]. Likely patient is stable to be transferred to either location. 04/17/2019 Vital signs temperature 98.2, pulse 84, blood pressure 132/86, O2 sat 97% on room air Patient is awake alert and oriented x4 Patient's only concern is that he is worried about his sure as to where he is going to go from here, whether or not he will be in charge of his own care, and his current relationship with his daughter Medically patient is stable and could be discharged home from the hospital, although I do not think it would be safe for him to be discharged home with no one there to assist him Discharge planning is working on placement I do not feel that patient needs to be transferred to another tertiary center. I have discussed this with another physician who has seen the patient several weeks ago and was amazed at how much progress he is made. Patient was discussed on CAPS rounds this morning . - Time Time Spent with patient: 25-34 minutes
--- NOTE | 2019-04-17 12:48 | Progress Note ---
Provider Note Provider Note: 04/17/2019 Today I spoke on the phone with a workers compensation attorney named Mainyessi Alba, who was guardian representing the patient for court purposes. Daughter has petitioned the court to get power of workers compensation attorney. Uziel phone number is [phone] I stated that I did not think it was safe for the patient to go home alone or be discharged home without someone charge of his care Patient has made great progress with his mental capacity or cognitive function, however I feel like he needs a couple more weeks, to be reevaluated by the court system in 2 to 4 weeks. Also informed them that patient may be discharged from the hospital to any further court action
[2019-04-17] MEDS: ENOXAPARIN SODIUM INJ 40 MG/0.4 ML DISP.SYRIN SUBCUT SCH (18:03)
[2019-04-17] MEDS: QUETIAPINE FUMARATE 100 MG TABLET PO SCH (22:12)
[2019-04-18] MEDS: POTASSIUM CHLORIDE 10 MEQ TABLET.ER PO SCH (09:49)
[2019-04-18] MEDS: PHOSPHORUS #1 250 MG TABLET PO SCH (09:49)
[2019-04-18] MEDS: LEVETIRACETAM 500 MG TABLET PO SCH ×2 (09:49→21:20)
[2019-04-18] MEDS: FAMOTIDINE 20 MG TABLET PO SCH ×2 (09:49→21:20)
[2019-04-18 12:08] LABS: ANION GAP 8 (5-19); BLOOD UREA NITROGEN 21 mg/dL (7-20); CALCIUM 9.9 mg/dL (8.4-10.2); CARBON DIOXIDE 29 mmol/L (22-30); CHLORIDE 102 mmol/L (98-107); GLUCOSE 93 mg/dL (75-110); POTASSIUM 4.8 mmol/L (3.6-5.0)
[2019-04-18] MEDS ORDERED: NORMAL SALINE 1000 ML 1,000 ML IV PRN (12:26)
--- NOTE | 2019-04-18 12:37 | PDOC PROGRESS REPORT ---
Subjective Progress Note for:: 04/18/19 Subjective:: The patient is a 63-year-old male with a past medical history of bipolar disorder and alcohol abuse who was admitted 03/29/2019 due to hypercalcemia which ultimately resulted in seizure activity, respiratory failure, intubation, prolonged ICU stay, and an exhaustive evaluation without identified source of the hypercalcemia. Patient was seen on morning rounds with his daughter present. He was found sitting up to the edge of the bed, comfortably, on room air. He is alert and oriented x4, socially appropriate, and independent of ADLs. He was ambulatory in the hallway this morning without need for assistance. Long discussion had about medical appropriateness for discharge to home with home health services in lieu of of the prior plan discharge to SNF as he is now has now exceeded the rehabilitation expectation for short-term rehab. Patient denies fever, chills, headache, dizziness, muscle twitching/cramps, chest pain, palpitations, dyspnea, abdominal pain, nausea vomiting diarrhea and constipation. All questions and concerns addressed. No concerns per nursing.. Reason For Visit: HYPERCALCEMIA Physical Exam Vital Signs: Temp Pulse Resp BP Pulse Ox 98.1 F 88 16 133/81 H 96 04/18/19 08:00 04/18/19 08:00 04/18/19 08:00 04/18/19 08:00 04/18/19 08:00 Intake & Output 04/17/19 04/18/19 04/19/19 06:59 06:59 06:59 Intake Total 2310 1644 Balance 2310 1644 Weight 67.4 kg 66.5 kg General appearance: PRESENT: no acute distress, cooperative, well-developed, well-nourished Head exam: PRESENT: atraumatic, normocephalic Eye exam: PRESENT: conjunctiva pink, EOMI, PERRLA. ABSENT: scleral icterus Ear exam: PRESENT: normal external ear exam Mouth exam: PRESENT: moist, tongue midline Respiratory exam: PRESENT: clear to auscultation yassine, symmetrical, unlabored. ABSENT: rales, rhonchi, wheezes Cardiovascular exam: PRESENT: RRR, +S1, +S2. ABSENT: diastolic murmur, rubs, systolic murmur Pulses: PRESENT: normal dorsalis pedis pul Vascular exam: PRESENT: normal capillary refill GI/Abdominal exam: PRESENT: normal bowel sounds, soft. ABSENT: distended, guarding, mass, organolmegaly, rebound, tenderness Rectal exam: PRESENT: deferred Extremities exam: PRESENT: full ROM. ABSENT: calf tenderness, clubbing, pedal edema Musculoskeletal exam: PRESENT: ambulatory Neurological exam: PRESENT: alert, awake, oriented to person, oriented to place, oriented to time, oriented to situation, CN II-XII grossly intact. ABSENT: motor sensory deficit Psychiatric exam: PRESENT: appropriate affect, normal mood. ABSENT: homicidal ideation, suicidal ideation Skin exam: PRESENT: dry, intact, warm. ABSENT: cyanosis, rash Results Laboratory Results: 04/14/19 03:25 04/18/19 11:15 04/18/19 11:15 Sodium 139.4 Potassium 4.8 Chloride 102 Carbon Dioxide 29 Anion Gap 8 BUN 21 H Creatinine 1.66 H Est GFR ( Amer) 51 L Glucose 93 Calcium 9.9 03/31/19 04/01/19 04/04/19 05:56 14:45 06:27 Creatine Kinase 310 H 42 L Troponin I 0.028 Impressions: Cervical Spine CT 03/29/19 12:01 IMPRESSION: No fracture or static subluxation of the cervical spine. Moderate multilevel disc space height loss and osteophytosis. Chest CT 04/01/19 00:00 IMPRESSION: 1. Dependent lung changes as above. 2. Appropriate support lines and tubes. 3. Mild -moderate pericardial effusion. 4. No suspicious masses or nodules detected. IMPRESSION: 1. No acute or suspicious abdominopelvic abnormality on non contrasted exam. Findings as above. Head CT 04/01/19 00:00 IMPRESSION: NO ACUTE INTRACRANIAL IMAGING FINDINGS. EVIDENCE OF ACUTE STROKE: NO. Body Scan Nuclear Medicine 04/03/19 00:00 IMPRESSION: 1. ACTIVITY IN THE KNEES MOST CONSISTENT WITH DEGENERATIVE JOINT DISEASE. NO SUSPICIOUS UPTAKE IN THE SKELETON. 2. LINEAR INCREASED ACTIVITY IN THE MEDIAL LEFT FOREARM. THIS IS NOT RELATED TO THE INJECTION SITE (CENTRAL LINE) AND NO REPORTED SKIN CONTAMINATION. THIS MAY BE DUE TO SOFT TISSUE UPTAKE. RECOMMEND X-RAY OF THE LEFT FOREARM FOR FURTHER EVALUATION. Guidance Fluoroscopy 04/03/19 00:00 IMPRESSION: LUMBAR PUNCTURE UNDER FLUOROSCOPY. NO IMMEDIATE COMPLICATION. Lumbar Puncture 04/03/19 00:00 IMPRESSION: LUMBAR PUNCTURE UNDER FLUOROSCOPY. NO IMMEDIATE COMPLICATION. Forearm X-Ray 04/04/19 00:00 IMPRESSION: 1. No definite acute bony abnormality. Corticated ossific densities at the distal ulna favored review related to remote trauma or degenerative. 2. Soft tissue swelling about the proximal forearm, likely corresponding to bone scan findings. KUB X-Ray 04/06/19 14:23 IMPRESSION: NG tube placement as described. GI Bleed Scan Nuclear Medicine 04/09/19 13:55 IMPRESSION: No definite localization of hemorrhage within the visualized abdomen and pelvis. Consider CT angiography if more anatomic detail is required. Head MRI 04/10/19 15:43 IMPRESSION: No acute intracranial findings. Abdomen/Pelvis CT 04/10/19 19:33 IMPRESSION: Bilateral pleural effusions. No acute inflammatory process otherwise. Chest X-Ray 04/12/19 00:00 IMPRESSION: Prominence of the interstitium and bilateral pleural effusions. Clinical correlation for signs and symptoms of volume overload is recommended. Assessment and Plan - Diagnosis (1) Acute kidney injury Is this a current diagnosis for this admission?: Yes Plan: Recurrent. Creatinine 1.66 with BUN 21; up from baseline of 1.05/BUN 10. Fortunately potassium and calcium remained stable. Continue IV fluids; NS 250 mL/hr x2 L. Encourage p.o. fluids. Avoid nephrotoxic medications as able. Follow-up chemistry in the morning. (2) Acute metabolic encephalopathy Is this a current diagnosis for this admission?: Yes Plan: Significantly improved; now A&O x4. Not at baseline mentation (behavior; notably, patient has notably been off of his home bipolar regiment x 3 weeks) per family. Deemed to be multifactorial from acute renal failure and severe hypercalcemia. Patient was also treated for possible alcohol withdrawal. Resume outpatient regiment of lithium and Seroquel. Continue Keppra. Supportive care. Plan to discharge home with home health services. (3) Acute respiratory failure Qualifiers: Respiratory failure complication: unspecified whether with hypoxia or hypercapnia Qualified Code(s): J96.00 - Acute respiratory failure, unspecified whether with hypoxia or hypercapnia Is this a current diagnosis for this admission?: Yes Plan: Resolved. (4) Alcohol abuse Is this a current diagnosis for this admission?: Yes Plan: Start multivitamin, thiamine, and folic acid supplementation. (5) GI bleed Qualifiers: Gastritis type: acute gastritis Is this a current diagnosis for this admission?: Yes Plan: Resolved. (6) Hypercalcemia Is this a current diagnosis for this admission?: Yes Plan: Stabilized; Ca 9.9 today Start Vit D supplementation Encourage p.o. fluids (7) Hypernatremia Is this a current diagnosis for this admission?: Yes Plan: Resolved. (8) Hypomagnesemia Is this a current diagnosis for this admission?: Yes Plan: Resolved. - Time Time Spent with patient: 35 or more minutes Medications reviewed and adjusted accordingly: Yes Anticipated discharge: Home with Homehealth Within: within 24 hours - Pending resolution of MARYAN
[2019-04-18] MEDS: FOLIC ACID 1 MG TABLET PO SCH (13:10)
[2019-04-18] MEDS: CHOLECALCIFEROL (D3) 400 UNIT TABLET PO SCH (13:10)
[2019-04-18] MEDS: THIAMINE HCL 100 MG TABLET PO SCH (13:10)
[2019-04-18] MEDS: MULTIVITAMIN TABLET PO SCH (13:12)
[2019-04-18] MEDS: RINGERS SOLUTION,LACTATED 1,000 ML IV PRN ×2 (15:59→23:01)
[2019-04-18] MEDS: ENOXAPARIN SODIUM INJ 40 MG/0.4 ML DISP.SYRIN SUBCUT SCH (17:00)
[2019-04-18] MEDS ORDERED: LITHIUM CARBONATE 300 MG CAPSULE PO SCH (22:00)
[2019-04-18] MEDS ORDERED: QUETIAPINE FUMARATE 100 MG TABLET PO SCH (22:00)
[2019-04-18] MEDS ORDERED: (PENDING PHARMACY ID) (Lithium Carbonate [Lithium Carbonate] 300 MG) PO SCH (22:00)
[2019-04-18] MEDS ORDERED: (PENDING PHARMACY ID) (Quetiapine Fumarate [Seroquel] 400 MG) PO SCH (22:00)
[2019-04-19 07:08] LABS: ANION GAP 8 (5-19); BLOOD UREA NITROGEN 22 mg/dL (7-20); CALCIUM 9.5 mg/dL (8.4-10.2); CARBON DIOXIDE 26 mmol/L (22-30); CHLORIDE 107 mmol/L (98-107); GLUCOSE 91 mg/dL (75-110); POTASSIUM 4.6 mmol/L (3.6-5.0)
[2019-04-19] MEDS: LEVETIRACETAM 500 MG TABLET PO SCH (09:42)
[2019-04-19] MEDS: THIAMINE HCL 100 MG TABLET PO SCH (09:42)
[2019-04-19] MEDS: FAMOTIDINE 20 MG TABLET PO SCH (09:42)
[2019-04-19] MEDS: FOLIC ACID 1 MG TABLET PO SCH (09:42)
[2019-04-19] MEDS: CHOLECALCIFEROL (D3) 400 UNIT TABLET PO SCH (09:42)
[2019-04-19] MEDS: PHOSPHORUS #1 250 MG TABLET PO SCH (09:42)
[2019-04-19] MEDS: MULTIVITAMIN TABLET PO SCH (09:42)
[2019-04-19 12:14] VITALS: BP 137/77
--- NOTE | 2019-04-20 18:57 | PDOC DISCHARGE SUMMARY ---
Impression - Admit/DC Date/PCP Admission Date/Primary Care Provider: 03/29/19 19:48 Discharge Date: 04/19/19 - Discharge Diagnosis (1) Acute kidney injury Is this a current diagnosis for this admission?: Yes (2) Acute metabolic encephalopathy Is this a current diagnosis for this admission?: Yes (3) Acute respiratory failure Is this a current diagnosis for this admission?: Yes (4) Alcohol abuse Is this a current diagnosis for this admission?: Yes (5) GI bleed Is this a current diagnosis for this admission?: Yes (6) Hypercalcemia Is this a current diagnosis for this admission?: Yes (7) Hypernatremia Is this a current diagnosis for this admission?: Yes (8) Hypomagnesemia Is this a current diagnosis for this admission?: Yes - Additional Information Resuscitation Status: Full Code Discharge Diet: Regular Discharge Activity: Activity As Tolerated, Balance Activity w/Rest, Slowly Increase Activity, Supervised Activity Referrals: [facility] [Provider Group] - 06/27/19 11:00 am (psychatrist appointment with Dr. Rand 06/14/19 AT 0830) Prescriptions: Phosphorus #1 [K-Phos Neutral 250 mg Tablet] 250 mg PO DAILY #30 tablet Levetiracetam [Keppra 500 mg Tablet] 500 mg PO Q12 #60 tablet Milburn Carbonate 300 mg PO QHS #30 Quetiapine Fumarate [Seroquel] 400 mg PO QHS #30 Home Medications: Diclofenac Sodium 4 gm TP ASDIR PRN 03/31/19 Levetiracetam [Keppra 500 mg Tablet] 500 mg PO Q12 #60 tablet 04/18/19 Milburn Carbonate 300 mg PO QHS #30 04/18/19 Phosphorus #1 [K-Phos Neutral 250 mg Tablet] 250 mg PO DAILY #30 tablet 04/18/19 Quetiapine Fumarate [Seroquel] 400 mg PO QHS #30 04/18/19 History of Present Illiness History of Present Illness: Per H&P by DAKSHA Traore (03/29/19): RUSTY STEVENS is a 63 year old male who presents emergency department via EMS for altered mental status. The patient's neighbor found patient with his windows and doors opening went into check on the patient patient was altered. Patient does take Seroquel and lithium for bipolar rhythm however levels are normal at this time. Patient was found to have a calcium level of 18 and an acute kidney injury. No other further information could be obtained at this time. No treatment prior to arrival no known aggravating factors. Hospital Course Hospital Course: The patient was admitted to [facility] on continuous cardiac telemetry. Initial treatment included aggressive IV hydration and Zometa. There is an unclear etiology regarding his hypercalcemia. Arrangements were made for the patient to transfer to [place], however, he developed acute respiratory distress requiring the patient upgraded to the planning director service for intubation and mechanical ventilation on 04/01/2019. He subsequently developed acute blood loss anemia secondary to GI bleeding. He underwent EGD by Dr. Pino on 04/03/2019. He was found to have erosive distal esophagitis, diffuse gastritis, but no active GI bleeding from upper source. The likely source of GI bleeding was determined to be probably diverticular placed on clinical stool pattern of accelerating melena. He did receive 2 units PRBC for management of his anemia. Nuclear medicine lower GI bleeding scan was inconclusive (04/09/2019). Colonoscopy 04/10/2019 was negative for active lower GI bleeding; there was noted to be incomplete bowel prep. No further GI bleeding noted and surgical services subsequently signed off. Oncology services were consulted due to the unclear etiology of persistent hyperkalemia; extensive work-up for myeloma, SPEP, PTH, and thyroid evaluations were unrevealing. Head, chest, abdominal and pelvis CT imaging were negative. Skeletal survey was unremarkable. Malignancy work-up was completed without evidence of bone lesions or malignant causes for hypercalcemia; therefore the oncology service signed off. Patient developed MARYAN; Nephrology services were additionally brought on board; his renal function gradually improved with conservative measures. He did not require renal replacement therapies. He was successfully extubated on 04/06/19. Although, he continued to remain significantly encephalopathic. Head CT, head MRI, EEG, and LP were inconclusive. However, with supportive therapy, patient's mentation gradually improved. He was subsequently downgraded to the telemetry floor 04/08/2019. At that time, the patient's family requested that arrangements again be made for the patient to transfer to [place] for further evaluation of altered mental status. While awaiting transfer to [facility], the patient continued to gradually improve. Ultimately, he became alert and oriented x4, independent of ADLs, and ambulatory without assistance always. Despite this, the patient's family members continue to report forgetfulness and personality change from baseline. However, it was determined that the patient no longer required transfer to tertiary care was appropriate to discharge home with outpatient follow-up. Patient was discharged home in stable condition with home health services. He was advised to follow-up with his primary care provider within 1 week. Referral was provided to [facility] neurology; patient and family are advised that they will have to obtain authorization from the [place] prior to the appointment. His home dose lithium and Seroquel were resumed prior to discharge. He was discharged with new prescriptions for K-Phos and Keppra. He is instructed to take his medications as prescribed. He was strongly encouraged to discontinue smoking and to avoid all alcohol intake. He is advised to return to the emergency department as needed for concerning symptoms. Physical Exam Vital Signs: Temp Pulse Resp BP Pulse Ox 98.3 F 76 16 137/77 H 100 04/19/19 12:04/19/19 12:04/19/19 12:04/19/19 12:04/19/19 12:09 Intake & Output 04/19/19 04/20/19 04/21/19 06:59 06:59 06:59 Intake Total 3100 Balance 3100 Weight 69.8 kg General appearance: PRESENT: no acute distress, well-developed, well-nourished Head exam: PRESENT: atraumatic, normocephalic Eye exam: PRESENT: conjunctiva pink, EOMI, PERRLA. ABSENT: scleral icterus Ear exam: PRESENT: normal external ear exam Mouth exam: PRESENT: moist, tongue midline Neck exam: ABSENT: carotid bruit, JVD, lymphadenopathy, thyromegaly Respiratory exam: PRESENT: clear to auscultation yassine. ABSENT: rales, rhonchi, wheezes Cardiovascular exam: PRESENT: RRR. ABSENT: diastolic murmur, rubs, systolic murmur Pulses: PRESENT: normal dorsalis pedis pul Vascular exam: PRESENT: normal capillary refill GI/Abdominal exam: PRESENT: normal bowel sounds, soft. ABSENT: distended, guarding, mass, organolmegaly, rebound, tenderness Rectal exam: PRESENT: deferred Extremities exam: PRESENT: full ROM. ABSENT: calf tenderness, clubbing, pedal edema Musculoskeletal exam: PRESENT: ambulatory Neurological exam: PRESENT: alert, awake, oriented to person, oriented to place, oriented to time, oriented to situation, CN II-XII grossly intact. ABSENT: motor sensory deficit Psychiatric exam: PRESENT: appropriate affect, normal mood. ABSENT: homicidal ideation, suicidal ideation Skin exam: PRESENT: dry, intact, warm. ABSENT: cyanosis, rash Results Laboratory Results: WBC 4.9 10^3/uL (4.0-10.5) 04/14/19 03:25 RBC 2.77 10^6/uL (4.35-5.55) L 04/14/19 03:25 Hgb 9.3 g/dL (13.5-17.0) L 04/14/19 03:25 Hct 26.8 % (37.9-51.0) L 04/14/19 03:25 MCV 97 fl (80-97) 04/14/19 03:25 MCH 33.6 pg (27.0-33.4) H 04/14/19 03:25 MCHC 34.9 g/dL (32.0-36.0) 04/14/19 03:25 RDW 16.8 % (11.5-14.0) H 04/14/19 03:25 Plt Count 258 10^3/uL (150-450) 04/14/19 03:25 Lymph % (Auto) 30.3 % (13-45) 04/14/19 03:25 Houghton % (Auto) 9.4 % (3-13) 04/14/19 03:25 Eos % (Auto) 6.5 % (0-6) H 04/14/19 03:25 Baso % (Auto) 2.0 % (0-2) 04/14/19 03:25 Absolute Neuts (auto) 2.5 10^3/uL (1.7-8.2) 04/14/19 03:25 Absolute Lymphs (auto) 1.5 10^3/uL (0.5-4.7) 04/14/19 03:25 Absolute Monos (auto) 0.5 10^3/uL (0.1-1.4) 04/14/19 03:25 Absolute Eos (auto) 0.3 10^3/uL (0.0-0.6) 04/14/19 03:25 Absolute Basos (auto) 0.1 10^3/uL (0.0-0.2) 04/14/19 03:25 Seg Neutrophils % 51.8 % (42-78) 04/14/19 03:25 PT 14.9 SEC (11.4-15.4) 04/12/19 08:00 INR 1.16 04/12/19 08:00 APTT 31.7 SEC (23.5-35.8) 04/12/19 08:00 Carbonic Acid 0.71 mmol/L (1.05-1.35) L 04/05/19 03:42 HCO3/H2CO3 Ratio 23:1 04/05/19 03:42 ABG pH 7.47 (7.35-7.45) H 04/05/19 03:42 ABG pCO2 23.7 mmHg (35-45) L 04/05/19 03:42 ABG pO2 88.8 mmHg (80-100) 04/05/19 03:42 ABG HCO3 16.8 mmol/L (20-24) L 04/05/19 03:42 ABG Total CO2 17.5 mmol/L (23-27) L 04/05/19 03:42 ABG O2 Saturation 97.4 % (94-98) 04/05/19 03:42 ABG Base Excess -5.5 mmol/L 04/05/19 03:42 FiO2 21% 04/05/19 03:42 Sodium 140.6 mmol/L (137-145) 04/19/19 06:40 Potassium 4.6 mmol/L (3.6-5.0) 04/19/19 06:40 Chloride 107 mmol/L (98-107) 04/19/19 06:40 Carbon Dioxide 26 mmol/L (22-30) 04/19/19 06:40 Anion Gap 8 (5-19) 04/19/19 06:40 BUN 22 mg/dL (7-20) H 04/19/19 06:40 Creatinine 1.58 mg/dL (0.52-1.25) H 04/19/19 06:40 Est GFR ( Amer) 54 (>60) L 04/19/19 06:40 Est GFR (MDRD) Non-Af 44 (>60) L 04/19/19 06:40 Glucose 91 mg/dL (75-110) 04/19/19 06:40 POC Glucose 128 mg/dL (70-110) H 04/08/19 05:43 Calcium 9.5 mg/dL (8.4-10.2) 04/19/19 06:40 Ionized Calcium Bernard 1.08 mmol/L (1.14-1.30) L 04/13/19 03:37 Phosphorus 3.8 mg/dL (2.5-4.5) 04/13/19 03:37 Magnesium 1.8 mg/dL (1.6-2.3) 04/14/19 03:25 Total Bilirubin 0.3 mg/dL (0.2-1.3) 04/16/19 11:28 Direct Bilirubin 0.3 mg/dL (0.0-0.4) 04/16/19 11:28 Neonat Total Bilirubin Not Reportable 04/16/19 11:28 Neonat Direct Bilirubin Not Reportable 04/16/19 11:28 Neonat Indirect Bili Not Reportable 04/16/19 11:28 AST 23 U/L (17-59) 04/16/19 11:28 ALT 16 U/L (<50) 04/16/19 11:28 Alkaline Phosphatase 75 U/L (38-126) 04/16/19 11:28 Ammonia < 8.7 umol/L (9-33) L 04/02/19 04:55 Creatine Kinase 42 U/L (55-170) L 04/04/19 06:27 Troponin I 0.028 ng/mL 04/01/19 14:45 Total Protein 5.5 g/dL (6.3-8.2) L 04/16/19 11:28 Albumin 2.7 g/dL (3.5-5.0) L 04/16/19 11:28 Globulin 2.7 g/dL (2.2-3.9) 03/30/19 10:23 Alb/Glob Ratio Alt Meth 1.4 (0.7-1.7) 03/30/19 10:23 Wddtu-0-Gpoabxtay 0.3 g/dL (0.0-0.4) 03/30/19 10:23 Kpgxc-2-Rovpxnual 0.8 g/dL (0.4-1.0) 03/30/19 10:23 Beta Globulins 1.0 g/dL (0.7-1.3) 03/30/19 10:23 Gamma Globulins 0.6 g/dL (0.4-1.8) 03/30/19 10:23 M-Jason Not Observed g/dL (Not Observ) 03/30/19 10:23 Serotonin 114 ng/mL (21-321) 04/04/19 01:30 Vitamin B12 908.0 pg/mL (239-931) 03/29/19 12:05 Methylmalonic Acid 03/29/19 12:05 Vitamin D 25-Hydroxy 51.4 ng/mL (14.7-68.3) 03/31/19 12:06 Folate > 20.00 ng/mL (>2.76) 03/29/19 12:05 TSH 2.64 uIU/mL (0.47-4.68) 03/29/19 12:05 Free T4 0.81 ng/dL (0.78-2.19) 03/29/19 12:05 PTH Intact 23.2 pg/mL (10.0-65.0) 03/29/19 13:50 PTH Related Peptide <2.0 pmol/L (.) 03/29/19 12:05 Immunoglobulin A 216 mg/dL (61-437) 03/30/19 10:23 Immunoglobulin A 216 mg/dL (61-437) 03/30/19 10:23 Immunoglobulin G 846 mg/dL (700-1600) 03/30/19 10:23 Immunoglobulin G 856 mg/dL (700-1600) 03/30/19 10:23 Immunoglobulin M 161 mg/dL (20-172) 03/30/19 10:23 Immunoglobulin M 166 mg/dL (20-172) 03/30/19 10:23 Serum Immunofixation Comment (.) 03/30/19 10:23 Immunofixation Note Comment (.) 03/30/19 10:23 Urine Color STRAW 04/13/19 03:45 Urine Appearance CLEAR 04/13/19 03:45 Urine pH 7.0 (5.0-9.0) 04/13/19 03:45 Ur Specific Aledo 1.004 04/13/19 03:45 Urine Protein NEGATIVE mg/dL (NEGATIVE) 04/13/19 03:45 Urine Glucose (UA) NEGATIVE mg/dL (NEGATIVE) 04/13/19 03:45 Urine Ketones NEGATIVE mg/dL (NEGATIVE) 04/13/19 03:45 Urine Blood SMALL (NEGATIVE) H 04/13/19 03:45 Urine Nitrite (Reflex) NEGATIVE (NEGATIVE) 04/13/19 03:45 Urine Bilirubin NEGATIVE (NEGATIVE) 04/13/19 03:45 Urine Urobilinogen NEGATIVE mg/dL (<2.0) 04/13/19 03:45 Leukocyte Esterase Rfl NEGATIVE (NEGATIVE) 04/13/19 03:45 Urine RBC (Auto) 2 /HPF 04/13/19 03:45 U Hyaline Cast (Auto) 14 /LPF 03/29/19 16:18 Urine WBC (Reflex) 1 /HPF 04/13/19 03:45 Squamous Epi Cells Auto <1 /HPF 03/29/19 16:18 Urine Mucus (Auto) RARE /LPF 04/13/19 03:45 Urine Ascorbic Acid NEGATIVE (NEGATIVE) 04/13/19 03:45 Fluid Tube Number 3 04/03/19 15:05 CSF Volume 8.8 CC 04/03/19 15:05 CSF Appearance CLEAR 04/03/19 15:05 CSF Color COLORLESS 04/03/19 15:05 CSF WBC 4 /uL (0-5) 04/03/19 15:05 CSF RBC 0 /uL (0-10) 04/03/19 15:05 CSF Color (1) COLORLESS 04/03/19 15:05 CSF Appearance (1) CLEAR 04/03/19 15:05 CSF Color (2) COLORLESS 04/03/19 15:05 CSF Appearance (2) CLEAR 04/03/19 15:05 CSF Color (3) COLORLESS 04/03/19 15:05 CSF Appearance (3) CLEAR 04/03/19 15:05 CSF Color (4) COLORLESS 04/03/19 15:05 CSF Appearance (4) CLEAR 04/03/19 15:05 CSF Glucose 57 mg/dL (40-70) 04/03/19 15:05 CSF Total Protein PEP 66.4 mg/dL (0.0-44.0) H 04/03/19 15:05 CSF Total Protein 102 mg/dL (12-60) H 04/03/19 15:05 CSF Prealbumin 2.1 % (2.2-7.1) L 12/30/19 15:05 CSF Albumin 63.4 % (56.8-76.4) 04/03/19 15:05 CSF Jxree-0-Gbovataz 5.4 % (1.1-6.6) 04/03/19 15:05 CSF Dhmcq-5-Dvjjfwya 6.8 % (3.0-12.6) 04/03/19 15:05 CSF Beta Globulin 16.1 % (7.3-17.9) 04/03/19 15:05 CSF Gamma Globulin 6.2 % (3.0-13.0) 04/03/19 15:05 CSF PEP M-Jason Not Observed % (Not Observ) 04/03/19 15:05 Salicylates < 1.0 mg/dL (2.0-20.0) L 03/29/19 12:05 Urine Opiates Screen NEGATIVE 03/29/19 16:18 Urine Methadone Screen NEGATIVE 03/29/19 16:18 Acetaminophen < 10 ug/mL (10-30) L 03/29/19 12:05 Ur Barbiturates Screen NEGATIVE 03/29/19 16:18 Ur Phencyclidine Scrn NEGATIVE 03/29/19 16:18 Ur Amphetamines Screen NEGATIVE 03/29/19 16:18 U Benzodiazepines Scrn NEGATIVE 03/29/19 16:18 Milburn 0.6 mEq/L (0.6-1.2) 03/29/19 22:05 Urine Cocaine Screen NEGATIVE 03/29/19 16:18 U Marijuana (THC) Screen NEGATIVE 03/29/19 16:18 Serum Alcohol < 10 mg/dL (NONE DETECTED) 03/29/19 12:05 Albumin (MADDY) 3.7 g/dL (2.9-4.4) 03/30/19 10:23 Free Blackwell LC, Quant 19.4 mg/L (3.3-19.4) 03/30/19 10:23 Free Lambda LC, Quant 18.1 mg/L (5.7-26.3) 03/30/19 10:23 Free Blackwell/Lambda Ratio 1.07 (0.26-1.65) 03/30/19 10:23 Herpes Simplex Source CSF 04/03/19 15:05 HSV I DNA PCR Negative (Negative) 04/03/19 15:05 HSV II DNA PCR Negative (Negative) 04/03/19 15:05 HIV 1&2 Antibody NEGATIVE (NEGATIVE) 03/29/19 12:05 Blood Type A POSITIVE 04/10/19 01:08 Antibody Screen NEGATIVE 04/10/19 01:08 Crossmatch See Detail 04/10/19 01:08 04/01/19 14:45 Troponin I 0.028 Impressions: Chest X-Ray 03/29/19 00:00 IMPRESSION: Cardiomegaly without acute abnormality of the lungs in AP portable projection. Cervical Spine CT 03/29/19 12:01 IMPRESSION: No fracture or static subluxation of the cervical spine. Moderate multilevel disc space height loss and osteophytosis. Head CT 03/29/19 12:01 IMPRESSION: No acute intracranial pathology. EVIDENCE OF ACUTE STROKE: NO. Abdomen/Pelvis CT 04/01/19 00:00 IMPRESSION: 1. Dependent lung changes as above. 2. Appropriate support lines and tubes. 3. Mild -moderate pericardial effusion. 4. No suspicious masses or nodules detected. IMPRESSION: 1. No acute or suspicious abdominopelvic abnormality on non contrasted exam. Findings as above. Chest CT 04/01/19 00:00 IMPRESSION: 1. Dependent lung changes as above. 2. Appropriate support lines and tubes. 3. Mild -moderate pericardial effusion. 4. No suspicious masses or nodules detected. IMPRESSION: 1. No acute or suspicious abdominopelvic abnormality on non contrasted exam. Findings as above. Chest X-Ray 04/01/19 00:00 IMPRESSION: Lines and tubes as above. Mildly increased conspicuity of the right minor fissure, which may represent a small amount of intrafissural pleural fluid. Otherwise, no acute pulmonary findings. Head CT 04/01/19 00:00 IMPRESSION: NO ACUTE INTRACRANIAL IMAGING FINDINGS. EVIDENCE OF ACUTE STROKE: NO. Body Scan Nuclear Medicine 04/03/19 00:00 IMPRESSION: 1. ACTIVITY IN THE KNEES MOST CONSISTENT WITH DEGENERATIVE JOINT DISEASE. NO SUSPICIOUS UPTAKE IN THE SKELETON. 2. LINEAR INCREASED ACTIVITY IN THE MEDIAL LEFT FOREARM. THIS IS NOT RELATED TO THE INJECTION SITE (CENTRAL LINE) AND NO REPORTED SKIN CONTAMINATION. THIS MAY BE DUE TO SOFT TISSUE UPTAKE. RECOMMEND X-RAY OF THE LEFT FOREARM FOR FURTHER EVALUATION. Guidance Fluoroscopy 04/03/19 00:00 IMPRESSION: LUMBAR PUNCTURE UNDER FLUOROSCOPY. NO IMMEDIATE COMPLICATION. Lumbar Puncture 04/03/19 00:00 IMPRESSION: LUMBAR PUNCTURE UNDER FLUOROSCOPY. NO IMMEDIATE COMPLICATION. Chest X-Ray 04/03/19 08:23 IMPRESSION: NO ACUTE RADIOGRAPHIC FINDING IN THE CHEST. Forearm X-Ray 04/04/19 00:00 IMPRESSION: 1. No definite acute bony abnormality. Corticated ossific densities at the distal ulna favored review related to remote trauma or degenerative. 2. Soft tissue swelling about the proximal forearm, likely corresponding to bone scan findings. Chest X-Ray 04/05/19 06:00 IMPRESSION: INTERVAL REMOVAL OF THE NASOGASTRIC TUBE. OTHERWISE STABLE. KUB X-Ray 04/06/19 14:23 IMPRESSION: NG tube placement as described. GI Bleed Scan Nuclear Medicine 04/09/19 13:55 IMPRESSION: No definite localization of hemorrhage within the visualized abdomen and pelvis. Consider CT angiography if more anatomic detail is required. Head MRI 04/10/19 15:43 IMPRESSION: No acute intracranial findings. Abdomen/Pelvis CT 04/10/19 19:33 IMPRESSION: Bilateral pleural effusions. No acute inflammatory process otherwise. Chest X-Ray 04/12/19 00:00 IMPRESSION: Prominence of the interstitium and bilateral pleural effusions. Clinical correlation for signs and symptoms of volume overload is recommended. Plan Plan of Treatment: The patient is discharged to home in the care of family members with home health services. He is instructed to follow-up with his primary care provider within 1 week. We recommend that he have repeat lab work done at that time to evaluate his renal function and calcium. Recommend following up with neurology at the earliest available appointment; patient and family members were advised that they will be required to obtain a referral from his primary care provider through the [facility] prior to this appointment. Patient is advised to follow-up with his mental health provider as scheduled. He is instructed to drink plenty of fluids. Avoid tobacco and alcohol intake. Return to the emergency department as needed for concerning symptoms. Time Spent: Greater than 30 Minutes Stroke Is this a Stroke Patient?: No Acute Heart Failure - Is this a Heart Failure Patient?: No
== END 2019-04-19 13:50 | disposition home health service (06) | DRG 640 ==
LOC: ER 11:35 → EH 19:48 → 3S 03-30 01:50 → ICU 04-01 14:48 → 4S 04-08 15:34
PROVIDERS: ADMIT Internal Medicine; ATTEND Internal Medicine
PROC: 5A1955Z Respiratory Ventilation, Greater than 96 Consecutive Hours (ICD-10-PCS; principal; 2019-04-01)
PROC: 0BH17EZ Insertion of Endotracheal Airway into Trachea, Via Natural or Artificial Opening (ICD-10-PCS; 2019-04-01)
PROC: 02HV33Z Insertion of Infusion Device into Superior Vena Cava, Percutaneous Approach (ICD-10-PCS; 2019-04-01)
PROC: 009U3ZX Drainage of Spinal Canal, Percutaneous Approach, Diagnostic (ICD-10-PCS; 2019-04-03)
PROC: B01BZZZ Fluoroscopy of Spinal Cord (ICD-10-PCS; 2019-04-03)
PROC: 0DB78ZX Excision of Stomach, Pylorus, Via Natural or Artificial Opening Endoscopic, Diagnostic (ICD-10-PCS; 2019-04-03)
PROC: 0D9670Z Drainage of Stomach with Drainage Device, Via Natural or Artificial Opening (ICD-10-PCS; 2019-04-06)
PROC: 30233N1 Transfusion of Nonautologous Red Blood Cells into Peripheral Vein, Percutaneous Approach (ICD-10-PCS; 2019-04-10)
PROC: 0DJD8ZZ Inspection of Lower Intestinal Tract, Via Natural or Artificial Opening Endoscopic (ICD-10-PCS; 2019-04-10)
DX: E83.52 Hypercalcemia (principal); G93.41 Metabolic encephalopathy; J69.0 Pneumonitis due to inhalation of food and vomit; J96.01 Acute respiratory failure with hypoxia; N17.9 Acute kidney failure, unspecified; E87.0 Hyperosmolality and hypernatremia; K92.1 Melena; D62 Acute posthemorrhagic anemia; K22.10 Ulcer of esophagus without bleeding; K29.00 Acute gastritis without bleeding; F10.10 Alcohol abuse, uncomplicated; F31.9 Bipolar disorder, unspecified; F17.210 Nicotine dependence, cigarettes, uncomplicated; E87.6 Hypokalemia; D53.9 Nutritional anemia, unspecified; E83.42 Hypomagnesemia; E83.39 Other disorders of phosphorus metabolism; Z79.899 Other long term (current) drug therapy; F43.10 Post-traumatic stress disorder, unspecified; Z78.1 Physical restraint status
CPT/HCPCS: 31500; 36415; 36430; 36556; 43239; 45378; 51701; 62270; 70450; 70551; 71045; 71046; 71250; 72125; 74018; 74176; 74177; 77003; 78278; 78306; 80048; 80053; 80178; 80307; 81001; 82040; 82140; 82306; 82330; 82397; 82550; 82607; 82746; 82784; 82803; 82945; 82962; 83735; 83883; 83921; 83970; 84100; 84157; 84166; 84260; 84439; 84443; 84484; 85025; 85027; 85610; 85730; 86320; 86701; 86850; 86900; 86901; 86920; 87040; 87070; 87077; 87186; 87205; 87529; 88305; 88342; 89050; 93005; 93010; 93306; 94002; 94003; 95819; 96361; 96374; 99232; 99285; 99291; A9560; A9561; C9113; J0171; J0330; J0360; J0610; J0630; J0692; J1200; J1610; J1642; J1644; J1650; J1953; J2060; J2250; J2310; J2405; J2704; J3010; J3370; J3411; J3475; J3480; J3489; J3490; J7030; J7040; J7050; J7060; J7120; P9016; Q9969; S0028